=== PATIENT | male | born 1985 | race Caucasian/White ===

== ENCOUNTER 2023-04-11 10:14 | Emergency (ER) | payer OTHER, SELFPAY ==
[2023-04-11 10:15] VITALS: BP 146/91; PULSE 91; RESP 18; TEMP 36.3; O2SAT 99; BMI 29.7
--- NOTE | 2023-04-11 10:20 | NURSING ---
NO OLD EKGS
--- NOTE | 2023-04-11 11:15 | ED.VIS.CHEST ---
HPI History of Present Illness Chief Complaint: Chest Pain Informant: patient Narrative Narrative: Patient presents with chest pain that began 4 days ago. Patient states it began rather suddenly while he was at work. Patient states he bent over and felt pain in his lower sternal area. Patient states it has been constant since that time but waxes and wanes. Patient states it is worse with bending forward and other movements. Patient describes the pain as sharp. Patient states it is better when he is able to rest and not move his chest. Patient admits to some increasing fatigue and decreased appetite. Patient admits to some shortness of breath and acid reflux symptoms. Patient denies any fevers or chills. CVD Risk Factors: Negative for Hypertension, Diabetes, Hypercholesterolemia, Family History 1' </=55 or Smoking PE Risk Factors: Negative for Recent Travel/Surgery, Recent Immobilization, Prior DVT or PE, Cancer or OCP + Smoking + >/=35 PFSH PFSH Medical History no medical history no medical history Home Medications No Known/Unobtainable [No Known Home Medications] 10/25/16 [History Last Taken Unknown] Allergy/AdvReac Type Severity Reaction Status Date / Time No Known Allergies Allergy Verified 04/11/23 10:14 Surgical History S/P ORIF (open reduction internal fixation) fracture Social History Smoking Status: Never smoker ROS ROS ED Constitutional Constitutional ED: Denies chills or fever(s) Eyes Eyes: Denies blurry vision or change in vision ENT ENT ED: Denies rhinorrhea or sore throat Cardiovascular Cardiovascular: Reports chest pain; Denies palpitations Respiratory/Chest Respiratory/Chest: Reports dyspnea; Denies cough Gastrointestinal Gastrointestinal: Denies nausea or vomiting Genitourinary Genitourinary ED: Denies dysuria or hematuria Musculoskeletal Musculoskeletal: Denies back pain or neck pain Integumentary Denies abscess or rash Neurologic Neurologic: Denies headache(s) or weakness Allergic/Immunologic Allergic/Immunologic ED: Denies mouth swelling or urticaria EXAM Physical Exam Const Vital Signs: 04/11/23 10:15 04/11/23 11:32 Temperature 97.3 F L Temperature Source Temporal Pulse Rate 91 Respiratory Rate 18 Respiratory Effort Normal Non-Labored Blood Pressure 146/91 H Blood Pressure Mean 109 Pulse Ox 99 Oxygen Delivery Method Room Air Positive well nourished and well developed General Appearance ED: well developed and NAD HEENT Reports moist mucous membranes Neck supple and no JVD Chest Wall Chest Narrative: There is tenderness over the lower sternum and xiphoid process. There is mild tenderness over the epigastric area as well. Resp normal respiratory effort and clear to auscultation bilaterally Cardio regular rate and regular rhythm GI soft to palpation and non-distended GI Narrative: There is mild tenderness over the right upper quadrant and epigastric area. There is no rebound or guarding noted. Extremity normal to inspection Neuro oriented x3, CN's II-XII intact bilaterally and no sensory deficits noted Sensorium / Orientation: awake and alert Motor Exam: strength 5/5 throughout Psych mental status grossly normal Heart Score History: Slightly/Non-Suspicious ECG: Normal Age: </= 45 years Risk Factors: 1 or 2 Risk Factors Score: 1 MDM MDM MDM Narrative Medical decision making narrative: Differential diagnosis includes cardiac dysrhythmia, cardiac ischemia, pneumonia, pneumothorax, musculoskeletal pain, cholecystitis, cholelithiasis, pancreatitis, GERD, and esophagitis. EKG will be obtained to assess for cardiac dysrhythmia and cardiac ischemia. Chest x-ray will be obtained to assess for pneumonia and pneumothorax. CBC will be obtained to assess for leukocytosis and anemia. Comprehensive metabolic profile will be obtained to assess for hepatic function, renal function, and electrolyte abnormality. Lipase will be obtained to assess for pancreatitis. High-sensitivity troponin will be obtained to assess for cardiac ischemia. COVID-19 rapid antigen will be obtained to assess for COVID-19 infection. Influenza A and influenza B antigens will be obtained to assess for influenza infection. Lab Data Attestation: I reviewed the patient's lab results. Lab results narrative: CBC was reviewed. White blood cell count was slightly low at 3.9. The remainder was within normal limits. Comprehensive metabolic profile was reviewed. Total bilirubin was 2.4, AST was 123, ALT was 476, and alkaline phosphatase was 184. Remainder was within normal limits. Lipase was reviewed and was normal at 54. COVID-19 rapid antigen was reviewed and was negative. Influenza A and influenza B antigens were reviewed and were negative. Labs: Laboratory Results - last 24 hr 04/11/23 10:35 WBC 3.9 L RBC 5.06 Hgb 15.0 Hct 45.2 MCV 89.3 MCH 29.6 MCHC 33.2 RDW Std Deviation 42.1 RDW Coeff of Valerie 12.8 Plt Count 209 MPV 10.9 Immature Gran % (Auto) 0.300 Neut % (Auto) 69.5 Lymph % (Auto) 21.5 [place] % (Auto) 7.4 Eos % (Auto) 0.8 Baso % (Auto) 0.5 Absolute Neuts (auto) 2.7 Absolute Lymphs (auto) 0.84 Nucleated RBC % 0 Sodium 139 Potassium 4.2 Chloride 106 Carbon Dioxide 27.0 Anion Gap 6 BUN 12 Creatinine 1.05 Estim Creat Clear Calc 117.36 Est GFR (MDRD) Af Amer 103 Est GFR (MDRD) Non-Af 85 BUN/Creatinine Ratio 11.4 Glucose 100 Calcium 9.2 Total Bilirubin 2.40 H AST 123 H ALT 476 H Alkaline Phosphatase 184 H Troponin I High Sens 6 Total Protein 7.2 Albumin 3.9 Globulin 3.3 Albumin/Globulin Ratio 1.2 Lipase 54 Radiography Chest X-Ray - ED: 2 View, Read by ED Physician, Read by Radiologist and No Acute Disease Diagnostic Testing: Clinical Impression(s) from Imaging Studies Chest X-Ray 04/11/23 11:25 IMPRESSION: Questionable focal lingular infiltrate. Electronically Signed: Michael Palomo MD at 12:08 EST , Gallbladder Ultrasound 04/11/23 12:21 IMPRESSION: Mild distention of the gallbladder with sludge seen within the gallbladder lumen. Mild hepatomegaly. Electronically Signed: Michael Palomo MD at 14:06 EST , PA and lateral chest x-ray was obtained. There are 2 views. On my independent interpretation, lung boo are clear. There is normal cardiac silhouette. Bony thorax is normal. There is no acute process noted. Radiologist also interpreted the x-ray and agrees. Because of the elevated bilirubin and liver enzymes, right upper quadrant ultrasound was obtained. There is mild distention of the gallbladder with sludge in the gallbladder lumen. There is mild hepatomegaly. There is no pericholecystic fluid. There is no gallbladder wall thickening. There is no ductal dilatation. This was interpreted by the radiologist and was also independently reviewed by myself. EKG Initial EKG: Attestation: I personally reviewed and interpreted this EKG as follows: Interpretation: Sinus Rhythm (79) and No Acute Injury Pattern Comments: EKG was obtained. On my independent interpretation, it showed a normal sinus rhythm with a rate of 79. CO interval, QRS interval, and QTc intervals were all normal. [place] was normal. There are no acute ST or T wave changes. Prior EKG tracings: not available for review Prior: No Prior Treatment and Re-Evaluation :: Patient was given aspirin here. Patient was feeling better on reevaluation. Patient was advised of his findings. Patient was instructed to take ibuprofen as needed for pain. Patient was instructed to follow-up with his primary care physician in 5 to 7 days for further evaluation. Patient was also given referral for general surgery. Patient understood and was agreeable with the plan. All questions were answered. Discharge Plan Triage Chief Complaint: Chest Pain ED Provider: Rickey Nair Dx/Rx/DC Orders Clinical Impression: Chest pain, Sludge in gallbladder Instructions: ED Abdominal Pain Gallstone Poss, ED Chest Pain, Uncertain Cause Prescriptions: No Action No Known Home Medications Primary Care Provider: Care Physician,No Primary Referrals: Tony Whitfield MD [Med Staff - Active Staff] - 5-7 Days Benson Desai DO [Med Staff - [employer] General Supervisor] - 5-7 Days Activity Restrictions/Additional Instructions: Try to avoid fried foods, fatty foods, and greasy foods as this may cause contraction of your gallbladder Disposition Disposition: Home, Self Care
--- NOTE | 2023-04-11 11:25 | RAD_ITS ---
STUDY: X-RAY CHEST REASON FOR EXAM: Male, 37 years old. Substernal chest pain and pressure. TECHNIQUE: PA and lateral views of the chest. COMPARISON: None. FINDINGS: EKG electrodes are seen. Questionable focal lingular infiltrate. There is no demonstrated pleural abnormality. Normal size heart. Normal mediastinum and ky. Normal visualized pulmonary arteries. Normal visualized aortic arch and descending thoracic aorta. Normal visualized thoracic spine. Normal visualized ribs, clavicles, and shoulders. There is no demonstrated abnormality of the visualized soft tissue structures of the upper abdomen. RAD/Chest PA and Lateral IMPRESSION: Questionable focal lingular infiltrate. Electronically Signed: Michael Palomo MD at 12:08 [facility] ,
[2023-04-11] MEDS: Aspirin 81 MG TAB.CHEW 324 MG PO (11:27)
[2023-04-11] MEDS: 0.9% Normal Saline (1000mL) 1,000 ML 1000 ML IV (11:27)
[2023-04-11 11:38] LABS: Absolute Lymphocyte Count 0.84 X10^3/uL (0.83-4.51); Absolute Neutrophil Count 2.7 X10^3/uL (2.0-7.7); Basophil# 0.02 X10^3/uL; Basophil% 0.5 % (0-1); Eosinophil# 0.03 X10^3/uL; Eosinophils% 0.8 % (0-5); Hematocrit 45.2 % (40-54); Lymphocyte # 0.84 X10^3/ul (0.83-4.51); Lymphocyte % 21.5 % (19-41); Mean Corp Hgb Conc 33.2 g/dL (32-36); Mean Corpuscular Hgb 29.6 pg (27.0-32.0); Mean Corpuscular Volume 89.3 fL (80-94); Mean Platelet Vol. 10.9 fl (6.2-12.0); Monocyte# 0.29 X10^3/uL; Monocyte% 7.4 % (0-10); NRBC Flagged by Analyzer 0 % (0-5); Neutrophil # 2.72 X10^3/uL (2.7-7.7); Neutrophil % 69.5 % (47-70); Platelet Count 209 K/mm3 (150-450); RBC Distribution Width CV 12.8 % (11.6-14.6); RBC Distribution Width SD 42.1 fl (35.1-43.9); Red Blood Count 5.06 M/mm3 (4.6-6.2); White Blood Count 3.9 K/mm3 (4.4-11.0)
[2023-04-11 11:52] LABS: ALB/GLOB Ratio 1.2 RATIO (0.9-2.4); AST(SGOT) 123 U/L (15-37); Alanine Aminotransfer ALT/SGPT 476 U/L (16-61); Albumin, Serum 3.9 g/dL (3.2-5.0); Alkaline Phosphatase 184 U/L (45-117); Anion Gap 6 (5-15); BUN 12 mg/dL (7-18); BUN/Creat Ratio 11.4 RATIO (10-20); Calcium,Total 9.2 mg/dL (8.5-10.1); Chloride 106 mmol/L (98-107); Creatinine, Serum 1.05 mg/dL (0.70-1.30); EST Glomerular Filtration Rate 85 mL/min (>60); Est Glom Filt Rate - Afr Amer 103 mL/min (>60); Estimated Creatinine Clearance 117.36 ml/min; Globulin 3.3 g/dL (2.2-4.2); Glucose 100 mg/dL (74-106); Lipase 54 U/L (13-75); Potassium 4.2 mmol/L (3.5-5.1); Protein, Total 7.2 g/dL (6.4-8.2); Sodium Level 139 mmol/L (136-145); Troponin-I HS 6 pg/mL (3.0-78.0)
--- NOTE | 2023-04-11 12:21 | US_ITS ---
STUDY: ABDOMINAL ULTRASOUND - RIGHT UPPER QUADRANT REASON FOR VISIT: Male, 37 years old. Right upper quadrant pain. TECHNIQUE: Ultrasound evaluation of the right upper quadrant was performed with real-time and static krishnamurthy-scale imaging. TECHNICAL QUALITY: Adequate. COMPARISON: None. FINDINGS: Liver: The liver is mildly enlarged and measures 18.4 cm. There is normal echogenicity of the liver. The bile ducts are within normal limits. There is hepatic color flow. The direction of portal flow is hepatopetal. There is no demonstrated mass lesion. Gallbladder: There is a mildly distended gallbladder. The gallbladder wall measures 3 mm. There is a negative sonographic Salgado''s sign. There is no pericholecystic fluid. There are no gallstones. Sludge is seen within the gallbladder lumen. Common Bile Duct (C.B.D.): The common bile duct measures 3 mm. Pancreas: Normal size of the head, body and tail of the pancreas. There is normal echogenicity of the pancreas. There is no demonstrated pancreatic mass or cyst. Right Kidney: Normal size of the right kidney. The right kidney measures 10.9 cm x 6.3 cm x 5.6 cm. Normal renal cortex. The right cortex measures 2.0 cm. There is no demonstrated renal mass or cyst. There is no right hydronephrosis. US/Gallbladder IMPRESSION: Mild distention of the gallbladder with sludge seen within the gallbladder lumen. Mild hepatomegaly. Electronically Signed: Michael Palomo MD at 14:06 EST ,
== END 2023-04-11 14:42 | disposition home or self-care (01) ==
PROVIDERS: Emergency Provider Emergency Medicine; Visit Provider Emergency Medicine
DX: R07.9 Chest pain, unspecified (principal); K83.8 Other specified diseases of biliary tract; R06.02 Shortness of breath
CPT/HCPCS: 71046; 76705; 80053; 83690; 84484; 85025; 87428; 93005; 96360; 99284; J7030; A4216

== ENCOUNTER 2023-04-17 11:17 | Inpatient (IN) | payer OTHER, SELFPAY ==
[2023-04-17 11:18] VITALS: BP 144/95; PULSE 89; RESP 16; TEMP 36.1; O2SAT 100; BMI 28.9
--- NOTE | 2023-04-17 11:29 | EX.ED.DYSGE1 ---
HPI <NE Rosas - Last Filed: 04/17/23 13:19> History of Present Illness Chief Complaint: Abd Pain Narrative Narrative: 37-year-old male was seen here a week ago for epigastric pain and diagnosed with gallbladder sludge. He was supposed to follow-up with the general surgeon on 04/22 but states about 2 days ago he started to become jaundiced and he continues to have epigastric pain. The pain is constant at a low level but waxes and wanes without a pattern. This morning he ate a banana which actually made him feel better. He has no nausea or vomiting. No fever or chills. He has noticed his urine looks darker and his stools are gee-colored. He has had no abdominal surgical history. He denies smoking or drinking alcohol frequently. PFSH <NE Rosas - Last Filed: 04/17/23 13:19> PFSH Home Medications No Known/Unobtainable [No Known Home Medications] 10/25/16 [History Last Taken Unknown] Allergy/AdvReac Type Severity Reaction Status Date / Time No Known Allergies Allergy Verified 04/11/23 10:14 Surgical History S/P ORIF (open reduction internal fixation) fracture Social History Smoking Status: Never smoker ROS <NE Rosas - Last Filed: 04/17/23 13:19> ROS ED ROS Narrative Constitutional: Negative for fever, chills, malaise. GI: Positive for abdominal pain. Negative for nausea, vomiting, diarrhea, constipation, melena, hematochezia. : Negative for dysuria, hematuria or frequency. Skin: Negative for rash. EXAM <NE Rosas - Last Filed: 04/17/23 13:19> Physical Exam Narrative Exam Narrative: CONST: Patient sitting in no acute distress. EYES: Scleral icterus. NECK: Normal inspection. RESP: No respiratory distress, CTAB. CVS: Regular rate and rhythm, no murmur, no gallop. ABD: Soft with RUQ and epigastric tenderness, negative Salgado sign, no guarding or rebound, nondistended, no hepatosplenomegaly. SKIN: Mildly jaundiced, no rash, warm, dry, intact. EXTREMITIES: Normal appearance, no pedal edema. NEURO: Oriented x4. PSYCH: Normal affect. Const Vital Signs: 04/17/23 11:18 Temperature 96.9 F L Temperature Source Temporal Pulse Rate 89 Respiratory Rate 16 Blood Pressure 144/95 H Blood Pressure Mean 111 Pulse Ox 100 Oxygen Delivery Method Room Air <Dr. Rickey Nair DO - Last Filed: 04/17/23 16:42> Physical Exam Const Vital Signs: 04/17/23 11:18 Temperature 96.9 F L Temperature Source Temporal Pulse Rate 89 Respiratory Rate 16 Blood Pressure 144/95 H Blood Pressure Mean 111 Pulse Ox 100 Oxygen Delivery Method Room Air MDM <NE Rosas - Last Filed: 04/17/23 13:19> MDM MDM Narrative Medical decision making narrative: History gathered from: Patient and family member Patient had an ultrasound a week ago showing gallbladder sludge and presents with persistent epigastric pain and new onset jaundice. He appears well and nontoxic and is afebrile with normal vital signs. He is tender in the RUQ and epigastrium but has no guarding or rebound and negative Salgado sign. Differential includes cholecystitis, choledocholithiasis, pancreatitis. White count is 6.2. Total bilirubin is significantly elevated at 7.1, AST 128, ALT 405, alk phos 271, lipase 12,333. CT shows finding of cholecystitis and intra and extrahepatic biliary dilation. Common bile duct is dilated over 10 mm. There are also has findings which may suggest acute pancreatitis. Patient was treated with IV Zosyn and I discussed the case with Dr. Watkins who admitted the patient and requested a gallbladder ultrasound which is pending. Consults: General surgery Lab Data Attestation: I reviewed the patient's lab results. Labs: Laboratory Results - last 24 hr 04/17/23 11:51 WBC 6.2 RBC 4.99 Hgb 14.5 Hct 45.3 MCV 90.8 MCH 29.1 MCHC 32.0 RDW Std Deviation 43.7 RDW Coeff of Valerie 13.0 Plt Count 226 MPV 10.6 Immature Gran % (Auto) 0.500 Neut % (Auto) 79.2 H Lymph % (Auto) 12.5 L [place] % (Auto) 7.0 Eos % (Auto) 0.5 Baso % (Auto) 0.3 Absolute Neuts (auto) 4.9 Absolute Lymphs (auto) 0.77 L Nucleated RBC % 0 Sodium 136 Potassium 4.1 Chloride 105 Carbon Dioxide 28.0 Anion Gap 3 L BUN 7 Creatinine 1.03 Estim Creat Clear Calc 119.64 Est GFR (MDRD) Af Amer 105 Est GFR (MDRD) Non-Af 87 BUN/Creatinine Ratio 6.8 L Glucose 135 H Calcium 9.1 Total Bilirubin 7.10 H Direct Bilirubin 5.05 H AST 128 H ALT 405 H Alkaline Phosphatase 271 H Total Protein 7.2 Albumin 3.8 Globulin 3.4 Lipase 54900 H Radiography Diagnostic Testing: Clinical Impression(s) from Imaging Studies Abdomen/Pelvis CT 04/17/23 11:35 IMPRESSION: Abnormal gallbladder with gallbladder wall thickening and pericholecystic edema. Additionally, there is intra and extrahepatic biliary dilatation suggesting cholecystitis. However, there is also evidence of peripancreatic free fluid so findings could be due to acute pancreatitis as well. Please correlate with lab results and physical findings. No phlegmon or abscess is noted. Surgical consultation recommended. No obstructive uropathy, normal appendix visualized Electronically Signed: Jose Bliss MD at 12:28 EST , Gallbladder Ultrasound 04/17/23 12:37 IMPRESSION: Distended gallbladder with gallbladder wall thickening, echogenic sludge, and biliary dilatation. A CT scan from earlier today also showed free fluid. Findings are suggestive of acute cholecystitis. Electronically Signed: Jose Bliss MD at 14:20 EST , <Dr. Rickey Nair, DO - Last Filed: 04/17/23 16:42> [facility] Lab Data Labs: Laboratory Results - last 24 hr 04/17/23 11:51 WBC 6.2 RBC 4.99 Hgb 14.5 Hct 45.3 MCV 90.8 MCH 29.1 MCHC 32.0 RDW Std Deviation 43.7 RDW Coeff of Valerie 13.0 Plt Count 226 MPV 10.6 Immature Gran % (Auto) 0.500 Neut % (Auto) 79.2 H Lymph % (Auto) 12.5 L [place] % (Auto) 7.0 Eos % (Auto) 0.5 Baso % (Auto) 0.3 Absolute Neuts (auto) 4.9 Absolute Lymphs (auto) 0.77 L Nucleated RBC % 0 Sodium 136 Potassium 4.1 Chloride 105 Carbon Dioxide 28.0 Anion Gap 3 L BUN 7 Creatinine 1.03 Estim Creat Clear Calc 119.64 Est GFR (MDRD) Af Amer 105 Est GFR (MDRD) Non-Af 87 BUN/Creatinine Ratio 6.8 L Glucose 135 H Calcium 9.1 Total Bilirubin 7.10 H Direct Bilirubin 5.05 H AST 128 H ALT 405 H Alkaline Phosphatase 271 H Total Protein 7.2 Albumin 3.8 Globulin 3.4 Lipase 01321 H Radiography Diagnostic Testing: Clinical Impression(s) from Imaging Studies Abdomen/Pelvis CT 04/17/23 11:35 IMPRESSION: Abnormal gallbladder with gallbladder wall thickening and pericholecystic edema. Additionally, there is intra and extrahepatic biliary dilatation suggesting cholecystitis. However, there is also evidence of peripancreatic free fluid so findings could be due to acute pancreatitis as well. Please correlate with lab results and physical findings. No phlegmon or abscess is noted. Surgical consultation recommended. No obstructive uropathy, normal appendix visualized Electronically Signed: Jose Bliss MD at 12:28 EST , Gallbladder Ultrasound 04/17/23 12:37 IMPRESSION: Distended gallbladder with gallbladder wall thickening, echogenic sludge, and biliary dilatation. A CT scan from earlier today also showed free fluid. Findings are suggestive of acute cholecystitis. Electronically Signed: Jose Bliss MD at 14:20 EST , Treatment and Re-Evaluation :: I have personally performed a face to face assessment of the patient and have reviewed the TRUDY Note. I performed a substantive portion of the visit including all aspects of the following. My dorsey findings include: History: Patient presents with abdominal pain that became worse over the past few days. Patient was seen here recently and was diagnosed with gallbladder sludge and transaminitis. Patient states he has not been able to follow-up with a surgeon yet. Patient states that he noted his urine becoming darker and his eyes were yellow. Patient states his pain is getting lower in his abdomen. Patient denies any worsening back pain. Patient denies any fevers or chills. Exam: Vital signs are stable. Patient is afebrile. Patient is in no acute distress. Oral mucosa is pink and moist. Neck is supple. Trachea is midline. There is no JVD. Pupils are equal, round, and reactive to light bilaterally. Extraocular muscles are intact. There is scleral icterus noted. Heart was regular rate and rhythm. Lungs are clear and equal bilaterally. Abdomen is soft. Bowel sounds are normal. There is some mild periumbilical tenderness. There is also epigastric and right upper quadrant tenderness. There is no rebound or guarding noted. Cranial nerves II through XII are intact. There are no focal motor or sensory deficits noted. Medical Decision Making: Differential diagnosis includes hepatitis, gallbladder obstruction, cholecystitis, cholelithiasis, bowel obstruction, perforation, and gastroenteritis. CT scan of the abdomen pelvis will be obtained to assess for bowel obstruction, perforation, cholecystitis, and cholelithiasis. CBC will be obtained to assess for leukocytosis and anemia. Basic metabolic profile will be obtained to assess for renal function and electrolyte abnormality. Hepatic profile will be obtained to assess for hepatic function. Lipase will be obtained to assess for pancreatitis. Patient was given IV fluids, morphine, and Zofran. CBC was reviewed and was within normal limits. Hepatic profile was reviewed. Total bilirubin was 7.1 and direct bilirubin was 5.05. AST was slightly elevated at 128, ALT was elevated at 405. Alkaline phosphatase was 271. [place] [address] scan of the abdomen pelvis was reviewed. There is gallbladder wall thickening and pericholecystic fluid. There is biliary ductal dilatation. There is peripancreatic fluid which could be consistent with pancreatitis. This was interpreted by the radiologist was also independently reviewed by myself. Case was discussed with Dr. Watkins from general surgery. He recommended obtaining a right upper quadrant ultrasound. Right upper quadrant ultrasound was obtained. There is a distended gallbladder with gallbladder wall thickening and sludge. There is biliary ductal dilatation. There are no calculi noted. This was interpreted by the radiologist was also independently reviewed by myself. Dr. Watkins was in to evaluate the patient and will admit the patient to his service. Patient and family understood and were agreeable with the plan. All questions were answered. Discharge Plan Dx/Rx/DC Orders Clinical Impression: Cholecystitis, Acute pancreatitis Disposition Disposition: Acute Care Hospital [facility] Discharge Date/Time: 04/17/23 15:18
--- NOTE | 2023-04-17 11:35 | CT_ITS ---
STUDY: CT ABDOMEN AND PELVIS WITH CONTRAST REASON FOR EXAM: Male, 37 years old. Jaundice, right upper quadrant pain RADIATION DOSAGE (If Supplied By Facility): CTDIvol = ( 12.7 ) mGy, DLP = ( 841.30 ) mGycm TECHNIQUE: Transaxial images were obtained from the dome of the diaphragm to the symphysis pubis without oral contrast. IV 100mL [id number]-[id number] was administered. Sagittal and coronal images were reconstructed. Individualized dose optimization techniques were used for this CT. COMPARISON: Ultrasound of the abdomen from 04/11/2023 gallbladder shows wall thickening and pericholecystic fluid FINDINGS: The visualized lung bases are unremarkable. The visualized portions of the heart are within normal limits. Mild fatty infiltration of the liver is noted with abnormal intrahepatic and extra biliary dilatation. Common bile duct is dilated to 1.04 cm proximally no obstructing stone is noted. A recent ultrasound showed echogenic sludge within the gallbladder. There is some subtle fluid around the periphery of the pancreas as well. Findings suggest cholecystitis but could be due to pancreatitis as well. There is no pancreatic ductal dilatation however. No pseudocyst or abscess is noted. Spleen is normal. Normal bilateral adrenal glands. Normal right kidney. Normal left kidney. Normal visualized stomach. Normal small intestine. Normal colon. The appendix is visualized and appears normal. Appendix seen on coronal reconstructed image 54 Normal abdominal aorta. Normal inferior vena cava. Normal retroperitoneum. Normal urinary bladder. Normal abdominal wall. Normal osseous structures. CT/Abdomen/Pelvis W IV Cont ONLY IMPRESSION: Abnormal gallbladder with gallbladder wall thickening and pericholecystic edema. Additionally, there is intra and extrahepatic biliary dilatation suggesting cholecystitis. However, there is also evidence of peripancreatic free fluid so findings could be due to acute pancreatitis as well. Please correlate with lab results and physical findings. No phlegmon or abscess is noted. Surgical consultation recommended. No obstructive uropathy, normal appendix visualized Electronically Signed: Jose Bliss MD at 12:28 EST ,
[2023-04-17] MEDS: Ondansetron 4 MG/2 ML Vial IV ×2 (11:45→20:33)
[2023-04-17] MEDS: 0.9% Normal Saline (1000mL) 1,000 ML 999 ML IV (11:45)
[2023-04-17] MEDS: Morphine 4 MG/ML Syringe IV (11:45)
[2023-04-17 11:58] LABS: Absolute Lymphocyte Count 0.77 X10^3/uL (0.83-4.51); Absolute Neutrophil Count 4.9 X10^3/uL (2.0-7.7); Basophil# 0.02 X10^3/uL; Basophil% 0.3 % (0-1); Eosinophil# 0.03 X10^3/uL; Eosinophils% 0.5 % (0-5); Hematocrit 45.3 % (40-54); Hemoglobin 14.5 g/dL (13.0-16.5); Lymphocyte # 0.77 X10^3/ul (0.83-4.51); Lymphocyte % 12.5 % (19-41); Mean Corpuscular Hgb 29.1 pg (27.0-32.0); Mean Corpuscular Volume 90.8 fL (80-94); Mean Platelet Vol. 10.6 fl (6.2-12.0); Monocyte# 0.43 X10^3/uL; NRBC Flagged by Analyzer 0 % (0-5); Neutrophil # 4.87 X10^3/uL (2.7-7.7); Neutrophil % 79.2 % (47-70); Platelet Count 226 K/mm3 (150-450); RBC Distribution Width SD 43.7 fl (35.1-43.9); Red Blood Count 4.99 M/mm3 (4.6-6.2); White Blood Count 6.2 K/mm3 (4.4-11.0)
[2023-04-17 12:17] LABS: AST(SGOT) 128 U/L (15-37); Alanine Aminotransfer ALT/SGPT 405 U/L (16-61); Albumin, Serum 3.8 g/dL (3.2-5.0); Alkaline Phosphatase 271 U/L (45-117); Bilirubin, Direct 5.05 mg/dL (0.00-0.30); Globulin 3.4 g/dL (2.2-4.2); Protein, Total 7.2 g/dL (6.4-8.2)
--- NOTE | 2023-04-17 12:37 | US_ITS ---
STUDY: ABDOMINAL ULTRASOUND - RIGHT UPPER QUADRANT REASON FOR VISIT: Male, 37 years old ruq pain TECHNIQUE: Ultrasound evaluation of the right upper quadrant was performed with real-time and static krishnamurthy-scale imaging. TECHNICAL QUALITY: Limited. Examination limited by bowel gas. COMPARISON: CT from earlier today FINDINGS: Liver: The liver measures 16.3 cm. There is normal echogenicity of the liver. The bile ducts are within normal limits. There is hepatic color flow. The direction of portal flow is hepatopetal. There is no demonstrated mass lesion. Gallbladder: There is a distended gallbladder. The gallbladder wall measures 6.2 mm. There is a negative sonographic Salgado''s sign. [address] Reporter notes no pericholecystic fluid but there was pericholecystic fluid present on a CT scan from earlier today There is biliary sludge dependent within the gallbladder. Common Bile Duct (C.B.D.): The common bile duct measures 10.8 mm. Pancreas: There is nonvisualization of the pancreas. Right Kidney: Normal size of the right kidney. The right kidney measures 11.2 x 5.5 x 4.5 cm. Normal renal cortex. The right cortex measures 1.3 cm. There is no demonstrated renal mass or cyst. There is no right hydronephrosis. US/Gallbladder IMPRESSION: Distended gallbladder with gallbladder wall thickening, echogenic sludge, and biliary dilatation. A CT scan from earlier today also showed free fluid. Findings are suggestive of acute cholecystitis. Electronically Signed: Jose Bliss MD at 14:20 EST ,
[2023-04-17 12:39] LABS: Anion Gap 3 (5-15); BUN 7 mg/dL (7-18); BUN/Creat Ratio 6.8 RATIO (10-20); Calcium,Total 9.1 mg/dL (8.5-10.1); Chloride 105 mmol/L (98-107); Creatinine, Serum 1.03 mg/dL (0.70-1.30); EST Glomerular Filtration Rate 87 mL/min (>60); Est Glom Filt Rate - Afr Amer 105 mL/min (>60); Estimated Creatinine Clearance 119.64 ml/min; Glucose 135 mg/dL (74-106); Lipase 12333 U/L (13-75); Potassium 4.1 mmol/L (3.5-5.1); Sodium Level 136 mmol/L (136-145)
[2023-04-17] MEDS: Piperacil/Tazobactam 3.375 GM in 0.9% Normal Saline (50mL MB+) 50 ML IV ×2 (13:05→20:33)
--- NOTE | 2023-04-17 13:26 | HP.PCM_ITS ---
HPI - General General Date of Admission: 04/17/23 Date of Service: 04/17/23 Chief Complaint: Progressive abdominal pain with associated nausea and jaundice HPI Narrative ANA LANE, is a 37 M who presents to [facility] with complaints of progressive abdominal pain, associated nausea, and the development of jaundice. He shares he was evaluated in our emergency department 6 days ago for pain that he perceived as being higher than his current pain. He shares that this pain never fully went away, but has now been joined by more abdominal pain (at 1 point patient tries to distinguish his former pain as occurring just behind his breastbone. He states that this latter pain began approximately 3 days ago and has been colicky in nature. Acknowledges some nausea and poor appetite but has not had any vomiting. He then states that he started with jaundice in the last day or two. Beyond the above he remarks that he has had some dark urine over the last couple of days and his past 2 stools have been light in character. Patient's ER workup is notable for CBC that shows normal white count but CMP that shows cholestatic pattern to patient's LFTs as well as hyperbilirubinemia with a T. bili of 7.1. Patient's lipase is greater than 12,000. CT imaging of the abdomen pelvis was performed showing gallbladder wall thickening, intra and extrahepatic biliary dilatation, and peripancreatic fluid. Patient has no significant past medical history and his only prior surgery was an ORIF to his left arm as a child. [facility] Home Medications No Known/Unobtainable [No Known Home Medications] 10/25/16 [History Last Taken Unknown] Allergy/AdvReac Type Severity Reaction Status Date / Time No Known Allergies Allergy Verified 04/11/23 10:14 Surgical History S/P ORIF (open reduction internal fixation) fracture Social History Smoking Status: Never smoker ROS Constitutional Constitutional: Reports chills Gastrointestinal Gastrointestinal: Reports abdominal pain, anorexia, change in stool character, nausea and other Details: Light stools ; Denies constipation or vomiting Genitourinary Genitourinary: Reports other Details: Dark urine noticed Vital Signs Vital Signs Vital Signs: 04/17/23 11:18 Temperature 96.9 F L Temperature Source Temporal Pulse Rate 89 Respiratory Rate 16 Blood Pressure 144/95 H Blood Pressure Mean 111 Pulse Ox 100 Oxygen Delivery Method Room Air Weight Weight: 231 lb 3.2 oz Body Mass Index (BMI) 28.9 Physical Exam Const alert and oriented x3 Constitutional Narrative: Jaundiced General Appearance: cooperative Eyes Eyes Narrative: Scleral icterus present Resp normal respiratory effort GI GI Narrative: Jaundice present across abdominal wall, nondistended, soft, tender to palpation in the epigastrium and right upper quadrant. Technically negative Salgado sign. Results Lab / Micro Data 04/17/23 11:51 04/17/23 11:51 Labs: Laboratory Results - last 24 hr 04/17/23 11:51: WBC 6.2, RBC 4.99, Hgb 14.5, Hct 45.3, MCV 90.8, MCH 29.1, MCHC 32.0, RDW Std Deviation 43.7, RDW Coeff of Valerie 13.0, Plt Count 226, MPV 10.6, Immature Gran % (Auto) 0.500, Neut % (Auto) 79.2 H, Lymph % (Auto) 12.5 L, [place] % (Auto) 7.0, Eos % (Auto) 0.5, Baso % (Auto) 0.3, Absolute Neuts (auto) 4.9, Absolute Lymphs (auto) 0.77 L, Nucleated RBC % 0, Sodium 136, Potassium 4.1, Chloride 105, Carbon Dioxide 28.0, Anion Gap 3 L, BUN 7, Creatinine 1.03, Estim Creat Clear Calc 119.64, Est GFR (MDRD) Af Amer 105, Est GFR (MDRD) Non-Af 87, BUN/Creatinine Ratio 6.8 L, Glucose 135 H, Calcium 9.1, Total Bilirubin 7.10 H, Direct Bilirubin 5.05 H, AST 128 H, ALT 405 H, Alkaline Phosphatase 271 H, Total Protein 7.2, Albumin 3.8, Globulin 3.4, Lipase 22126 H Imagaing Radiology Impression Abdomen/Pelvis CT 04/17/23 11:35 IMPRESSION: Abnormal gallbladder with gallbladder wall thickening and pericholecystic edema. Additionally, there is intra and extrahepatic biliary dilatation suggesting cholecystitis. However, there is also evidence of peripancreatic free fluid so findings could be due to acute pancreatitis as well. Please correlate with lab results and physical findings. No phlegmon or abscess is noted. Surgical consultation recommended. No obstructive uropathy, normal appendix visualized Electronically Signed: Jose Bliss MD at 12:28 EST , Assessment & Plan Assessment/Plan (1) Acute gallstone pancreatitis: (2) Cholecystitis: PLAN: Plan This is a 37-year-old male who presents with signs and symptoms of acute gallstone pancreatitis and acute cholecystitis. He shares a history of a prodromal period beginning proximately 1 week ago that has gradually int ensified. It has been in the last 24 to 48 hours that he is also developed some jaundice. He exhibits tenderness on exam consistent with these diagnoses. CT imaging of the abdomen pelvis was initially performed, but I have requested additional imaging with ultrasound to try to elicit any evidence of persistent choledocholithiasis. I held a detailed conversation with patient and his spouse?inclusive of hand drawings?in order to present the diagnoses and the relevant anatomy and physiology. I discussed the treatment of this condition as including probable ERCP followed by cholecystectomy once pancreatitis has improved. They expressed understanding of this information and are in agreement with proceeding with treatment as described. Prior to accepting patient for inpatient admission I did confirm with our research/program director, Dr. Thompson, that he has availability to see patient tomorrow for possible ERCP. A formal consultation has been extended as well. Neuro: As needed Dilaudid Pulm/CV: No current issues FEN/GI: Clear liquid diet then n.p.o. at midnight, trend abdominal exam and lipase, GI consult : No current issues Heme/ID: Trend CBC, will look to decrease hematocrit through aggressive resuscitation with IV fluid rate of 200 mL/h, empiric coverage with IV Zosyn Endo: No current issues Proph: SCDs Dispo: Admit to inpatient Charges/Coding Visit Charges Inpatient E&M: 80319 Subs Hosp L2
[2023-04-17] MEDS: HYDROmorphone 0.5 MG/0.5 ML SYRINGE IV ×2 (15:05→20:33)
[2023-04-17] MEDS: 0.9% Normal Saline (1000mL) 1,000 ML 200 ML IV ×2 (15:05→20:23)
[2023-04-17 15:11] VITALS: BP 132/76; PULSE 80; RESP 18; TEMP 36.8; O2SAT 100
[2023-04-17 15:33] VITALS: BMI 26.7
[2023-04-17 15:45] VITALS: BP 123/82; PULSE 78; RESP 16; TEMP 36.8; O2SAT 99
[2023-04-17 15:48] VITALS: BP 123/82; PULSE 78; RESP 16; TEMP 36.8; O2SAT 99
[2023-04-17] MEDS: 0.9% Saline Lock 10 ML Syringe IV (20:33)
[2023-04-17] MEDS: 0.9% Normal Saline (250mL Bag) 250 ML 15 ML IV (20:34)
[2023-04-17 20:50] VITALS: BP 120/76; PULSE 74; RESP 16; TEMP 37.2; O2SAT 99
--- NOTE | 2023-04-17 23:00 | CON.PCM.GI_ITS ---
HPI Consult Data Date of Consult: 04/17/23 HPI Narrative Reason for Consultation: Gallstone pancreatitis HPI Narrative: ANA LANE, is a 37 M who presents with intermittent epigastric pain and jaundice. He presented a week ago for epigastric pain and diagnosed with gallbladder sludge. He was supposed to follow-up with the general surgeon on 04/22 but states about 2 days ago he started to become jaundiced and he continues to have epigastric pain. The pain is constant at a low level but waxes and wanes without a pattern. This morning he ate a banana which actually made him feel better. He has no nausea or vomiting. No fever or chills. He has noticed his urine looks darker and his stools are gee-colored. He has had no abdominal surgical history. He denies smoking or drinking alcohol frequently. In the ED ED he was mildly hypertensive without tachycardia and afebrile. His CBC showed a white blood cell count of 6.2, hemoglobin of 14.5, hematocrit of 45, platelet count of 226. His bilirubin total was 7.1 with direct bilirubin being 5.05, AST of 128, ALT of 405 and he had a lipase of 12,333. CT scan of the abdomen pelvis displayed - mild fatty infiltration of the liver is noted with abnormal intrahepatic and extra biliary dilatation. Common bile duct is dilated to 1.04 cm proximally no obstructing stone is noted. A recent ultrasound showed echogenic sludge within the gallbladder. There is some subtle fluid around the periphery of the pancreas as well. Findings suggest cholecystitis but could be due to pancreatitis as well. There is no pancreatic ductal dilatation however. No pseudocyst or abscess is noted. I was consulted for therapeutic ERCP. [facility] Home Medications No Known/Unobtainable [No Known Home Medications] 10/25/16 [History Last Taken Unknown] Allergy/AdvReac Type Severity Reaction Status Date / Time No Known Allergies Allergy Verified 04/11/23 10:14 Surgical History S/P ORIF (open reduction internal fixation) fracture Social History Smoking Status: Never smoker ROS Constitutional Constitutional: Reports chills Gastrointestinal Gastrointestinal: Reports abdominal pain, anorexia, change in stool character, nausea and other Details: Light stools ; Denies constipation or vomiting Genitourinary Genitourinary: Reports other Details: Dark urine noticed Physical Exam Const alert and oriented x3 Constitutional Narrative: Jaundiced General Appearance: cooperative Eyes Eyes Narrative: Scleral icterus present Resp normal respiratory effort GI GI Narrative: Jaundice present across abdominal wall, nondistended, soft, tender to palpation in the epigastrium and right upper quadrant. Lab / Micro Data 04/18/23 04:33 04/18/23 04:33 Labs: Laboratory Results - last 24 hr 04/17/23 11:51: WBC 6.2, RBC 4.99, Hgb 14.5, Hct 45.3, MCV 90.8, MCH 29.1, MCHC 32.0, RDW Std Deviation 43.7, RDW Coeff of Valerie 13.0, Plt Count 226, MPV 10.6, Immature Gran % (Auto) 0.500, Neut % (Auto) 79.2 H, Lymph % (Auto) 12.5 L, Burke % (Auto) 7.0, Eos % (Auto) 0.5, Baso % (Auto) 0.3, Absolute Neuts (auto) 4.9, Absolute Lymphs (auto) 0.77 L, Nucleated RBC % 0, Sodium 136, Potassium 4.1, Chloride 105, Carbon Dioxide 28.0, Anion Gap 3 L, BUN 7, Creatinine 1.03, Estim Creat Clear Calc 119.64, Est GFR (MDRD) Af Amer 105, Est GFR (MDRD) Non-Af 87, BUN/Creatinine Ratio 6.8 L, Glucose 135 H, Calcium 9.1, Total Bilirubin 7.10 H, Direct Bilirubin 5.05 H, AST 128 H, ALT 405 H, Alkaline Phosphatase 271 H, Total Protein 7.2, Albumin 3.8, Globulin 3.4, Lipase 69493 H 04/18/23 04:33: WBC 4.4, RBC 4.25 L, Hgb 12.4 L, Hct 39.1 L, MCV 92.0, MCH 29.2, MCHC 31.7 L, RDW Std Deviation 45.3 H, RDW Coeff of Valerie 13.3, Plt Count 186, MPV 10.6, Immature Gran % (Auto) 0.200, Neut % (Auto) 61.9, Lymph % (Auto) 24.7, Burke % (Auto) 11.6 H, Eos % (Auto) 1.1, Baso % (Auto) 0.5, Absolute Neuts (auto) 2.7, Absolute Lymphs (auto) 1.08, Nucleated RBC % 0, Sodium 139, Potassium 4.2, Chloride 110 H, Carbon Dioxide 25.0, Anion Gap 4 L, BUN 7, Creatinine 0.94, Estim Creat Clear Calc 134.66, Est GFR (MDRD) Af Amer 117, Est GFR (MDRD) Non-Af 97, BUN/Creatinine Ratio 7.4 L, Glucose 85, Calcium 8.1 L, Total Bilirubin 4.30 H, AST 85 H, ALT 297 H, Alkaline Phosphatase 226 H, Total Protein 5.4 L, Albumin 2.9 L, Globulin 2.5, Albumin/Globulin Ratio 1.2, Lipase > 250 H Imagaing Radiology Impression Abdomen/Pelvis CT 04/17/23 11:35 IMPRESSION: Abnormal gallbladder with gallbladder wall thickening and pericholecystic edema. Additionally, there is intra and extrahepatic biliary dilatation suggesting cholecystitis. However, there is also evidence of peripancreatic free fluid so findings could be due to acute pancreatitis as well. Please correlate with lab results and physical findings. No phlegmon or abscess is noted. Surgical consultation recommended. No obstructive uropathy, normal appendix visualized Electronically Signed: Jose Bliss MD at 12:28 EST , Gallbladder Ultrasound 04/17/23 12:37 IMPRESSION: Distended gallbladder with gallbladder wall thickening, echogenic sludge, and biliary dilatation. A CT scan from earlier today also showed free fluid. Findings are suggestive of acute cholecystitis. Electronically Signed: Jose Bliss MD at 14:20 EST , Assessment & Plan Assessment/Plan (1) Acute gallstone pancreatitis: (2) Cholestatic hepatitis: (3) Jaundice: PLAN: Plan 37-year-old gentleman comes in with acute on chronic abdominal pain and discovered to be quite jaundice. He was also discovered to have cholestatic hepatitis and acute pancreatitis. The differential diagnosis does include choledocholithiasis, primary sclerosing giant, IgG associated cholangiopathy, acute pancreatitis. He should undergo ERCP with evaluation of his hepatobiliary system with stone removal and possible stent placement. He was explained alternatives, risk, benefits include not withstanding bleeding, infection, sepsis, perforation, need for emergent surgery . He was also explained the risk of post ERCP pancreatitis and agreed except those risks. He will have an ASA of 3 for the procedure. Charges/Coding Visit Charges Inpatient E&M: 10996 Init Hosp L3
[2023-04-18] VITALS (9 sets, daily range): BP systolic 111–134; BP diastolic 69–86; PULSE 69–95; RESP 16–18; TEMP 36.4–37.1; O2SAT 96–100; BMI 26.7
[2023-04-18] MEDS: 0.9% Normal Saline (1000mL) 1,000 ML 200 ML IV ×3 (01:13→13:16)
[2023-04-18 04:54] LABS: Absolute Lymphocyte Count 1.08 X10^3/uL (0.83-4.51); Absolute Neutrophil Count 2.7 X10^3/uL (2.0-7.7); Basophil# 0.02 X10^3/uL; Basophil% 0.5 % (0-1); Eosinophil# 0.05 X10^3/uL; Eosinophils% 1.1 % (0-5); Hematocrit 39.1 % (40-54); Hemoglobin 12.4 g/dL (13.0-16.5); Lymphocyte # 1.08 X10^3/ul (0.83-4.51); Lymphocyte % 24.7 % (19-41); Mean Corp Hgb Conc 31.7 g/dL (32-36); Mean Corpuscular Hgb 29.2 pg (27.0-32.0); Mean Platelet Vol. 10.6 fl (6.2-12.0); Monocyte# 0.51 X10^3/uL; Monocyte% 11.6 % (0-10); NRBC Flagged by Analyzer 0 % (0-5); Neutrophil # 2.71 X10^3/uL (2.7-7.7); Neutrophil % 61.9 % (47-70); Platelet Count 186 K/mm3 (150-450); RBC Distribution Width CV 13.3 % (11.6-14.6); RBC Distribution Width SD 45.3 fl (35.1-43.9); Red Blood Count 4.25 M/mm3 (4.6-6.2); White Blood Count 4.4 K/mm3 (4.4-11.0)
[2023-04-18] MEDS: Piperacil/Tazobactam 3.375 GM in 0.9% Normal Saline (50mL MB+) 50 ML IV ×3 (05:20→20:20)
[2023-04-18 05:34] LABS: ALB/GLOB Ratio 1.2 RATIO (0.9-2.4); AST(SGOT) 85 U/L (15-37); Alanine Aminotransfer ALT/SGPT 297 U/L (16-61); Albumin, Serum 2.9 g/dL (3.2-5.0); Alkaline Phosphatase 226 U/L (45-117); Anion Gap 4 (5-15); BUN 7 mg/dL (7-18); BUN/Creat Ratio 7.4 RATIO (10-20); Calcium,Total 8.1 mg/dL (8.5-10.1); Chloride 110 mmol/L (98-107); Creatinine, Serum 0.94 mg/dL (0.70-1.30); EST Glomerular Filtration Rate 97 mL/min (>60); Est Glom Filt Rate - Afr Amer 117 mL/min (>60); Estimated Creatinine Clearance 134.66 ml/min; Globulin 2.5 g/dL (2.2-4.2); Glucose 85 mg/dL (74-106); Lipase > 250 U/L (13-75); Potassium 4.2 mmol/L (3.5-5.1); Protein, Total 5.4 g/dL (6.4-8.2); Sodium Level 139 mmol/L (136-145)
[2023-04-18] MEDS: Pantoprazole Sodium 40 MG in 0.9% Normal Saline (100mL MB+) 100 ML 330 MG IV (09:23)
--- NOTE | 2023-04-18 09:53 | NURSING ---
pt to ERCP
--- NOTE | 2023-04-18 11:27 | PCM.PN.SRG ---
Subjective Subjective Patient seen and examined during AM rounds. He is found resting in bed. He states that he is feeling somewhat better this morning. He does confirm that he has been urinating frequently overnight. Objective Data Objective Data Vital Signs: Vital Signs Temp Pulse Resp BP Pulse Ox O2 Del Method 98.4 F 78 16 134/81 H 99 Room Air 04/18/23 08:30 04/18/23 08:30 04/18/23 08:30 04/18/23 08:30 04/18/23 08:30 04/18/23 08:30 Oxygen Delivery Method Room Air Weight: 220 lb Body Mass Index (BMI) 26.7 Intake & Output: Intake and Output for Last 24 Hours 04/16/23 04/17/23 04/18/23 23:59 23:59 23:59 Intake Total 2300 / 2300 2978.42 / 2978.42 Output Total 1200 / 1200 Balance 2300 / 2300 1778.42 / 1778.42 Lab / Micro Data 04/18/23 04:33 04/18/23 04:33 Labs: Laboratory Results - last 24 hr 04/17/23 11:51: WBC 6.2, RBC 4.99, Hgb 14.5, Hct 45.3, MCV 90.8, MCH 29.1, MCHC 32.0, RDW Std Deviation 43.7, RDW Coeff of Valerie 13.0, Plt Count 226, MPV 10.6, Immature Gran % (Auto) 0.500, Neut % (Auto) 79.2 H, Lymph % (Auto) 12.5 L, [place] % (Auto) 7.0, Eos % (Auto) 0.5, Baso % (Auto) 0.3, Absolute Neuts (auto) 4.9, Absolute Lymphs (auto) 0.77 L, Nucleated RBC % 0, Sodium 136, Potassium 4.1, Chloride 105, Carbon Dioxide 28.0, Anion Gap 3 L, BUN 7, Creatinine 1.03, Estim Creat Clear Calc 119.64, Est GFR (MDRD) Af Amer 105, Est GFR (MDRD) Non-Af 87, BUN/Creatinine Ratio 6.8 L, Glucose 135 H, Calcium 9.1, Total Bilirubin 7.10 H, Direct Bilirubin 5.05 H, AST 128 H, ALT 405 H, Alkaline Phosphatase 271 H, Total Protein 7.2, Albumin 3.8, Globulin 3.4, Lipase 39788 H 04/18/23 04:33: WBC 4.4, RBC 4.25 L, Hgb 12.4 L, Hct 39.1 L, MCV 92.0, MCH 29.2, MCHC 31.7 L, RDW Std Deviation 45.3 H, RDW Coeff of Valerie 13.3, Plt Count 186, MPV 10.6, Immature Gran % (Auto) 0.200, Neut % (Auto) 61.9, Lymph % (Auto) 24.7, [place] % (Auto) 11.6 H, Eos % (Auto) 1.1, Baso % (Auto) 0.5, Absolute Neuts (auto) 2.7, Absolute Lymphs (auto) 1.08, Nucleated RBC % 0, Sodium 139, Potassium 4.2, Chloride 110 H, Carbon Dioxide 25.0, Anion Gap 4 L, BUN 7, Creatinine 0.94, Estim Creat Clear Calc 134.66, Est GFR (MDRD) Af Amer 117, Est GFR (MDRD) Non-Af 97, BUN/Creatinine Ratio 7.4 L, Glucose 85, Calcium 8.1 L, Total Bilirubin 4.30 H, AST 85 H, ALT 297 H, Alkaline Phosphatase 226 H, Total Protein 5.4 L, Albumin 2.9 L, Globulin 2.5, Albumin/Globulin Ratio 1.2, Lipase > 250 H Radiography Diagnostic Testing: Radiology Impression Abdomen/Pelvis CT 04/17/23 11:35 IMPRESSION: Abnormal gallbladder with gallbladder wall thickening and pericholecystic edema. Additionally, there is intra and extrahepatic biliary dilatation suggesting cholecystitis. However, there is also evidence of peripancreatic free fluid so findings could be due to acute pancreatitis as well. Please correlate with lab results and physical findings. No phlegmon or abscess is noted. Surgical consultation recommended. No obstructive uropathy, normal appendix visualized Electronically Signed: Jose Bliss MD at 12:28 EST , Gallbladder Ultrasound 04/17/23 12:37 IMPRESSION: Distended gallbladder with gallbladder wall thickening, echogenic sludge, and biliary dilatation. A CT scan from earlier today also showed free fluid. Findings are suggestive of acute cholecystitis. Electronically Signed: Jose Bliss MD at 14:20 EST , Physical Exam Const oriented x3 and no apparent distress Resp normal respiratory effort GI GI Narrative: Nondistended, soft, mildly tender to palpation of the right upper quadrant which is improved over yesterday. Negative Salgado sign. Assessment & Plan Assessment/Plan (1) Acute gallstone pancreatitis: (2) Cholecystitis: PLAN: Plan This is a 37-year-old male who presents with signs and symptoms of acute gallstone pancreatitis and acute cholecystitis. He demonstrates some spontaneous improvement in his condition with aggressive fluid resuscitation. He is pending consultation with gastroenterology and likely ERCP. Fortunately there have already been some improvements also on his labs. Depending on operating room timing we will anticipate laparoscopic cholecystectomy with intraoperative cholangiogram either later today or tomorrow. This has been discussed with patient and he denies any further questions. Neuro: As needed Dilaudid Pulm/CV: No current issues FEN/GI: Clear liquid diet again following ERCP then n.p.o. at midnight, trend abdominal exam and lipase, GI consult : No current issues Heme/ID: Trend CBC, will look to decrease IV fluid rate to 125/h this afternoon, empiric coverage with IV Zosyn Endo: No current issues Proph: SCDs Dispo: Continue inpatient care Charges/Coding Visit Charges Inpatient E&M: 69821 Subs Hosp L2
--- NOTE | 2023-04-18 11:35 | RAD_ITS ---
STUDY: ERCP REASON FOR EXAM: Male, 37 years old. ERCP FLUOROSCOPY TIME (if supplied): ( 29 seconds ) minutes/seconds. 8.76 mGy TECHNIQUE: Fluoroscopic services provided for ERCP. COMPARISON: None. FINDINGS: Dilated Central intrahepatic biliary ducts. Biliary stent was placed. RAD/ERCP Biliary/Pancreas IMPRESSION: Biliary stent placement. Electronically Signed: Michael Palomo MD at 8:33 EST ,
--- NOTE | 2023-04-18 12:00 | OP.ERCP_ITS ---
Patient Name: Ulisses Wayne Procedure Date: 04/18/2023 11:08 AM Date of : 1985 Age: 37 Procedure: ERCP Indications: Jaundice, Elevated liver enzymes, Acute pancreatitis Providers: Geraldo Thompson DO Medicines: General Anesthesia Patient Profile: This is a 37 year old male. Refer to note in patient chart for documentation of history and physical. Patient has symptoms of acute epigastric abdominal pain and acute jaundice. This patient has no history of previous ERCP. Complications: No immediate complications. Procedure: Pre-Anesthesia Assessment: - Prior to the procedure, a History and Physical was performed, and patient medications and allergies were reviewed. The risks and benefits of the procedure and the sedation options and risks were discussed with the patient. All questions were answered and informed consent was obtained. Patient identification and proposed procedure were verified by the physician in the pre-procedure area. Mental Status Examination: alert and oriented. Airway Examination: normal oropharyngeal airway and neck mobility. Respiratory Examination: clear to auscultation. CV Examination: normal. Prophylactic Antibiotics: The patient does not require prophylactic antibiotics. Prior Anticoagulants: The patient has taken no anticoagulant or antiplatelet agents. ASA Grade Assessment: II - A patient with mild systemic disease. After reviewing the risks and benefits, the patient was deemed in satisfactory condition to undergo the procedure. The anesthesia plan was to use general anesthesia. Immediately prior to administration of medications, the patient was re-assessed for adequacy to receive sedatives. The heart rate, respiratory rate, oxygen saturations, blood pressure, adequacy of pulmonary ventilation, and response to care were monitored throughout the procedure. The physical status of the patient was re-assessed after the procedure. After obtaining informed consent, the scope was passed under direct vision. Throughout the procedure, the patient's blood pressure, pulse, and oxygen saturations were monitored continuously. The Duodenoscope was introduced through the mouth, and advanced to the duodenum and used to inject contrast into the bile duct. The ERCP was accomplished without difficulty. The patient tolerated the procedure well. Scope In: 11:34:11 AM Scope Out: 11:47:15 AM Total Procedure Duration Time 0 hours 13 minutes 4 seconds Findings: The crane operator film was normal. The esophagus was successfully intubated under direct vision. The scope was advanced to a normal major papilla in the descending duodenum without detailed examination of the pharynx, larynx and associated structures, and upper GI tract. The upper GI tract was grossly normal. A straight Roadrunner wire was passed into the biliary tree. The short-nosed traction sphincterotome was passed over the guidewire and the bile duct was then deeply cannulated. Contrast was injected. I personally interpreted the bile duct images. There was brisk flow of contrast through the ducts. Image quality was excellent. Contrast extended to the entire biliary tree. The biliary orifice was stenotic. This appeared benign. The lower third of the main bile duct contained one stone, which was 2 mm in diameter. The entire biliary tree except for the cystic duct and gallbladder were moderately dilated and diffusely dilated, with a stone causing an obstruction. The largest diameter was 10 mm. A 5 mm biliary sphincterotomy was made with a braided traction (standard) sphincterotome using ERBE electrocautery. There was no post-sphincterotomy bleeding. To discover objects, the biliary tree was swept with a 12 mm balloon starting at the bifurcation. Sludge was swept from the duct. All stones were removed. One 10 Fr by 5 cm temporary stent was placed 5 cm into the common bile duct. Bile flowed through the stent. The stent was in good position. Impression: - Biliary papillary stenosis, benign. - The biliary system were moderately dilated, with a stone causing an obstruction. - Choledocholithiasis was found. Complete removal was accomplished by biliary sphincterotomy and balloon extraction. - A biliary sphincterotomy was performed. - The biliary tree was swept. - One temporary stent was placed into the common bile duct. Procedure Code(s): --- Professional --- 67639, Endoscopic retrograde cholangiopancreatography (ERCP); with placement of endoscopic stent into biliary or pancreatic duct, including pre- and post-dilation and guide wire passage, when performed, including sphincterotomy, when performed, each stent 69512, Endoscopic retrograde cholangiopancreatography (ERCP); with removal of calculi/debris from biliary/pancreatic duct(s) 04949, 26, Endoscopic catheterization of the biliary ductal system, radiological supervision and interpretation CPT copyright 2021 [employer]. All rights reserved. The codes documented in this report are preliminary and upon interactive marketing strategist review may be revised to meet current compliance requirements. Geraldo Thompson DO 04/18/2023 12:00:30 PM This report has been signed electronically. Number of Addenda: 0 Note Initiated On: 04/18/2023 11:08 AM
--- NOTE | 2023-04-18 12:01 | OP.CCLET_ITS ---
04/18/2023 No Primary Care Physician Re : ERCP procedure for Ulisses Wayne Dear Care Physician This procedure was performed on Tuesday, April 18, 2023. My impressions and recommendations are as follows: Impressions : - Biliary papillary stenosis, benign. - The biliary system were moderately dilated, with a stone causing an obstruction. - Choledocholithiasis was found. Complete removal was accomplished by biliary sphincterotomy and balloon extraction. - A biliary sphincterotomy was performed. - The biliary tree was swept. - One temporary stent was placed into the common bile duct. Recommendations : My findings are described in the full procedure note, which is enclosed. If I can be of further assistance, please feel free to contact me at . Sincerely, Geraldo Thompson, 04/18/2023 12:00:30 PM This report has been signed electronically.
--- NOTE | 2023-04-18 12:54 | EKG12_ITS ---
Test Reason : PRE OP Blood Pressure : / mmHG Vent. Rate : 081 BPM Atrial Rate : 081 BPM P-R Int : 166 ms QRS Dur : 092 ms QT Int : 348 ms P-R-T Axes : 054 023 034 degrees QTc Int : 404 ms Normal sinus rhythm Normal ECG No previous ECGs available Confirmed by CAMERON MCINTYRE, DOT ([id number]), editor farm journal JARRET FLOWERS ([id number]) on 04/25/2023 1:00:43 P M Referred By: LUIS Confirmed By:RYANNE BARNES MD
--- NOTE | 2023-04-18 14:25 | CASEMGMT ---
RAAD JOSHUA Assessment: Face to Face with pt for initial transition planning/care coordination assessment. RN TRES introduced self and role at [facility], pt voices understanding and consents to assessment. Pt is A&O x4 and answers all questions appropriately at this time. Pt sitting up in bed with at bedside. Care providers, pharmacy, and demographics verified/updated. Admitting Dx: gallstone pancreatitis PCP:Pt is scheduled to see on Tuesday to establish PCP. Pt will call tomorrow if he is not dc'd to reschedule. Specialists:Denies Preferred Pharmacy:[facility] Insurance: MMO Prescription Benefit: yes LNOK: Verónica Wayne, Living Arrangements: Pt lives with and 2 children in a two story home with 9 steps to enter with a rail. Pt reports he is I in ADL's and denies concerns at home. Transportation: Pt drives self and denies concerns with transportation. DME:none HHC/SNF:denies hx of Pt states no concerns with going home at time of dc. Pt states no further concerns/needs. CM to follow. Advised pt to ask CM if any further question/concerns/needs arise, voices understanding. Pt Goal: Home Plan: Home
--- NOTE | 2023-04-18 15:36 | CHAPLAIN ---
Type of Pastoral Visit _x__ Initial Visit ___ Follow-up Visit ___ On-call Visit ___ General Patient Visit ___ Spiritual Assessment ___ Family Conference ___ Bereavement ___ Rapid Response ___ Code Blue ___ Other (describe below) Pastoral Care Referral From _x__ Patient ___ Family ___ Nurse ___ Physician ___ Whiting Can Worker ___ Director Airport ___ Other (describe below) Sacrament/Intervention _x__ Active listening ___ Anointing ___ Evangelical ___ Bereavement ___ Communion ___ Karen exploration ___ _x__ Life review _x__ Prayer ___ Reconciliation ___ Sacrament of Sick _x__ Supportive presence ___ Wedding ___ Other (describe below) Pastoral Comments patient reports feeling better now that procedure is over; pt is to have surgery tomorrow and is looking forward to having issue resolved and returning home; pt has had family here in support and his currently is in the room; pt welcomes offer of presence and prayer; no other needs at this time
[2023-04-18] MEDS: 0.9% Normal Saline (1000mL) 1,000 ML 125 ML IV (20:20)
[2023-04-19] VITALS (8 sets, daily range): BP systolic 120–140; BP diastolic 70–86; PULSE 57–83; RESP 16–18; TEMP 36.2–37; O2SAT 98–100
[2023-04-19] MEDS: 0.9% Normal Saline (1000mL) 1,000 ML 125 ML IV ×2 (03:15→15:26)
[2023-04-19] MEDS: Piperacil/Tazobactam 3.375 GM in 0.9% Normal Saline (50mL MB+) 50 ML IV ×2 (05:01→14:42)
[2023-04-19 06:19] LABS: Absolute Lymphocyte Count 1.21 X10^3/uL (0.83-4.51); Absolute Neutrophil Count 5.5 X10^3/uL (2.0-7.7); Basophil# 0.01 X10^3/uL; Basophil% 0.1 % (0-1); Eosinophil# 0.01 X10^3/uL; Eosinophils% 0.1 % (0-5); Hematocrit 38.8 % (40-54); Hemoglobin 12.6 g/dL (13.0-16.5); Lymphocyte # 1.21 X10^3/ul (0.83-4.51); Lymphocyte % 16.5 % (19-41); Mean Corp Hgb Conc 32.5 g/dL (32-36); Mean Corpuscular Hgb 29.2 pg (27.0-32.0); Mean Corpuscular Volume 89.8 fL (80-94); Mean Platelet Vol. 10.3 fl (6.2-12.0); Monocyte# 0.53 X10^3/uL; Monocyte% 7.2 % (0-10); NRBC Flagged by Analyzer 0 % (0-5); Neutrophil # 5.53 X10^3/uL (2.7-7.7); Neutrophil % 75.6 % (47-70); Platelet Count 184 K/mm3 (150-450); RBC Distribution Width CV 12.8 % (11.6-14.6); RBC Distribution Width SD 42.4 fl (35.1-43.9); Red Blood Count 4.32 M/mm3 (4.6-6.2); White Blood Count 7.3 K/mm3 (4.4-11.0)
[2023-04-19 06:48] LABS: AST(SGOT) 75 U/L (15-37); Alanine Aminotransfer ALT/SGPT 280 U/L (16-61); Albumin, Serum 2.8 g/dL (3.2-5.0); Alkaline Phosphatase 224 U/L (45-117); Anion Gap 4 (5-15); BUN 6 mg/dL (7-18); BUN/Creat Ratio 7.5 RATIO (10-20); Calcium,Total 8.4 mg/dL (8.5-10.1); Chloride 109 mmol/L (98-107); EST Glomerular Filtration Rate 116 mL/min (>60); Est Glom Filt Rate - Afr Amer 141 mL/min (>60); Estimated Creatinine Clearance 158.23 ml/min; Globulin 2.8 g/dL (2.2-4.2); Glucose 103 mg/dL (74-106); Lipase 171 U/L (13-75); Potassium 4.2 mmol/L (3.5-5.1); Protein, Total 5.6 g/dL (6.4-8.2); Sodium Level 139 mmol/L (136-145)
--- NOTE | 2023-04-19 07:00 | PN.GI_ITS ---
Subjective Subjective Patient underwent ERCP yesterday for obstructive jaundice secondary to choledocholithiasis resulting in pancreatitis from his choledocholithiasis. He is doing very well. He is scheduled for cholecystectomy today. Objective Data Objective Data Vital Signs: Vital Signs Temp Pulse Resp BP Pulse Ox O2 Del Method 98.2 F 61 18 140/85 H 99 Room Air 04/19/23 16:35 04/19/23 16:35 04/19/23 16:35 04/19/23 16:35 04/19/23 16:35 04/19/23 16:35 Oxygen Delivery Method Room Air Weight: 220 lb Body Mass Index (BMI) 26.7 Intake & Output: Intake and Output for Last 24 Hours 04/17/23 04/18/23 04/19/23 23:59 23:59 23:59 Intake Total 2300 / 2300 4521.75 / 4521.75 2209.21 / 2209.21 Output Total 5025 / 5025 2200 / 2200 Balance 2300 / 2300 -503.25 / -503.25 9.21 / 9.21 Lab / Micro Data 04/19/23 06:05 04/19/23 06:05 Labs: Laboratory Results - last 24 hr 04/19/23 06:05: WBC 7.3, RBC 4.32 L, Hgb 12.6 L, Hct 38.8 L, MCV 89.8, MCH 29.2, MCHC 32.5, RDW Std Deviation 42.4, RDW Coeff of Valerie 12.8, Plt Count 184, MPV 10.3, Immature Gran % (Auto) 0.500, Neut % (Auto) 75.6 H, Lymph % (Auto) 16.5 L, Mcclain % (Auto) 7.2, Eos % (Auto) 0.1, Baso % (Auto) 0.1, Absolute Neuts (auto) 5.5, Absolute Lymphs (auto) 1.21, Nucleated RBC % 0, Sodium 139, Potassium 4.2, Chloride 109 H, Carbon Dioxide 26.0, Anion Gap 4 L, BUN 6 L, Creatinine 0.80, Estim Creat Clear Calc 158.23, Est GFR (MDRD) Af Amer 141, Est GFR (MDRD) Non-Af 116, BUN/Creatinine Ratio 7.5 L, Glucose 103, Calcium 8.4 L, Total Bilirubin 2.80 H, AST 75 H, ALT 280 H, Alkaline Phosphatase 224 H, Total Protein 5.6 L, Albumin 2.8 L, Globulin 2.8, Albumin/Globulin Ratio 1.0, Lipase 171 H Radiography Diagnostic Testing: Radiology Impression Endo Retro Cholangiopancreatogram 04/18/23 11:35 IMPRESSION: Biliary stent placement. Electronically Signed: Michael Palomo MD at 8:33 EST , Cholangiogram 04/19/23 12:28 IMPRESSION: Tiny filling defects are seen in the proximal portion of the common bile duct. A biliary stent is in situ. Electronically Signed: Michael Palomo MD at 14:28 EST , Physical Exam Const oriented x3 and no apparent distress Resp normal respiratory effort GI GI Narrative: Nondistended, soft, mild tenderness with palpation of the right upper quadrant and epigastrium. Negative Salgado sign Assessment & Plan Assessment/Plan (1) Cholestatic hepatitis: (2) Acute gallstone pancreatitis: (3) Acute pancreatitis: QUALIFIERS: Pancreatitis type: biliary Acute pancreatitis complication: no infection or necrosis Qualified Code(s): K85.10 - Biliary acute pancreatitis without necrosis or infection (4) Jaundice: PLAN: Plan 37-year-old gentleman who comes in with abdominal pain and discovered to have obstructive jaundice and pancreatitis secondary to choledocholithiasis. He underwent ERCP with stone removal and stent placement. He is scheduled to undergo cholecystectomy today. He is doing well from a pain standpoint. He is on normal saline at 200 mL an hour. I recommend continue n.p.o. status and 200 mL of normal saline per hour. Charges/Coding Visit Charges Inpatient E&M: 77441 Subs Hosp L3
--- NOTE | 2023-04-19 07:51 | PN.SURG_ITS ---
Subjective Subjective Patient seen and examined during AM rounds. He is found getting out of bed for the day. He reports that his abdominal discomfort is significantly improved. He also shares that he believes this pain has been ongoing for longer than initially recognized. Objective Data Objective Data Vital Signs: Vital Signs Temp Pulse Resp BP Pulse Ox O2 Del Method 98.6 F 63 16 120/70 100 Room Air 04/19/23 03:37 04/19/23 03:37 04/19/23 03:37 04/19/23 03:37 04/19/23 03:37 04/19/23 03:37 Oxygen Delivery Method Room Air Weight: 220 lb Body Mass Index (BMI) 26.7 Intake & Output: Intake and Output for Last 24 Hours 04/17/23 04/18/23 04/19/23 23:59 23:59 23:59 Intake Total 2300 / 2300 4521.75 / 4521.75 984.83 / 984.83 Output Total 5025 / 5025 1200 / 1200 Balance 2300 / 2300 -503.25 / -503.25 -215.17 / -215.17 Lab / Micro Data 04/19/23 06:05 04/19/23 06:05 Labs: Laboratory Results - last 24 hr 04/19/23 06:05: WBC 7.3, RBC 4.32 L, Hgb 12.6 L, Hct 38.8 L, MCV 89.8, MCH 29.2, MCHC 32.5, RDW Std Deviation 42.4, RDW Coeff of Valerie 12.8, Plt Count 184, MPV 10.3, Immature Gran % (Auto) 0.500, Neut % (Auto) 75.6 H, Lymph % (Auto) 16.5 L, [place] % (Auto) 7.2, Eos % (Auto) 0.1, Baso % (Auto) 0.1, Absolute Neuts (auto) 5.5, Absolute Lymphs (auto) 1.21, Nucleated RBC % 0, Sodium 139, Potassium 4.2, Chloride 109 H, Carbon Dioxide 26.0, Anion Gap 4 L, BUN 6 L, Creatinine 0.80, Estim Creat Clear Calc 158.23, Est GFR (MDRD) Af Amer 141, Est GFR (MDRD) Non-Af 116, BUN/Creatinine Ratio 7.5 L, Glucose 103, Calcium 8.4 L, Total Bilirubin 2.80 H, AST 75 H, ALT 280 H, Alkaline Phosphatase 224 H, Total Protein 5.6 L, Albumin 2.8 L, Globulin 2.8, Albumin/Globulin Ratio 1.0, Lipase 171 H Physical Exam Const oriented x3 and no apparent distress Resp normal respiratory effort GI GI Narrative: Nondistended, soft, mild tenderness with palpation of the right upper quadrant and epigastrium. Negative Salgado sign Assessment & Plan Assessment/Plan (1) Acute gallstone pancreatitis: (2) Cholecystitis: PLAN: Plan This is a 37-year-old male who presents with signs and symptoms of acute gallstone pancreatitis and acute cholecystitis. He demonstrates further spontaneous improvement in his condition now following ERCP yesterday. As expected, this is also translated to significant improvement in his laboratorie s. With these clinical improvements and clearance of his common duct, we are planning to go to the operating room today for laparoscopic cholecystectomy with intraoperative cholangiogram. Neuro: As needed Dilaudid Pulm/CV: No current issues FEN/GI: Continue n.p.o. status, proceed for lap munir with IOC today, trend abdominal exam and lipase, GI consult : No current issues Heme/ID: Trend CBC, IV fluid rate to 125/h, empiric coverage with IV Zosyn Endo: No current issues Proph: SCDs Dispo: Continue inpatient care Charges/Coding Visit Charges Inpatient E&M: 02971 Subs Hosp L2
[2023-04-19] MEDS: Pantoprazole Sodium 40 MG in 0.9% Normal Saline (100mL MB+) 100 ML 330 MG IV (09:15)
--- NOTE | 2023-04-19 12:00 | GALL_PTH ---
PATIENT: ANA LANE LOC: MS3 U#:[id number] AGE/SX: 37/M ROOM: NV312 RE04/17/[address]: Dr. Arie Watkins MD : 1985 BED: 1 DIS: 04/19/2023 SPEC #: [id number] RECD: 04/20/23 07:51 STATUS: PELON DWYER #: [id number] YAN: 04/19/23 12:[address]: Arie Watkins DEPT: SURGICAL PATHOLOGY RECD BY: Marla Rich ENTERED: 04/20/23 07:51 SP TYPE: ISIDRO MAYER DR: No Primary Care Phys Tissues: Gallbladder, NOS Procedures: Surgery Specimen Level III HEADER OPERATION: Laparoscopic cholecystectomy with IOC PRE-OP DIAGNOSIS: Acute gallstone pancreatitis, cholecystitis TISSUE SUBMITTED: Gallbladder MICROSCOPIC DIAGNOSIS Gallbladder, cholecystectomy: Cholesterolosis, chronic cholecystitis and sludge. AM:michelle 04/21/2023 MICROSCOPIC DESCRIPTION Slides are reviewed. GROSS DESCRIPTION Received is one container labeled with the patient's name and designated gallbladder. The specimen consists of a gallbladder measuring 11.5 cm in length and up to 3.5 cm in diameter. The external surface is pink-gee, smooth and glistening for the most part. Focally it is granular, hemorrhagic and contains cautery artifact. The gallbladder contains green-yellow mucoid bile, No obvious stone is identified. A small amount of sludge material is noted. The mucosa also shows several yellowish streaks consistent with cholesterolosis. The gallbladder wall measures up to 0.2 cm in thickness. Wood Cutter sections from the gallbladder and the cystic duct are submitted in one cassette. / SJ:michelle 04/20/2023 TC:3 [facility]: [id number]
--- NOTE | 2023-04-19 12:03 | CHAPLAIN ---
Type of Pastoral Visit ___ Initial Visit ___ Follow-up Visit ___ On-call Visit _x__ General Patient Visit ___ Spiritual Assessment ___ Family Conference ___ Bereavement ___ Rapid Response ___ Code Blue ___ Other (describe below) Pastoral Care Referral From _x__ Patient ___ Family ___ Nurse ___ Physician ___ Mold Closer Helper ___ Clay Temperer ___ Other (describe below) Sacrament/Intervention ___ Active listening ___ Anointing ___ Jehovah'S Witness ___ Bereavement ___ Communion ___ Karen exploration ___ ___ Life review _x__ Prayer ___ Reconciliation ___ Sacrament of Sick _x__ Supportive presence ___ Wedding ___ Other (describe below) Pastoral Comments preop prayer as pt is ready for surgery; spouse is with him; offer of ongoing support
--- NOTE | 2023-04-19 12:28 | RAD_ITS ---
STUDY: INTRAOPERATIVE CHOLANGIOGRAM. REASON FOR EXAM: Male, 37 years old. LAP SUZANNE WITH IOC FLUOROSCOPY TIME (if supplied): ( 17 seconds ) minutes/seconds. 7.71 mGy TECHNIQUE: An intraoperative cholangiogram was performed by the surgeon. Imaging was submitted. COMPARISON: None. FINDINGS: A common bile duct stent is seen. Small filling defects are seen in the proximal portion of the common bile duct. This may represent tiny calculi. RAD/Cholangiogram/ O R,Initial IMPRESSION: Tiny filling defects are seen in the proximal portion of the common bile duct. A biliary stent is in situ. Electronically Signed: Michael Palomo MD at 14:28 EST ,
[2023-04-19] MEDS: Bupivacaine Mpf 0.5% 30 ML VIAL (13:37)
--- NOTE | 2023-04-19 13:39 | OP.PCM_ITS ---
Report of Operation Date of Procedure: 04/19/23 Pre-Operative Diagnosis: 1. Gallstone pancreatitis 2. Choledocholithiasis 3. Acute cholecystitis Post-Operative Diagnosis: Same Surgery/Procedure Performed:: Laparoscopic cholecystectomy with intraoperative cholangiogram Description of Surgical Findings:: ? Moderate to severely edematous gallbladder with normal gallbladder anatomy and single anterior cystic artery ? Normal intraoperative cholangiogram showing common bile duct stent is patent`` Surgeon: Arie Watkins storage management consultant: Tony Odom Type of Anesthesia: General/Supplemental Anesthesiologist: Rickey Hernandes Specimen's removed: Gallbladder Estimated Blood Loss (mL): 20 Description of Procedure: After proper identification in the preoperative holding area the patient was brought to the operating room where he was positioned supine on the operating room table. Preoperatively scrubbed SCDs were placed and antibiotics were administered (patient was administered an interval dose of 2 g Ancef given that he was with an the latter half of his interval for his continuous antibiotic order. General anesthesia was then induced. Patient's abdomen was prepped and draped in usual sterile fashion. A formal timeout was conducted to confirm both patient and the procedure. Procedure was begun with a supraumbilical incision which was extended deeply down to the level of the fascia. The fascia was elevated and incised, as well as the peritoneum. A finger sweep was performed to ensure there were no underlying adhesions and a 12 mm balloon trocar was inserted. Pneumoperitoneum was established at 15 mmHg. Additional trocars were placed in the epigastrium (5 mm) and in the right upper quadrant (2 x 5 mm). Inspection of the peritoneum revealed no inadvertent injury to the viscera below. The gallbladder was visualized with moderate to severe inflammation that appeared acute in nature. The gallbladder fundus was then grasped and elevated cephalad. Then, using careful dissection the peritoneum was opened and the structures of the hepatocystic triangle were delineated. Once the critical view of safety was obtained, the cystic duct was singly clipped and partially divided with a ductotomy. The proximal duct was milked of any debris Using an Rodríguez Cosby clamp, a cholangiocatheter was fed into the proximal segment of the cystic duct and clamped into place. Under fluoroscopy a cholangiogram was then obtained showing a standard length cystic duct flowing into a common bile duct with unobstructed antegrade flow of contrast into the duodenum via a common bile duct stent. There was also retrograde flow through the common hepatic duct into the right and left hepatic ducts. Satisfied with this result, the cholangiocatheter was withdrawn and the proximal cystic duct was sealed with 3 clips and the cystic duct was completely transected. The same process was used for the cystic artery. The gallbladder was then removed from the gallbladder fossa with the use of electrocautery. Selective electrocautery was used to obtain hemostasis in the gallbladder fossa. The gallbladder was placed in an Endo Catch bag and removed from the peritoneum. Morison's pouch was irrigated and the effluent was suctioned free of the peritoneum. Hemostasis was again confirmed. Pneumoperitoneum was evacuated and the fascia of the 12 mm port sites was closed with #1Vicryl in a [id number] fashion. A total of 30 mL of anesthetic was injected at the port sites for postoperative pain control. The skin of each port site was then closed in subcuticular fashion using 4-0 Monocryl. Steri-Strips and bandages were applied as dressings. Patient tolerated the procedure well without any apparent complications. On emergence from their anesthetic the patient was taken to PACU for ongoing recovery. Complications None Admit VTE Documentation VTE Mechan Device Prophylaxis: SCD's Procedures Digestive 40xxx-49xxx: 23020 Laparo cholecystectomy/graph
--- NOTE | 2023-04-19 13:48 | PCM.DC.SUM ---
Providers Date of Admission: 04/17/23 Primary Care Physician: No Primary Care Phys Consultations 04/17/23 13:21 Consult: Gastroenterology Routine Consulting Provider: Bernard Gastroenteranel Reason for Consult: Gallstone pancreatitis EMERGENT Consult: Yes MD Notified: Yes Date Notified: 04/17/23 Time Notified: 13:21 Method of Notification: Verbal Reason For Visit: GALLSTONE PANCREATITIS Diagnosis Discharge Diagnosis (1) Acute gallstone pancreatitis: Status: Acute Code(s): K85.10 - Biliary acute pancreatitis without necrosis or infection (2) Cholecystitis: Status: Acute Code(s): K81.9 - Cholecystitis, unspecified Plan This is a 37-year-old male who presents with signs and symptoms of acute gallstone pancreatitis and acute cholecystitis. He demonstrates further spontaneous improvement in his condition now following ERCP yesterday. As expected, this is also translated to significant improvement in his laboratories. With these clinical improvements and clearance of his common duct, we are planning to go to the operating room today for laparoscopic cholecystectomy with intraoperative cholangiogram. Neuro: As needed Dilaudid Pulm/CV: No current issues FEN/GI: Continue n.p.o. status, proceed for lap munir with IOC today, trend abdominal exam and lipase, GI consult : No current issues Heme/ID: Trend CBC, IV fluid rate to 125/h, empiric coverage with IV Zosyn Endo: No current issues Proph: SCDs Dispo: Continue inpatient care Medications at Discharge Home Medications oxycodone 5 mg tablet 5 mg PO Q6H PRN PRN Pain Score 6-10 3 days #10 tabs 04/19/23 Hospital Course Operations cholecystecomy Summary of Care Provided Hospital Course: Patient was admitted via the ER on 04/17/2023 after complaints of acute onset abdominal pain, associated nausea, and jaundice where he was diagnosed with gallstone pancreatitis and probable choledocholithiasis. Upon admission he was aggressively resuscitated with IV fluids and administered empiric IV antibiotic therapy. Hospital day 2 he underwent ERCP with gastroenterology and placement of a common bile duct stent. Each day of his hospitalization he experienced an improvement of both his symptoms and his labs. Hospital day 3 he underwent laparoscopic cholecystectomy with intraoperative cholangiogram confirming a well-placed common bile duct stent and patency of the biliary tree. Postoperatively return to the standard medical surgical floor where his diet was advanced without issue and his pain was well-controlled with oral medications. With this picture of clinical stability and improvement he was granted his request for discharge to home. Outpatient follow-up was requested. Physical Exam Const alert General Appearance: cooperative Resp normal respiratory effort GI GI Narrative: Nondistended, operative dressings with single drop of strikethrough bloody drainage along the midline incision. Otherwise expected tenderness to palpation about the incision sites. Weight / BMI Weight Weight: 220 lb Body Mass Index (BMI) 26.7 ABG / Lab / Microbiology Data 04/19/23 06:05 04/19/23 06:05 Laboratory: Laboratory Results - last 24 hr 04/19/23 06:05: WBC 7.3, RBC 4.32 L, Hgb 12.6 L, Hct 38.8 L, MCV 89.8, MCH 29.2, MCHC 32.5, RDW Std Deviation 42.4, RDW Coeff of Valerie 12.8, Plt Count 184, MPV 10.3, Immature Gran % (Auto) 0.500, Neut % (Auto) 75.6 H, Lymph % (Auto) 16.5 L, [place] % (Auto) 7.2, Eos % (Auto) 0.1, Baso % (Auto) 0.1, Absolute Neuts (auto) 5.5, Absolute Lymphs (auto) 1.21, Nucleated RBC % 0, Sodium 139, Potassium 4.2, Chloride 109 H, Carbon Dioxide 26.0, Anion Gap 4 L, BUN 6 L, Creatinine 0.80, Estim Creat Clear Calc 158.23, Est GFR (MDRD) Af Amer 141, Est GFR (MDRD) Non-Af 116, BUN/Creatinine Ratio 7.5 L, Glucose 103, Calcium 8.4 L, Total Bilirubin 2.80 H, AST 75 H, ALT 280 H, Alkaline Phosphatase 224 H, Total Protein 5.6 L, Albumin 2.8 L, Globulin 2.8, Albumin/Globulin Ratio 1.0, Lipase 171 H Radiography Diagnostic Testing: Radiology Impression Endo Retro Cholangiopancreatogram 04/18/23 11:35 IMPRESSION: Biliary stent placement. Electronically Signed: Michael Palomo MD at 8:33 EST , Meaningful Use Info Meaningful Use Diagnoses (Choose all that apply): None applicable Discharge Plan Admission Admit Date/Time: 04/17/23 13:15 Primary Reason for Your Visit: gallstone pancreatitis Attending Provider: Arie Watkins Primary Care Provider: Care Physician,No Primary Discharge Orders/Prescriptions Prescriptions: New oxycodone 5 mg Tablet 5 mg PO Q6H PRN PRN (Reason: Pain Score 6-10) 3 Days Qty: 10 0RF Referrals / Follow Up: Arie Watkins MD [Med Staff - Active Staff] - Care Physician,No Primary [Primary Care Provider] - Disposition Disposition (needs filled in before D/C Order can be placed): Home, Self Care Charges/Coding Visit Charges Inpatient E&M: 99112 Disch Hosp
--- NOTE | 2023-04-19 15:45 | DCINST_ITS ---
Discharge Instructions Diet Discharge Diet: No restrictions Activity Discharge Activity: May Not Drive (No driving while using narcotic pain medication) and May Shower (Postoperative day 1) May shower in (days): 2 Ice area for (Minutes): 20 Lifting Restrictions: No lifting greater than 15 pounds for 2 weeks after surgery Dressing / Incision Call your doctor if your incision/area has: Continuous Slow Oozing, Increased Pain/ Swelling, Increased Redness, Foul Smelling Discharge and Swelling at the incision site Call your doctor if you observe: Fever of 101 or Higher Remove Dressing in: 2 days (Please leave Steri-Strips intact until they fall off spontaneously or are taken off at your follow-up visit) Cleanse incision/area with: Soap & Water Follow Up Care Please Follow Up With: Arie Watkins MD When: 7-10days postop Test Results: Test results from this visit will be discussed in further detail at your follow- up appointment, if applicable. Discharge Plan Admission Admit Date/Time: 04/17/23 13:15 Primary Reason for Your Visit: gallstone pancreatitis Attending Provider: Arie Watkins Primary Care Provider: Care PhysicianGhazala Primary Discharge Orders/Prescriptions Prescriptions: New oxycodone 5 mg Tablet 5 mg PO Q6H PRN PRN (Reason: Pain Score 6-10) 3 Days Qty: 10 0RF Referrals / Follow Up: Care Physician,Ghazala Primary [Primary Care Provider] - Arie Watkins MD [Med Staff - Active Staff] - Disposition Disposition (needs filled in before D/C Order can be placed): Home, Self Care
[2023-04-19] MEDS: oxyCODONE 5 MG Tablet PO (16:40)
== END 2023-04-19 18:47 | disposition home or self-care (01) | DRG 417 ==
LOC: ED 11:35 → MS3 15:04
PROVIDERS: Internal Medicine Gastroenterology; Physician Assistant; Admitting Provider Surgery; Emergency Provider Emergency Medicine; Visit Provider Surgery
PROC: 0FC98ZZ Extirpation of Matter from Common Bile Duct, Via Natural or Artificial Opening Endoscopic (ICD-10-PCS; CPT 43260; principal; 2023-04-18 11:10)
PROC: 0FT44ZZ Resection of Gallbladder, Percutaneous Endoscopic Approach (ICD-10-PCS; CPT 47610; principal; 2023-04-19 11:45)
DX: K80.43 Calculus of bile duct with acute cholecystitis with obstruction (principal); K85.10 Biliary acute pancreatitis without necrosis or infection; K75.89 Other specified inflammatory liver diseases
CPT/HCPCS: 36415; 74177; 74300; 74330; 76000; 76705; 80048; 80053; 80076; 83690; 85025; 88304; 93005; 94668; 99283; J7030; J7050; Q9967; A4216; J2405

== ENCOUNTER → 2023-05-11 | Outpatient (CLI) | payer OTHER, SELFPAY ==
[2023-05-11 16:04] LABS: ALB/GLOB Ratio 1.1 RATIO (0.9-2.4); AST(SGOT) 26 U/L (15-37); Alanine Aminotransfer ALT/SGPT 60 U/L (16-61); Albumin, Serum 3.6 g/dL (3.2-5.0); Alkaline Phosphatase 122 U/L (45-117); Anion Gap 5 (5-15); BUN 18 mg/dL (7-18); Calcium,Total 8.9 mg/dL (8.5-10.1); Chloride 105 mmol/L (98-107); Cholesterol 163 mg/dL (200); Creatinine, Serum 1.06 mg/dL (0.70-1.30); EST Glomerular Filtration Rate 84 mL/min (>60); Est Glom Filt Rate - Afr Amer 102 mL/min (>60); Globulin 3.3 g/dL (2.2-4.2); Glucose 90 mg/dL (74-106); High Density Lipoprotein 49 mg/dL; Potassium 4.1 mmol/L (3.5-5.1); Protein, Total 6.9 g/dL (6.4-8.2); Sodium Level 140 mmol/L (136-145); Triglycerides 57 mg/dL; Very Low Density Lipoprotein 11 mg/dL (5-40)
== END | disposition home or self-care (01) ==
LOC: BIMLAB 13:54
PROVIDERS: PCP Family Medicine; Visit Provider Family Medicine
DX: K75.89 Other specified inflammatory liver diseases (principal)
CPT/HCPCS: 36415; 80053; 80061

== ENCOUNTER 2023-05-19 20:53 | Emergency (ER) | payer OTHER, SELFPAY ==
[2023-05-19 20:54] VITALS: BP 145/86; PULSE 131; RESP 18; TEMP 36.9; O2SAT 100; BMI 26.6
[2023-05-19 21:23] LABS: Bacteria 0 SEEN /hpf (None Seen); Color, Urine Yellow (Yellow); Glucose, Dipstick Normal (Normal); Leukocyte Esterase-Dipstick 25 /ul (Negative); Mucous, Urine 0 SEEN /hpf (<or=2+); Nitrite-Dipstick Negative (Negative); Occult Blood-Urine Negative /ul (Negative); Protein-Dipstick Negative (Negative); Red Blood Cells-Urine 0 SEEN /hpf (0-5); Squamous Epithelial Cells - UA 0 SEEN /hpf (0-5); Urine Bilirubin Dipstick Negative (Negative); Urine Clarity Clear (Clear); Urine Urobilinogen 8 mg/dl (Normal)
[2023-05-19 21:29] LABS: Ketone-Dipstick 150 mg/dl (Negative)
[2023-05-19 21:30] LABS: White Blood Cells 0-5 SEEN /hpf (0-5)
[2023-05-19 21:41] LABS: Absolute Lymphocyte Count 0.93 X10^3/uL (0.83-4.51); Absolute Neutrophil Count 7.4 X10^3/uL (2.0-7.7); Basophil# 0.03 X10^3/uL; Basophil% 0.3 % (0-1); Eosinophil# 0.04 X10^3/uL; Eosinophils% 0.4 % (0-5); Hematocrit 39.8 % (40-54); Hemoglobin 13.4 g/dL (13.0-16.5); Lymphocyte # 0.93 X10^3/ul (0.83-4.51); Lymphocyte % 9.6 % (19-41); Mean Corp Hgb Conc 33.7 g/dL (32-36); Mean Corpuscular Hgb 29.1 pg (27.0-32.0); Mean Corpuscular Volume 86.5 fL (80-94); Mean Platelet Vol. 9.7 fl (6.2-12.0); Monocyte# 1.25 X10^3/uL; Monocyte% 12.9 % (0-10); NRBC Flagged by Analyzer 0 % (0-5); Neutrophil # 7.41 X10^3/uL (2.7-7.7); Neutrophil % 76.5 % (47-70); Platelet Count 209 K/mm3 (150-450); RBC Distribution Width CV 12.1 % (11.6-14.6); RBC Distribution Width SD 38.5 fl (35.1-43.9); White Blood Count 9.7 K/mm3 (4.4-11.0)
[2023-05-19 22:04] LABS: ALB/GLOB Ratio 0.9 RATIO (0.9-2.4); AST(SGOT) 14 U/L (15-37); Alanine Aminotransfer ALT/SGPT 37 U/L (16-61); Albumin, Serum 3.4 g/dL (3.2-5.0); Alkaline Phosphatase 145 U/L (45-117); Anion Gap 6 (5-15); BUN 11 mg/dL (7-18); BUN/Creat Ratio 11.1 RATIO (10-20); Calcium,Total 9.3 mg/dL (8.5-10.1); Chloride 104 mmol/L (98-107); Creatinine, Serum 0.99 mg/dL (0.70-1.30); EST Glomerular Filtration Rate 91 mL/min (>60); Est Glom Filt Rate - Afr Amer 111 mL/min (>60); Estimated Creatinine Clearance 124.47 ml/min; Globulin 3.6 g/dL (2.2-4.2); Glucose 106 mg/dL (74-106); Potassium 4.1 mmol/L (3.5-5.1); Sodium Level 138 mmol/L (136-145)
--- NOTE | 2023-05-19 22:16 | CT_ITS ---
INDICATION: epigastric abd pain s/p lap munir hx of pancreatit EXAMINATION: CT Abdomen And Pelvis W/ Contrast Injection TECHNIQUE: Helically acquired images were obtained of the abdomen and pelvis with sagittal and coronal reconstructed images. Individualized dose optimization techniques were used for this CT. IV contrast dosage and agent: 100 mL of Isovue-370. Oral contrast: None. COMPARISON: 04/17/2023 CT. FINDINGS: VESSELS: No abdominal aortic aneurysm or dissection. LIVER: No evidence of a mass. Intrahepatic duct dilation, improved as compared to the prior exam. Mild pneumobilia. A common duct stent is in place with no common duct dilation. GALLBLADDER: Status post cholecystectomy. No significant fluid or inflammatory changes in the gallbladder fossa. PANCREAS: No focal solid or cystic mass. No evidence of pancreatitis. SPLEEN: Normal. ADRENAL GLANDS: Normal. KIDNEYS AND URETERS: No urinary tract stone. No hydronephrosis or hydroureter. No significant asymmetric perinephric stranding. URINARY BLADDER: Unremarkable. BOWEL: No evidence of diverticulosis or diverticulitis. Appendix appears normal. No evidence of bowel obstruction. REPRODUCTIVE ORGANS: No evidence of a pelvic mass. PERITONEUM: No intraabdominal free fluid or free air. LYMPH NODES: No pathologically enlarged mesenteric or retroperitoneal lymph nodes. ABDOMINAL WALL: No abdominal or pelvic wall hernia. BONES: No acute abnormality. LOWER CHEST: Visualized lung bases are unremarkable. CT/Abdomen/Pelvis W IV Cont ONLY IMPRESSION: 1. Mild intrahepatic duct dilation, improved as compared to 04/17/2023. Common duct stent with no common bile duct dilation. Mild pneumobilia. 2. Status post cholecystectomy with no significant fluid or inflammatory change within the gallbladder fossa. Electronically Signed: Estiven Atkins DO at 22:46 EST ,
--- NOTE | 2023-05-19 22:17 | EDS_ITS ---
HPI HPI - GI History of Present Illness Chief Complaint: Abd Pain Detail of Chief Complaint: Epigastric abdominal pain for the last month but worse in the last couple d Informant: patient Abdominal Pain/Flank Pain Onset: Weeks Context: Gradual Onset Quality: Aching and Burning Location: Epigastric Current Severity: Mild Maximum Severity: Mild Nausea/Vomiting/Emesis GI Symptom: Negative for Nausea or Vomiting Diarrhea/Melena/Hematochezia GI Symptom: Negative for Diarrhea, Melena or Hematochezia Associated Symptoms Associated Symptoms: Negative for Dysuria, Frequency, Hematuria or Urgency Narrative Narrative: 37-year-old male history of gallstone pancreatitis for which he had an ERCP stone removal by GI Dr. Thompson and then a cholecystectomy diet Dr. Watkins this is all about a month ago. Has had chronic epigastric pain since that admission and surgery. He said this is gotten worse the last 2 days. Denies nausea, vomiting or diarrhea. No fever or chills. No melena. No hematemesis. He has had some weight loss over the last month intentionally. He says he has had minimal to no alcohol intake. He denies any other prior abdominal surgeries. Prior similar symptoms: Yes Recent Illness/Hospitalization: Yes PFSH PFSH Home Medications pantoprazole 40 mg tablet,delayed release 40 mg PO DAILY #90 tabs 05/11/23 [Rx Last Taken Unknown] Allergy/AdvReac Type Severity Reaction Status Date / Time No Known Allergies Allergy Verified 05/19/23 21:41 Surgical History History of cholecystectomy S/P ORIF (open reduction internal fixation) fracture Social History Smoking Status: Never smoker ROS ROS ED ROS Narrative Epigastric abdominal pain. Review of Systems ROS Unobtainable: Denies due to encephalopathy Constitutional Constitutional ED: Denies chills or fever(s) ENT ENT ED: Denies ear pain Cardiovascular Cardiovascular: Denies chest pain Respiratory/Chest Respiratory/Chest: Denies cough or dyspnea Gastrointestinal Gastrointestinal: Reports abdominal pain; Denies constipation, diarrhea, melena, nausea or vomiting Genitourinary Genitourinary ED: Denies dysuria or hematuria Musculoskeletal Musculoskeletal: Denies arthralgias, back pain, myalgias or neck pain Integumentary Denies abscess Neurologic Neurologic: Denies headache(s) Psychiatric Psychiatric: Denies anxiety or depression Endocrine Endocrinology: Denies polydipsia Hematologic/Lymphatic Hematologic/Lymphatic: Denies easy bleeding Allergic/Immunologic Allergic/Immunologic ED: Denies mouth swelling EXAM Physical Exam Narrative Exam Narrative: Well-appearing 37-year-old male. Vital signs stable afebrile. He is tachycardic. He does not look septic or toxic. He is in no acute distress. H EENT exam unremarkable. Mytrex members. Neck nontender. Lungs clear to auscultation bilaterally. Heart tachycardic no murmur. Rate about 115. Chest wall nontender. Abdomen epigastric tenderness only. Right upper right lower quadrant unremarkable. No hernia or mass. No distention. No pulsatile mass. Well-healed laparoscopic surgical incision sites. No peritoneal signs. Moving all 4 extremities. Nontender no edema. Back nontender. He is awake and alert. Answering questions following commands. Const Vital Signs: 05/19/23 20:54 Temperature 98.4 F Temperature Source Temporal Pulse Rate 131 H Respiratory Rate 18 Blood Pressure 145/86 H Blood Pressure Mean 105 Pulse Ox 100 Oxygen Delivery Method Room Air Positive well nourished and well developed; Negative for obese, cachectic, contractures or unkempt General Appearance ED: well developed and NAD; Negative for unkempt, cachectic, contractures or pallor Nutritional Appearance: Negative for cachectic or obese HEENT Reports moist mucous membranes; Denies dry mucous membranes normocephalic and atraumatic; Negative for trauma or tenderness Mouth ED: No dry mucous membranes Mouth: No dry mucous membranes Eyes PERRL and EOMs intact bilaterally General Eye ED: Negative for pale conjunctiva or scleral icterus Neck no lymphadenopathy, supple and no JVD General: Negative for tenderness Carotids: Negative for other Lymph Lymphatic: Negative for other Resp normal respiratory effort and clear to auscultation bilaterally Effort and Inspection: Negative for respiratory distress Auscultation: Negative for rales, rhonchi or wheezes Cardio regular rhythm, S1 normal heart sound, S2 normal heart sound and no murmurs Rate: tachycardic GI non-distended and no masses; Negative for non-tender Inspection: abdominal distention Auscultation: normoactive bowel sounds Palpation: soft and tender; Negative for guarding, rigid, hepatomegaly, splenomegaly, hernia, mass, pulsatile mass or rebound tenderness present Back/Spine no CVA tenderness General Back: Negative for CVA tenderness Cervical Spine: Negative for cervical spine tenderness Thoracic Spine / Upper Back: Negative for thoracic spinal tenderness Lumbar Spine / Lower Back: Negative for lumbar spinal tenderness Extremity full ROM General Extremety ED: Negative for edema or tenderness General Extremity: Negative for edema Neuro CN's II-XII intact bilaterally and moves all extremities Sensorium / Orientation: alert, oriented to person, oriented to place and oriented to time; Negative for orientation impaired, confused, lethargic or stuporous Motor Exam: strength 5/5 throughout Psych mental status grossly normal and thought process normal Appearance: Negative for unkempt Attitude: No agitated Mood & Affect: Negative for depressed, anxious or tearful Skin no wounds General Skin Exam: Negative for jaundice or pallor Lesions: no lesions Rashes: no rashes Trauma: Negative for abrasion Nails: Negative for discolored MDM MDM MDM Narrative Medical decision making narrative: 37-year-old male history of recent gallstone pancreatitis for which she had ERCP and then cholecystectomy. He has had pain since the surgery which is a month ago and came in today to have it reevaluated. Patient did not want anything for pain or nausea at this time. Repeat exam at 11:39 PM patient is doing well. Resting comfortably. He still has epigastric tenderness. But no peritoneal signs. He and I went over all his test results including CAT scan and labs. He is comfortable being discharged home with outpatient follow-up. Patient has a prescription of Protonix he will take it up to twice a day. Also use Tums. He has a follow-up appointment to see Dr. Thompson in about 11 days. Patient is comfortable being discharged home. His repeat exam is benign. History & Record Review Discussion w/independent historian: Patient Additional record(s) reviewed:: Prior inpatient record, Prior outpatient record, Prior ED visit, Prior labs and No prior records Lab Data Attestation: I reviewed the patient's lab results. Lab results narrative: CBC shows white count 9. H&H of 13 and 39. Platelets 209. Electrolytes unremarkable. Gap of 6 normal BUN of 11 creatinine 0.9. Liver enzymes unremarkable total bilirubin 1.2. Alk phos of 145. Urinalysis ordered by nursing staff shows urine ketones otherwise no signs of infection. Amylase is 30 and lipase is 26, both are normal. CT shows recent surgery with improving ductal dilatation. And no acute abnormalities. Labs: Laboratory Results - last 24 hr 05/19/23 05/19/23 21:18 21:35 WBC 9.7 RBC 4.60 Hgb 13.4 Hct 39.8 L MCV 86.5 MCH 29.1 MCHC 33.7 RDW Std Deviation 38.5 RDW Coeff of Valerie 12.1 Plt Count 209 MPV 9.7 Immature Gran % (Auto) 0.300 Neut % (Auto) 76.5 H Lymph % (Auto) 9.6 L [place] % (Auto) 12.9 H Eos % (Auto) 0.4 Baso % (Auto) 0.3 Absolute Neuts (auto) 7.4 Absolute Lymphs (auto) 0.93 Nucleated RBC % 0 Sodium 138 Potassium 4.1 Chloride 104 Carbon Dioxide 28.0 Anion Gap 6 BUN 11 Creatinine 0.99 Estim Creat Clear Calc 124.47 Est GFR (MDRD) Af Amer 111 Est GFR (MDRD) Non-Af 91 BUN/Creatinine Ratio 11.1 Glucose 106 Calcium 9.3 Total Bilirubin 1.20 H AST 14 L ALT 37 Alkaline Phosphatase 145 H Total Protein 7.0 Albumin 3.4 Globulin 3.6 Albumin/Globulin Ratio 0.9 Amylase 30 Lipase 26 Urine Color Yellow Urine Clarity Clear Urine pH 7.0 Ur Specific [place] 1.010 Urine Protein Negative Urine Glucose (UA) Normal Urine Ketones 150 A* Urine Occult Blood Negative Urine Nitrite Negative Urine Bilirubin Negative Urine Urobilinogen 8 H Ur Leukocyte Esterase 25 H Urine RBC 0 SEEN Urine WBC 0-5 SEEN Ur Squamous Epith Cells 0 SEEN Urine Bacteria 0 SEEN Urine Mucus 0 SEEN Radiography Diagnostic Testing: Clinical Impression(s) from Imaging Studies Abdomen/Pelvis CT 05/19/23 22:16 IMPRESSION: 1. Mild intrahepatic duct dilation, improved as compared to 04/17/2023. Common duct stent with no common bile duct dilation. Mild pneumobilia. 2. Status post cholecystectomy with no significant fluid or inflammatory change within the gallbladder fossa. Electronically Signed: Estiven Atkins DO at 22:46 EST , Discharge Plan Triage Chief Complaint: Abd Pain ED Provider: Tony Hills Dx/Rx/DC Orders Clinical Impression: History of pancreatitis, Gastritis, Hx of cholecystectomy Instructions: ED Gastritis (Adult) Prescriptions: No Action pantoprazole 40 mg tablet,delayed release (DR/EC) 40 mg PO DAILY Qty: 90 1RF Primary Care Provider: Benson Desai Referrals: Benson Desai DO [Primary Care Provider] - Geraldo Thompson DO [Med Staff - Active Staff] - Keep Trevor appointment Activity Restrictions/Additional Instructions: Your labs and CAT scan today look good. Continue use your Protonix once or twice a day. You may also use Tums 2 up to 3 times a day. Hawkins diet increase slowly. Avoid aspirin and Motrin like products. Avoid alcohol. Follow-up appointment with Dr. Thompson. Disposition Disposition: Home, Self Care
[2023-05-19 22:31] LABS: Amylase 30 U/L (25-115); Lipase 26 U/L (13-75)
[2023-05-19 23:49] VITALS: BP 132/71; PULSE 69; RESP 17; O2SAT 98
== END 2023-05-19 23:50 | disposition home or self-care (01) ==
PROVIDERS: Emergency Provider Emergency Medicine; PCP Family Medicine; Visit Provider Emergency Medicine
DX: R10.13 Epigastric pain (principal); Z90.49 Acquired absence of other specified parts of digestive tract; K29.70 Gastritis, unspecified, without bleeding; Z87.19 Personal history of other diseases of the digestive system
CPT/HCPCS: 74177; 80053; 81001; 82150; 83690; 85025; 99283; Q9967; A4216

== ENCOUNTER 2023-07-13 10:41 | Day surgery (SDC) | payer OTHER, SELFPAY ==
[2023-07-13] VITALS (7 sets, daily range): BP systolic 105–129; BP diastolic 70–93; PULSE 52–73; RESP 16; TEMP 36.1–36.6; O2SAT 98–100; BMI 29.1
--- NOTE | 2023-07-13 10:45 | RAD_ITS ---
EXAM: ERCP CLINICAL INDICATION: ERCP, PAIN TECHNIQUE: 8 fluoroscopic images of ERCP were obtained on a C-arm. Fluoroscopic guidance was provided by a physician. The fluoroscopy time was 53 seconds. The radiation dose is 14.26 mGy. COMPARISON: No relevant prior studies available. FINDINGS: The examination was performed for documentation. The last image demonstrates common bile duct stent. RAD/ERCP Biliary/Pancreas IMPRESSION: ERCP as described above. Electronically Signed: Mario Ren MD at 8:27 EST ,
--- NOTE | 2023-07-13 10:56 | HP.PCM_ITS ---
History and Physical Date of Admission: 07/13/23 7 M who presents to the office today for *[facility] hospitalization 04.17.23-04.19.23 for management of acute gallstone pancreatitis and acute cholecystitis. ERCP 04.18.23 biliary papillary stenosis, benign; biliary dilation with stone causing obstruction; choledocholithiasis; biliary sphincterotomy; biliary tree swept; temporary stent placed in CBD. No specimens ? Surgery 04.19.23 cholecystectomy without complication. Cholesterolosis which chronic cholecystitis and sludge. [facility] ED 05.24.23 with increased upper abdominal pain without concern for pancrea titis. OV 05.30.23 epigastric pain has resolved; RUQ pain is new and intermittent with unknown trigger. Reports he is no longer taking PPI but is not having reflux. Has been paying attention to his diet in regard to cholecystectomy. ROS Const Constitutional: No body ache, chills, excessive sweating, fatigue, fever(s), frequent falls, headache(s), snoring, weakness or change in appetite Eyes Eyes: No blurry vision, change in vision, eye pain or Light sensitivity ENT ENT: No abnormal hearing, ear or mastoid pain, tinnitus, nasal congestion, headache(s), neck pain or sore throat Resp Respiratory: No cough, shortness of breath, snoring or wheezing Cardio Cardiology: No chest pain at rest, chest pain with exertion, excessive sweating, dyspnea on exertion, lightheadedness, orthopnea or palpitations Gastro GI: No abdominal pain, change in bowel habits, constipation, cramping, diarrhea, nausea/dyspepsia or vomiting Genitourinary Male: No burning urination, painful urination, urinary incontinence or urinary frequency Musc Musculoskeletal: No abnormal gait, joint pain, back pain, limited range of motion, muscle weakness, neck pain or numbness Skin Skin: No dry skin, redness, lesions, itchy eyes, rash or wounds Neuro Neurology: No abnormal gait, abnormal hearing, weakness, frequent falls, headache(s), memory loss or numbness Psych Psychiatric: No anxiety, No change in appetite, No depression, No memory loss and No Thoughts of harming yourself/Others Endo Endocrine: No cold intolerance, excessive sweating, fatigue, flushing, heat intolerance, increased thirst/drinking or increased hunger Aller/Imm Allergy/Immunologic: No itchy eyes, seasonal allergy symptoms, hives or wheezing Akil/Lymp Hematologic/Lymphatic: No easy bleeding or easy bruising Exam Const General: cooperative, healthy appearing and comfortable Nutritional Appearance: average body habitus [facility] Head: normal to inspection Ears: hearing grossly normal bilaterally Nose: external nose normal Face and sinus: normal facial exam Mouth: oral mucosae normal Teeth and gingiva: dentition normal Eyes General: appearance normal, both eyes and all related structures Neck Neck: normal visual inspection Thyroid: thyroid normal Resp Effort & Inspection: normal respiratory effort Auscultation: Bilateral: Clear to Auscultation Cardio Rate: regular rate Rhythm: regular rhythm Heart Sounds: no murmurs GI Inspection: normal to inspection and scar Auscultation: normal bowel sounds Percussion: normal to percussion Palpation: soft and no hepatosplenomegaly Musc Musculoskeletal: No joint tenderness or decreased range of motion Skin General: no rashes or lesions noted Neuro Cognition: normal cognition Speech: speech normal Gait: normal gait Extrem General: normal to inspection and full ROM Psych Appearance: grossly normal Quality Reporting Tobacco Screening ([facility] 138) Smoking Status: Never smoker Assessment and Plan Assessment and Plan (1) Acute gallstone pancreatitis: Status: Resolved (2) Cholestatic hepatitis: Status: Resolved Plan: 37-year-old male who presents with signs and symptoms of acute gallstone pancreatitis and acute cholecystitis. He underwent ERCP with stone removal and stent placement. He demonstrates further spontaneous improvement in his condition now following ERCP yesterday. As expected, this is also translated to significant improvement in his laboratories. Orders: Orders ERCP Biliary/Pancreas 07/13/23 K75.89 - Other specified inflammatory liver diseases, K85.10 - Biliary acute pancreatitis without necrosis or infection I have examined the patient and the H&P has been reviewed. There are no clinical changes since date of exam.
[2023-07-13] MEDS: Lactated Ringers 1,000 ML 15 ML IV ×2 (11:14→13:17)
--- NOTE | 2023-07-13 12:56 | OP.ERCP_ITS ---
Patient Name: Ulisses Wayne Procedure Date: 07/13/2023 12:15 PM Date of : 1985 Age: 37 Procedure: ERCP Indications: Biliary stent removal Providers: Geraldo Thompson DO Referring MD: Benson Desai Patient Profile: This is a 37 year old male. Refer to note in patient chart for documentation of history and physical. Patient has symptoms of chronic right upper quadrant abdominal pain. His most recent ERCP for biliary evaluation was within the past three months. He is status post laparoscopic cholecystectomy within the past three months. Complications: No immediate complications. Procedure: Pre-Anesthesia Assessment: - Prior to the procedure, a History and Physical was performed, and patient medications and allergies were reviewed. The patient is competent. The risks and benefits of the procedure and the sedation options and risks were discussed with the patient. All questions were answered and informed consent was obtained. Patient identification and proposed procedure were verified by the physician. Mental Status Examination: normal. Prophylactic Antibiotics: The patient does not require prophylactic antibiotics. Prior Anticoagulants: The patient has taken no anticoagulant or antiplatelet agents. ASA Grade Assessment: II - A patient with mild systemic disease. After reviewing the risks and benefits, the patient was deemed in satisfactory condition to undergo the procedure. The anesthesia plan was to use monitored anesthesia care (MAC). Immediately prior to administration of medications, the patient was re-assessed for adequacy to receive sedatives. The heart rate, respiratory rate, oxygen saturations, blood pressure, adequacy of pulmonary ventilation, and response to care were monitored throughout the procedure. The physical status of the patient was re-assessed after the procedure. After obtaining informed consent, the scope was passed under direct vision. Throughout the procedure, the patient's blood pressure, pulse, and oxygen saturations were monitored continuously. The Duodenoscope was introduced through the mouth, and advanced to the duodenum and used to inject contrast into the bile duct and ventral pancreatic duct. The ERCP was accomplished without difficulty. The patient tolerated the procedure well. Scope In: 12:38:52 PM Scope Out: 12:47:21 PM Total Procedure Duration Time 0 hours 8 minutes 29 seconds Findings: The electro optical engineer film was normal. The esophagus was successfully intubated under direct vision. The scope was advanced to a normal major papilla in the descending duodenum without detailed examination of the pharynx, larynx and associated structures, and upper GI tract. The upper GI tract was grossly normal. A straight Roadrunner wire was passed into the biliary tree. The short-nosed traction sphincterotome was passed over the guidewire and the bile duct was then deeply cannulated. Contrast was injected. I personally interpreted the bile duct and pancreatic duct images. There was brisk flow of contrast through the ducts. Image quality was excellent. Contrast extended to the entire biliary tree. Opacification of the entire biliary tree except for the cystic duct and gallbladder and main bile duct was successful. The maximum diameter of the ducts was 9 mm. A 5 mm biliary sphincterotomy was made with a traction (standard) sphincterotome using ERBE electrocautery. There was no post-sphincterotomy bleeding. The biliary tree was swept with a 12 mm balloon starting at the bifurcation. Sludge was swept from the duct. All stones were removed. One stent was removed from the biliary tree using a snare. The stent was found to be occluded via the water column test. Impression: - Choledocholithiasis was found. Complete removal was accomplished by biliary sphincterotomy and balloon extraction. - A biliary sphincterotomy was performed. - The biliary tree was swept. - One stent was removed from the biliary tree. Procedure Code(s): --- Professional --- 55035, Endoscopic retrograde cholangiopancreatography (ERCP); with removal of foreign body(s) or stent(s) from biliary/pancreatic duct(s) 96328, Endoscopic retrograde cholangiopancreatography (ERCP); with removal of calculi/debris from biliary/pancreatic duct(s) 19472, Endoscopic retrograde cholangiopancreatography (ERCP); with sphincterotomy/papillotomy 25130, 26, Combined endoscopic catheterization of the biliary and pancreatic ductal systems, radiological supervision and interpretation CPT copyright 2021 [employer]. All rights reserved. The codes documented in this report are preliminary and upon operational assistant review may be revised to meet current compliance requirements. Geraldo Thompson DO 07/13/2023 12:55:40 PM This report has been signed electronically. Number of Addenda: 0 Note Initiated On: 07/13/2023 12:15 PM
--- NOTE | 2023-07-13 12:56 | OP.CCLET_ITS ---
07/13/2023 Benson Desai Re : ERCP procedure for Ulisses Wayne Dear Dr. Desai This procedure was performed on Thursday, July 13, 2023. My impressions and recommendations are as follows: Impressions : - Choledocholithiasis was found. Complete removal was accomplished by biliary sphincterotomy and balloon extraction. - A biliary sphincterotomy was performed. - The biliary tree was swept. - One stent was removed from the biliary tree. Recommendations : My findings are described in the full procedure note, which is enclosed. If I can be of further assistance, please feel free to contact me at . Sincerely, Geraldo Thompson, 07/13/2023 12:55:40 PM This report has been signed electronically.
== END 2023-07-13 14:45 | disposition home or self-care (01) ==
LOC: EN 10:46 → AC 10:47
PROVIDERS: PCP Family Medicine; Referring Provider Family Medicine; Visit Provider Internal Medicine Gastroenterology
PROC: (CPT 43260; principal; 2023-07-13 11:25)
DX: K85.10 Biliary acute pancreatitis without necrosis or infection (principal); K80.50 Calculus of bile duct without cholangitis or cholecystitis without obstruction; Z90.49 Acquired absence of other specified parts of digestive tract; K75.89 Other specified inflammatory liver diseases
CPT/HCPCS: 43275; 43262; 43264; 74330; 76000; J7120; J2405

== ENCOUNTER 2024-12-25 10:29 | Emergency (ER) | payer OTHER, SELFPAY ==
[2024-12-25 10:30] VITALS: BP 134/88; PULSE 101; RESP 16; TEMP 37.8; O2SAT 100; BMI 31.1
[2024-12-25 10:46] VITALS: BP 134/88; PULSE 101; RESP 16; TEMP 37.8; O2SAT 100
--- NOTE | 2024-12-25 11:20 | CT_ITS ---
PROCEDURE: ABDOMEN/PELVIS W IV CONT ONLY 12/25/2024 REASON FOR EXAM: ABDOMINAL PAIN. HISTORY OF PANCREATITIS TECHNIQUE: ABDOMEN/PELVIS W IV CONT ONLY Coronal and Sagittal reconstruction series were provided. CONTRAST: Isovue-300 VOLUME: 100 mL One or more dose reduction techniques were used (e.g., Automated exposure control, adjustment of the mA and/or kV according to patient size, use of iterative reconstruction technique. RADIATION DOSE SUMMARY: CTDlvol: 16.21 mGy DLP: 931.6 mGycm COMPARISON: Prior study dated May 19, 2023. FINDINGS: Lung bases: Lung bases are clear. Liver: Minimal degree of intrahepatic biliary ductal dilatation. Gallbladder: Surgically absent. Spleen: Borderline splenomegaly. Pancreas: Normal size without evidence of mass surrounding inflammation or ductal dilation. Adrenals: Unremarkable Kidneys: Normal renal sizes. No hydronephrosis. Bladder: Unremarkable Bowel: Unremarkable Appendix: Unremarkable Lymph nodes: Unremarkable. Vasculature: The abdominal aorta and IVC are normal. Peritoneum / Retroperitoneum: Unremarkable Bones: Unremarkable CT/Abdomen/Pelvis W IV Cont ONLY IMPRESSION: Status post cholecystectomy. Mild degree of central intrahepatic biliary ductal dilatation most likely secon mary carmen to the cholecystectomy state. No acute abnormality is seen. Reading Location: [facility]
[2024-12-25 11:32] VITALS: BP 129/79; PULSE 105; RESP 18; TEMP 37; O2SAT 99
[2024-12-25 11:32] LABS: Hematocrit 45.0 % (40-54); Hemoglobin 15.1 g/dL (13.0-16.5); Immature Granulocytes Count 0.050 X10^3/uL (0.0-0.0); Mean Corp Hgb Conc 33.6 g/dL (32-36); Mean Corpuscular Volume 88.1 fL (80-94); Mean Platelet Vol. 10.3 fl (6.2-12.0); NRBC Flagged by Analyzer 0 % (0-5); POSITIVE DIFFERENTIAL YES; Platelet Count 181 K/mm3 (150-450); RBC Distribution Width CV 12.4 % (11.6-14.6); RBC Distribution Width SD 40.3 fl (35.1-43.9); Red Blood Count 5.11 M/mm3 (4.6-6.2); White Blood Count 9.5 K/mm3 (4.4-11.0)
--- NOTE | 2024-12-25 11:34 | EDS_ITS ---
HPI HPI - GI History of Present Illness Chief Complaint: Abd Pain Informant: patient Abdominal Pain/Flank Pain Onset: Today Quality: Aching Location: Epigastric and LUQ Current Severity: Moderate Maximum Severity: Moderate Worsened by: Nothing Relieved by: Nothing Nausea/Vomiting/Emesis GI Symptom: Negative for Nausea or Vomiting Diarrhea/Melena/Hematochezia GI Symptom: Negative for Diarrhea, Melena or Hematochezia Associated Symptoms Associated Symptoms: Negative for Dysuria, Frequency or Hematuria Narrative Narrative: 39-year-old male history of prior pancreatitis x 1 and prior cholecystectomy. Was diagnosed pancreatitis the first and only time in the fall 2022. Patient states since last night around midnight he had epigastric abdominal pain. He denies any nausea, vomiting or diarrhea. He had a low-grade fever 100.1 with chills. He denies any melena. Denies any dysuria. Nothing particular makes the pain better or worse. Prior similar symptoms: Yes Recent Illness/Hospitalization: No PFSH PFSH Medical History Non-smoker Home Medications ?Medication ?Instructions ?Recorded ?Last Taken ?Type multivitamin 1 tab PO DAILY 06/24/23 Unkn own History Allergy/AdvReac Type Severity Reaction Status Date / Time No Known Allergies Allergy Verified 12/25/24 10:32 Surgical History History of cholecystectomy S/P ORIF (open reduction internal fixation) fracture Social History Smoking Status: Never smoker ROS ROS ED ROS Narrative Epigastric abdominal pain. Denies nausea or vomiting or diarrhea. No melena. Low-grade fever of 100. Constitutional Constitutional ED: Reports fever(s) ENT ENT ED: Denies ear pain or rhinorrhea Cardiovascular Cardiovascular: Denies chest pain Respiratory/Chest Respiratory/Chest: Denies cough or dyspnea Gastrointestinal Gastrointestinal: Reports abdominal pain; Denies constipation, diarrhea, melena, nausea or vomiting Genitourinary Genitourinary ED: Denies dysuria or hematuria Musculoskeletal Musculoskeletal: Denies arthralgias or back pain Integumentary Denies abscess or Abrasions Neurologic Neurologic: Denies headache(s) Psychiatric Psychiatric: Denies anxiety Endocrine Endocrinology: Denies polydipsia Hematologic/Lymphatic Hematologic/Lymphatic: Denies easy bleeding Allergic/Immunologic Allergic/Immunologic ED: Denies mouth swelling, tongue swelling or urticaria EXAM Physical Exam Narrative Exam Narrative: 39-year-old male sitting upright in bed. Vital signs stable he does have a fever of 100.1. He does not look septic or toxic. H EENT exam pupils round reactive light. Moist mucous membranes. Neck nontender no JVD. No lymphadenopathy. Lungs clear to auscultation bilaterally. Heart regular rhythm rate about 100 no murmur. Abdomen is soft. Epigastric tenderness. No rebound guarding or rigidity. Patient has normal bowel sounds. Has no hernia. No obstruction. No pulsatile mass. Right upper and right lower quadrants are unremarkable. Moving all 4 extremities. Nontender no edema. Neurologically he is awake and alert. Answering questions and following commands. Back nontender. Const Vital Signs: 12/25/24 10:30 12/25/24 10:46 12/25/24 11:32 Temperature 100.1 F H 100.1 F H 98.6 F Temperature Source Oral Oral Oral Pulse Rate 101 H 101 H 105 H Respiratory Rate 16 16 18 Blood Pressure 134/88 H 134/88 H 129/79 H Blood Pressure Mean 103 103 95 Pulse Ox 100 100 99 Oxygen Delivery Method Room Air Room Air Room Air 12/25/24 12:00 Temperature 98.4 F Temperature Source Oral Pulse Rate 99 Respiratory Rate 16 Blood Pressure 126/77 H Blood Pressure Mean 93 Pulse Ox 99 Oxygen Delivery Method Room Air Positive well nourished and well developed; Negative for cachectic, contractures or unkempt General Appearance ED: well developed and NAD; Negative for unkempt, cachectic or contractures Nutritional Appearance: Negative for cachectic HEENT Reports moist mucous membranes normocephalic and atraumatic Eyes PERRL and EOMs intact bilaterally General Eye ED: Negative for pale conjunctiva or scleral icterus Neck no lymphadenopathy, supple and no JVD General: Negative for tenderness Resp normal respiratory effort and clear to auscultation bilaterally Cardio regular rate, regular rhythm, S1 normal heart sound and no murmurs GI non-distended and no masses; Negative for non-tender GI Narrative: Epigastric tenderness. Auscultation: normoactive bowel sounds Palpation: soft and tender; Negative for guarding, rigid, hepatomegaly, splenomegaly, hernia, mass, pulsatile mass or rebound tenderness present Back/Spine no CVA tenderness Extremity full ROM General Extremety ED: Negative for edema or tenderness General Extremity: Negative for edema Neuro CN's II-XII intact bilaterally and moves all extremities Sensorium / Orientation: alert, oriented to person, oriented to place and oriented to time; Negative for orientation impaired, confused, lethargic or stuporous Motor Exam: strength 5/5 throughout Psych mental status grossly normal and thought process normal Appearance: Negative for unkempt Skin no wounds Lesions: no lesions Rashes: no rashes Trauma: Negative for abrasion Nails: Negative for discolored MDM MDM MDM Narrative Medical decision making narrative: 39-year-old male with epigastric abdominal pain 1 prior episode of pancreatitis. Differential would include pancreatitis versus gastritis versus other etiologies. Clinically this is not his appendix. There is no obstruction. His gallbladder has already been removed. CAT scan labs to be obtained. Will treat treated with morphine for pain and Zofran. Repeat exam patient is doing well. We went over his test results given his CAT scan and his labs this may be secondary to gastritis does not look like an acute pancreatitis. Again his repeat exam is mild epigastric tenderness but nothing in the right upper quadrant or right lower quadrant. He is comfortable being discharged home outpatient follow-up. History & Record Review Discussion w/independent historian: Patient Additional record(s) reviewed:: Prior inpatient record, Prior outpatient record, Prior ED visit and Prior labs Lab Data Attestation: I reviewed the patient's lab results. Lab results narrative: CBC normal. White count of 9. H&H of 15 and 45. Platelets 181. Chemistry is unremarkable. Gap 10. BUN and creatinine 12 and 1. Glucose 101. Liver enzymes normal. Amylase and lipase both normal at 39 and 24. CAT scan no acute process. Prior cholecystectomy. Labs: Laboratory Results - last 24 hr 12/25/24 10:47 WBC 9.5 RBC 5.11 Hgb 15.1 Hct 45.0 MCV 88.1 MCH 29.5 MCHC 33.6 RDW Std Deviation 40.3 RDW Coeff of Valerie 12.4 Plt Count 181 MPV 10.3 Immature Gran % (Auto) 0.500 Neut % (Auto) 93.2 H Lymph % (Auto) 4.3 L [place] % (Auto) 1.6 Eos % (Auto) 0.1 Baso % (Auto) 0.3 Absolute Neuts (auto) 8.8 H Absolute Lymphs (auto) 0.41 L Nucleated RBC % 0 Sodium 139 Potassium 4.2 Chloride 103 Carbon Dioxide 26.6 Anion Gap 10 BUN 12 Creatinine 1.09 Estim Creat Clear Calc 125.81 Est GFR (MDRD) Non-Af 90 BUN/Creatinine Ratio 11.3 Glucose 101 H Calcium 9.4 Total Bilirubin 1.03 AST 21 ALT 21 Alkaline Phosphatase 77 Total Protein 6.9 Albumin 4.6 Globulin 2.4 Albumin/Globulin Ratio 1.9 Amylase 39 Lipase 24 Radiography Diagnostic Testing: Clinical Impression(s) from Imaging Studies Abdomen/Pelvis CT 12/25/24 11:20 IMPRESSION: Status post cholecystectomy. Mild degree of central intrahepatic biliary ductal dilatation most likely secondary to the cholecystectomy state. No acute abnormality is seen. Reading Location: [id number] Discharge Plan Triage Chief Complaint: Abd Pain ED Provider: [place] Dx/Rx/DC Orders Clinical Impression: Abdominal pain, History of pancreatitis, History of cholecystectomy Instructions: Abdominal Pain Prescriptions: No Action multivitamin Tablet 1 tab PO DAILY Primary Care Provider: Benson Desai Referrals: Benson Desai, DO [Primary Care Provider] - 3-5 Days if not improving Activity Restrictions/Additional Instructions: Plenty of fluids and rest. Follow-up with your doctor if not improving. Return if feeling worse. Your labs and CAT scan look good. No signs of pancreatitis. Print Language: German Disposition Disposition: Home, Self Care
[2024-12-25] MEDS: 0.9% Normal Saline (1000mL) 1,000 ML 999 ML IV (11:45)
[2024-12-25 12:00] VITALS: BP 126/77; PULSE 99; RESP 16; TEMP 36.9; O2SAT 99
[2024-12-25 12:05] LABS: AST(SGOT) 21 U/L (<=37); Alanine Aminotransfer ALT/SGPT 21 U/L (<=46); Albumin, Serum 4.6 g/dL (3.5-5.0); Alkaline Phosphatase 77 U/L (40-129); Amylase 39 U/L (28-100); Anion Gap 10 (5-15); BUN 12 mg/dL (4-19); BUN/Creat Ratio 11.3 RATIO (10-20); Calcium,Total 9.4 mg/dL (7.6-11.0); Carbon Dioxide 26.6 mmol/L (21.0-32.0); Chloride 103 mmol/L (98-108); Estimated Creatinine Clearance 125.81 ml/min (50-250); Globulin 2.4 g/dL (2.2-4.2); Glucose 101 mg/dL (70-99); Lipase 24 U/L (13-75); Potassium 4.2 mmol/L (3.3-5.1)
[2024-12-25 13:32] VITALS: BP 115/56; PULSE 92; RESP 18; TEMP 37.8; O2SAT 100
== END 2024-12-25 13:34 | disposition home or self-care (01) ==
PROVIDERS: Emergency Provider Emergency Medicine; PCP Family Medicine; Visit Provider Emergency Medicine
DX: R10.816 Epigastric abdominal tenderness (principal); R50.9 Fever, unspecified; Z90.49 Acquired absence of other specified parts of digestive tract; Z87.19 Personal history of other diseases of the digestive system
CPT/HCPCS: 74177; 80053; 82150; 83690; 85025; 96361; 96374; 96375; 99283; Q9967; A4216; J2405

== ENCOUNTER 2024-12-27 04:51 | Emergency (ER) | payer OTHER, SELFPAY ==
[2024-12-27 04:52] VITALS: BP 141/91; PULSE 110; RESP 18; TEMP 36.7; O2SAT 98; BMI 30.7
[2024-12-27 04:55] VITALS: BP 141/91; PULSE 105; RESP 18; TEMP 36.7; O2SAT 98
--- NOTE | 2024-12-27 05:11 | EX.ED.DYSGE1 ---
HPI History of Present Illness Chief Complaint: Abd Pain Informant: patient and spouse/S.O. Narrative Narrative: Patient is a 39-year-old male with past medical history of gallstone pancreatitis who is status post cholecystectomy in 2022. He was seen on December 25 secondary to midepigastric abdominal pain. At that time labs were negative and a CT with IV contrast revealed no sign of acute pancreatitis or common bile duct stenosis or obstruction. Patient has an EGD scheduled for January 11 but he states he has had persistent subjective fevers and chills with spreading/worsening of his abdominal pain. He reports nausea without vomiting he denies any dysuria or hematuria or diarrhea. However with his worsening symptoms and concern that he is developing pancreatitis he presents for evaluation [facility] Medical History Non-smoker Home Medications ?Medication ?Instructions ?Recorded ?Last Taken ?Type famotidine 40 mg tablet 40 mg PO QDAY #30 tabs 12/25/24 Unknown Rx ondansetron 4 mg disintegrating 4 mg PO TID PRN nausea and 12/27/24 Unknown Rx tablet vomiting #21 tabs oxycodone-acetaminophen 5 mg-325 1 tab PO Q6H PRN pain 5 days #20 12/27/24 Unknown Rx mg tablet (Endocet) tabs sucralfate 1 gram tablet (Carafate) 1 g PO TID 14 days #42 tabs 12/27/24 Unknown Rx Allergy/AdvReac Type Severity Reaction Status Date / Time No Known Allergies Allergy Verified 12/27/24 04:52 Family History no significant family his Surgical History History of cholecystectomy S/P ORIF (open reduction internal fixation) fracture Social History Smoking Status: Never smoker ROS ROS ED Constitutional Constitutional ED: Reports chills, fever(s) and subjective Eyes Eyes: Denies change in vision ENT ENT ED: Denies sore throat Cardiovascular Cardiovascular: Denies chest pain Respiratory/Chest Respiratory/Chest: Denies cough Gastrointestinal Gastrointestinal: Reports abdominal pain and nausea; Denies diarrhea or vomiting Genitourinary Genitourinary ED: Denies dysuria or hematuria Musculoskeletal Musculoskeletal: Denies back pain Integumentary Denies rash Neurologic Neurologic: Denies headache(s) Hematologic/Lymphatic Hematologic/Lymphatic: Denies easy bleeding or easy bruising EXAM Physical Exam Const Vital Signs: 12/27/24 04:52 12/27/24 04:55 12/27/24 06:15 Temperature 98.1 F 98.1 F 98.9 F Temperature Source Oral Oral Pulse Rate 110 H 105 H 88 Respiratory Rate 18 18 18 Blood Pressure 141/91 H 141/91 H 130/79 H Blood Pressure Mean 107 107 96 Pulse Ox 98 98 99 Oxygen Delivery Method Room Air Room Air Positive well nourished and well developed General Appearance ED: well developed; Negative for pallor HEENT Reports dry mucous membranes HEENT Narrative: Normocephalic atraumatic No tongue or lip swelling no oral lesions no airway edema or compromise; no sign of infection noted in the posterior pharynx Mucous membranes are mildly dry and tacky Mouth ED: Yes dry mucous membranes Mouth: dry mucous membranes Eyes PERRL and EOMs intact bilaterally General Eye ED: Negative for scleral icterus Neck supple Resp normal respiratory effort and clear to auscultation bilaterally Resp Narrative: No nasal flaring retractions tachypnea or accessory muscle use Cardio regular rhythm Rate: tachycardic and other Other Details: Tachycardic rate with regular rhythm No murmurs rubs or gallop Radial and carotid pulses are equal and symmetric GI non-distended and no masses GI Narrative: Abdomen is soft and nondistended with normal active bowel sounds. There is pain with palpation mainly in the midepigastric and right upper quadrant region. However no voluntary guarding or rigidity. No pulsatile mass or fluid wave. No peritoneal signs Auscultation: normoactive bowel sounds Palpation: soft Extremity normal to inspection Extremity Narrative: No asymmetric edema no pitting edema negative Homans' sign bilaterally Neuro oriented x3, CN's II-XII intact bilaterally and no sensory deficits noted Sensorium / Orientation: alert Motor Exam: strength 5/5 throughout Psych mental status grossly normal Skin no rashes or lesions noted, no wounds and No skin turgor normal Skin Narrative: Skin turgor is slightly increased General Skin Exam: Negative for jaundice or pallor MDM MDM MDM Narrative Medical decision making narrative: Patient arrived to the ER slightly hypertensive and tachycardic but otherwise stable vitals. He was seen on December 25 for the same complaint and had a CT scan as well as basic labs. There was no clinically significant findings. He states that symptoms have persisted and the pain seems to be spreading downward throughout the abdomen. Therefore he presents for reevaluation. On his exam he is soft and nonsurgical so I do not feel the need for a repeat CT scan. Repeat blood work was obtained. Patient's white count remains normal there is no left shift and his lactic acid is normal going against a potential infection or ischemic change. His lipase is normal and not significantly elevated from the previous day as a change from 24-27 going against pancreatitis. His liver enzymes are also normal going against a biliary stricture or stone in the common bile duct. This fits that he is not jaundiced or having scleral icterus. His physical exam does show dehydration but he does not have acute kidney injury or clinically significant electrolyte abnormality. His CRP was elevated which is nonspecific and could just be secondary to the inflammatory process causing his symptoms. I discussed with patient at this time do we repeat a CT scan based on these labs. After receiving IV hydration morphine Zofran Protonix and a GI cocktail he does report a great improvement of his symptoms. On reevaluation his abdomen remains soft and nonsurgical. We did discuss the CT scan based on his increasing pain and elevated CRP however because his lipase is normal and liver enzymes are normal and lactic acid is normal concerned that the CT scan will be different from the previous day is low. The patient states he does not have concern that the CT scan would be any different either and therefore does not want the CT scan. Therefore at this time I will add medication for improved pain control as I feel that the location of his symptoms and the fact that he states they worsened last night after eating cereal would indicate a gastroduodenitis. He was advised to keep his appointment with GI to get the EGD to further assess his symptoms but at this time as his labs have not changed and his vitals are stable he will be discharged home and given symptomatic care History & Record Review Discussion w/independent historian: Patient and Significant other Lab Data Attestation: I reviewed the patient's lab results. Labs: Laboratory Results - last 24 hr 12/27/24 12/27/24 04:55 05:18 WBC 8.0 RBC 4.86 Hgb 14.5 Hct 42.6 MCV 87.7 MCH 29.8 MCHC 34.0 RDW Std Deviation 40.0 RDW Coeff of Valerie 12.5 Plt Count 148 L MPV 10.2 Immature Gran % (Auto) 0.600 Neut % (Auto) 89.0 H Lymph % (Auto) 6.[address] [place] % (Auto) 3.9 Eos % (Auto) 0.1 Baso % (Auto) 0.1 Absolute Neuts (auto) 7.1 Absolute Lymphs (auto) 0.50 L Nucleated RBC % 0 Sodium 137 Potassium 4.1 Chloride 101 Carbon Dioxide 23.7 Anion Gap 12 BUN 9 Creatinine 1.06 Estim Creat Clear Calc 128.56 Est GFR (MDRD) Non-Af 93 BUN/Creatinine Ratio 8.7 L Glucose 112 H Lactic Acid < 1.0 Calcium 9.2 Total Bilirubin 1.18 Direct Bilirubin 0.64 H AST 22 ALT 28 Alkaline Phosphatase 101 C-React Prot Ext Range 136.00 H Total Protein 6.7 Albumin 3.9 Globulin 2.8 Lipase 27 Discharge Plan Triage Chief Complaint: Abd Pain ED Provider: Mayo Darnell Dx/Rx/DC Orders Clinical Impression: Nonspecific abdominal pain, Mild dehydration Instructions: ED Abdominal Pain Unkn Cause Male... Prescriptions: New ondansetron 4 mg tablet,disintegrating 4 mg PO TID PRN (Reason: nausea and vomiting) Qty: 21 0RF sucralfate [Carafate] 1 gram tablet 1 g PO TID 14 Days Qty: 42 0RF oxycodone-acetaminophen [Endocet] 5-325 mg tablet 1 tab PO Q6H PRN (Reason: pain) 5 Days Qty: 20 0RF No Action famotidine 40 mg tablet 40 mg PO QDAY Qty: 30 1RF Primary Care Provider: Benson Desai Referrals: Benson Desai DO [Primary Care Provider] - FriendGeraldo DO [Med Staff - Active Staff] - Activity Restrictions/Additional Instructions: Your lab work today was very similar to the labs you had on December 25 going against signs of biliary stricture or obstruction and your lipase was essentially the same as the previous day going against acute pancreatitis. Please continue the famotidine that was prescribed by gastroenterology but add the Zofran for nausea control Carafate to add a layer of protection to the abdominal lining and use the Percocet for pain control. Keep your appointment with gastroenterology to have your EGD as this is truly the test needed to assess for stomach or intestinal inflammation. Return to the ER should you have any further concerns Print Language: Danish Disposition Disposition: Home, Self Care Discharge Date/Time: 12/27/24 06:25
[2024-12-27] MEDS: 0.9% Normal Saline (1000mL) 1,000 ML 999 ML IV (05:19)
--- OUTSIDE RECORDS SUMMARY | 2024-12-27 05:19 | XMS RPT_ITS | CCD ---
Author Organization [facility] Care Team Providers Care Exit Booth Agent Name Role Phone Care Physician, No Primary Primary Care Provider Unavailable Dr. Rickey Nair Emergency Provider Dr. Arie Watkins Admit Provider Dr. Arie Watkins Attending Provider Dr. Arie Watkins Other Provider Dr. Arie Watkins Referring Provider Dr. Geraldo Thompson Attending Provider Dr. Ernesto Vasquez Attending Provider Care Physician, No Primary Referring Provider Un available Dr. Benson Desai Attending Provider Dr. Benson Desai Primary Care Provider Dr. Benson Desai Referring Provider LAUREN Castano Attending Provider Dr. Geraldo Thompson Other Provider Arie Watkins Referring Unavailable Geraldo Thompson Attending Unavailable Care Physician, No Primary Primary Care Unava ilable Care Physician, No Primary Primary Care Unava ilable Rickey Nair Attending Unavailable Arie Watkins Referring Unavailable Care Physician, No Primary Primary Care Unava ilable Arie Watkins Attending Unavailable Care Physician, No Primary Primary Care Unava ilable Care Physician, No Primary Referring Unava ilable Benson Desai Attending Unavailable Benson Desai Primary Care Unavailable Benson Desai Referring Unavailable Benson Desai Attending Unavailable Geraldo Thompson Attending Unavailable Benson Desai Primary Care Unavailable Benson Desai Referring Unavailable Arie Watkins Referring Unavailable Care Physician, No Primary Primary Care Unava ilable Ernesto Vasquez Attending Unavailclinton lucas FriendGeraldo Attending Unavailable Friend, Geraldo Consulting Unavailable Lloyd, Benson R Primary Care Unavailable Lloyd, Benson R Referring Unavailable Care Physician, No Primary Primary Care Unava ilable Arie Watkins Attending Unavailable Roland, Arie Consulting Unavailable Roland, Arie Admitting Unavailable Roland, Arie Attending Unavailable Care Physician, No Primary Primary Care Unava ilable Arie Watkins Consulting Unavailable Roland, Arie Admitting Unavailable Roland, Arie Referring Unavailable FriendGeraldo Attending Unavailable Namrata Castano Attending Unavailable Brown, Benson R Primary Care Unavailable Brown, Benson R Referring Unavailable Brown, Benson R Primary Care Unavailable Brown, Benson R Referring Unavailable Friend, Geraldo Attending Unavailable Roland, Arie Attending Unavailable Care Physician, No Primary Primary Care Unava ilable Roland, Arie Admitting Unavailable Brown, Benson R Attending Unavailable Lloyd, Benson R Primary Care Unavailable Lloyd, Benson R Primary Care Unavailable Tony Hills Attending Unavailable Dr. Benson Desai DO Primary Care Provider Dr. Tony Hills MD Emergency Provider Dr. Benson Desai DO Referring Provider [phone] Rose Marie Escudero Attending Provider Medications Current Medications Medication Drug Class(es) Dates Sig (Normalized) Sig (Original) famotidine 40 mg oral tablet (1 source) Histamine-2 Receptor Antagonist Start: 12-25-2024 take 1 tablet by mouth once daily Famotidine 40 mg tablet Active 40 mg PO daily 30 1 December 25, 2024 12:00am Multivitamin preparation (1 source) Start: 06-24-2023 take 1 tablet by mouth once daily Multivitamin Active 1 TABLET PO DAILY June 24, 2023 12:00am Completed/Discontinued Medications Medication Drug Class(es) Dates Sig (Normalized) Sig (Original) Multivitamin tablet (2 sources) Start: 06-24-2023 End: 12-25-2024 Multivitamin tablet Discontinued 1 {tbl} PO DAILY June 24, 2023 1:00am December 25, 2024 2:24pm Start: 06-24-2023 Multivitamin t ablet Active 1 {tbl} PO DAILY June 24, 2023 1:00am oxyCODONE hydrochloride 5 mg oral tablet (4 sources) Opioid Agonist Start: 04-19-2023 End: 04-28-2023 take 1 tablet by mouth every six hours as needed for pain Oxycodone 5 mg Tablet Discontinued 5 mg PO EVERY 6 HOURS NEEDED as needed for Pain Score 6-10 10 3 0 April 19, 2023 April 28, 2023 4:01pm Status post laparoscopic cholecystectomy Acquired absence of other specified parts of digestive tract pantoprazole 40 mg delayed release oral tablet (4 sources) Proton Pump Inhibitor Start: 05-11-2023 End: 06-24-2023 take 1 tablet by mouth once daily Pantoprazole 40 mg tablet,delayed release (DR/EC) Discontinued 40 mg PO DAILY 90 1 May 11, 2023 1:00am June 24, 2023 2:28pm polymyxin b 69770 unt/ml / trimethoprim 1 mg/ml ophthalmic solution (6 sources) Dihydrofolate Reductase Inhibitor Antibacterial, Polymyxin-class Antibacterial Start: 06-24-2023 End: 07-01-2023 Polymyxin B Sulf-Trimethoprim 10,000 unit- 1 mg/mL drops Discontinued 1 NMA OPHTHALMIC Q3H 10 7 0 June 24, 2023 2:49pm June 30, 2023 1:00am July 01, 2023 1:05am Bacterial conjunctivitis of both eyes Unspecified conjunctivitis Other specified bacterial agents as the cause of diseases classified elsewhere apply to both eyes, while awake; do not exceed 6 doses in 24 hours Problems Problem Classification Problem Date Documented Da te Episodic/Chronic Abdominal pain (3 sources) Epigastric pain; Translations: [Abdominal pain] Onset: 05-25-2023 12-25-2024 Episodic Bacterial infection; unspecified site (1 source) Other specified bacterial agents as the cause of diseases classified elsewhere; Translations: [Other specified bacterial agents as the cause of diseases classified elsewhere] Onset: 06-24-2023 Episodic Biliary tract disease (14 sources) Biliary sludge; Translations: [Other specified diseases of gallbladder] Onset: 05-12-2023 04-11-2023 Episodic Gastritis and duodenitis (3 sources) Gastritis; Translations: [Gastritis, unspecified, without bleeding] 05-27-2023 Episodic Inflammation; infection of eye (except that caused by tuberculosis or sexually transmitteddisease) (5 sources) Bacterial conjunctivitis; Translations: [Unspecified conjunctivitis] Onset: 06-24-2023 06-24-2023 Episodic Nonspecific chest pain (6 sources) Chest pain; Translations: [Chest pain, unspecified] Onset: 04-14-2023 04-11-2023 Episodic Other gastrointestinal disorders (5 sources) History of pancreatitis; Translations: [Personal history of other diseases of the digestive system] 05-27-2023 Episodic Other liver diseases (4 sources) Cholestatic hepatitis; 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 Other liver diseases (7 sources) Other specified inflammatory liver diseases; Translations: [Other specified disorders of liver] Onset: 05-12-2023 04-19-2023 Chronic Other liver diseases (4 sources) Jaundice; Translations: [Unspecified jaundice] 04-27-2023 Episodic Other liver diseases (3 sources) Unspecified jaundice; Translations: [Jaundice, unspecified, not of ] Onset: 05-12-2023 04-19-2023 Episodic Pancreatic disorders (not diabetes) (20 sources) Gallstone acute pancreatitis; Translations: [Biliary acute pancreatitis without necrosis or infection] Onset: 05-12-2023 04-17-2023 Episodic Residual codes; unclassified (5 sources) Acquired absence of other specified parts of digestive tract; Translations: [Other postprocedural status] Onset: 05-12-2023 04-28-2023 Episodic Results Test Name Value Interpretation Reference Range Facility Absolute lymphocyte countOrd ered By: Tony Hilsl on 12-25-2024 Lymphocytes Auto (Unsp spec) [#/Vol] 0.41 10*3/uL Low 0.83-4.[address] [facility] Absolute neutrophil countOrd ered By: Tony Hills on 12-25-2024 Neutrophils (Bld) [#/Vol] 8.8 10*3/uL High 2.0-7.[address] [facility] Anion gap in Serum or Plasma Ordered By: Tony Hills on 12-25-2024 Anion gap [Moles/Vol] 10 mmol/L 5-15 [facility] Automated lymphocyte count a s percentage of total leukocytesOrdered By: Tony Hills on 12-25-2024 Lymphocytes/100 WBC Auto (Unsp spec) 4.3 % Low 19-[address] [facility] BUN/creatinine ratioOrdered By: Tony Hills on 12-25-2024 Urea nitrogen/Creatinine [Mass ratio] 11.3 mg/mg 10-[address] [facility] Basophil percentageOrdered B y: Tony Hills on 12-25-2024 Basophils/100 WBC (Bld) 0.3 % 0-1 [facility] Bilirubin, totalOrdered By: Tony Hills on 12-25-2024 Bilirubin [Mass/Vol] 1.03 mg/dL 0.00-1.30 [facility] Carbon dioxide, total [Moles /volume] in Central venous bloodOrdered By: Tony Hills on 12-25-2024 CO2 [Moles/Vol] 26.6 mmol/L 21.0-32.[address] [facility] Chloride assayOrdered By: Alphonse Hills on 12-25-2024 Chloride [Moles/Vol] 103 mmol/L 98-108 [facility] Eosinophil percentageOrdered By: Tony Hills on 12-25-2024 Eosinophils/100 WBC (Bld) 0.1 % 0-[address] [facility] Erythrocyte distribution wid th ratioOrdered By: Tony Hills on 12-25-2024 Erythrocyte distribution width (RBC) [Ratio] 12.4 % 11.6-14.[address] [facility] Erythrocyte distribution wid th standard deviationOrdered By: Tony Hills on 12-25-2024 Erythrocyte distribution width (RBC) [Ratio] 40.3 fl 35.1-43.[address] [facility] Glomerular filtration rate ( GFR) estimation/1.73 sq m using serum, plasma, or whole bOrdered By: Tony Hills on 12-25-2024 GFR/1.73 sq M.predicted among non-blacks MDRD (S/P/Bld) [Vol rate/Area] 90 mL/min/{1.73_m2} >[address] [facility] Comment on above: mL/min/1.73m2 CKD-EP I Creatinine Equation (2020) Hematocrit Auto (Bld) [Volum e fraction]Ordered By: Tony Hills on 12-25-2024 Hematocrit (Bld) [Volume fraction] 45.0 % 40-[address] [facility] Hemoglobin measurementOrdere d By: Tony Hills on 12-25-2024 Hemoglobin (Bld) [Mass/Vol] 15.1 g/dL 13.0-16.[address] [facility] Immature granulocytes/100 WB C Auto (Bld)Ordered By: Tony Hills on 12-25-2024 Immature granulocytes/100 WBC (Bld) 0.500 % 0.0-0.[address] [facility] Comment on above: IG% - Immature Granu locytes (promyelocytes, myelocytes and metamyelocytes) > 1% indicates that a LEFT SHIFT is Present. Laboratory - Chemistry and C hemistry - challengeOrdered By: Tony Hills on 12-25-2024 AST [Catalytic activity/Vol] 21 U/L <[address] [facility] Lipase measurementOrdered By : Tony Hills on 12-25-2024 Lipase [Catalytic activity/Vol] 24 U/L 13-[address] [facility] Comment on above: Please note:LIPASE r evised reference range effective 22. New Lipase methodology. Expected to produce lower values than the previous assay method. NEW Reference Range: 13 - 75 U/L MCV (mean corpuscular volume ) determinationOrdered By: Tony Hills on 12-25-2024 MCV (RBC) [Entitic vol] 88.1 fL 80-94 [facility] Mean corpuscular hemoglobin (MCH) determinationOrdered By: Tony Hills on 12-25-2024 MCH (RBC) [Entitic mass] 29.5 pg 27.0-32.[address] [facility] Mean corpuscular hemoglobin concentration (MCHC) determinationOrdered By: Tony Hills on 12-25-2024 MCHC (RBC) [Mass/Vol] 33.6 g/dL 32-36 [facility] Mean platelet volume determi nationOrdered By: Tony Hills on 12-25-2024 Platelet mean volume (Bld) [Entitic vol] 10.3 fL 6.2-12.[address] [facility] Monocyte percentageOrdered B y: Tony Hills on 12-25-2024 Monocytes/100 WBC (Bld) 1.6 % 0-10 [facility] Neutrophil percentageOrdered By: Tony Hills on 12-25-2024 Neutrophils/100 WBC (Bld) 93.2 % High 47-[address] [facility] Nucleated red blood cell per centageOrdered By: Tony Hills on 12-25-2024 Nucleated RBC/100 WBC (Bld) [Ratio] 0 % 0-[address] [facility] Platelet countOrdered By: Alphonse Hills on 12-25-2024 Platelets (Bld) [#/Vol] 181 10*3/uL 150-[address] [facility] Potassium measurement (mass/ volume)Ordered By: Tony Hills on 12-25-2024 Potassium (Unsp spec) [Mass/Vol] 4.2 mmol/L 3.3-5.[address] [facility] RBC Auto (Bld) [#/Vol]Ordere d By: Tony Hills on 12-25-2024 RBC (Bld) [#/Vol] 5.11 10*6/uL 4.6-6.2 [facility] Serum creatinine measurement (mass/volume)Ordered By: Tony Hills on 12-25-2024 Creatinine [Mass/Vol] 1.09 mg/dL 0.70-1.20 [facility] Serum globulin measurementOr dered By: Tony Hills on 12-25-2024 Globulin (S) [Mass/Vol] 2.4 g/dL 2.2-4.2 [facility] Serum glucose measurement (m ass/volume)Ordered By: Tony Hills on 12-25-2024 Glucose [Mass/Vol] 101 mg/dL High 70-99 [facility] Serum or plasma alanine multani otransferase (ALT) measurementOrdered By: Tony Hills on 12-25-2024 ALT [Catalytic activity/Vol] 21 U/L <[address] [facility] Serum or plasma albumin armani urement (mass/volume)Ordered By: Tony Hills on 12-25-2024 Albumin [Mass/Vol] 4.6 g/dL 3.5-5.0 [facility] Serum or plasma albumin/glob ulin mass ratioOrdered By: Tony Hills on 12-25-2024 Albumin/Globulin [Mass ratio] 1.9 {ratio} 0.9-2.[address] [facility] Serum or plasma alkaline sean sphatase measurementOrdered By: Tony Hills on 12-25-2024 ALP [Catalytic activity/Vol] 77 U/L 40-[address] [facility] Serum or plasma amylase armani urement (enzymatic activity/volume)Ordered By: Tony Hills on 12-25-2024 Amylase [Catalytic activity/Vol] 39 U/L 28-[address] [facility] Serum or plasma calcium armani urement (mass/volume)Ordered By: Tony Hills on 12-25-2024 Calcium [Mass/Vol] 9.4 mg/dL 7.6-11.0 [facility] Serum or plasma urea nitroge n measurement (mass/volume)Ordered By: Tony Hills on 12-25-2024 Urea nitrogen [Mass/Vol] 12 mg/dL 4- [facility] Sodium levelOrdered By: Tony Hills on 12-25-2024 Sodium [Moles/Vol] 139 mmol/L 133-145 [facility] Total proteinOrdered By: Faustino rashard Reinier on 12-25-2024 Protein [Mass/Vol] 6.9 g/dL 5.9-8.4 [facility] White blood cell (WBC) count Ordered By: Tony Hills on 12-25-2024 WBC (Bld) [#/Vol] 9.5 10*3/uL 4.4-11.0 [facility] ERCP Biliary/Pancreason 03-0 ERCP Biliary/Pancreas [facility] Imaging Services [address] [place] [id number] ERCP Biliary/Pancreas MR#: [id number] Acct: [id number] Name: ULISSES LANE Rep #: [id number] : 1985 M 37 From: Mario Thomas PCP: Dr. Benson Desai, DO Status: [facility] Study: ERCP Biliary/Pancreas Date of Exam: 07/13/23 Exam# [id number] Ordering Dr: Geraldo Thompson DO [id number] EXAM: ERCP CLINICAL INDICATION: ERCP, PAIN TECHNIQUE: 8 fluoroscopic images of ERCP were obtained on a C-arm. Fluoroscopic guidance was provided by a physician. The fluoroscopy time was 53 seconds. The radiation dose is 14.26 mGy. COMPARISON: No relevant prior studies available. FINDINGS: The examination was performed for documentation. The last image demonstrates common bile duct stent. RAD/ERCP Biliary/Pancreas IMPRESSION: ERCP as described above. Electronically Signed: Mario Ren MD at 8:27 EST , CC: Dr. Benson Desai DO; Geraldo Thompson DO Chemical Analyst: Signed Normal [facility] ERCP Reporton 07-13-2023 ERCP Report [facility] Medical Records Department [address] [place] [address] ERCP Report MR#: [id number] Acct: [id number] Name: ULISSES LANE Rep #: [id number] : 1985 37 From: Geraldo Thompson DO PCP: Dr. Benson Desai DO Status:[facility] [place] Patient Name: Ulisses Lane Procedure Date: 07/13/2023 12:15 PM Date of : 1985 Age: 37 Procedure: ERCP Indications: Biliary stent removal Providers: Geraldo Thompson DO Referring MD: Benson Desai Patient Profile: This is a 37 year old male. Refer to note in patient chart for documentation of history and physical. Patient has symptoms of chronic right upper quadrant abdominal pain. His most recent ERCP for biliary evaluation was within the past three months. He is status post laparoscopic cholecystectomy within the past three months. Complications: No immediate complications. Procedure: Pre-Anesthesia Assessment: - Prior to the procedure, a History and Physical was performed, and patient medications and allergies were reviewed. The patient is competent. The risks and benefits of the procedure and the sedation options and risks were discussed with the patient. All questions were answered and informed consent was obtained. Patient identification and proposed procedure were verified by the physician. Mental Status Examination: normal. Prophylactic Antibiotics: The patient does not require prophylactic antibiotics. Prior Anticoagulants: The patient has taken no anticoagulant or antiplatelet agents. ASA Grade Assessment: II - A patient with mild systemic disease. After reviewing the risks and benefits, the patient was deemed in satisfactory condition to undergo the procedure. The anesthesia plan was to use monitored anesthesia care (MAC). Immediately prior to administration of medications, the patient was re-assessed for adequacy to receive sedatives. The heart rate, respiratory rate, oxygen saturations, blood pressure, adequacy of pulmonary ventilation, and response to care were monitored throughout the procedure. The physical status of the patient was re-assessed after the procedure. After obtaining informed consent, the scope was passed under direct vision. Throughout the procedure, the patient's blood pressure, pulse, and oxygen saturations were monitored continuously. The Duodenoscope was introduced through the mouth, and advanced to the duodenum and used to inject contrast into the bile duct and ventral pancreatic duct. The ERCP was accomplished without difficulty. The patient tolerated the procedure well. Scope In: 12:38:52 PM Scope Out: 12:47:21 PM Total Procedure Duration Time 0 hours 8 minutes 29 seconds Findings: The automotive metalsmith film was normal. The esophagus was successfully intubated under direct vision. The scope was advanced to a normal major papilla in the descending duodenum without detailed examination of the pharynx, larynx and associated structures, and upper GI tract. The upper GI tract was grossly normal. A straight Roadrunner wire was passed into the biliary tree. The short-nosed traction sphincterotome was passed over the guidewire and the bile duct was then deeply cannulated. Contrast was injected. I personally interpreted the bile duct and pancreatic duct images. There was brisk flow of contrast through the ducts. Image quality was excellent. Contrast extended to the entire biliary tree. Opacification of the entire biliary tree except for the cystic duct and gallbladder and main bile duct was successful. The maximum diameter of the ducts was 9 mm. A 5 mm biliary sphincterotomy was made with a traction (standard) sphincterotome using ERBE electrocautery. There was no post-sphincterotomy bleeding. The biliary tree was swept with a 12 mm balloon starting at the bifurcation. Sludge was swept from the duct. All stones were removed. One stent was removed from the biliary tree using a snare. The stent was found to be occluded via the water column test. Impression: - Choledocholithiasis was found. Complete removal was accomplished by biliary sphincterotomy and balloon extraction. - A biliary sphincterotomy was performed. - The biliary tree was swept. - One stent was removed from the biliary tree. Procedure Code(s): --- Professional --- 87912, Endoscopic retrograde cholangiopancreatography (ERCP); with removal of foreign body(s) or stent(s) from biliary/pancreatic duct(s) 57168, Endoscopic retrograde cholangiopancreatography (ERCP); with removal of calculi/debris from biliary/pancreatic duct(s) 97316, Endoscopic retrograde cholangiopancreatography (ERCP); with sphincterotomy/papillotom y 10472, 26, Combined endoscopic catheterization of the biliary and pancreatic ductal systems, radiological supervision and interpretation CPT copyright 2021 [employer] (more content not included)... Normal [facility] Internal Medicine Office Vis iton 06-24-2023 Internal Medicine Office Visit [facility] [address] [place] [address] [place] [address] OFFICE VISIT Date of Service: 06/24/23 MR#: [id number] Acct: [id number] Name: ULISSES LANE Rep #: [id number] : 1985 Provider: LAUREN knowles Age/Sex: 37/M [place] [facility] [place] Status: Signed Intake Vital Signs 05/24/23 11:23 06/24/23 13:29 Height 6 ft 3 in 6 ft 3 in Weight: 231 lb 4 oz 236 lb BMI 28.9 29.5 BP 122/82 H 132/66 H Blood Pressure Location Lt brachial Rt brachial Position Sitting Sitting Respiration 16 16 Pulse 75 85 Pulse Source Monitor Monitor Temp 98.5 F 98.8 F Temp Source Temporal Temporal Pulse Oximetry (%) 99 99 Oxygen Delivery Method room air room air Intake Visit Reasons: Concern for pink eye Chief Complaint: B/L eye redness, itching, drainage Automatic Thread Winder Required: No Accompanied by: Self Is patient in pain?: Yes Pain scale (1-10): 2 Allergies No Known Allergies Allergy (Verified 06/24/23 13:28) Medications multivitamin 1 tab PO DAILY 06/24/23 [History Confirmed 06/24/23] polymyxin B sulfate 10,000 unit-trimethoprim 1 mg/mL eye drops 1 drp ophthalmic (eye) Q3H 7 days #10 mL 06/24/23 [Rx Confirmed 06/24/23] PFSH Surgical History History of cholecystectomy S/P ORIF (open reduction internal fixation) fracture Social History Smoking Status: Never smoker HPI HPI Chief Complaint: B/L eye redness, itching, drainage Details: ULISSES LANE, is a 37 M who presents to the office today for an acute visit for concerns of pink eye. He reports onset of left eye FB sensation with tearing two days ago. He states he initially thought he had something in his eye so he performed irrigated but then states he woke this morning to left eye matted shut with yellow crusting, a few hours later right eye developed itching, gritty sensation and yellow discharge. Associated sx include ST x5 days in the morning that improves during the day, nasal congestion, and occasional headache. he denies vision changes, photophobia, N, V, D, ear pain, fever, chills, or myalgias. He reports his children had pink eye 1-2 weeks ago and were treated with erythromycin ointment with improvement. He has not tried any treatments. He denies contact use. ROS Const Constitutional: No body ache, chills, excessive sweating, fatigue, fever(s), frequent falls, headache(s), night sweats, snoring, weakness, sleep problems or change in appetite Eyes Eyes: Positive for irritation and discharge; No blurry vision, change in vision, dry eyes, eye pain or Light sensitivity ENT ENT: Positive for nasal congestion and sore throat; No abnormal hearing, ear or mastoid pain, tinnitus, dizziness/vertigo, balance problems, sinus pressure, sinus pain, headache(s), dry mouth, difficulty swallowing or neck pain Resp Respiratory: No cough, chest congestion, shortness of breath, snoring or wheezing Cardio Cardiology: No chest pain at rest, chest pain with exertion, excessive sweating, dyspnea on exertion, lightheadedness, orthopnea or palpitations Gastro GI: No abdominal pain, change in bowel habits, constipation, cramping, diarrhea, heartburn, difficulty swallowing, nausea/dyspepsia or vomiting Genitourinary Male: No difficulty urinating, burning urination, painful urination, urinary incontinence, urinary frequency, blood in urine or Frequent nighttime urination/ nocturia Musc Musculoskeletal: No abnormal gait, joint pain, back pain, limited range of motion, muscle weakness, neck pain, numbness or tingling Skin Skin: No dry skin, redness, lesions, itchy eyes, rash or wounds Neuro Neurology: No abnormal gait, abnormal hearing, confusion, dizziness, weakness, frequent falls, headache(s), memory loss, numbness, tingling or tremor(s) Psych Psychiatric: No anxiety, No change in appetite, No confusion, No depression, No memory loss and No Thoughts of harming yourself/Others Endo Endocrine: No cold intolerance, excessive sweating, fatigue, flushing, heat intolerance, increased thirst/drinking, increased hunger or increased urine leakage Aller/Imm Allergy/Immunologic: No itchy eyes, seasonal allergy symptoms, hives or wheezing Akil/Lymp Hematologic/Lymphatic: No easy bleeding or easy bruising Exam Const General: cooperative, healthy appearing, comfortable, no acute distress and well developed Nutritional Appearance: average body habitus Orientation: alert, awake and oriented x3 HENMT Head: normal to inspection, no palpable skull fracture and normocephalic Ears: hearing grossly normal bilaterally and TM's normal bilaterally Nose: external nose normal, nares normal and no nasal discharge Face and sinus: normal facial exam and sinuses nontender Mouth: oral mucosae normal (more content not included)... Normal [facility] Gastroenterology Visit Repor ton 05-30-2023 Gastroenterology Visit Report [facility] Gastroenterology [address] [place] [address] OFFICE VISIT Date of Service: 05/30/23 MR#: [id number] Acct: [id number] Name: ULISSES LANE Rep #: [id number] : 1985 Provider: Geraldo Thompson DO Age/Sex: 37/M [place] [facility] [place]: Signed Intake Vital Signs 05/11/23 13:33 05/24/23 11:23 Height 6 ft 4 in 6 ft 3 in Intake Visit Reasons: H FU Allergies No Known Allergies Allergy (Verified 05/24/23 11:21) [facility] Surgical History History of cholecystectomy S/P ORIF (open reduction internal fixation) fracture Social History Smoking Status: Never smoker HPI HPI Details: ULISSES LANE, is a 37 M who presents to the office today for *[facility] hospitalization 04.17.23-04.19.23 for management of acute gallstone pancreatitis and acute cholecystitis. ERCP 04.18.23 biliary papillary stenosis, benign; biliary dilation with stone causing obstruction; choledocholithiasis; biliary sphincterotomy; biliary tree swept; temporary stent placed in CBD. No specimens ? Surgery 04.19.23 cholecystectomy without complication. Cholesterolosis which chronic cholecystitis and sludge. [facility] ED 05.24.23 with increased upper abdominal pain without concern for pancreatitis. OV 05.30.23 epigastric pain has resolved; RUQ pain is new and intermittent with unknown trigger. Reports he is no longer taking PPI but is not having reflux. Has been paying attention to his diet in regard to cholecystectomy. ROS Const Constitutional: No body ache, chills, excessive sweating, fatigue, fever(s), frequent falls, headache(s), snoring, weakness or change in appetite Eyes Eyes: No blurry vision, change in vision, eye pain or Light sensitivity ENT ENT: No abnormal hearing, ear or mastoid pain, tinnitus, nasal congestion, headache(s), neck pain or sore throat Resp Respiratory: No cough, shortness of breath, snoring or wheezing Cardio Cardiology: No chest pain at rest, chest pain with exertion, excessive sweating, dyspnea on exertion, lightheadedness, orthopnea or palpitations Gastro GI: No abdominal pain, change in bowel habits, constipation, cramping, diarrhea, nausea/dyspepsia or vomiting Genitourinary Male: No burning urination, painful urination, urinary incontinence or urinary frequency Musc Musculoskeletal: No abnormal gait, joint pain, back pain, limited range of motion, muscle weakness, neck pain or numbness Skin Skin: No dry skin, redness, lesions, itchy eyes, rash or wounds Neuro Neurology: No abnormal gait, abnormal hearing, weakness, frequent falls, headache(s), memory loss or numbness Psych Psychiatric: No anxiety, No change in appetite, No depression, No memory loss and No Thoughts of harming yourself/Others Endo Endocrine: No cold intolerance, excessive sweating, fatigue, flushing, heat intolerance, increased thirst/drinking or increased hunger Aller/Imm Allergy/Immunologic: No itchy eyes, seasonal allergy symptoms, hives or wheezing Akil/Lymp Hematologic/Lymphatic: No easy bleeding or easy bruising Exam Const General: cooperative, healthy appearing and comfortable Nutritional Appearance: average body habitus HENMT Head: normal to inspection Ears: hearing grossly normal bilaterally Nose: external nose normal Face and sinus: normal facial exam Mouth: oral mucosae normal Teeth and gingiva: dentition normal Eyes General: appearance normal, both eyes and all related structures Neck Neck: normal visual inspection Thyroid: thyroid normal Resp Effort Inspection: normal respiratory effort Auscultation: Bilateral: Clear to Auscultation Cardio Rate: regular rate Rhythm: regular rhythm Heart Sounds: no murmurs GI Inspection: normal to inspection and scar Auscultation: normal bowel sounds Percussion: normal to percussion Palpation: soft and no hepatosplenomegaly Musc Musculoskeletal: No joint tenderness or decreased range of motion Skin General: no rashes or lesions noted Neuro Cognition: normal cognition Speech: speech normal Gait: normal gait Extrem General: normal to inspection and full ROM Psych Appearance: grossly normal Quality Reporting Tobacco Screening ([facility] 138) Smoking Status: Never smoker Assessment and Plan Assessment and Plan (1) Acute gallstone pancreatitis: Status: Resolved (2) Cholestatic hepatitis: Status: Resolved Plan: 37-year-old male who presents with signs and symptoms of acute gallstone pancreatitis and acute cholecystitis. He underwent ERCP with stone removal and stent placement. He demonstrates further spontaneous improvement in his condition now following ERCP yesterday. As expected, this is also translated (more content not included)... Normal [facility] Internal Medicine Office Vis iton 05-24-2023 Internal Medicine Office Visit [facility] [address] [place] [address] [place] [address] OFFICE VISIT Date of Service: 05/24/23 MR#: [id number] Acct: [id number] Name: ULISSES LANE Rep #: [id number] : 1985 Provider: Dr. Benson field, DO Age/Sex: 37/M [place] [facility] [place] Status: Signed Intake Vital Signs 05/11/23 13:33 05/19/23 20:54 05/24/23 11:23 Height 6 ft 4 in 6 ft 3 in 6 ft 3 in Weight: 231 lb 4 oz BMI 28.9 BP 122/82 H Blood Pressure Location Lt brachial Position Sitting Respiration 16 Pulse 75 Pulse Source Monitor Temp 98.5 F Temp Source Temporal Pulse Oximetry (%) 99 Oxygen Delivery Method room air Intake Visit Reasons: fu Chief Complaint: f/u gall bladder surgery Automatic Thread Winder Required: No Accompanied by: Self Is patient in pain?: No Allergies No Known Allergies Allergy (Verified 05/24/23 11:21) Medications pantoprazole 40 mg tablet,delayed release 40 mg PO DAILY #90 tabs 05/11/23 [Rx Confirmed 05/24/23] PFSH Surgical History History of cholecystectomy S/P ORIF (open reduction internal fixation) fracture Social History Smoking Status: Never smoker HPI HPI Chief Complaint: f/u gall bladder surgery Details: ULISSES LANE, is a 37 M who presents to the office today for checkup after being in the hospital for epigastric pain. Last time I saw him I put him on pantoprazole for what I thought was reflux sy mptoms. He did not take it on a regular basis and the pain flared up and he went into the emergency room where they did blood work to assure him that this was not a recurrence of his pancreatitis. He was then instructed to take the medication faithfully on a twice daily basis and he has done that and no longer has any discomfort. ROS Const Constitutional: No body ache, chills, excessive sweating, fatigue, fever(s), frequent falls, headache(s), snoring, weakness or change in appetite Eyes Eyes: No blurry vision, change in vision, eye pain or Light sensitivity ENT ENT: No abnormal hearing, ear or mastoid pain, tinnitus, nasal congestion, headache(s), neck pain or sore throat Resp Respiratory: No cough, shortness of breath, snoring or wheezing Cardio Cardiology: No chest pain at rest, chest pain with exertion, excessive sweating, dyspnea on exertion, lightheadedness, orthopnea or palpitations Gastro GI: No abdominal pain, change in bowel habits, constipation, cramping, diarrhea, nausea/dyspepsia or vomiting Genitourinary Male: No burning urination, painful urination, urinary incontinence or urinary frequency Musc Musculoskeletal: No abnormal gait, joint pain, back pain, limited range of motion, muscle weakness, neck pain or numbness Skin Skin: No dry skin, redness, lesions, itchy eyes, rash or wounds Neuro Neurology: No abnormal gait, abnormal hearing, weakness, frequent falls, headache(s), memory loss or numbness Psych Psychiatric: No anxiety, No change in appetite, No depression, No memory loss and No Thoughts of harming yourself/Others Endo Endocrine: No cold intolerance, excessive sweating, fatigue, flushing, heat intolerance, increased thirst/drinking or increased hunger Aller/Imm Allergy/Immunologic: No itchy eyes, seasonal allergy symptoms, hives or wheezing Akil/Lymp Hematologic/Lymphatic: No easy bleeding or easy bruising Exam Const General: cooperative, healthy appearing and comfortable Nutritional Appearance: average body habitus HENMT Head: normal to inspection Ears: hearing grossly normal bilaterally Nose: external nose normal Face and sinus: normal facial exam Mouth: oral mucosae normal Teeth and gingiva: dentition normal Eyes General: appearance normal, both eyes and all related structures Neck Neck: normal visual inspection Thyroid: thyroid normal Resp Effort Inspection: normal respiratory effort Auscultation: Bilateral: Clear to Auscultation Cardio Rate: regular rate Rhythm: regular rhythm Heart Sounds: no murmurs GI Inspection: normal to inspection and scar Auscultation: normal bowel sounds Percussion: normal to percussion Palpation: soft and no hepatosplenomegaly Musc Musculoskeletal: No joint tenderness or decreased range of motion Skin General: no rashes or lesions noted Neuro Cognition: normal cognition Speech: speech normal Gait: normal gait Extrem General: normal to inspection and full ROM Psych Appearance: grossly normal Coding Level of Care Code Off vis,est,level 3 Diagnoses Gastritis K29.70 History of pancreatitis Z87.19 Acute gallstone pancreatitis K85.10 Hx of cholecystectomy Z90.49 Assessment and Plan Assessment and Plan (1) Gastritis: Status: Acute Plan: I have instructed him to reduce the (more content not included)... Normal [facility] Abdomen/Pelvis W IV Cont ONL Yon 05-20-2023 Abdomen/Pelvis W IV Cont ONLY [facility] Imaging Services [address] [place] [address] Abdomen/Pelvis W IV Cont ONLY MR#: [id number] Acct: [id number] Name: LANEULISSES FLORES Rep #: [id number] : 1985 M 37 From: Estiven Atkins MD PCP: Dr. Benson Desai, DO Status: REG ER Study: Abdomen/Pelvis W IV Cont ONLY Date of Exam: Exam# [id number] Ordering Dr: Tony Hills MD [id number] INDICATION: epigastric abd pain s/p lap suzanne hx of pancreatit EXAMINATION: CT Abdomen And Pelvis W/ Contrast Injection TECHNIQUE: Helically acquired images were obtained of the abdomen and pelvis with sagittal and coronal reconstructed images. Individualized dose optimization techniques were used for this CT. IV contrast dosage and agent: 100 mL of Isovue-370. Oral contrast: None. COMPARISON: 04/17/2023 CT. FINDINGS: VESSELS: No abdominal aortic aneurysm or dissection. LIVER: No evidence of a mass. Intrahepatic duct dilation, improved as compared to the prior exam. Mild pneumobilia. A common duct stent is in place with no common duct dilation. GALLBLADDER: Status post cholecystectomy. No significant fluid or inflammatory changes in the gallbladder fossa. PANCREAS: No focal solid or cystic mass. No evidence of pancreatitis. SPLEEN: Normal. ADRENAL GLANDS: Normal. KIDNEYS AND URETERS: No urinary tract stone. No hydronephrosis or hydroureter. No significant asymmetric perinephric stranding. URINARY BLADDER: Unremarkable. BOWEL: No evidence of diverticulosis or diverticulitis. Appendix appears normal. No evidence of bowel obstruction. REPRODUCTIVE ORGANS: No evidence of a pelvic mass. PERITONEUM: No intraabdominal free fluid or free air. LYMPH NODES: No pathologically enlarged mesenteric or retroperitoneal lymph nodes. ABDOMINAL WALL: No abdominal or pelvic wall hernia. BONES: No acute abnormality. LOWER CHEST: Visualized lung bases are unremarkable. CT/Abdomen/Pelvis W IV Cont ONLY IMPRESSION: 1. Mild intrahepatic duct dilation, improved as compared to 04/17/2023. Common duct stent with no common bile duct dilation. Mild pneumobilia. 2. Status post cholecystectomy with no significant fluid or inflammatory change within the gallbladder fossa. Electronically Signed: Estiven Atkins DO at 22:46 EST , CC: Dr. Benson Desai DO; Dr. Tony Hills MD Chemical Analyst: Signed Normal [facility] Amylaseon 05-20-2023 LUIS 30 U/L Normal 25-[address] [facility] Comment on above: Performed By: #### L 400.0001 #### [facility] [address] [place], [address] Comprehensive Metabolic Prof ilon 05-20-2023 Albumin [Mass/Vol] 3.4 g/dL Normal 3.2-5.0 [facility] Comment on above: Performed By: #### L 500.4050, L100.0100 #### [facility] [address] [place], [address] Albumin/Globulin [Mass ratio] 0.9 {ratio} Normal 0.9-2.[address] [facility] Comment on above: Performed By: #### L 500.4050, L100.0100 #### [facility] [address] [place], [address] ALK P 145 U/L High 45-[address] [facility] Comment on above: Performed By: #### L 500.4050, L100.0100 #### [facility] [address] [place], [address] ALT [Catalytic activity/Vol] 37 U/L Normal 16-[address] [facility] Comment on above: Performed By: #### L 500.4050, L100.0100 #### [facility] [address] [place], [address] AST [Catalytic activity/Vol] 14 U/L Low 15-[address] [facility] Comment on above: Performed By: #### L 500.4050, L100.0100 #### [facility] [address] [place], [address] Bilirubin [Mass/Vol] 1.20 mg/dL High 0.20-1.00 [facility] Comment on above: Result Comment: For patients on eltrombopag therapy, use of Dimension [place] TBIL is not recommended. Performed By: #### L 500.4050, L100.0100 #### [facility] [address] [place], [address] BUN/CRE 11.1 RATIO Normal 10-[address] [facility] Comment on above: Performed By: #### L 500.4050, L100.0100 #### [facility] [address] [place], [address] CA,Total 9.3 mg/dL Normal 8.5-10.[address] [facility] Comment on above: Performed By: #### L 500.4050, L100.0100 #### [facility] [address] [place], [address] Chloride [Moles/Vol] 104 mmol/L Normal 98-107 [facility] Comment on above: Performed By: #### L 500.4050, L100.0100 #### [facility] [address] [place], [address] CO2 [Moles/Vol] 28.0 mmol/L Normal 21.0-32.[address] [facility] Comment on above: Performed By: #### L 500.4050, L100.0100 #### [facility] [address] [place], [address] Creatinine [Mass/Vol] 0.99 mg/dL Normal 0.70-1.30 [facility] Comment on above: Result Comment: The validity of the calculated GFR GFRAA in patients over 70 years has not been determined. Clinical correlation is essential. Performed By: #### L 500.4050, L100.0100 #### [facility] [address] [place], [address] ECRCL 124.47 ml/min Normal [facility] Comment on above: Performed By: #### L 500.4050, L100.0100 #### [facility] [address] [place], [address] EST GFR - AA 111 mL/min Normal >[address] [facility] Comment on above: Result Comment: Afri can [place] GFR Calc Performed By: #### L 500.4050, L100.0100 #### [facility] [address] [place], [address] GAP 6 Normal 5-[address] [facility] Comment on above: Performed By: #### L 500.4050, L100.0100 #### [facility] [address] [place], [address] GFR/1.73 sq M.predicted among non-blacks MDRD (S/P/Bld) [Vol rate/Area] 91 mL/min/{1.73_m2} Normal >[address] [facility] Comment on above: Result Comment: Non- GFR Calc Performed By: #### L 500.4050, L100.0100 #### [facility] [address] [place], [address] Globulin (S) [Mass/Vol] 3.6 g/dL Normal 2.2-4.2 [facility] Comment on above: Performed By: #### L 500.4050, L100.0100 #### [facility] [address] [place], [address] Glucose [Mass/Vol] 106 mg/dL Normal 74-106 [facility] Comment on above: Result Comment: Fast ing Glucose result from 100 to 125 mg/dL suggests IMPAIRED HOMEOSTASIS per A.D.A. criteria. Performed By: #### L 500.4050, L100.0100 #### [facility] [address] [place], [address] Potassium [Moles/Vol] 4.1 mmol/L Normal 3.5-5.1 [facility] Comment on above: Performed By: #### L 500.4050, L100.0100 #### [facility] [address] [place], [address] Sodium [Moles/Vol] 138 mmol/L Normal 136-145 [facility] Comment on above: Performed By: #### L 500.4050, L100.0100 #### [facility] [address] [place], [address] T PROT 7.0 g/dL Normal 6.4-8.[address] [facility] Comment on above: Performed By: #### L 500.4050, L100.0100 #### [facility] [address] [place], [address] Urea nitrogen [Mass/Vol] 11 mg/dL Normal 7-[address] [facility] Comment on above: Performed By: #### L 500.4050, L100.0100 #### [facility] [address] [place], [address] Emergency Department Summary on 05-20-2023 Emergency Department Summary [facility] Medical Records Department [address] [place] [address] Emergency Department Summary 05/19/23 MR#: [id number] Acct: [id number] Name: ULISSES LANE Rep #: [id number] : 1985 37 From: Tony Hills MD PCP: Dr. Benson Dseai, DO Status:REG ER Location: ED HPI HPI - GI History of Present Illness Chief Complaint: Abd Pain Detail of Chief Complaint: Epigastric abdominal pain for the last month but worse in the last couple d Informant: patient Abdominal Pain/Flank Pain Onset: Weeks Context: Gradual Onset Quality: Aching and Burning Location: Epigastric Current Severity: Mild Maximum Severity: Mild Nausea/Vomiting/Emesis GI Symptom: Negative for Nausea or Vomiting Diarrhea/Melena/Hematoche tam GI Symptom: Negative for Diarrhea, Melena or Hematochezia Associated Symptoms Associated Symptoms: Negative for Dysuria, Frequency, Hematuria or Urgency Narrative Narrative: 37-year-old male history of gallstone pancreatitis for which he had an ERCP stone removal by GI Dr. Thompson and then a cholecystectomy diet Dr. Watkins this is all about a month ago. Has had chronic epigastric pain since that admission and surgery. He said this is gotten worse the last 2 days. Denies nausea, vomiting or diarrhea. No fever or chills. No melena. No hematemesis. He has had some weight loss over the last month intentionally. He says he has had minimal to no alcohol intake. He denies any other prior abdominal surgeries. Prior similar symptoms: Yes Recent Illness/Hospitalization: Yes PFSH PFS Home Medications pantoprazole 40 mg tablet,delayed release 40 mg PO DAILY #90 tabs 05/11/23 [Rx Last Taken Unknown] Allergy/AdvReac Type Severity Reaction Status Date / Time No Known Allergies Allergy Verified 05/19/23 21:41 Surgical History History of cholecystectomy S/P ORIF (open reduction internal fixation) fracture Social History Smoking Status: Never smoker ROS ROS ED ROS Narrative Epigastric abdominal pain. Review of Systems ROS Unobtainable: Denies due to encephalopathy Constitutional Constitutional ED: Denies chills or fever(s) ENT ENT ED: Denies ear pain Cardiovascular Cardiovascular: Denies chest pain Respiratory/Chest Respiratory/Chest: Denies cough or dyspnea Gastrointestinal Gastrointestinal: Reports abdominal pain; Denies constipation, diarrhea, melena, nausea or vomiting Genitourinary Genitourinary ED: Denies dysuria or hematuria Musculoskeletal Musculoskeletal: Denies arthralgias, back pain, myalgias or neck pain Integumentary Denies abscess Neurologic Neurologic: Denies headache(s) Psychiatric Psychiatric: Denies anxiety or depression Endocrine Endocrinology: Denies polydipsia Hematologic/Lymphatic Hematologic/Lymphatic: Denies easy bleeding Allergic/Immunologic Allergic/Immunologic ED: Denies mouth swelling EXAM Physical Exam Narrative Exam Narrative: Well-appearing 37-year-old male. Vital signs stable afebrile. He is tachycardic. He does not look septic or toxic. He is in no acute distress. H EENT exam unremarkable. Mytrex members. Neck nontender. Lungs clear to auscultation bilaterally. Heart tachycardic no murmur. Rate about 115. Chest wall nontender. Abdomen epigastric tenderness only. Right upper right lower quadrant unremarkable. No hernia or mass. No distention. No pulsatile mass. Well-healed laparoscopic surgical incision sites. No peritoneal signs. Moving all 4 extremities. Nontender no edema. Back nontender. He is awake and alert. Answering questions following commands. Const Vital Signs: 05/19/23 20:54 Temperature 98.4 F Temperature Source Temporal Pulse Rate 131 H Respiratory Rate 18 Blood Pressure 145/86 H Blood Pressure Mean 105 Pulse Ox 100 Oxygen Delivery Method Room Air Positive well nourished and well developed; Negative for obese, cachectic, contractures or unkempt General Appearance ED: well developed and NAD; Negative for unkempt, cachectic, contractures or pallor Nutritional Appearance: Negative for cachectic or obese HEENT Reports moist mucous membranes; Denies dry mucous membranes normocephalic and atraumatic; Negative for trauma or tenderness Mouth ED: No dry mucous membranes Mouth: No dry mucous membranes Eyes PERRL and EOMs intact bilaterally General Eye ED: Negative for pale conjunctiva or scleral icterus Neck no lymphadenopathy, supple and no JVD General: Negative for tenderness Carotids: Negative for other Lymph Lymphatic: Negative for other Resp normal respiratory effort and clear to auscultation bilaterally Effort and Inspection: Negative for respiratory distress Auscultation: Negative for rales, rhonchi or wheezes C (more content not included)... Normal [facility] Lipaseon 05-20-2023 Lipase [Catalytic activity/Vol] 26 U/L Normal 13-[address] [facility] Comment on above: Result Comment: Janet latham note: LIPASE revised reference range effective 22. New Lipase methodology. Expected to produce lower values than the previous assay method. NEW Reference Range: 13 - 75 U/L Performed By: #### L 400.0001 #### [facility] [address] [place], [address] Absolute lymphocyte countOrd ered By: ED PROVIDER on 05-19-2023 Lymphocytes Auto (Unsp spec) [#/Vol] 0.93 10*3/uL 0.83-4.[address] [facility] Basophil percentageOrdered B y: Tony Hills on 05-19-2023 Amylase [Catalytic activity/Vol] 30 U/L 25-[address] [facility] Bilirubin [Mass/Vol] 1.20 mg/dL 0.20-1.00 [facility] Comment on above: For patients on eltr ombopag therapy, use of Dimension [place] TBIL is not recommended. Chloride [Moles/Vol] 104 mmol/L 98-107 [facility] Glucose [Mass/Vol] 106 mg/dL 74-106 [facility] Comment on above: Fasting Glucose resu lt from 100 to 125 mg/dL suggests IMPAIRED HOMEOSTASIS per A.D.A. criteria. Potassium [Moles/Vol] 4.1 mmol/L 3.5-5.1 [facility] Protein [Mass/Vol] 7.0 g/dL 6.4-8.2 [facility] Sodium [Moles/Vol] 138 mmol/L 136-145 [facility] [facility] Basophil percentageOrdered B y: ED PROVIDER on 05-19-2023 Basophils/100 WBC (Bld) 0.3 % 0-1 [facility] Eosinophils/100 WBC (Bld) 0.4 % 0-[address] [facility] Neutrophils (Bld) [#/Vol] 7.4 10*3/uL 2.0-7.[address] [facility] Neutrophils/100 WBC (Bld) 76.5 % 47-[address] [facility] WBC (Bld) [#/Vol] 9.7 10*3/uL 4.4-11.0 [facility] Basophil percentage 0-5 SEEN /hpf 0-5 [facility] Bilirubin Test strip Ql (U)O rdered By: ED PROVIDER on 05-19-2023 Bilirubin Ql (U) Negative Negative [facility] Blood erythrocytes count (nu mber/volume)Ordered By: ED PROVIDER on 05-19-2023 RBC (Bld) [#/Vol] 4.60 10*6/uL 4.6-6.2 [facility] Blood hemoglobin measurement (mass/volume)Ordered By: ED PROVIDER on 05-19-2023 Hemoglobin (Bld) [Mass/Vol] 13.4 g/dL 13.0-16.[address] [facility] Blood lymphocytes/100 leukoc ytesOrdered By: ED PROVIDER on 05-19-2023 Lymphocytes/100 WBC (Bld) 9.6 % 19-[address] [facility] Blood monocytes/100 leukocyt esOrdered By: ED PROVIDER on 05-19-2023 Monocytes/100 WBC (Bld) 12.9 % 0-10 [facility] Blood platelet mean volumeOr dered By: ED PROVIDER on 05-19-2023 Platelet mean volume (Bld) [Entitic vol] 9.7 fL 6.2-12.[address] [facility] CBC W/Diff, Automatedon 05-09 Absolute Lymph 0.93 X10 3/uL Normal 0.83-4.[address] [facility] Comment on above: Performed By: #### L 500.4050, L100.0100 #### [facility] [address] [place], [address] Absolute Neut 7.4 X10 3/uL Normal 2.0-7.[address] [facility] Comment on above: Performed By: #### L 500.4050, L100.0100 #### [facility] [address] [place], [address] Basophils/100 WBC (Bld) 0.3 % Normal 0-1 [facility] Comment on above: Performed By: #### L 500.4050, L100.0100 #### [facility] [address] [place], [address] Eosinophils/100 WBC (Bld) 0.4 % Normal 0-[address] [facility] Comment on above: Performed By: #### L 500.4050, L100.0100 #### [facility] [address] [place], [address] Erythrocyte distribution width (RBC) [Ratio] 12.1 % Normal 11.6-14.[address] [facility] Comment on above: Performed By: #### L 500.4050, L100.0100 #### [facility] [address] [place], [address] Hematocrit (Bld) [Volume fraction] 39.8 % Low 40-[address] [facility] Comment on above: Performed By: #### L 500.4050, L100.0100 #### [facility] [address] [place], [address] Hemoglobin (Bld) [Mass/Vol] 13.4 g/dL Normal 13.0-16.[address] [facility] Comment on above: Performed By: #### L 500.4050, L100.0100 #### [facility] [address] [place], [address] IG% 0.300 Normal 0.0-0.[address] [facility] Comment on above: Result Comment: IG% - Immature Granulocytes (promyelocytes, myelocytes and metamyelocytes) > 1% indicates that a LEFT SHIFT is Present. Performed By: #### L 500.4050, L100.0100 #### [facility] [address] [place], [address] Lymphocytes/100 WBC (Bld) 9.6 % Low 19-[address] [facility] Comment on above: Performed By: #### L 500.4050, L100.0100 #### [facility] [address] [place], [address] MCH (RBC) [Entitic mass] 29.1 pg Normal 27.0-32.[address] [facility] Comment on above: Performed By: #### L 500.4050, L100.0100 #### [facility] [address] [place], [address] MCHC (RBC) [Mass/Vol] 33.7 g/dL Normal 32-36 [facility] Comment on above: Performed By: #### L 500.4050, L100.0100 #### [facility] [address] [place], [address] MCV (RBC) [Entitic vol] 86.5 fL Normal 80-94 [facility] Comment on above: Performed By: #### L 500.4050, L100.0100 #### [facility] [address] [place], [address] Monocytes/100 WBC (Bld) 12.9 % High 0-10 [facility] Comment on above: Performed By: #### L 500.4050, L100.0100 #### [facility] [address] [place], [address] Neutrophils/100 WBC (Bld) 76.5 % High 47-[address] [facility] Comment on above: Performed By: #### L 500.4050, L100.0100 #### [facility] [address] [place], [address] Nucleated RBC (Bld) [#/Vol] 0 10*3/uL Normal 0-[address] [facility] Comment on above: Performed By: #### L 500.4050, L100.0100 #### [facility] [address] [place], [address] Platelet mean volume (Bld) [Entitic vol] 9.7 fL Normal 6.2-12.[address] [facility] Comment on above: Performed By: #### L 500.4050, L100.0100 #### [facility] [address] [place], [address] Platelets (Bld) [#/Vol] 209 10*3/uL Normal 150-[address] [facility] Comment on above: Performed By: #### L 500.4050, L100.0100 #### [facility] [address] [place], [address] RBC (Bld) [#/Vol] 4.60 10*6/uL Normal 4.6-6.2 [facility] Comment on above: Performed By: #### L 500.4050, L100.0100 #### [facility] [address] [place], [address] RDW SD 38.5 fl Normal 35.1-43.[address] [facility] Comment on above: Performed By: #### L 500.4050, L100.0100 #### [facility] [address] [place], [address] WBC (Bld) [#/Vol] 9.7 10*3/uL Normal 4.4-11.0 [facility] Comment on above: Performed By: #### L 500.4050, L100.0100 #### [facility] [address] [place], [address] Determination of erythrocyte mean corpuscular volume (MCV)Ordered By: ED PROVIDER on 05-19-2023 MCV (RBC) [Entitic vol] 86.5 fL 80-94 [facility] Hematocrit Auto (Bld) [Volum e fraction]Ordered By: ED PROVIDER on 05-19-2023 Hematocrit (Bld) [Volume fraction] 39.8 % 40-[address] [facility] Ketones Test strip Ql (U)Ord ered By: ED PROVIDER on 05-19-2023 Ketones Ql (U) 150 mg/dl Negative [facility] Comment on above: CRITICAL VALUE *HCRI TICAL VALUE VERIFIED. CALLED TO [id number] Liliana Dixon.RESULTS READ BACK BY SAME . Laboratory - Chemistry and C hemistry - challengeOrdered By: Tony Hills on 05-19-2023 ALP [Catalytic activity/Vol] 145 U/L 45-[address] [facility] ALT [Catalytic activity/Vol] 37 U/L 16-[address] [facility] CO2 [Moles/Vol] 28.0 mmol/L 21.0-32.[address] [facility] Globulin (S) [Mass/Vol] 3.6 g/dL 2.2-4.2 [facility] Lipase [Catalytic activity/Vol] 26 U/L 13-[address] [facility] Comment on above: Please note:LIPASE r evised reference range effective 22. New Lipase methodology. Expected to produce lower values than the previous assay method. NEW Reference Range: 13 - 75 U/L Urea nitrogen/Creatinine [Mass ratio] 11.1 mg/mg 10-[address] [facility] Laboratory - Hematology and Cell countsOrdered By: ED PROVIDER on 05-19-2023 Erythrocyte distribution width (RBC) [Entitic vol] 38.5 fL 35.1-43.[address] [facility] Erythrocyte distribution width (RBC) [Ratio] 12.1 % 11.6-14.[address] [facility] Immature granulocytes/100 WBC (Bld) 0.300 % 0.0-0.[address] [facility] Comment on above: IG% - Immature Granu locytes (promyelocytes, myelocytes and metamyelocytes) > 1% indicates that a LEFT SHIFT is Present. MCH (RBC) [Entitic mass] 29.1 pg 27.0-32.[address] [facility] Nucleated RBC/100 WBC (Bld) [Ratio] 0 % 0-[address] [facility] MCHC Auto (RBC) [Mass/Vol]Or dered By: ED PROVIDER on 05-19-2023 MCHC (RBC) [Mass/Vol] 33.7 g/dL 32-36 [facility] Mucus LM Ql (Urine sed)Order ed By: ED PROVIDER on 05-19-2023 Mucus Ql (Urine sed) 0 SEEN /hpf [facility] Nitrite Test strip Ql (U)Ord ered By: ED PROVIDER on 05-19-2023 Nitrite Ql (U) Negative Negative [facility] No Panel InformationOrdered By: Tony Hills on 05-19-2023 Estimated Creatinine Clearance Calc 124.47 ml/min [facility] Estimated GFR (MDRD) Amer 111 mL/min >[address] [facility] Comment on above: GFR Calc Estimated GFR (MDRD) Non-Af Amer 91 mL/min >[address] [facility] Comment on above: Non- GFR Calc Platelets bldOrdered By: ED PROVIDER on 05-19-2023 Platelets (Bld) [#/Vol] 209 10*3/uL 150-[address] [facility] Protein Test strip Ql (U)Ord ered By: ED PROVIDER on 05-19-2023 Protein Ql (U) Negative Negative [facility] Serum or plasma albumin armani urement (mass/volume)Ordered By: Tony Hills on 05-19-2023 Albumin [Mass/Vol] 3.4 g/dL 3.2-5.0 [facility] Serum or plasma albumin/glob ulin mass ratioOrdered By: Tony Hills on 05-19-2023 Albumin/Globulin [Mass ratio] 0.9 {ratio} 0.9-2.[address] [facility] Serum or plasma calcium armani urement (mass/volume)Ordered By: Tony Hills on 05-19-2023 Calcium [Mass/Vol] 9.3 mg/dL 8.5-10.1 [facility] Serum or plasma creatinine m easurement (mass/volume)Ordered By: Tony Hills on 05-19-2023 Creatinine [Mass/Vol] 0.99 mg/dL 0.70-1.30 [facility] Comment on above: The validity of the calculated GFR & GFRAA in patients over 70 years has not been determined. Clinical correlation is essential. Serum or plasma urea nitroge n measurement (mass/volume)Ordered By: Tony Hills on 05-19-2023 Urea nitrogen [Mass/Vol] 11 mg/dL 7-[address] [facility] Squamous epithelial cells de tection in urine sediment by light microscopyOrdered By: ED PROVIDER on 05-19-2023 Epithelial cells.squamous LM Ql (Urine sed) 0 SEEN /hpf 0-[address] [facility] Thin prep Papanicolaou smear with manual screeningOrdered By: Tony Hills on 05-19-2023 Thin prep Papanicolaou smear with manual screening 14 U/L 15-[address] [facility] Thin prep Papanicolaou smear with manual screening 6 5-[address] [facility] Urinalysis, Completeon 05-19 WBC 0-5 SEEN Normal 0-[address] [facility] Comment on above: Order Comment: COLLE CTOR TO SPECIFY Performed By: #### L 400.0001 #### [facility] [address] [place], [address] BACTERIA 0 SEEN Normal None Seen [facility] Comment on above: Order Comment: KEVIN CTOR TO SPECIFY Performed By: #### L 400.0001 #### [facility] [address] [place], [address] EPI,SQUAMOUS 0 SEEN Normal 0-[address] [facility] Comment on above: Order Comment: KEVIN CTOR TO SPECIFY Performed By: #### L 400.0001 #### [facility] [address] [place], [address] Mucus Ql (Urine sed) 0 SEEN Normal [facility] Comment on above: Order Comment: KEVIN CTOR TO SPECIFY Performed By: #### L 400.0001 #### [facility] [address] [place], [address] RBC 0 SEEN Normal 0-[address] [facility] Comment on above: Order Comment: KEVIN CTOR TO SPECIFY Performed By: #### L 400.0001 #### [facility] [address] [place], [address] Urine blood detectionOrdered By: ED PROVIDER on 05-19-2023 RBC Ql (U) Negative Negative [facility] RBC Ql (U) 0 SEEN /hpf 0-[address] [facility] Urine clarityOrdered By: ED PROVIDER on 05-19-2023 Clarity (U) Clear Clear [facility] Urine color determinationOrd ered By: ED PROVIDER on 05-19-2023 Color (U) Yellow Yellow [facility] Urine glucose detectionOrder ed By: ED PROVIDER on 05-19-2023 Glucose Ql (U) Normal mg/dl Normal [facility] Urine leukocyte esterase det ection by dipstickOrdered By: ED PROVIDER on 05-19-2023 Leukocyte esterase Test strip Ql (U) 25 /ul Negative [facility] Urine pHOrdered By: ED PROVI ASHIA on 05-19-2023 pH (U) 7.0 [pH] 5.0 - 8.[address] [facility] Urine sediment bacteria coun t by microscopy (number/high power field)Ordered By: ED PROVIDER on 05-19-2023 Bacteria LM.HPF (Urine sed) [#/Area] 0 /[HPF] None Seen [facility] Urine specific gravity measu rementOrdered By: ED PROVIDER on 05-19-2023 Specific gravity (U) [Rel density] 1.010 1.002-1.[address] [facility] Urobilinogen Auto test strip Ql (U)Ordered By: ED PROVIDER on 05-19-2023 Urobilinogen Ql (U) 8 mg/dl Normal [facility] Basophil percentageOrdered B y: Benson Brown on 05-11-2023 Bilirubin [Mass/Vol] 0.80 mg/dL 0.20-1.00 [facility] Comment on above: For patients on eltr ombopag therapy, use of Dimension [place] TBIL is not recommended. Chloride [Moles/Vol] 105 mmol/L 98-107 [facility] Cholesterol [Mass/Vol] 163 mg/dL <200 [facility] Comment on above: <200 mg/dL Desirable 200-240 mg/dL Borderline >240 mg/dL High Risk Glucose [Mass/Vol] 90 mg/dL 74-106 [facility] Potassium [Moles/Vol] 4.1 mmol/L 3.5-5.1 [facility] Protein [Mass/Vol] 6.9 g/dL 6.4-8.2 [facility] Sodium [Moles/Vol] 140 mmol/L 136-145 [facility] Triglyceride [Mass/Vol] 57 mg/dL <199 [facility] Comment on above: The drugs N-Acetylcy steine and Metamizole may falsely depress this assay.Serum Triglycerides Reference Interval Normal <150 mg/dL Borderline high 150 - 199 mg/dL High 200 - 499 mg/dL Very High > or = 500 mg/dL Comprehensive Metabolic Prof ilon 05-11-2023 Albumin [Mass/Vol] 3.6 g/dL Normal 3.2-5.0 [facility] Comment on above: Performed By: #### L 500.5400, L500.4100 #### [facility] Laboratory [facility] [place], [address] Albumin/Globulin [Mass ratio] 1.1 {ratio} Normal 0.9-2.[address] [facility] Comment on above: Performed By: #### L 500.4050, L500.4100 #### [facility] [address] [place], [address] ALK P 122 U/L High 45-[address] [facility] Comment on above: Performed By: #### L 500.4050, L500.4100 #### [facility] [address] [place], [address] ALT [Catalytic activity/Vol] 60 U/L Normal 16-[address] [facility] Comment on above: Performed By: #### L 500.4050, L500.4100 #### [facility] [address] [place], [address] AST [Catalytic activity/Vol] 26 U/L Normal 15-[address] [facility] Comment on above: Performed By: #### L 500.4050, L500.4100 #### [facility] [address] [place], [address] Bilirubin [Mass/Vol] 0.80 mg/dL Normal 0.20-1.00 [facility] Comment on above: Result Comment: For patients on eltrombopag therapy, use of Dimension [place] TBIL is not recommended. Performed By: #### L 500.4050, L500.4100 #### [facility] [address] [place], [address] BUN/CRE 17.0 RATIO Normal 10-[address] [facility] Comment on above: Performed By: #### L 500.4050, L500.4100 #### [facility] [address] [place], [address] CA,Total 8.9 mg/dL Normal 8.5-10.[address] [facility] Comment on above: Performed By: #### L 500.4050, L500.4100 #### [facility] [address] [place], [address] Chloride [Moles/Vol] 105 mmol/L Normal 98-107 [facility] Comment on above: Performed By: #### L 500.4050, L500.4100 #### [facility] [address] [place], [address] CO2 [Moles/Vol] 30.0 mmol/L Normal 21.0-32.[address] [facility] Comment on above: Performed By: #### L 500.4050, L500.4100 #### [facility] [address] [place], [address] Creatinine [Mass/Vol] 1.06 mg/dL Normal 0.70-1.30 [facility] Comment on above: Result Comment: The validity of the calculated GFR GFRAA in patients over 70 years has not been determined. Clinical correlation is essential. Performed By: #### L 500.4050, L500.4100 #### [facility] [address] [place], [address] EST GFR - AA 102 mL/min Normal >[address] [facility] Comment on above: Result Comment: Afri can Moldovan GFR Calc Performed By: #### L 500.4050, L500.4100 #### [facility] [address] [place], [address] GAP 5 Normal 5-[address] [facility] Comment on above: Performed By: #### L 500.4050, L500.4100 #### [facility] [address] [place], [address] GFR/1.73 sq M.predicted among non-blacks MDRD (S/P/Bld) [Vol rate/Area] 84 mL/min/{1.73_m2} Normal >[address] [facility] Comment on above: Result Comment: Non- GFR Calc Performed By: #### L 500.4050, L500.4100 #### [facility] [address] [place], [address] Globulin (S) [Mass/Vol] 3.3 g/dL Normal 2.2-4.2 [facility] Comment on above: Performed By: #### L 500.4050, L500.4100 #### [facility] [address] [place], [address] Glucose [Mass/Vol] 90 mg/dL Normal 74-106 [facility] Comment on above: Performed By: #### L 500.4050, L500.4100 #### [facility] [address] [place], [address] Potassium [Moles/Vol] 4.1 mmol/L Normal 3.5-5.1 [facility] Comment on above: Performed By: #### L 500.4050, L500.4100 #### [facility] [address] [place], [address] Sodium [Moles/Vol] 140 mmol/L Normal 136-145 [facility] Comment on above: Performed By: #### L 500.4050, L500.4100 #### [facility] [address] [place], [address] T PROT 6.9 g/dL Normal 6.4-8.[address] [facility] Comment on above: Performed By: #### L 500.4050, L500.4100 #### [facility] [address] [place], [address] Urea nitrogen [Mass/Vol] 18 mg/dL Normal 7-[address] [facility] Comment on above: Performed By: #### L 500.4050, L500.4100 #### [facility] [address] [place], [address] Internal Medicine Office Vis nikki 05-11-2023 Internal Medicine Office Visit [facility] [place] [address] [place] [address] OFFICE VISIT Date of Service: 05/11/23 MR#: [id number] Acct: [id number] Name: ULISSES LANE Rep #: [id number] : 1985 Provider: Dr. Benson field, DO Age/Sex: 37/M [place] [facility] Status: Signed Intake Vital Signs 04/11/23 10:15 04/18/23 23:57 05/11/23 13:33 Height 6 ft 3 in 6 ft 4 in 6 ft 4 in Weight: 237 lb BMI 28.8 BP 132/72 H Blood Pressure Location Lt brachial Position Sitting Respiration 14 Pulse 80 Pulse Source Monitor Temp 97 F L Temp Source Temporal Pulse Oximetry (%) 98 Oxygen Delivery Method room air Intake Visit Reasons: WC FU Chief Complaint: f/u gall bladder surgery Automatic Thread Winder Required: No Is patient in pain?: No Allergies No Known Allergies Allergy (Verified 05/11/23 12:59) Medications pantoprazole 40 mg tablet,delayed release 40 mg PO DAILY #90 tabs 05/11/23 [Rx Confirmed 05/11/23] Nurse's Note: States he has had a pain in LUQ twice since the operation which was a pain he was having prior to the surgery. [facility] Surgical History (Updated 05/11/23 @ 13:32 by Katia Wallace MA) History of cholecystectomy S/P ORIF (open reduction internal fixation) fracture Social History Smoking Status: Never smoker HPI HPI Chief Complaint: f/u gall bladder surgery Details: ULISSES LANE, is a 37 M who presents to the office today for a follow-up exam after he had biliary pancreatitis. He was relatively asymptomatic until the pain got worse and he became jaundiced and then he had a emergency cholecystectomy. His lipase was up to 12,000 and his AST and ALT were quite elevated in the hospital. He still complains occasionally of epigastric pain that is usually relieved by eating something. ROS Const Constitutional: No body ache, chills, excessive sweating, fatigue, fever(s), frequent falls, headache(s), snoring, weakness, sleep problems or change in appetite Eyes Eyes: No blurry vision, change in vision, eye pain or Light sensitivity ENT ENT: No abnormal hearing, ear or mastoid pain, tinnitus, nasal congestion, headache(s), neck pain or sore throat Resp Respiratory: No cough, shortness of breath, snoring or wheezing Cardio Cardiology: No chest pain at rest, chest pain with exertion, excessive sweating, shortness of breath, dyspnea on exertion, lightheadedness, orthopnea or palpitations Gastro GI: No abdominal pain, change in bowel habits, constipation, cramping, diarrhea, nausea/dyspepsia or vomiting Genitourinary Male: No burning urination, painful urination, urinary incontinence or urinary frequency Musc Musculoskeletal: No abnormal gait, joint pain, back pain, limited range of motion, neck pain or numbness Skin Skin: No dry skin, redness, lesions, itchy eyes, rash or wounds Neuro Neurology: No abnormal gait, abnormal hearing, weakness, frequent falls, headache(s), memory loss or numbness Psych Psychiatric: No anxiety, No change in appetite, No depression, No memory loss and No Thoughts of harming yourself/Others Endo Endocrine: No cold intolerance, excessive sweating, fatigue, flushing, heat intolerance, increased thirst/drinking or increased hunger Aller/Imm Allergy/Immunologic: No itchy eyes, seasonal allergy symptoms, hives or wheezing Akil/Lymp Hematologic/Lymphatic: No easy bleeding, easy bruising, enlarged lymph nodes or other Exam Const General: cooperative, healthy appearing and comfortable Nutritional Appearance: average body habitus [facility] Head: normal to inspection Ears: hearing grossly normal bilaterally Nose: external nose normal Face and sinus: normal facial exam Mouth: oral mucosae normal Teeth and gingiva: dentition normal Eyes General: appearance normal, both eyes and all related structures Neck Neck: normal visual inspection Thyroid: thyroid normal Resp Effort Inspection: normal respiratory effort Auscultation: Bilateral: Clear to Auscultation Cardio Rate: regular rate Rhythm: regular rhythm Heart Sounds: no murmurs GI Inspection: normal to inspection and scar Auscultation: normal bowel sounds Percussion: normal to percussion Palpation: soft and no hepatosplenomegaly Musc Musculoskeletal: No joint tenderness or decreased range of motion Skin General: no rashes or lesions noted Neuro Cognition: normal cognition Speech: speech normal Gait: normal gait Extrem General: normal to inspection and full ROM Psych Appearance: grossly normal Coding Level of Care Code Off vis,new,level 3 Diagnoses Cholestatic hepatitis K75.89 Status post laparoscopic cholecystectomy Z90.49 Assessment and Plan Assessment and Plan (1) Cholestatic hepatitis: Status: Acute Pl (more content not included)... Normal [facility] Laboratory - Chemistry and C hemistry - challengeOrdered By: Benson Desai on 05-11-2023 ALP [Catalytic activity/Vol] 122 U/L 45-[address] [facility] ALT [Catalytic activity/Vol] 60 U/L 16-[address] [facility] CO2 [Moles/Vol] 30.0 mmol/L 21.0-32.[address] [facility] Globulin (S) [Mass/Vol] 3.3 g/dL 2.2-4.2 [facility] Urea nitrogen/Creatinine [Mass ratio] 17.0 mg/mg 10-[address] [facility] Lipid Profileon 05-11-2023 Cholesterol [Mass/Vol] 163 mg/dL Normal [facility] Comment on above: Result Comment: <200 mg/dL Desirable 200-240 mg/dL Borderline >240 mg/dL High Risk Performed By: #### L 500.4050, L500.4100 #### [facility] Laboratory [address] [place], [address] Cholesterol in HDL [Mass/Vol] 49 mg/dL Normal [facility] Comment on above: Result Comment: The drugs N-Acetylcysteine and Metamizole may falsely depress this assay. Reference Range HDL <40 mg/dL Low HDL Cholesterol HDL >or= 60 mg/dL High HDL Cholesterol Performed By: #### L 500.4050, L500.4100 #### [facility] [address] [place], [address] Cholesterol in LDL [Mass/Vol] 103 mg/dL Normal 0-[address] [facility] Comment on above: Performed By: #### L 500.4050, L500.4100 #### [facility] [address] [place], [address] Cholesterol in VLDL [Mass/Vol] 11 mg/dL Normal 5-[address] [facility] Comment on above: Performed By: #### L 500.4050, L500.4100 #### [facility] [address] [place], [place], [address] Triglyceride [Mass/Vol] 57 mg/dL Normal [facility] Comment on above: Result Comment: The drugs N-Acetylcysteine and Metamizole may falsely depress this assay. Serum Triglycerides Reference Interval Normal <150 mg/dL Borderline high 150 - 199 mg/dL High 200 - 499 mg/dL Very High > or = 500 mg/dL Performed By: #### L 500.4050, L500.4100 #### [facility] [address] [place], [place], [address] No Panel InformationOrdered By: Benson Desai on 05-11-2023 Estimated GFR (MDRD) Amer 102 mL/min >[address] [facility] Comment on above: GFR Calc Estimated GFR (MDRD) Non-Af Amer 84 mL/min >[address] [facility] Comment on above: Non- GFR Calc Serum or plasma albumin armani urement (mass/volume)Ordered By: Benson Desai on 05-11-2023 Albumin [Mass/Vol] 3.6 g/dL 3.2-5.0 [facility] Serum or plasma albumin/glob ulin mass ratioOrdered By: Benson Desai on 05-11-2023 Albumin/Globulin [Mass ratio] 1.1 {ratio} 0.9-2.[address] [facility] Serum or plasma calcium armani urement (mass/volume)Ordered By: Benson Desai on 05-11-2023 Calcium [Mass/Vol] 8.9 mg/dL 8.5-10.1 [facility] Serum or plasma cholesterol in HDL measurement (mass/volume)Ordered By: Benson Desai on 05-11-2023 Cholesterol in HDL [Mass/Vol] 49 mg/dL >[address] [facility] Comment on above: The drugs N-Acetylcy steine and Metamizole may falsely depress this assay. Reference Range HDL <40 mg/dL Low HDL Cholesterol HDL >or= 60 mg/dL High HDL Cholesterol Serum or plasma cholesterol in VLDL measurement (mass/volume)Ordered By: Benson Desai on 05-11-2023 Cholesterol in VLDL [Mass/Vol] 11 mg/dL 5-[address] [facility] Serum or plasma creatinine m easurement (mass/volume)Ordered By: Benson Desai on 05-11-2023 Creatinine [Mass/Vol] 1.06 mg/dL 0.70-1.30 [facility] Comment on above: The validity of the calculated GFR & GFRAA in patients over 70 years has not been determined. Clinical correlation is essential. Serum or plasma low density lipoprotein (LDL) cholesterol measurement (mass/volume)Ordered By: Benson Desai on 05-11-2023 Cholesterol in LDL [Mass/Vol] 103 mg/dL 0-[address] [facility] Serum or plasma urea nitroge n measurement (mass/volume)Ordered By: Benson Desai on 05-11-2023 Urea nitrogen [Mass/Vol] 18 mg/dL 7-[address] [facility] Thin prep Papanicolaou smear with manual screeningOrdered By: Benson Desai on 05-11-2023 Thin prep Papanicolaou smear with manual screening 26 U/L 15-[address] [facility] Thin prep Papanicolaou smear with manual screening 5 5-[address] [facility] Surgery Visit Reporton 04-28 Surgery Visit Report [facility] [address] [place] [address]. [address] [place] [address] OFFICE VISIT Date of Service: 04/28/23 MR#: [id number] Acct: [id number] Name: ULISSES LANE Rep #: [id number] : 1985 Provider: Dr. Arie galicia MD Age/Sex: 37/M Location: [facility] Status: Signed with Addenda ADDENDUM by Dr. Arie Watkins MD on 04/28/23 at 1730 Assessment and Plan (No Qualifiers) Assessment and Plan (1) Status post laparoscopic cholecystectomy: Status: Acute Comment: This is a 37-year-old male who is recovering well after the laparoscopic cholecystectomy with intraoperative cholangiogram 04/19/2023 occasioned by diagnosis of gallstone pancreatitis and choledocholithiasis. He is also status post ERCP with common bile duct stent placement. We had a lengthy discussion regarding transitioning to a sustainable healthy diet as well as checking in on his present cholesterol status. Mr. Lane confirmed his interest in trying to get healthier out of this incident. We also discussed that he will require follow-up with gastroenterology for EGD and stent removal. We will contact their office to see that he gets put on the schedule. Given that he is healing so well from our surgery together I do not find cause to require further follow-up with general surgery. However, I did share with him that his upper abdominal pain could represent uncontrolled dyspepsia or possible stress ulcer. He confirms that he will keep tabs on the symptoms and let me know if they persist. 04/28/23 1730 Date Arie Watkins MD cc: * Signed Intake Vital Signs 04/18/23 23:57 Height 6 ft 4 in Intake Visit Reasons: Gall Bladder Surgery 04/19 Chief Complaint: f/u gall bladder surgery Automatic Thread Winder Required: No Is patient in pain?: No Allergies No Known Allergies Allergy (Verified 04/28/23 15:01) Subjective Details: Patient presents following laparoscopic cholecystectomy with intraoperative cholangiogram on 04/19/2023. Since hospital discharge they have been doing well. They report minimal postoperative pain. They report use of only aimj-bwb-dfmcarm pain medication postoperatively. They report tolerance of a diet and shared that they are now doing more of a low-fat diet with foods such as grilled chicken and white rice. They have no wound concerns. Overall Mr. Lane reports that he is sleeping very well but last evening experienced pain high up in his abdomen (later clarified that this was behind his breastbone) and again yesterday. He shares this is the same pain with which he presented to the ER the first time. He notes that it spontaneously resolved after approximately 3 hours yesterday and drinking lots of water. As he has generally been well he reports that he has returned to work but that he is not yet full tilt. Objective Details: Constitutional: No acute distress but mildly anxious Abdomen: Steri-Strips remain intact over patient's port site incisions which are well-healing and remain well-approximated. There is no zoya-incisional erythema or drainage. His abdomen is nondistended, soft, nontender to palpation x 4 quadrants Coding Level of Care Code Global Post Op Diagnoses Status post laparoscopic cholecystectomy Z90.49 [facility] Surgical History (Updated 04/28/23 @ 17:[address] Arie Watkins MD) S/P ORIF (open reduction internal fixation) fracture Social History Smoking Status: Never smoker Assessment and Plan (No Qualifiers) Assessment and Plan (1) Status post laparoscopic cholecystectomy: Status: Acute Comment: This is a 37-year-old male who is recovering well after the laparoscopic cholecystectomy with intraoperative cholangiogram 04/19/2023 occasioned by diagnosis of gallstone pancreatitis and choledocholithiasis. He is also status post ERCP with common bile duct stent placement. We had a lengthy discussion regarding transitioning to a sustainable healthy diet as well as checking in on his present cholesterol status. Mr. Lane confirmed his interest in trying to get healthier out of this incident. We also discussed that he will require follow-up with gastroenterology for EGD and stent removal. We will contact their office to see that he gets put on the schedule. Given that he is healing so well from our surgery together I do not find cause to require further follow-up with general surgery. Plan: ??? Patient encouraged to apply triple antibiotic ointment to incisions once nightly ???-No formal clinic follow-up is required, but patient is invited to call or arrange further follow- up with the occasion arises in the future ??? Patient to follow-up with gastroenterology for common bile duct stent removal 04/28/231728 Date ____ (more content not included)... Normal [facility] Absolute lymphocyte countOrd ered By: Arie Watkins on 04-19-2023 Lymphocytes Auto (Unsp spec) [#/Vol] 1.21 10*3/uL 0.83-4.[address] [facility] Basophil percentageOrdered B y: Arie Watkins on 04-19-2023 Basophils/100 WBC (Bld) 0.1 % 0-1 [facility] Bilirubin [Mass/Vol] 2.80 mg/dL 0.20-1.00 [facility] Comment on above: For patients on eltr ombopag therapy, use of Dimension [place] TBIL is not recommended. Chloride [Moles/Vol] 109 mmol/L 98-107 [facility] Eosinophils/100 WBC (Bld) 0.1 % 0-[address] [facility] Glucose [Mass/Vol] 103 mg/dL 74-106 [facility] Comment on above: Fasting Glucose resu lt from 100 to 125 mg/dL suggests IMPAIRED HOMEOSTASIS per A.D.A. criteria. Neutrophils (Bld) [#/Vol] 5.5 10*3/uL 2.0-7.[address] [facility] Neutrophils/100 WBC (Bld) 75.6 % 47-[address] [facility] Potassium [Moles/Vol] 4.2 mmol/L 3.5-5.1 [facility] Protein [Mass/Vol] 5.6 g/dL 6.4-8.2 [facility] Sodium [Moles/Vol] 139 mmol/L 136-145 [facility] WBC (Bld) [#/Vol] 7.3 10*3/uL 4.4-11.0 [facility] Blood erythrocytes count (nu mber/volume)Ordered By: Arie Watkins on 04-19-2023 RBC (Bld) [#/Vol] 4.32 10*6/uL 4.6-6.2 [facility] Blood hemoglobin measurement (mass/volume)Ordered By: Arie Watkins on 04-19-2023 Hemoglobin (Bld) [Mass/Vol] 12.6 g/dL 13.0-16.[address] [facility] Blood lymphocytes/100 leukoc ytesOrdered By: Arie Watkins on 04-19-2023 Lymphocytes/100 WBC (Bld) 16.5 % 19-[address] [facility] Blood monocytes/100 leukocyt esOrdered By: Arie Watkins on 04-19-2023 Monocytes/100 WBC (Bld) 7.2 % 0-10 [facility] Blood platelet mean volumeOr dered By: Arie Watkins on 04-19-2023 Platelet mean volume (Bld) [Entitic vol] 10.3 fL 6.2-12.[address] [facility] CBC W/Diff, Automatedon 04-08 Absolute Lymph 1.21 X10 3/uL Normal 0.83-4.[address] [facility] Comment on above: Performed By: #### L 501.2450, L100.0100, L500.4050 #### [facility] [address] [place], [address] Absolute Neut 5.5 X10 3/uL Normal 2.0-7.[address] [facility] Comment on above: Performed By: #### L 501.2450, L100.0100, L500.4050 #### [facility] [address] [place], [address] Basophils/100 WBC (Bld) 0.1 % Normal 0-1 [facility] Comment on above: Performed By: #### L 501.2450, L100.0100, L500.4050 #### [facility] [address] [place], [address] Eosinophils/100 WBC (Bld) 0.1 % Normal 0-[address] [facility] Comment on above: Performed By: #### L 501.2450, L100.0100, L500.4050 #### [facility] [address] [place], [address] Erythrocyte distribution width (RBC) [Ratio] 12.8 % Normal 11.6-14.[address] [facility] Comment on above: Performed By: #### L 501.2450, L100.0100, L500.4050 #### [facility] [address] [place], [address] Hematocrit (Bld) [Volume fraction] 38.8 % Low 40-[address] [facility] Comment on above: Performed By: #### L 501.2450, L100.0100, L500.4050 #### [facility] [address] [place], [address] Hemoglobin (Bld) [Mass/Vol] 12.6 g/dL Low 13.0-16.[address] [facility] Comment on above: Performed By: #### L 501.2450, L100.0100, L500.4050 #### [facility] [address] [place], [address] IG% 0.500 Normal 0.0-0.[address] [facility] Comment on above: Result Comment: IG% - Immature Granulocytes (promyelocytes, myelocytes and metamyelocytes) > 1% indicates that a LEFT SHIFT is Present. Performed By: #### L 501.2450, L100.0100, L500.4050 #### [facility] [address] [place], [address] Lymphocytes/100 WBC (Bld) 16.5 % Low 19-[address] [facility] Comment on above: Performed By: #### L 501.2450, L100.0100, L500.4050 #### [facility] [address] [place], [address] MCH (RBC) [Entitic mass] 29.2 pg Normal 27.0-32.[address] [facility] Comment on above: Performed By: #### L 501.2450, L100.0100, L500.4050 #### [facility] [address] [place], [address] MCHC (RBC) [Mass/Vol] 32.5 g/dL Normal 32-36 [facility] Comment on above: Performed By: #### L 501.2450, L100.0100, L500.4050 #### [facility] [address] [place], [address] MCV (RBC) [Entitic vol] 89.8 fL Normal 80-94 [facility] Comment on above: Performed By: #### L 501.2450, L100.0100, L500.4050 #### [facility] [address] [place], [address] Monocytes/100 WBC (Bld) 7.2 % Normal 0-10 [facility] Comment on above: Performed By: #### L 501.2450, L100.0100, L500.4050 #### [facility] [address] [place], [address] Neutrophils/100 WBC (Bld) 75.6 % High 47-[address] [facility] Comment on above: Performed By: #### L 501.2450, L100.0100, L500.4050 #### [facility] [address] [place], [address] Nucleated RBC (Bld) [#/Vol] 0 10*3/uL Normal 0-[address] [facility] Comment on above: Performed By: #### L 501.2450, L100.0100, L500.4050 #### [facility] [address] [place], [address] Platelet mean volume (Bld) [Entitic vol] 10.3 fL Normal 6.2-12.[address] [facility] Comment on above: Performed By: #### L 501.2450, L100.0100, L500.4050 #### [facility] [address] [place], [address] Platelets (Bld) [#/Vol] 184 10*3/uL Normal 150-[address] [facility] Comment on above: Performed By: #### L 501.2450, L100.0100, L500.4050 #### [facility] [address] [place], [address] RBC (Bld) [#/Vol] 4.32 10*6/uL Low 4.6-6.2 [facility] Comment on above: Performed By: #### L 501.2450, L100.0100, L500.4050 #### [facility] [address] [place], [address] RDW SD 42.4 fl Normal 35.1-43.[address] [facility] Comment on above: Performed By: #### L 501.2450, L100.0100, L500.4050 #### [facility] [address] [place], [address] WBC (Bld) [#/Vol] 7.3 10*3/uL Normal 4.4-11.0 [facility] Comment on above: Performed By: #### L 501.2450, L100.0100, L500.4050 #### [facility] [address] [place], [address] Cholangiogram/ O R,Initialon 04-19-2023 Cholangiogram/ O R,Initial [facility] Imaging Services [address] [place] [address] Cholangiogram/ O R,Initial MR#: [id number] Acct: [id number] Name: ULISSES LANE Rep #: [id number] : 1985 M 37 From: Michael moncada MD PCP: Care Physician,No Primary Status: ADM IN Study: Cholangiogram/ O R,Initial Date of Exam: 04/19 Exam# [id number] Ordering Dr: Arie Watkins MD [id number] STUDY: INTRAOPERATIVE CHOLANGIOGRAM. REASON FOR EXAM: Male, 37 years old. LAP SUZANNE WITH IOC FLUOROSCOPY TIME (if supplied): ( 17 seconds ) minutes/seconds. 7.71 mGy TECHNIQUE: An intraoperative cholangiogram was performed by the surgeon. Imaging was submitted. COMPARISON: None. FINDINGS: A common bile duct stent is seen. Small filling defects are seen in the proximal portion of the common bile duct. This may represent tiny calculi. RAD/Cholangiogram/ O R,Initial IMPRESSION: Tiny filling defects are seen in the proximal portion of the common bile duct. A biliary stent is in situ. Electronically Signed: Michael Palomo MD at 14:28 EST , CC: Dr. Arie Watkins MD; No Primary Care Physician Chemical Analyst: Signed Normal [facility] Comprehensive Metabolic Prof ilon 04-19-2023 Albumin [Mass/Vol] 2.8 g/dL Low 3.2-5.0 [facility] Comment on above: Performed By: #### L 501.2450, L100.0100, L500.4050 #### [facility] [address] [place], [address] Albumin/Globulin [Mass ratio] 1.0 {ratio} Normal 0.9-2.[address] [facility] Comment on above: Performed By: #### L 501.2450, L100.0100, L500.4050 #### [facility] [address] [place], [address] ALK P 224 U/L High 45-[address] [facility] Comment on above: Performed By: #### L 501.2450, L100.0100, L500.4050 #### [facility] [address] [place], [address] ALT [Catalytic activity/Vol] 280 U/L High 16-[address] [facility] Comment on above: Performed By: #### L 501.2450, L100.0100, L500.4050 #### [facility] [address] [place], [address] AST [Catalytic activity/Vol] 75 U/L High 15-[address] [facility] Comment on above: Performed By: #### L 501.2450, L100.0100, L500.4050 #### [facility] [address] [place], [address] Bilirubin [Mass/Vol] 2.80 mg/dL High 0.20-1.00 [facility] Comment on above: Result Comment: For patients on eltrombopag therapy, use of Dimension [place] TBIL is not recommended. Performed By: #### L 501.2450, L100.0100, L500.4050 #### [facility] [address] [place], [address] BUN/CRE 7.5 RATIO Low 10-[address] [facility] Comment on above: Performed By: #### L 501.2450, L100.0100, L500.4050 #### [facility] [address] [place], [address] CA,Total 8.4 mg/dL Low 8.5-10.[address] [facility] Comment on above: Performed By: #### L 501.2450, L100.0100, L500.4050 #### [facility] [address] [place], [address] Chloride [Moles/Vol] 109 mmol/L High 98-107 [facility] Comment on above: Performed By: #### L 501.2450, L100.0100, L500.4050 #### [facility] [address] [place], [address] CO2 [Moles/Vol] 26.0 mmol/L Normal 21.0-32.[address] [facility] Comment on above: Performed By: #### L 501.2450, L100.0100, L500.4050 #### [facility] [address] [place], [address] Creatinine [Mass/Vol] 0.80 mg/dL Normal 0.70-1.30 [facility] Comment on above: Result Comment: The validity of the calculated GFR GFRAA in patients over 70 years has not been determined. Clinical correlation is essential. Performed By: #### L 501.2450, L100.0100, L500.4050 #### [facility] [address] [place], [address] ECRCL 158.23 ml/min Normal [facility] Comment on above: Performed By: #### L 501.2450, L100.0100, L500.4050 #### [facility] [address] [place], [address] EST GFR - AA 141 mL/min Normal >[address] [facility] Comment on above: Result Comment: Afri can [place]ovan GFR Calc Performed By: #### L 501.2450, L100.0100, L500.4050 #### [facility] [address] [place], [address] GAP 4 Low 5-[address] [facility] Comment on above: Performed By: #### L 501.2450, L100.0100, L500.4050 #### [facility] [address] [place], [address] GFR/1.73 sq M.predicted among non-blacks MDRD (S/P/Bld) [Vol rate/Area] 116 mL/min/{1.73_m2} Normal >[address] [facility] Comment on above: Result Comment: Non- GFR Calc Performed By: #### L 501.2450, L100.0100, L500.4050 #### [facility] [address] [place], [address] Globulin (S) [Mass/Vol] 2.8 g/dL Normal 2.2-4.2 [facility] Comment on above: Performed By: #### L 501.2450, L100.0100, L500.4050 #### [facility] [address] [place], [address] Glucose [Mass/Vol] 103 mg/dL Normal 74-106 [facility] Comment on above: Result Comment: Fast ing Glucose result from 100 to 125 mg/dL suggests IMPAIRED HOMEOSTASIS per A.D.A. criteria. Performed By: #### L 501.2450, L100.0100, L500.4050 #### [facility] [address] [place], [address] Potassium [Moles/Vol] 4.2 mmol/L Normal 3.5-5.1 [facility] Comment on above: Performed By: #### L 501.2450, L100.0100, L500.4050 #### [facility] [address] [place], [address] Sodium [Moles/Vol] 139 mmol/L Normal 136-145 [facility] Comment on above: Performed By: #### L 501.2450, L100.0100, L500.4050 #### [facility] [address] [place], [address] T PROT 5.6 g/dL Low 6.4-8.[address] [facility] Comment on above: Performed By: #### L 501.2450, L100.0100, L500.4050 #### [facility] [address] [place], [address] Urea nitrogen [Mass/Vol] 6 mg/dL Low 7-[address] [facility] Comment on above: Performed By: #### L 501.2450, L100.0100, L500.4050 #### [facility] [address] [place], [address] Determination of erythrocyte mean corpuscular volume (MCV)Ordered By: Arie Watkins on 04-19-2023 MCV (RBC) [Entitic vol] 89.8 fL 80-94 [facility] Discharge Instructionon 04-08 Discharge Instruction [facility] Medical Records Department [address] [place] [address] Instructions for Home/Discharge Instructions 04/19/23 1545 MR#: [id number] Acct: [id number] Name: ULISSES LANE Rep #: [id number] : 1985 37 From: Arie Watkins MD PCP: [facility] Primary Status:ADM IN Discharge Instructions Diet Discharge Diet: No restrictions Activity Discharge Activity: May Not Drive (No driving while using narcotic pain medication) and May Shower (Postoperative day 1) May shower in (days): 2 Ice area for (Minutes): 20 Lifting Restrictions: No lifting greater than 15 pounds for 2 weeks after surgery Dressing / Incision Call your doctor if your incision/area has: Continuous Slow Oozing, Increased Pain/ Swelling, Increased Redness, Foul Smelling Discharge and Swelling at the incision site Call your doctor if you observe: Fever of 101 or Higher Remove Dressing in: 2 days (Please leave Steri-Strips intact until they fall off spontaneously or are taken off at your follow-up visit) Cleanse incision/area with: Soap Water Follow Up Care Please Follow Up With: Arie Watkins MD When: 7-10days postop Test Results: Test results from this visit will be discussed in further detail at your follow-up appointment, if applicable. Discharge Plan Admission Admit Date/Time: 04/17/23 13:15 Primary Reason for Your Visit: gallstone pancreatitis Attending Provider: Arie Watkins Primary Care Provider: Ghazala Reeder Primary Discharge Orders/Prescriptions Prescriptions: New oxycodone 5 mg Tablet 5 mg PO Q6H PRN PRN (Reason: Pain Score 6-10) 3 Days Qty: 10 0RF Referrals / Follow Up: Chelsy Physician,Ghazala Primary [Primary Care Provider] - Arie Watkins MD [Med Staff - Active Staff] - Disposition Disposition (needs filled in before D/C Order can be placed): Home, Self Care 04/19/23 1545 Arie Watkins MD CC: No Primary Care Physician Signed Normal [facility] Hematocrit Auto (Bld) [Volum e fraction]Ordered By: Arie Watkins on 04-19-2023 Hematocrit (Bld) [Volume fraction] 38.8 % 40-[address] [facility] Laboratory - Chemistry and C hemistry - challengeOrdered By: Arie Watkins on 04-19-2023 ALP [Catalytic activity/Vol] 224 U/L 45-[address] [facility] ALT [Catalytic activity/Vol] 280 U/L 16-[address] [facility] CO2 [Moles/Vol] 26.0 mmol/L 21.0-32.[address] [facility] Globulin (S) [Mass/Vol] 2.8 g/dL 2.2-4.2 [facility] Lipase [Catalytic activity/Vol] 171 U/L 13-[address] [facility] Comment on above: Please note:LIPASE r evised reference range effective 22. New Lipase methodology. Expected to produce lower values than the previous assay method. NEW Reference Range: 13 - 75 U/L Urea nitrogen/Creatinine [Mass ratio] 7.5 mg/mg 10-[address] [facility] Laboratory - Hematology and Cell countsOrdered By: Arie Watkins on 04-19-2023 Erythrocyte distribution width (RBC) [Entitic vol] 42.4 fL 35.1-43.[address] [facility] Erythrocyte distribution width (RBC) [Ratio] 12.8 % 11.6-14.[address] [facility] Immature granulocytes/100 WBC (Bld) 0.500 % 0.0-0.[address] [facility] Comment on above: IG% - Immature Granu locytes (promyelocytes, myelocytes and metamyelocytes) > 1% indicates that a LEFT SHIFT is Present. MCH (RBC) [Entitic mass] 29.2 pg 27.0-32.[address] [facility] Nucleated RBC/100 WBC (Bld) [Ratio] 0 % 0-[address] [facility] Lipaseon 04-19-2023 Lipase [Catalytic activity/Vol] 171 U/L High 13-[address] [facility] Comment on above: Result Comment: Janet latham note: LIPASE revised reference range effective 22. New Lipase methodology. Expected to produce lower values than the previous assay method. NEW Reference Range: 13 - 75 U/L Performed By: #### L 501.2450, L100.0100, L500.4050 #### [facility] Laboratory [address] [place], [address] MCHC Auto (RBC) [Mass/Vol]Or dered By: Arie Watkins on 12-12-2023 MCHC (RBC) [Mass/Vol] 32.5 g/dL 32-36 [facility] MR/PN.Tati 04-19-2023 MR/PN.[facility] Medical Records Department [address] [place] [address] Progress Note - 04/19/23 0700 MR#: [id number] Acct: [id number] Name: ULISSES L[address] Rep #: [id number] : 1985 37 From: Geraldo Friend DO PCP: Care Physician,No Primary Status:ADM IN Location: [place] [address] Subjective Subjective Patient underwent ERCP yesterday for obstructive jaundice secondary to choledocholithiasis resulting in pancreatitis from his choledocholithiasis. He is doing very well. He is scheduled for cholecystectomy today. Objective Data Objective Data Vital Signs: Vital Signs Temp Pulse Resp BP Pulse Ox O2 Del Method 98.2 F 61 18 140/85 H 99 Room Air 04/19/23 16:35 04/19/23 16:35 04/19/23 16:35 04/19/23 16:35 04/19/23 16:35 04/19/23 16:35 Oxygen Delivery Method Room Air Weight: 220 lb Body Mass Index (BMI) 26.7 Intake Output: Intake and Output for Last 24 Hours 04/17/23 04/18/23 04/19/23 23:59 23:59 23:59 Intake Total 2300 / 2300 4521.75 / 4521.75 2209.21 / 2209.21 Output Total 5025 / 5025 2200 / 2200 Balance 2300 / 2300 -503.25 / -503.25 9.21 / 9.21 Lab / Micro Data 04/19/23 06:05 04/19/23 06:05 Labs: Laboratory Results - last 24 hr 04/19/23 06:05: WBC 7.3, RBC 4.32 L, Hgb 12.6 L, Hct 38.8 L, MCV 89.8, MCH 29.2, MCHC 32.5, RDW Std Deviation 42.4, RDW Coeff of Valerie 12.8, Plt Count 184, MPV 10.3, Immature Gran % (Auto) 0.500, Neut % (Auto) 75.6 H, Lymph % (Auto) 16.5 L, [place] % (Auto) 7.2, Eos % (Auto) 0.1, Baso % (Auto) 0.1, Absolute Neuts (auto) 5.5, Absolute Lymphs (auto) 1.21, Nucleated RBC % 0, Sodium 139, Potassium 4.2, Chloride 109 H, Carbon Dioxide 26.0, Anion Gap 4 L, BUN 6 L, Creatinine 0.80, Estim Creat Clear Calc 158.23, Est GFR (MDRD) Af Amer 141, Est GFR (MDRD) Non-Af 116, BUN/Creatinine Ratio 7.5 L, Glucose 103, Calcium 8.4 L, Total Bilirubin 2.80 H, AST 75 H, ALT 280 H, Alkaline Phosphatase 224 H, Total Protein 5.6 L, Albumin 2.8 L, Globulin 2.8, Albumin/Globulin Ratio 1.0, Lipase 171 H Radiography Diagnostic Testing: Radiology Impression Endo Retro Cholangiopancreatogram 04/18/23 11:35 IMPRESSION: Biliary stent placement. Electronically Signed: Michael Palomo MD at 8:33 EST , Cholangiogram 04/19/23 12:28 IMPRESSION: Tiny filling defects are seen in the proximal portion of the common bile duct. A biliary stent is in situ. Electronically Signed: Michael Palomo MD at 14:28 EST , Physical Exam Const oriented x3 and no apparent distress Resp normal respiratory effort GI GI Narrative: Nondistended, soft, mild tenderness with palpation of the right upper quadrant and epigastrium. Negative Salgado sign Assessment Plan Assessment/Plan (1) Cholestatic hepatitis: (2) Acute gallstone pancreatitis: (3) Acute pancreatitis: QUALIFIERS: Pancreatitis type: biliary Acute pancreatitis complication: no infection or necrosis Qualified Code(s): K85.10 - Biliary acute pancreatitis without necrosis or infection (4) Jaundice: PLAN: Plan 37-year-old gentleman who comes in with abdominal pain and discovered to have obstructive jaundice and pancreatitis secondary to choledocholithiasis. He underwent ERCP with stone removal and stent placement. He is scheduled to undergo cholecystectomy today. He is doing well from a pain standpoint. He is on normal saline at 200 mL an hour. I recommend continue n.p.o. status and 200 mL of normal saline per hour. Charges/Coding Visit Charges Inpatient E M: 56629 Subs Hosp L3 04/19/23 1641 Cosigner Signature (if applicable): CC: Signed Normal [facility] No Panel InformationOrdered By: Arie Watkins on 04-19-2023 Estimated Creatinine Clearance Calc 158.23 ml/min [facility] Estimated GFR (MDRD) Amer 141 mL/min >[address] [facility] Comment on above: GFR Calc Estimated GFR (MDRD) Non-Af Amer 116 mL/min >[address] [facility] Comment on above: Non- GFR Calc Operative Reporton Operative Report [facility] Medical Records Department [address] [place] [address] Operative Report 04/19/23 1339 MR#: [id number] Acct: [id number] Name: ULISSES LANE Rep #: [id number] : 1985 37 From: Arie Watkins MD PCP: Care Physician,No Primary Status:DIS IN Location: [facility] [place] [id number] Report of Operation Date of Procedure: 04/19/23 Pre-Operative Diagnosis: 1. Gallstone pancreatitis 2. Choledocholithiasis 3. Acute cholecystitis Post-Operative Diagnosis: Same Surgery/Procedure Performed:: Laparoscopic cholecystectomy with intraoperative cholangiogram Description of Surgical Findings:: ??? Moderate to severely edematous gallbladder with normal gallbladder anatomy and single anterior cystic artery ??? Normal intraoperative cholangiogram showing common bile duct stent is patent`` Surgeon: Arie Watkins desk clerks supervisor: Tony Odom Type of Anesthesia: General/Supplemental Anesthesiologist: Rickey Hernandes Specimen's removed: Gallbladder Estimated Blood Loss (mL): 20 Description of Procedure: After proper identification in the preoperative holding area the patient was brought to the operating room where he was positioned supine on the operating room table. Preoperatively scrubbed SCDs were placed and antibiotics were administered (patient was administered an interval dose of 2 g Ancef given that he was with an the latter half of his interval for his continuous antibiotic order. General anesthesia was then induced. Patient's abdomen was prepped and draped in usual sterile fashion. A formal timeout was conducted to confirm both patient and the procedure. Procedure was begun with a supraumbilical incision which was extended deeply down to the level of the fascia. The fascia was elevated and incised, as well as the peritoneum. A finger sweep was performed to ensure there were no underlying adhesions and a 12 mm balloon trocar was inserted. Pneumoperitoneum was established at 15 mmHg. Additional trocars were placed in the epigastrium (5 mm) and in the right upper quadrant (2 x 5 mm). Inspection of the peritoneum revealed no inadvertent injury to the viscera below. The gallbladder was visualized with moderate to severe inflammation that appeared acute in nature. The gallbladder fundus was then grasped and elevated cephalad. Then, using careful dissection the peritoneum was opened and the structures of the hepatocystic triangle were delineated. Once the critical view of safety was obtained, the cystic duct was singly clipped and partially divided with a ductotomy. The proximal duct was milked of any debris Using an Rodríguez Amilcar clamp, a cholangiocatheter was fed into the proximal segment of the cystic duct and clamped into place. Under fluoroscopy a cholangiogram was then obtained showing a standard length cystic duct flowing into a common bile duct with unobstructed antegrade flow of contrast into the duodenum via a common bile duct stent. There was also retrograde flow through the common hepatic duct into the right and left hepatic ducts. Satisfied with this result, the cholangiocatheter was withdrawn and the proximal cystic duct was sealed with 3 clips and the cystic duct was completely transected. The same process was used for the cystic artery. The gallbladder was then removed from the gallbladder fossa with the use of electrocautery. Selective electrocautery was used to obtain hemostasis in the gallbladder fossa. The gallbladder was placed in an Endo Catch bag and removed from the peritoneum. Morison's pouch was irrigated and the effluent was suctioned free of the peritoneum. Hemostasis was again confirmed. Pneumoperitoneum was evacuated and the fascia of the 12 mm port sites was closed with #1Vicryl in a [id number] fashion. A total of 30 mL of anesthetic was injected at the port sites for postoperative pain control. The skin of each port site was then closed in subcuticular fashion using 4-0 Monocryl. Steri-Strips and bandages were applied as dressings. Patient tolerated the procedure well without any apparent complications. On emergence from their anesthetic the patient was taken to PACU for ongoing recovery. Complications None Admit VTE Documentation VTE Mechan Device Prophylaxis: SCD's Procedures Digestive 40xxx-49xxx: 04701 Laparo cholecystectomy/graph 04/20/23 1836 Cosigner Signature (if applicable): CC: Dr. Arie Watkins MD; No Primary Care Physician Signed Normal [facility] Platelets bldOrdered By: Andi scar Roland on 04-19-2023 Platelets (Bld) [#/Vol] 184 10*3/uL 150-[address] [facility] Serum or plasma albumin armani urement (mass/volume)Ordered By: Arie Watkins on 04-19-2023 Albumin [Mass/Vol] 2.8 g/dL 3.2-5.0 [facility] Serum or plasma albumin/glob ulin mass ratioOrdered By: Arie Watkins on 04-19-2023 Albumin/Globulin [Mass ratio] 1.0 {ratio} 0.9-2.[address] [facility] Serum or plasma calcium armani urement (mass/volume)Ordered By: Arie Watkins on 04-19-2023 Calcium [Mass/Vol] 8.4 mg/dL 8.5-10.1 [facility] Serum or plasma creatinine m easurement (mass/volume)Ordered By: Arie Watkins on 04-19-2023 Creatinine [Mass/Vol] 0.80 mg/dL 0.70-1.30 [facility] Comment on above: The validity of the calculated GFR & GFRAA in patients over 70 years has not been determined. Clinical correlation is essential. Serum or plasma urea nitroge n measurement (mass/volume)Ordered By: Arie Watkins on 04-19-2023 Urea nitrogen [Mass/Vol] 6 mg/dL 7-[address] [facility] Surgery Specimen Level IIIon 04-19-2023 Surgery Specimen Level III Patient Age/Sex Location Account Attending Physician [address] 37/M MS3 [id number] Dr. Arie Watkins MD Specimen: [id number] Received: 04/20/23 Status: PELON Thomas Num: [id number] Spec Type: INGRIDTARIQKORI Mac Dr: Dr. Arie Watkins MD HEADER OPERATION: Laparoscopic cholecystectomy with IOC PRE-OP DIAGNOSIS: Acute gallstone pancreatitis, cholecystitis TISSUE SUBMITTED: Gallbladder MICROSCOPIC DIAGNOSIS Gallbladder, cholecystectomy: Cholesterolosis, chronic cholecystitis and sludge. AM:michelle 04/21/2023 MICROSCOPIC DESCRIPTION Slides are reviewed. GROSS DESCRIPTION Received is one container labeled with the patient's name and designated gallbladder. The specimen consists of a gallbladder measuring 11.5 cm in length and up to 3.5 cm in diameter. The external surface is pink-gee, smooth and glistening for the most part. Focally it is granular, hemorrhagic and contains cautery artifact. The gallbladder contains green-yellow mucoid bile, No obvious stone is identified. A small amount of sludge material is noted. The mucosa also shows several yellowish streaks consistent with cholesterolosis. The gallbladder wall measures up to 0.2 cm in thickness. Real Estate Account [employer] sections from the gallbladder and the cystic duct are submitted in one cassette. / SJ:michelle 04/20/2023 TC:3 CPT: 19336 Patient Age/Sex Location Account Attending Physician [address] 37/M MS3 [id number] Dr. Arie Watkins MD Signed (signature on file) Dr. Liu Mansfield DO 04/21/[address] [facility] Comment on above: Performed By: #### L 400.0001 #### [facility] Laboratory [address] [facility] [facility] [place], [place], [address] Thin prep Papanicolaou smear with manual screeningOrdered By: Arie Watkins on 04-19-2023 Thin prep Papanicolaou smear with manual screening 75 U/L 15-[address] [facility] Thin prep Papanicolaou smear with manual screening 4 5-[address] [facility] 12 Lead EKGon 04-18-2023 12 Lead EKG [facility] Cardiovascular Services [address] [place] [address] 12 Lead EKG 04/18/23 1321 MR#: [id number] Acct: [id number] Name: ULISSES LANE Rep #: [id number] : 1985 37 From: Ernesto Vasquez MD Attending Dr: Dr. Arie Watkins MD Status: DIS IN Ordering Dr: Brooks Moy MD Date: 04/18/23 Location: MS3 Sex: M C Admitted: 04/17/23 Test Reason : PRE OP Blood Pressure : / mmHG Vent. Rate : 081 BPM Atrial Rate : 081 BPM P-R Int : 166 ms QRS Dur : 092 ms QT Int : 348 ms P-R-T Axes : 054 023 034 degrees QTc Int : 404 ms Normal sinus rhythm Normal ECG No previous ECGs available Confirmed by CAMERON MCINTYRE, DOT ([id number]), international editorial producer JARRET FLOWERS ([id number]) on 04/25/2023 1:00:43 PM Referred By: ROLAND Confirmed By:RYANNE VASQUEZ MD 04/25/23 1300 Date Ernesto Vasquez MD CC: Dr. Brooks Moy MD; Dr. Arie Watkins MD; No Primary Care Physician Signed Normal [facility] CBC W/Diff, Automatedon 04-08 Absolute Lymph 1.08 X10 3/uL Normal 0.83-4.[address] [facility] Comment on above: Performed By: #### L 500.4050, L100.0100 #### [facility] Laboratory [address] [place], [address] Absolute Neut 2.7 X10 3/uL Normal 2.0-7.[address] [facility] Comment on above: Performed By: #### L 500.4050, L100.0100 #### [facility] Laboratory [address] [place], [address] Basophils/100 WBC (Bld) 0.5 % Normal 0-1 [facility] Comment on above: Performed By: #### L 500.4050, L100.0100 #### [facility] [address] [place], [address] Eosinophils/100 WBC (Bld) 1.1 % Normal 0-[address] [facility] Comment on above: Performed By: #### L 500.4050, L100.0100 #### [facility] Laboratory [address] [place], [address] Erythrocyte distribution width (RBC) [Ratio] 13.3 % Normal 11.6-14.[address] [facility] Comment on above: Performed By: #### L 500.4050, L100.0100 #### [facility] Laboratory [address] [place], [address] Hematocrit (Bld) [Volume fraction] 39.1 % Low 40-[address] [facility] Comment on above: Performed By: #### L 500.4050, L100.0100 #### [facility] [address] [place], [address] Hemoglobin (Bld) [Mass/Vol] 12.4 g/dL Low 13.0-16.[address] [facility] Comment on above: Performed By: #### L 500.4050, L100.0100 #### [facility] [address] [place], [address] IG% 0.200 Normal 0.0-0.[address] [facility] Comment on above: Result Comment: IG% - Immature Granulocytes (promyelocytes, myelocytes and metamyelocytes) > 1% indicates that a LEFT SHIFT is Present. Performed By: #### L 500.4050, L100.0100 #### [facility] [address] [place], [address] Lymphocytes/100 WBC (Bld) 24.7 % Normal 19-[address] [facility] Comment on above: Performed By: #### L 500.4050, L100.0100 #### [facility] [address] [place], [address] MCH (RBC) [Entitic mass] 29.2 pg Normal 27.0-32.[address] [facility] Comment on above: Performed By: #### L 500.4050, L100.0100 #### [facility] [address] [place], [address] MCHC (RBC) [Mass/Vol] 31.7 g/dL Low 32-36 [facility] Comment on above: Performed By: #### L 500.4050, L100.0100 #### [facility] [address] [place], [address] MCV (RBC) [Entitic vol] 92.0 fL Normal 80-94 [facility] Comment on above: Performed By: #### L 500.4050, L100.0100 #### [facility] [address] [place], [address] Monocytes/100 WBC (Bld) 11.6 % High 0-10 [facility] Comment on above: Performed By: #### L 500.4050, L100.0100 #### [facility] [address] [place], [address] Neutrophils/100 WBC (Bld) 61.9 % Normal 47-[address] [facility] Comment on above: Performed By: #### L 500.4050, L100.0100 #### [facility] [address] [place], [address] Nucleated RBC (Bld) [#/Vol] 0 10*3/uL Normal 0-[address] [facility] Comment on above: Performed By: #### L 500.4050, L100.0100 #### [facility] [address] [place], [address] Platelet mean volume (Bld) [Entitic vol] 10.6 fL Normal 6.2-12.[address] [facility] Comment on above: Performed By: #### L 500.4050, L100.0100 #### [facility] [address] [place], [address] Platelets (Bld) [#/Vol] 186 10*3/uL Normal 150-[address] [facility] Comment on above: Performed By: #### L 500.4050, L100.0100 #### [facility] [address] [place], [address] RBC (Bld) [#/Vol] 4.25 10*6/uL Low 4.6-6.2 [facility] Comment on above: Performed By: #### L 500.4050, L100.0100 #### [facility] [address] [place], [address] RDW SD 45.3 fl High 35.1-43.[address] [facility] Comment on above: Performed By: #### L 500.4050, L100.0100 #### [facility] [address] [place], [address] WBC (Bld) [#/Vol] 4.4 10*3/uL Normal 4.4-11.0 [facility] Comment on above: Performed By: #### L 500.4050, L100.0100 #### [facility] [address] [place], [address] Comprehensive Metabolic Prof [facility] 04-18-2023 Albumin [Mass/Vol] 2.9 g/dL Low 3.2-5.0 [facility] Comment on above: Performed By: #### L 500.4050, L100.0100 #### [facility] [address] [place], [address] Albumin/Globulin [Mass ratio] 1.2 {ratio} Normal 0.9-2.[address] [facility] Comment on above: Performed By: #### L 500.4050, L100.0100 #### [facility] [address] [place], [address] ALK P 226 U/L High 45-[address] [facility] Comment on above: Performed By: #### L 500.4050, L100.0100 #### [facility] [address] [place], [address] ALT [Catalytic activity/Vol] 297 U/L High 16-[address] [facility] Comment on above: Performed By: #### L 500.4050, L100.0100 #### [facility] [address] [place], [address] AST [Catalytic activity/Vol] 85 U/L High 15-[address] [facility] Comment on above: Performed By: #### L 500.4050, L100.0100 #### [facility] [address] [place], [address] Bilirubin [Mass/Vol] 4.30 mg/dL High 0.20-1.00 [facility] Comment on above: Result Comment: For patients on eltrombopag therapy, use of Dimension [place] TBIL is not recommended. Performed By: #### L 500.4050, L100.0100 #### [facility] [address] [place], [address] BUN/CRE 7.4 RATIO Low 10-[address] [facility] Comment on above: Performed By: #### L 500.4050, L100.0100 #### [facility] [address] [place], [address] CA,Total 8.1 mg/dL Low 8.5-10.[address] [facility] Comment on above: Performed By: #### L 500.4050, L100.0100 #### [facility] [address] [place], [address] Chloride [Moles/Vol] 110 mmol/L High 98-107 [facility] Comment on above: Performed By: #### L 500.4050, L100.0100 #### [facility] [address] [place], [address] CO2 [Moles/Vol] 25.0 mmol/L Normal 21.0-32.[address] [facility] Comment on above: Performed By: #### L 500.4050, L100.0100 #### [facility] [address] [place], [address] Creatinine [Mass/Vol] 0.94 mg/dL Normal 0.70-1.30 [facility] Comment on above: Result Comment: The validity of the calculated GFR GFRAA in patients over 70 years has not been determined. Clinical correlation is essential. Performed By: #### L 500.4050, L100.0100 #### [facility] [address] [place], [address] ECRCL 134.66 ml/min Normal [facility] [facility] Comment on above: Performed By: #### L 500.4050, L100.0100 #### [facility] [address] [place], [address] EST GFR - AA 117 mL/min Normal >[address] [facility] Comment on above: Result Comment: Afri can Moldovan GFR Calc Performed By: #### L 500.4050, L100.0100 #### [facility] [address] [place], [address] GAP 4 Low 5-[address] [facility] Comment on above: Performed By: #### L 500.4050, L100.0100 #### [facility] [address] [place], [address] GFR/1.73 sq M.predicted among non-blacks MDRD (S/P/Bld) [Vol rate/Area] 97 mL/min/{1.73_m2} Normal >[address] [facility] Comment on above: Result Comment: Non- GFR Calc Performed By: #### L 500.4050, L100.0100 #### [facility] [address] [place], [address] Globulin (S) [Mass/Vol] 2.5 g/dL Normal 2.2-4.2 [facility] Comment on above: Performed By: #### L 500.4050, L100.0100 #### [facility] [address] [place], [address] Glucose [Mass/Vol] 85 mg/dL Normal 74-106 [facility] Comment on above: Performed By: #### L 500.4050, L100.0100 #### [facility] [address] [place], [address] Potassium [Moles/Vol] 4.2 mmol/L Normal 3.5-5.1 [facility] Comment on above: Performed By: #### L 500.4050, L100.0100 #### [facility] [address] [place], [address] Sodium [Moles/Vol] 139 mmol/L Normal 136-145 [facility] Comment on above: Performed By: #### L 500.4050, L100.0100 #### [facility] [address] [place], [address] T PROT 5.4 g/dL Low 6.4-8.[address] [facility] Comment on above: Performed By: #### L 500.4050, L100.0100 #### [facility] [address] [place], [address] Urea nitrogen [Mass/Vol] 7 mg/dL Normal 7-[address] [facility] Comment on above: Performed By: #### L 500.4050, L100.0100 #### [facility] [address] [place], [address] ERCP Biliary/Pancreason 12-1 ERCP Biliary/Pancreas [facility] Imaging Services [address] [place] [address] ERCP Biliary/Pancreas MR#: [id number] Acct: [id number] Name: ULISSES LANE Rep #: [id number] : 1985 M 37 From: Michael moncada MD PCP: Care Physician,No Primary Status: ADM IN Study: ERCP Biliary/Pancreas Date of Exam: 04/18/23 Exam# [id number] Ordering Dr: Geraldo Thompson DO [id number] STUDY: ERCP REASON FOR EXAM: Male, 37 years old. ERCP FLUOROSCOPY TIME (if supplied): ( 29 seconds ) minutes/seconds. 8.76 mGy TECHNIQUE: Fluoroscopic services provided for ERCP. COMPARISON: None. FINDINGS: Dilated Central intrahepatic biliary ducts. Biliary stent was placed. RAD/ERCP Biliary/Pancreas IMPRESSION: Biliary stent placement. Electronically Signed: Michael Palomo MD at 8:33 EST Reading Location ID and State: [address] [place] [address] , Service support , CC: No Primary Care Physician; Geraldo Thompson DO Chemical Analyst: Signed Normal [facility] ERCP Reporton 04-18-2023 ERCP Report [facility] Medical Records Department [address] [place] [address] ERCP Report MR#: [id number] Acct: [id number] Name: ULISSES LANE Rep #: [id number] : 1985 37 From: Geraldo Thompson DO PCP: Care Physician,No Primary Status:ADM IN Patient Name: Ulisses Lane Procedure Date: 04/18/2023 11:08 AM Date of : 1985 Age: 37 Procedure: ERCP Indications: Jaundice, Elevated liver enzymes, Acute pancreatitis Providers: Geraldo Thompson DO Medicines: General Anesthesia Patient Profile: This is a 37 year old male. Refer to note in patient chart for documentation of history and physical. Patient has symptoms of acute epigastric abdominal pain and acute jaundice. This patient has no history of previous ERCP. Complications: No immediate complications. Procedure: Pre-Anesthesia Assessment: - Prior to the procedure, a History and Physical was performed, and patient medications and allergies were reviewed. The risks and benefits of the procedure and the sedation options and risks were discussed with the patient. All questions were answered and informed consent was obtained. Patient identification and proposed procedure were verified by the physician in the pre-procedure area. Mental Status Examination: alert and oriented. Airway Examination: normal oropharyngeal airway and neck mobility. Respiratory Examination: clear to auscultation. CV Examination: normal. Prophylactic Antibiotics: The patient does not require prophylactic antibiotics. Prior Anticoagulants: The patient has taken no anticoagulant or antiplatelet agents. ASA Grade Assessment: II - A patient with mild systemic disease. After reviewing the risks and benefits, the patient was deemed in satisfactory condition to undergo the procedure. The anesthesia plan was to use general anesthesia. Immediately prior to administration of medications, the patient was re-assessed for adequacy to receive sedatives. The heart rate, respiratory rate, oxygen saturations, blood pressure, adequacy of pulmonary ventilation, and response to care were monitored throughout the procedure. The physical status of the patient was re-assessed after the procedure. After obtaining informed consent, the scope was passed under direct vision. Throughout the procedure, the patient's blood pressure, pulse, and oxygen saturations were monitored continuously. The Duodenoscope was introduced through the mouth, and advanced to the duodenum and used to inject contrast into the bile duct. The ERCP was accomplished without difficulty. The patient tolerated the procedure well. Scope In: 11:34:11 AM Scope Out: 11:47:15 AM Total Procedure Duration Time 0 hours 13 minutes 4 seconds Findings: The automotive metalsmith film was normal. The esophagus was successfully intubated under direct vision. The scope was advanced to a normal major papilla in the descending duodenum without detailed examination of the pharynx, larynx and associated structures, and upper GI tract. The upper GI tract was grossly normal. A straight Roadrunner wire was passed into the biliary tree. The short-nosed traction sphincterotome was passed over the guidewire and the bile duct was then deeply cannulated. Contrast was injected. I personally interpreted the bile duct images. There was brisk flow of contrast through the ducts. Image quality was excellent. Contrast extended to the entire biliary tree. The biliary orifice was stenotic. This appeared benign. The lower third of the main bile duct contained one stone, which was 2 mm in diameter. The entire biliary tree except for the cystic duct and gallbladder were moderately dilated and diffusely dilated, with a stone causing an obstruction. The largest diameter was 10 mm. A 5 mm biliary sphincterotomy was made with a braided traction (standard) sphincterotome using ERBE electrocautery. There was no post-sphincterotomy bleeding. To discover objects, the biliary tree was swept with a 12 mm balloon starting at the bifurcation. Sludge was swept from the duct. All stones were removed. One 10 Fr by 5 cm temporary stent was placed 5 cm into the common bile duct. Bile flowed through the stent. The stent was in good position. Impression: - Biliary papillary stenosis, benign. - The biliary system were moderately dilated, with a stone causing an obstruction. - Choledocholithiasis was found. Complete removal was accomplished by biliary sphincterotomy and balloon extraction. - A biliary sphincterotomy was performed. - The biliary tree was swept. - One temporary stent was placed into the common bile duct. Procedure Code(s): --- Professional --- 05293, Endoscopic retrograde cholangiopancreatography (ERCP); with placement of endoscopic stent into biliary or pancreatic duct, including pre- and post-dilation and guide w (more content not included)... Normal [facility] Lipaseon 04-18-2023 Lipase [Catalytic activity/Vol] U/L High 13-[address] [facility] Comment on above: Result Comment: Janet latham note: LIPASE revised reference range effective 22. New Lipase methodology. Expected to produce lower values than the previous assay method. NEW Reference Range: 13 - 75 U/L Performed By: #### L 500.4050, L100.0100 #### [facility] [address] [place], [address] /Alexandra 04-18-2023 MR/[email or web address] [facility] Medical Records Department [address] [place] [address] Consultation - GI 04/17/23 2300 MR#: [id number] Acct: [id number] Name: ULISSES LANE Rep #: [id number] : 1985 37 From: Geraldo Friend DO PCP: Care Physician,No Primary Status:ADM IN [facility] Consult Data Date of Consult: 04/17/23 HPI Narrative Reason for Consultation: Gallstone pancreatitis HPI Narrative: ULISSES LANE, is a 37 M who presents with intermittent epigastric pain and jaundice. He presented a week ago for epigastric pain and diagnosed with gallbladder sludge. He was supposed to follow-up with the general surgeon on 04/22 but states about 2 days ago he started to become jaundiced and he continues to have epigastric pain. The pain is constant at a low level but waxes and wanes without a pattern. This morning he ate a banana which actually made him feel better. He has no nausea or vomiting. No fever or chills. He has noticed his urine looks darker and his stools are gee- colored. He has had no abdominal surgical history. He denies smoking or drinking alcohol frequently. In the ED ED he was mildly hypertensive without tachycardia and afebrile. His CBC showed a white blood cell count of 6.2, hemoglobin of 14.5, hematocrit of 45, platelet count of 226. His bilirubin total was 7.1 with direct bilirubin being 5.05, AST of 128, ALT of 405 and he had a lipase of 12,333. CT scan of the abdomen pelvis displayed - mild fatty infiltration of the liver is noted with abnormal intrahepatic and extra biliary dilatation. Common bile duct is dilated to 1.04 cm proximally no obstructing stone is noted. A recent ultrasound showed echogenic sludge within the gallbladder. There is some subtle fluid around the periphery of the pancreas as well. Findings suggest cholecystitis but could be due to pancreatitis as well. There is no pancreatic ductal dilatation however. No pseudocyst or abscess is noted. I was consulted for therapeutic ERCP. [facility] Home Medications No Known/Unobtainable [No Known Home Medications] 10/25/16 [History Last Taken Unknown] Allergy/AdvReac Type Severity Reaction Status Date / Time No Known Allergies Allergy Verified 04/11/23 10:14 Surgical History S/P ORIF (open reduction internal fixation) fracture Social History Smoking Status: Never smoker ROS Constitutional Constitutional: Reports chills Gastrointestinal Gastrointestinal: Reports abdominal pain, anorexia, change in stool character, nausea and other Details: Light stools ; Denies constipation or vomiting Genitourinary Genitourinary: Reports other Details: Dark urine noticed Physical Exam Const alert and oriented x3 Constitutional Narrative: Jaundiced General Appearance: cooperative Eyes Eyes Narrative: Scleral icterus present Resp normal respiratory effort GI GI Narrative: Jaundice present across abdominal wall, nondistended, soft, tender to palpation in the epigastrium and right upper quadrant. Lab / Micro Data 04/18/23 04:33 04/18/23 04:33 Labs: Laboratory Results - last 24 hr 04/17/23 11:51: WBC 6.2, RBC 4.99, Hgb 14.5, Hct 45.3, MCV 90.8, MCH 29.1, MCHC 32.0, RDW Std Deviation 43.7, RDW Coeff of Valerie 13.0, Plt Count 226, MPV 10.6, Immature Gran % (Auto) 0.500, Neut % (Auto) 79.2 H, Lymph % (Auto) 12.5 L, [place] % (Auto) 7.0, Eos % (Auto) 0.5, Baso % (Auto) 0.3, Absolute Neuts (auto) 4.9, Absolute Lymphs (auto) 0.77 L, Nucleated RBC % 0, Sodium 136, Potassium 4.1, Chloride 105, Carbon Dioxide 28.0, Anion Gap 3 L, BUN 7, Creatinine 1.03, Estim Creat Clear Calc 119.64, Est GFR (MDRD) Af Amer 105, Est GFR (MDRD) Non-Af 87, BUN/Creatinine Ratio 6.8 L, Glucose 135 H, Calcium 9.1, Total Bilirubin 7.10 H, Direct Bilirubin 5.05 H, AST 128 H, ALT 405 H, Alkaline Phosphatase 271 H, Total Protein 7.2, Albumin 3.8, Globulin 3.4, Lipase 42768 H 04/18/23 04:33: WBC 4.4, RBC 4.25 L, Hgb 12.4 L, Hct 39.1 L, MCV 92.0, MCH 29.2, MCHC 31.7 L, RDW S td Deviation 45.3 H, RDW Coeff of Valerie 13.3, Plt Count 186, MPV 10.6, Immature Gran % (Auto) 0.200, Neut % (Auto) 61.9, Lymph % (Auto) 24.7, [place] % (Auto) 11.6 H, Eos % (Auto) 1.1, Baso % (Auto) 0.5, Absolute Neuts (auto) 2.7, Absolute Lymphs (auto) 1.08, Nucleated RBC % 0, Sodium 139, Potassium 4.2, Chloride 110 H, Carbon Dioxide 25.0, Anion Gap 4 L, BUN 7, Creatinine 0.94, Estim Creat Clear Calc 134.66, Est GFR (MDRD) Af Amer 117, Est GFR (MDRD) Non-Af 97, BUN/Creatinine Ratio 7.4 L, Glucose 85, Calcium 8.1 L, Total Bilirubin 4.30 H, AST 85 H, ALT 297 H, Alkaline Phosphatase 226 H, Total Protein 5.4 L, Albumin 2.9 L, Globulin 2.5, Albumin/Globulin Ratio 1.2, Lipase > 250 [facility] Impression Abdomen/Pelvis CT 04/17/23 11:35 (more content not included)... Normal [facility] Abdomen/Pelvis W IV Cont ONL Yon 04-17-2023 Abdomen/Pelvis W IV Cont ONLY [facility] Imaging Services [address] [place] [address] Abdomen/Pelvis W IV Cont ONLY MR#: [id number] Acct: [id number] Name: ULISSES LANE Rep #: [id number] : 1985 M 37 From: Blade Bliss MD PCP: Care Physician,No Primary Status: REG ER Study: Abdomen/Pelvis W IV Cont ONLY Date of Exam: Exam# [id number] Ordering Dr: Iliana Price [id number] STUDY: CT ABDOMEN AND PELVIS WITH CONTRAST REASON FOR EXAM: Male, 37 years old. Jaundice, right upper quadrant pain RADIATION DOSAGE (If Supplied By Facility): CTDIvol = ( 12.7 ) mGy, DLP = ( 841.30 ) mGycm TECHNIQUE: Transaxial images were obtained from the dome of the diaphragm to the symphysis pubis without oral contrast. IV 100mL [id number]-[id number] was administered. Sagittal and coronal images were reconstructed. Individualized dose optimization techniques were used for this CT. COMPARISON: Ultrasound of the abdomen from 04/11/2023 gallbladder shows wall thickening and pericholecystic fluid FINDINGS: The visualized lung bases are unremarkable. The visualized portions of the heart are within normal limits. Mild fatty infiltration of the liver is noted with abnormal intrahepatic and extra biliary dilatation. Common bile duct is dilated to 1.04 cm proximally no obstructing stone is noted. A recent ultrasound showed echogenic sludge within the gallbladder. There is some subtle fluid around the periphery of the pancreas as well. Findings suggest cholecystitis but could be due to pancreatitis as well. There is no pancreatic ductal dilatation however. No pseudocyst or abscess is noted. Spleen is normal. Normal bilateral adrenal glands. Normal right kidney. Normal left kidney. Normal visualized stomach. Normal small intestine. Normal colon. The appendix is visualized and appears normal. Appendix seen on coronal reconstructed image 54 Normal abdominal aorta. Normal inferior vena cava. Normal retroperitoneum. Normal urinary bladder. Normal abdominal wall. Normal osseous structures. CT/Abdomen/Pelvis W IV Cont ONLY IMPRESSION: Abnormal gallbladder with gallbladder wall thickening and pericholecystic edema. Additionally, there is intra and extrahepatic biliary dilatation suggesting cholecystitis. However, there is also evidence of peripancreatic free fluid so findings could be due to acute pancreatitis as well. Please correlate with lab results and physical findings. No phlegmon or abscess is noted. Surgical consultation recommended. No obstructive uropathy, normal appendix visualized Electronically Signed: Jose Bliss MD at 12:28 EST , CC: NE Rosas; No Primary Care Physician Chemical Analyst: Signed Normal [facility] Absolute lymphocyte countOrd ered By: Iliana Price on 04-17-2023 Lymphocytes Auto (Unsp spec) [#/Vol] 0.77 10*3/uL 0.83-4.[address] [facility] Basic Metabolic Profile (BMP )on 04-17-2023 BUN/CRE 6.8 RATIO Low 10-[address] [facility] Comment on above: Order Comment: SP ECIMEN IS MODERATELY ICTERIC Performed By: #### L 500.4050, L100.0100 #### [facility] [address] [place], [address] CA,Total 9.1 mg/dL Normal 8.5-10.[address] [facility] Comment on above: Order Comment: SP ECIMEN IS MODERATELY ICTERIC Performed By: #### L 500.4050, L100.0100 #### [facility] [address] [place], [address] Chloride [Moles/Vol] 105 mmol/L Normal 98-107 [facility] Comment on above: Order Comment: SP ECIMEN IS MODERATELY ICTERIC Performed By: #### L 500.4050, L100.0100 #### [facility] [address] [place], [address] CO2 [Moles/Vol] 28.0 mmol/L Normal 21.0-32.[address] [facility] Comment on above: Order Comment: SP ECIMEN IS MODERATELY ICTERIC Performed By: #### L 500.4050, L100.0100 #### [facility] [address] [place], [address] Creatinine [Mass/Vol] 1.03 mg/dL Normal 0.70-1.30 [facility] Comment on above: Order Comment: SP ECIMEN IS MODERATELY ICTERIC Result Comment: The validity of the calculated GFR GFRAA in patients over 70 years has not been determined. Clinical correlation is essential. Performed By: #### L 500.4050, L100.0100 #### [facility] [address] [place], [address] ECRCL 119.64 ml/min Normal [facility] Comment on above: Order Comment: SP ECIMEN IS MODERATELY ICTERIC Performed By: #### L 500.4050, L100.0100 #### [facility] [address] [place], [address] EST GFR - AA 105 mL/min Normal >[address] [facility] Comment on above: Order Comment: SP ECIMEN IS MODERATELY ICTERIC Result Comment: Afri can Moldovan GFR Calc Performed By: #### L 500.4050, L100.0100 #### [facility] [address] [place], [address] GAP 3 Low 5-[address] [facility] Comment on above: Order Comment: SP ECIMEN IS MODERATELY ICTERIC Performed By: #### L 500.4050, L100.0100 #### [facility] [address] [place], [address] GFR/1.73 sq M.predicted among non-blacks MDRD (S/P/Bld) [Vol rate/Area] 87 mL/min/{1.73_m2} Normal >[address] [facility] Comment on above: Order Comment: SP ECIMEN IS MODERATELY ICTERIC Result Comment: Non- GFR Calc Performed By: #### L 500.4050, L100.0100 #### [facility] [address] [place], [address] Glucose [Mass/Vol] 135 mg/dL High 74-106 [facility] Comment on above: Order Comment: SP ECIMEN IS MODERATELY ICTERIC Result Comment: Fast ing Glucose result greater than or equal to 126 mg/dL suggests DIABETES MELLITUS per A.D.A. criteria. Performed By: #### L 500.4050, L100.0100 #### [facility] [address] [place], [address] Potassium [Moles/Vol] 4.1 mmol/L Normal 3.5-5.1 [facility] Comment on above: Order Comment: SP ECIMEN IS MODERATELY ICTERIC Performed By: #### L 500.4050, L100.0100 #### [facility] [address] [place], [address] Sodium [Moles/Vol] 136 mmol/L Normal 136-145 [facility] Comment on above: Order Comment: SP ECIMEN IS MODERATELY ICTERIC Performed By: #### L 500.4050, L100.0100 #### [facility] [address] [place], [address] Urea nitrogen [Mass/Vol] 7 mg/dL Normal 7-[address] [facility] Comment on above: Order Comment: SP ECIMEN IS MODERATELY ICTERIC Performed By: #### L 500.4050, L100.0100 #### [facility] [address] [place], [address] Basophil percentageOrdered B y: Iliana Price on 04-17-2023 Basophils/100 WBC (Bld) 0.3 % 0-1 [facility] Bilirubin [Mass/Vol] 7.10 mg/dL 0.20-1.00 [facility] Comment on above: For patients on eltr ombopag therapy, use of Dimension [place] TBIL is not recommended. Chloride [Moles/Vol] 105 mmol/L 98-107 [facility] Eosinophils/100 WBC (Bld) 0.5 % 0-[address] [facility] Glucose [Mass/Vol] 135 mg/dL 74-106 [facility] Comment on above: Fasting Glucose resu lt greater than or equal to 126 mg/dL suggests DIABETES MELLITUS per A.D.A. criteria. Neutrophils (Bld) [#/Vol] 4.9 10*3/uL 2.0-7.[address] [facility] Neutrophils/100 WBC (Bld) 79.2 % 47-[address] [facility] Potassium [Moles/Vol] 4.1 mmol/L 3.5-5.1 [facility] Protein [Mass/Vol] 7.2 g/dL 6.4-8.2 [facility] Sodium [Moles/Vol] 136 mmol/L 136-145 [facility] WBC (Bld) [#/Vol] 6.2 10*3/uL 4.4-11.0 [facility] Blood erythrocytes count (nu mber/volume)Ordered By: Iliana Price on 04-17-2023 RBC (Bld) [#/Vol] 4.99 10*6/uL 4.6-6.2 [facility] Blood hemoglobin measurement (mass/volume)Ordered By: Iliana Price on 04-17-2023 Hemoglobin (Bld) [Mass/Vol] 14.5 g/dL 13.0-16.[address] [facility] Blood lymphocytes/100 leukoc ytesOrdered By: Iliana Price on 04-17-2023 Lymphocytes/100 WBC (Bld) 12.5 % 19-[address] [facility] Blood monocytes/100 leukocyt esOrdered By: Iliana Price on 04-17-2023 Monocytes/100 WBC (Bld) 7.0 % 0-10 [facility] Blood platelet mean volumeOr dered By: Iliana Price on 04-17-2023 Platelet mean volume (Bld) [Entitic vol] 10.6 fL 6.2-12.[address] [facility] CBC W/Diff, Automatedon 04-08 Absolute Lymph 0.77 X10 3/uL Low 0.83-4.[address] [facility] Comment on above: Performed By: #### L 500.4050, L100.0100 #### [facility] [address] [place], [address] Absolute Neut 4.9 X10 3/uL Normal 2.0-7.[address] [facility] Comment on above: Performed By: #### L 500.4050, L100.0100 #### [facility] [address] [place], [address] Basophils/100 WBC (Bld) 0.3 % Normal 0-1 [facility] Comment on above: Performed By: #### L 500.4050, L100.0100 #### [facility] [address] [place], [address] Eosinophils/100 WBC (Bld) 0.5 % Normal 0-[address] [facility] Comment on above: Performed By: #### L 500.4050, L100.0100 #### [facility] [address] [place], [address] Erythrocyte distribution width (RBC) [Ratio] 13.0 % Normal 11.6-14.[address] [facility] Comment on above: Performed By: #### L 500.4050, L100.0100 #### [facility] [address] [place], [address] Hematocrit (Bld) [Volume fraction] 45.3 % Normal 40-[address] [facility] Comment on above: Performed By: #### L 500.4050, L100.0100 #### [facility] [address] [place], [address] Hemoglobin (Bld) [Mass/Vol] 14.5 g/dL Normal 13.0-16.[address] [facility] Comment on above: Performed By: #### L 500.4050, L100.0100 #### [facility] [address] [place], [address] IG% 0.500 Normal 0.0-0.[address] [facility] Comment on above: Result Comment: IG% - Immature Granulocytes (promyelocytes, myelocytes and metamyelocytes) > 1% indicates that a LEFT SHIFT is Present. Performed By: #### L 500.4050, L100.0100 #### [facility] [address] [place], [address] Lymphocytes/100 WBC (Bld) 12.5 % Low 19-[address] [facility] Comment on above: Performed By: #### L 500.4050, L100.0100 #### [facility] [address] [place], [address] MCH (RBC) [Entitic mass] 29.1 pg Normal 27.0-32.[address] [facility] Comment on above: Performed By: #### L 500.4050, L100.0100 #### [facility] [address] [place], [address] MCHC (RBC) [Mass/Vol] 32.0 g/dL Normal 32-36 [facility] Comment on above: Performed By: #### L 500.4050, L100.0100 #### [facility] [address] [place], [address] MCV (RBC) [Entitic vol] 90.8 fL Normal 80-94 [facility] Comment on above: Performed By: #### L 500.4050, L100.0100 #### [facility] [address] [place], [address] Monocytes/100 WBC (Bld) 7.0 % Normal 0-10 [facility] Comment on above: Performed By: #### L 500.4050, L100.0100 #### [facility] [address] [place], [address] Neutrophils/100 WBC (Bld) 79.2 % High 47-[address] [facility] Comment on above: Performed By: #### L 500.4050, L100.0100 #### [facility] [address] [place], [address] Nucleated RBC (Bld) [#/Vol] 0 10*3/uL Normal 0-[address] [facility] Comment on above: Performed By: #### L 500.4050, L100.0100 #### [facility] [address] [place], [address] Platelet mean volume (Bld) [Entitic vol] 10.6 fL Normal 6.2-12.[address] [facility] Comment on above: Performed By: #### L 500.4050, L100.0100 #### [facility] [address] [place], [address] Platelets (Bld) [#/Vol] 226 10*3/uL Normal 150-[address] [facility] Comment on above: Performed By: #### L 500.4050, L100.0100 #### [facility] [address] [place], [address] RBC (Bld) [#/Vol] 4.99 10*6/uL Normal 4.6-6.2 [facility] Comment on above: Performed By: #### L 500.4050, L100.0100 #### [facility] [address] [place], [address] RDW SD 43.7 fl Normal 35.1-43.[address] [facility] Comment on above: Performed By: #### L 500.4050, L100.0100 #### [facility] [address] [place], [address] WBC (Bld) [#/Vol] 6.2 10*3/uL Normal 4.4-11.0 [facility] Comment on above: Performed By: #### L 500.4050, L100.0100 #### [facility] [address] [place], [address] Determination of erythrocyte mean corpuscular volume (MCV)Ordered By: Iliana Price on 04-17-2023 MCV (RBC) [Entitic vol] 90.8 fL 80-94 [facility] Direct bilirubinOrdered By: Iliana Price on 04-17-2023 Bilirubin.direct [Mass/Vol] 5.05 mg/dL 0.00-0.[address] [facility] Emergency Department Summary on 04-17-2023 Emergency Department Summary [facility] Medical Records Department [address] [place] [address] Emergency Department Summary 04/17/23 MR#: [id number] Acct: [id number] Name: ULISSES LANE Rep #: [id number] : 1985 37 From: Iliana OLIVIA PCP: Care Physician,No Primary Status:ADM IN Location: [address] History of Present Illness Chief Complaint: Abd Pain Narrative Narrative: 37-year-old male was seen here a week ago for epigastric pain and diagnosed with gallbladder sludge. He was supposed to follow-up with the general surgeon on 04/22 but states about 2 days ago he started to become jaundiced and he continues to have epigastric pain. The pain is constant at a low level but waxes and wanes without a pattern. This morning he ate a banana which actually made him feel better. He has no nausea or vomiting. No fever or chills. He has noticed his urine looks darker and his stools are gee-colored. He has had no abdominal surgical history. He denies smoking or drinking alcohol frequently. PFSH PFSH Home Medications No Known/Unobtainable [No Known Home Medications] 10/25/16 [History Last Taken Unknown] Allergy/AdvReac Type Severity Reaction Status Date / Time No Known Allergies Allergy Verified 04/11/23 10:14 Surgical History S/P ORIF (open reduction internal fixation) fracture Social History Smoking Status: Never smoker ROS ROS ED ROS Narrative Constitutional: Negative for fever, chills, malaise. GI: Positive for abdominal pain. Negative for nausea, vomiting, diarrhea, constipation, melena, hematochezia. : Negative for dysuria, hematuria or frequency. Skin: Negative for rash. EXAM Physical Exam Narrative Exam Narrative: CONST: Patient sitting in no acute distress. EYES: Scleral icterus. NECK: Normal inspection. RESP: No respiratory distress, CTAB. CVS: Regular rate and rhythm, no murmur, no gallop. ABD: Soft with RUQ and epigastric tenderness, negative Salgado sign, no guarding or rebound, nondistended, no hepatosplenomegaly. SKIN: Mildly jaundiced, no rash, warm, dry, intact. EXTREMITIES: Normal appearance, no pedal edema. NEURO: Oriented x4. PSYCH: Normal affect. Const Vital Signs: 04/17/23 11:18 Temperature 96.9 F L Temperature Source Temporal Pulse Rate 89 Respiratory Rate 16 Blood Pressure 144/95 H Blood Pressure Mean 111 Pulse Ox 100 Oxygen Delivery Method Room Air Physical Exam Const Vital Signs: 04/17/23 11:18 Temperature 96.9 F L Temperature Source Temporal Pulse Rate 89 Respiratory Rate 16 Blood Pressure 144/95 H Blood Pressure Mean 111 Pulse Ox 100 Oxygen Delivery Method Room Air MDM MDM MDM Narrative Medical decision making narrative: History gathered from: Patient and family member Patient had an ultrasound a week ago showing gallbladder sludge and presents with persistent epigastric pain and new onset jaundice. He appears well and nontoxic and is afebrile with normal vital signs. He is tender in the RUQ and epigastrium but has no guarding or rebound and negative Salgado sign. Differential includes cholecystitis, choledocholithiasis, pancreatitis. White count is 6.2. Total bilirubin is significantly elevated at 7.1, AST 128, ALT 405, alk phos 271, lipase 12,333. CT shows finding of cholecystitis and intra and extrahepatic biliary dilation. Common bile duct is dilated over 10 mm. There are also has findings which may suggest acute pancreatitis. Patient was treated with IV Zosyn and I discussed the case with Dr. Watkins who admitted the patient and requested a gallbladder ultrasound which is pending. Consults: General surgery Lab Data Attestation: I reviewed the patient's lab results. Labs: Laboratory Results - last 24 hr 04/17/23 11:51 WBC 6.2 RBC 4.99 Hgb 14.5 Hct 45.3 MCV 90.8 MCH 29.1 MCHC 32.0 RDW Std Deviation 43.7 RDW Coeff of Valerie 13.0 Plt Count 226 MPV 10.6 Immature Gran % (Auto) 0.500 Neut % (Auto) 79.2 H Lymph % (Auto) 12.5 L [place] % (Auto) 7.0 Eos % (Auto) 0.5 Baso % (Auto) 0.3 Absolute Neuts (auto) 4.9 Absolute Lymphs (auto) 0.77 L Nucleated RBC % 0 Sodium 136 Potassium 4.1 Chloride 105 Carbon Dioxide 28.0 Anion Gap 3 L BUN 7 Creatinine 1.03 Estim Creat Clear Calc 119.64 Est GFR (MDRD) Af Amer 105 Est GFR (MDRD) Non-Af 87 BUN/Creatinine Ratio 6.8 L Glucose 135 H Calcium 9.1 Total Bilirubin 7.10 H Direct Bilirubin 5.05 H AST 128 H ALT 405 H Alkaline Phosphatase 271 H Total Protein 7.2 Albumin 3.8 Globulin 3.4 Lipase 35611 H Radiography Diagnostic Testing: (more content not included)... Normal [facility] Gallbladderon 04-17-2023 Gallbladder [facility] Imaging Services [address] [place] [address] Gallbladder MR#: [id number] Acct: [id number] Name: ULISSES LANE Rep #: [id number] : 1985 M 37 From: Blade Bliss MD PCP: Care Physician,No Primary Status: ADM IN Study: Gallbladder Date of Exam: 04/17/23 Exam# [id number] Ordering Dr: Iliana Price [id number] STUDY: ABDOMINAL ULTRASOUND - RIGHT UPPER QUADRANT REASON FOR VISIT: Male, 37 years old ruq pain TECHNIQUE: Ultrasound evaluation of the right upper quadrant was performed with real-time and static krishnamurthy-scale imaging. TECHNICAL QUALITY: Limited. Examination limited by bowel gas. COMPARISON: CT from earlier today FINDINGS: Liver: The liver measures 16.3 cm. There is normal echogenicity of the liver. The bile ducts are within normal limits. There is hepatic color flow. The direction of portal flow is hepatopetal. There is no demonstrated mass lesion. Gallbladder: There is a distended gallbladder. The gallbladder wall measures 6.2 mm. There is a negative sonographic Salgado''s sign. [employer] notes no pericholecystic fluid but there was pericholecystic fluid present on a CT scan from earlier today There is biliary sludge dependent within the gallbladder. Common Bile Duct (C.B.D.): The common bile duct measures 10.8 mm. Pancreas: There is nonvisualization of the pancreas. Right Kidney: Normal size of the right kidney. The right kidney measures 11.2 x 5.5 x 4.5 cm. Normal renal cortex. The right cortex measures 1.3 cm. There is no demonstrated renal mass or cyst. There is no right hydronephrosis. US/Gallbladder IMPRESSION: Distended gallbladder with gallbladder wall thickening, echogenic sludge, and biliary dilatation. A CT scan from earlier today also showed free fluid. Findings are suggestive of acute cholecystitis. Electronically Signed: Jose Bliss MD at 14:20 EST , CC: NE Rosas; No Primary Care Physician Chemical Analyst: Signed Normal [facility] Hematocrit Auto (Bld) [Volum e fraction]Ordered By: Iliana Price on 04-17-2023 Hematocrit (Bld) [Volume fraction] 45.3 % 40-[address] [facility] - Chemistry and C hemistry - challengeOrdered By: Iliana Price on 04-17-2023 ALP [Catalytic activity/Vol] 271 U/L 45-[address] [facility] ALT [Catalytic activity/Vol] 405 U/L 16-[address] [facility] CO2 [Moles/Vol] 28.0 mmol/L 21.0-32.[address] [facility] Globulin (S) [Mass/Vol] 3.4 g/dL 2.2-4.2 [facility] Lipase [Catalytic activity/Vol] 29037 U/L 13-[address] [facility] Comment on above: Please note:LIPASE r evised reference range effective 22. New Lipase methodology. Expected to produce lower values than the previous assay method. NEW Reference Range: 13 - 75 U/L Urea nitrogen/Creatinine [Mass ratio] 6.8 mg/mg 10-[address] [facility] - Hematology and Cell countsOrdered By: Iliana Price on 04-17-2023 Erythrocyte distribution width (RBC) [Entitic vol] 43.7 fL 35.1-43.[address] [facility] Erythrocyte distribution width (RBC) [Ratio] 13.0 % 11.6-14.[address] [facility] Immature granulocytes/100 WBC (Bld) 0.500 % 0.0-0.[address] [facility] Comment on above: IG% - Immature Granu locytes (promyelocytes, myelocytes and metamyelocytes) > 1% indicates that a LEFT SHIFT is Present. MCH (RBC) [Entitic mass] 29.1 pg 27.0-32.[address] [facility] Nucleated RBC/100 WBC (Bld) [Ratio] 0 % 0-[address] [facility] Lipaseon 04-17-2023 Lipase [Catalytic activity/Vol] 71126 U/L High -[address] [facility] Comment on above: Order Comment: SP ECIMEN IS MODERATELY ICTERIC Result Comment: Janet latham note: LIPASE revised reference range effective 22. New Lipase methodology. Expected to produce lower values than the previous assay method. NEW Reference Range: 13 - 75 U/L Performed By: #### L 500.4050, L100.0100 #### [facility] [address] [place], [address] Liver Profileon 04-17-2023 Albumin [Mass/Vol] 3.8 g/dL Normal 3.2-5.0 [facility] Comment on above: Performed By: #### L 500.3400 #### [facility] [address] [place], [address] ALK P 271 U/L High 45-[address] [facility] Comment on above: Performed By: #### L 500.3400 #### [facility] [address] [place], [address] ALT [Catalytic activity/Vol] 405 U/L High 16-[address] [facility] Comment on above: Performed By: #### L 500.3400 #### [facility] [address] [place], [address] AST [Catalytic activity/Vol] 128 U/L High 15-[address] [facility] Comment on above: Performed By: #### L 500.3400 #### [facility] [address] [place], [address] Bilirubin [Mass/Vol] 7.10 mg/dL High 0.20-1.00 [facility] Comment on above: Result Comment: For patients on eltrombopag therapy, use of Dimension [place] TBIL is not recommended. Performed By: #### L 500.3400 #### [facility] [address] [place], [address] Bilirubin.direct [Mass/Vol] 5.05 mg/dL High 0.00-0.[address] [facility] Comment on above: Performed By: #### L 500.3400 #### [facility] [address] [place], [address] Globulin (S) [Mass/Vol] 3.4 g/dL Normal 2.2-4.2 [facility] Comment on above: Performed By: #### L 500.3400 #### [facility] [address] [place], [address] T PROT 7.2 g/dL Normal 6.4-8.[address] [facility] Comment on above: Performed By: #### L 500.3400 #### [facility] [address] [place], [address] MCHC Auto (RBC) [Mass/Vol]Or dered By: Iliana Price on 04-17-2023 MCHC (RBC) [Mass/Vol] 32.0 g/dL 32-36 [facility] No Panel InformationOrdered By: Iliana Price on 04-17-2023 Estimated Creatinine Clearance Calc 119.64 ml/min [facility] Estimated GFR (MDRD) Amer 105 mL/min >[address] [facility] Comment on above: GFR Calc Estimated GFR (MDRD) Non-Af Amer 87 mL/min >[address] [facility] Comment on above: Non- GFR Calc Platelets bldOrdered By: Paris Price on 04-17-2023 Platelets (Bld) [#/Vol] 226 10*3/uL 150-[address] [facility] Serum or plasma albumin armani urement (mass/volume)Ordered By: Iliana Price on 04-17-2023 Albumin [Mass/Vol] 3.8 g/dL 3.2-5.0 [facility] Serum or plasma calcium armani urement (mass/volume)Ordered By: Iliana Price on 04-17-2023 Calcium [Mass/Vol] 9.1 mg/dL 8.5-10.1 [facility] Serum or plasma creatinine m easurement (mass/volume)Ordered By: Iliana Price on 04-17-2023 Creatinine [Mass/Vol] 1.03 mg/dL 0.70-1.30 [facility] Comment on above: The validity of the calculated GFR & GFRAA in patients over 70 years has not been determined. Clinical correlation is essential. Serum or plasma urea nitroge n measurement (mass/volume)Ordered By: Iliana Price on 04-17-2023 Urea nitrogen [Mass/Vol] 7 mg/dL 7-[address] [facility] Thin prep Papanicolaou smear with manual screeningOrdered By: Iliana Price on 04-17-2023 Thin prep Papanicolaou smear with manual screening 128 U/L 15-[address] [facility] Thin prep Papanicolaou smear with manual screening 3 5-[address] [facility] Absolute lymphocyte countOrd ered By: Rickey Nair on 04-11-2023 Lymphocytes Auto (Unsp spec) [#/Vol] 0.84 10*3/uL 0.83-4.[address] [facility] Basophil percentageOrdered B y: Rickey Nair on 04-11-2023 Basophils/100 WBC (Bld) 0.5 % 0-1 [facility] Bilirubin [Mass/Vol] 2.40 mg/dL 0.20-1.00 [facility] Comment on above: For patients on eltr ombopag therapy, use of Dimension [place] TBIL is not recommended. Chloride [Moles/Vol] 106 mmol/L 98-107 [facility] Eosinophils/100 WBC (Bld) 0.8 % 0-[address] [facility] Glucose [Mass/Vol] 100 mg/dL 74-106 [facility] Comment on above: Fasting Glucose resu lt from 100 to 125 mg/dL suggests IMPAIRED HOMEOSTASIS per A.D.A. criteria. Neutrophils (Bld) [#/Vol] 2.7 10*3/uL 2.0-7.[address] [facility] Neutrophils/100 WBC (Bld) 69.5 % 47-[address] [facility] Potassium [Moles/Vol] 4.2 mmol/L 3.5-5.1 [facility] Protein [Mass/Vol] 7.2 g/dL 6.4-8.2 [facility] Sodium [Moles/Vol] 139 mmol/L 136-145 [facility] WBC (Bld) [#/Vol] 3.9 10*3/uL 4.4-11.0 [facility] Blood erythrocytes count (nu mber/volume)Ordered By: Rickey Nair on 04-11-2023 RBC (Bld) [#/Vol] 5.06 10*6/uL 4.6-6.2 [facility] Blood hemoglobin measurement (mass/volume)Ordered By: Rickey Nair on 04-11-2023 Hemoglobin (Bld) [Mass/Vol] 15.0 g/dL 13.0-16.[address] [facility] Blood lymphocytes/100 leukoc ytesOrdered By: Rickey Nair on 04-11-2023 Lymphocytes/100 WBC (Bld) 21.5 % 19-[address] [facility] Blood monocytes/100 leukocyt esOrdered By: Rickey Nair on 04-11-2023 Monocytes/100 WBC (Bld) 7.4 % 0-10 [facility] Blood platelet mean volumeOr dered By: Rickey Nair on 04-11-2023 Platelet mean volume (Bld) [Entitic vol] 10.9 fL 6.2-12.[address] [facility] CBC W/Diff, Automatedon 12-0 -2022 Absolute Lymph 0.84 X10 3/uL Normal 0.83-4.[address] [facility] Comment on above: Performed By: #### L 500.4050, L100.0100 #### [facility] [address] [place], [address] Absolute Neut 2.7 X10 3/uL Normal 2.0-7.[address] [facility] Comment on above: Performed By: #### L 500.4050, L100.0100 #### [facility] [address] [place], [address] Basophils/100 WBC (Bld) 0.5 % Normal 0-1 [facility] Comment on above: Performed By: #### L 500.4050, L100.0100 #### [facility] [address] [place], [address] Eosinophils/100 WBC (Bld) 0.8 % Normal 0-[address] [facility] Comment on above: Performed By: #### L 500.4050, L100.0100 #### [facility] [address] [place], [address] Erythrocyte distribution width (RBC) [Ratio] 12.8 % Normal 11.6-14.[address] [facility] Comment on above: Performed By: #### L 500.4050, L100.0100 #### [facility] [address] [place], [address] Hematocrit (Bld) [Volume fraction] 45.2 % Normal 40-[address] [facility] Comment on above: Performed By: #### L 500.4050, L100.0100 #### [facility] [address] [place], [address] Hemoglobin (Bld) [Mass/Vol] 15.0 g/dL Normal 13.0-16.[address] [facility] Comment on above: Performed By: #### L 500.4050, L100.0100 #### [facility] [address] [place], [address] IG% 0.300 Normal 0.0-0.[address] [facility] Comment on above: Result Comment: IG% - Immature Granulocytes (promyelocytes, myelocytes and metamyelocytes) > 1% indicates that a LEFT SHIFT is Present. Performed By: #### L 500.4050, L100.0100 #### [facility] [address] [place], [address] Lymphocytes/100 WBC (Bld) 21.5 % Normal 19-[address] [facility] Comment on above: Performed By: #### L 500.4050, L100.0100 #### [facility] [address] [place], [address] MCH (RBC) [Entitic mass] 29.6 pg Normal 27.0-32.[address] [facility] Comment on above: Performed By: #### L 500.4050, L100.0100 #### [facility] [address] [place], [address] MCHC (RBC) [Mass/Vol] 33.2 g/dL Normal 32-36 [facility] Comment on above: Performed By: #### L 500.4050, L100.0100 #### [facility] [address] [place], [address] MCV (RBC) [Entitic vol] 89.3 fL Normal 80-94 [facility] Comment on above: Performed By: #### L 500.4050, L100.0100 #### [facility] [address] [place], [address] Monocytes/100 WBC (Bld) 7.4 % Normal 0-10 [facility] Comment on above: Performed By: #### L 500.4050, L100.0100 #### [facility] [address] [place], [address] Neutrophils/100 WBC (Bld) 69.5 % Normal 47-[address] [facility] Comment on above: Performed By: #### L 500.4050, L100.0100 #### [facility] [address] [place], [address] Nucleated RBC (Bld) [#/Vol] 0 10*3/uL Normal 0-[address] [facility] Comment on above: Performed By: #### L 500.4050, L100.0100 #### [facility] [address] [place], [address] Platelet mean volume (Bld) [Entitic vol] 10.9 fL Normal 6.2-12.[address] [facility] Comment on above: Performed By: #### L 500.4050, L100.0100 #### [facility] [address] [place], [address] Platelets (Bld) [#/Vol] 209 10*3/uL Normal 150-[address] [facility] Comment on above: Performed By: #### L 500.4050, L100.0100 #### [facility] [address] [place], [address] RBC (Bld) [#/Vol] 5.06 10*6/uL Normal 4.6-6.2 [facility] Comment on above: Performed By: #### L 500.4050, L100.0100 #### [facility] [address] [place], [address] RDW SD 42.1 fl Normal 35.1-43.[address] [facility] Comment on above: Performed By: #### L 500.4050, L100.0100 #### [facility] [address] [place], [address] WBC (Bld) [#/Vol] 3.9 10*3/uL Low 4.4-11.0 [facility] Comment on above: Performed By: #### L 500.4050, L100.0100 #### [facility] [address] [place], [address] Chest PA and Lateralon 04-11 Chest PA and Lateral [facility] Imaging Services [address] [place] [address] Chest PA and Lateral MR#: [id number] Acct: [id number] Name: ULISSES LANE Rep #: [id number] : 1985 M 37 From: Michael moncada MD PCP: Care Physician,No Primary Status: REG ER Study: Chest PA and Lateral Date of Exam: 04/11/23 Exam# [id number] Ordering Dr: Rickey Nair DO [id number] STUDY: X-RAY CHEST REASON FOR EXAM: Male, 37 years old. Substernal chest pain and pressure. TECHNIQUE: PA and lateral views of the chest. COMPARISON: None. FINDINGS: EKG electrodes are seen. Questionable focal lingular infiltrate. There is no demonstrated pleural abnormality. Normal size heart. Normal mediastinum and ky. Normal visualized pulmonary arteries. Normal visualized aortic arch and descending thoracic aorta. Normal visualized thoracic spine. Normal visualized ribs, clavicles, and shoulders. There is no demonstrated abnormality of the visualized soft tissue structures of the upper abdomen. RAD/Chest PA and Lateral IMPRESSION: Questionable focal lingular infiltrate. Electronically Signed: Michael Palomo MD at 12:08 EST , CC: Dr. Rickey Nair, DO; No Primary Care Physician Chemical Analyst: Signed Normal [facility] Comprehensive Metabolic Prof ilon 04-11-2023 Albumin [Mass/Vol] 3.9 g/dL Normal 3.2-5.0 [facility] [facility] Comment on above: Order Comment: 'TROP ' Serial specimen #1, #2 or #3: 1 Performed By: #### L 500.4050, L100.0100 #### [facility] [address] [place], [address] Albumin/Globulin [Mass ratio] 1.2 {ratio} Normal 0.9-2.[address] [facility] Comment on above: Order Comment: 'TROP ' Serial specimen #1, #2 or #3: 1 Performed By: #### L 500.4050, L100.0100 #### [facility] [address] [place], [address] ALK P 184 U/L High 45-[address] [facility] Comment on above: Order Comment: 'TROP ' Serial specimen #1, #2 or #3: 1 Performed By: #### L 500.4050, L100.0100 #### [facility] [address] [place], [address] ALT [Catalytic activity/Vol] 476 U/L High 16-[address] [facility] Comment on above: Order Comment: 'TROP ' Serial specimen #1, #2 or #3: 1 Performed By: #### L 500.4050, L100.0100 #### [facility] [address] [place], [address] AST [Catalytic activity/Vol] 123 U/L High 15-[address] [facility] Comment on above: Order Comment: 'TROP ' Serial specimen #1, #2 or #3: 1 Performed By: #### L 500.4050, L100.0100 #### [facility] [address] [place], [address] Bilirubin [Mass/Vol] 2.40 mg/dL High 0.20-1.00 [facility] Comment on above: Order Comment: 'TROP ' Serial specimen #1, #2 or #3: 1 Result Comment: For patients on eltrombopag therapy, use of Dimension [place] TBIL is not recommended. Performed By: #### L 500.4050, L100.0100 #### [facility] [address] [place], [address] BUN/CRE 11.4 RATIO Normal 10-[address] [facility] Comment on above: Order Comment: 'TROP ' Serial specimen #1, #2 or #3: 1 Performed By: #### L 500.4050, L100.0100 #### [facility] [address] [place], [address] CA,Total 9.2 mg/dL Normal 8.5-10.[address] [facility] Comment on above: Order Comment: 'TROP ' Serial specimen #1, #2 or #3: 1 Performed By: #### L 500.4050, L100.0100 #### [facility] [address] [place], [address] Chloride [Moles/Vol] 106 mmol/L Normal 98-107 [facility] Comment on above: Order Comment: 'TROP ' Serial specimen #1, #2 or #3: 1 Performed By: #### L 500.4050, L100.0100 #### [facility] [address] [place], [address] CO2 [Moles/Vol] 27.0 mmol/L Normal 21.0-32.[address] [facility] Comment on above: Order Comment: 'TROP ' Serial specimen #1, #2 or #3: 1 Performed By: #### L 500.4050, L100.0100 #### [facility] [address] [place], [address] Creatinine [Mass/Vol] 1.05 mg/dL Normal 0.70-1.30 [facility] Comment on above: Order Comment: 'TROP ' Serial specimen #1, #2 or #3: 1 Result Comment: The validity of the calculated GFR GFRAA in patients over 70 years has not been determined. Clinical correlation is essential. Performed By: #### L 500.4050, L100.0100 #### [facility] [address] [place], [address] ECRCL 117.36 ml/min Normal [facility] Comment on above: Order Comment: 'TROP ' Serial specimen #1, #2 or #3: 1 Performed By: #### L 500.4050, L100.0100 #### [facility] [address] [place], [address] EST GFR - AA 103 mL/min Normal >[address] [facility] Comment on above: Order Comment: 'TROP ' Serial specimen #1, #2 or #3: 1 Result Comment: Afri can [place] GFR Calc Performed By: #### L 500.4050, L100.0100 #### [facility] [address] [place], [address] GAP 6 Normal 5-[address] [facility] Comment on above: Order Comment: 'TROP ' Serial specimen #1, #2 or #3: 1 Performed By: #### L 500.4050, L100.0100 #### [facility] [address] [place], [address] GFR/1.73 sq M.predicted among non-blacks MDRD (S/P/Bld) [Vol rate/Area] 85 mL/min/{1.73_m2} Normal >[address] [facility] Comment on above: Order Comment: 'TROP ' Serial specimen #1, #2 or #3: 1 Result Comment: Non- GFR Calc Performed By: #### L 500.4050, L100.0100 #### [facility] [address] [place], [address] Globulin (S) [Mass/Vol] 3.3 g/dL Normal 2.2-4.2 [facility] Comment on above: Order Comment: 'TROP ' Serial specimen #1, #2 or #3: 1 Performed By: #### L 500.4050, L100.0100 #### [facility] [address] [place], [address] Glucose [Mass/Vol] 100 mg/dL Normal 74-106 [facility] Comment on above: Order Comment: 'TROP ' Serial specimen #1, #2 or #3: 1 Result Comment: Fast ing Glucose result from 100 to 125 mg/dL suggests IMPAIRED HOMEOSTASIS per A.D.A. criteria. Performed By: #### L 500.4050, L100.0100 #### [facility] [address] [place], [address] Potassium [Moles/Vol] 4.2 mmol/L Normal 3.5-5.1 [facility] Comment on above: Order Comment: 'TROP ' Serial specimen #1, #2 or #3: 1 Performed By: #### L 500.4050, L100.0100 #### [facility] [address] [place], [address] Sodium [Moles/Vol] 139 mmol/L Normal 136-145 [facility] Comment on above: Order Comment: 'TROP ' Serial specimen #1, #2 or #3: 1 Performed By: #### L 500.4050, L100.0100 #### [facility] [address] [place], [address] T PROT 7.2 g/dL Normal 6.4-8.[address] [facility] Comment on above: Order Comment: 'TROP ' Serial specimen #1, #2 or #3: 1 Performed By: #### L 500.4050, L100.0100 #### [facility] [address] [place], [address] Urea nitrogen [Mass/Vol] 12 mg/dL Normal 7-[address] [facility] Comment on above: Order Comment: 'TROP ' Serial specimen #1, #2 or #3: 1 Performed By: #### L 500.4050, L100.0100 #### [facility] [address] [place], [address] Determination of erythrocyte mean corpuscular volume (MCV)Ordered By: Rickey Nair on 04-11-2023 MCV (RBC) [Entitic vol] 89.3 fL 80-94 [facility] Emergency Department Summary on 04-11-2023 Emergency Department Summary [facility] Medical Records Department [address] [place] [address] Emergency Department Summary 04/11/23 MR#: [id number] Acct: [id number] Name: ULISSES LANE Rep #: [id number] : 1985 37 From: Rickey Nair DO PCP: Care Physician,No Primary Status:DEP ER Location: ED HPI History of Present Illness Chief Complaint: Chest Pain Informant: patient Narrative Narrative: Patient presents with chest pain that began 4 days ago. Patient states it began rather suddenly while he was at work. Patient states he bent over and felt pain in his lower sternal area. Patient states it has been constant since that time but waxes and wanes. Patient states it is worse with bending forward and other movements. Patient describes the pain as sharp. Patient states it is better when he is able to rest and not move his chest. Patient admits to some increasing fatigue and decreased appetite. Patient admits to some shortness of breath and acid reflux symptoms. Patient denies any fevers or chills. CVD Risk Factors: Negative for Hypertension, Diabetes, Hypercholesterolemia, Family History 1' or Smoking PE Risk Factors: Negative for Recent Travel/Surgery, Recent Immobilization, Prior DVT or PE, Cancer or OCP + Smoking + >/=35 PFSH PFSH Medical History no medical history no medical history Home Medications No Known/Unobtainable [No Known Home Medications] 10/25/16 [History Last Taken Unknown] Allergy/AdvReac Type Severity Reaction Status Date / Time No Known Allergies Allergy Verified 04/11/23 10:14 Surgical History S/P ORIF (open reduction internal fixation) fracture Social History Smoking Status: Never smoker ROS ROS ED Constitutional Constitutional ED: Denies chills or fever(s) Eyes Eyes: Denies blurry vision or change in vision ENT ENT ED: Denies rhinorrhea or sore throat Cardiovascular Cardiovascular: Reports chest pain; Denies palpitations Respiratory/Chest Respiratory/Chest: Reports dyspnea; Denies cough Gastrointestinal Gastrointestinal: Denies nausea or vomiting Genitourinary Genitourinary ED: Denies dysuria or hematuria Musculoskeletal Musculoskeletal: Denies back pain or neck pain Integumentary Denies abscess or rash Neurologic Neurologic: Denies headache(s) or weakness Allergic/Immunologic Allergic/Immunologic ED: Denies mouth swelling or urticaria EXAM Physical Exam Const Vital Signs: 04/11/23 10:15 04/11/23 11:32 Temperature 97.3 F L Temperature Source Temporal Pulse Rate 91 Respiratory Rate 18 Respiratory Effort Normal Non-Labored Blood Pressure 146/91 H Blood Pressure Mean 109 Pulse Ox 99 Oxygen Delivery Method Room Air Positive well nourished and well developed General Appearance ED: well developed and NAD HEENT Reports moist mucous membranes Neck supple and no JVD Chest Wall Chest Narrative: There is tenderness over the lower sternum and xiphoid process. There is mild tenderness over the epigastric area as well. Resp normal respiratory effort and clear to auscultation bilaterally Cardio regular rate and regular rhythm GI soft to palpation and non-distended GI Narrative: There is mild tenderness over the right upper quadrant and epigastric area. There is no rebound or guarding noted. Extremity normal to inspection Neuro oriented x3, CN's II-XII intact bilaterally and no sensory deficits noted Sensorium / Orientation: awake and alert Motor Exam: strength 5/5 throughout Psych mental status grossly normal Heart Score History: Slightly/Non-Suspicious ECG: Normal Age: Risk Factors: 1 or 2 Risk Factors Score: 1 MDM MDM MDM Narrative Medical decision making narrative: Differential diagnosis includes cardiac dysrhythmia, cardiac ischemia, pneumonia, pneumothorax, musculoskeletal pain, cholecystitis, cholelithiasis, pancreatitis, GERD, and esophagitis. EKG will be obtained to assess for cardiac dysrhythmia and cardiac ischemia. Chest x-ray will be obtained to assess for pneumonia and pneumothorax. CBC will be obtained to assess for leukocytosis and anemia. Comprehensive metabolic profile will be obtained to assess for hepatic function, renal function, and electrolyte abnormality. Lipase will be obtained to assess for pancreatitis. High-sensitivity troponin will be obtained to assess for cardiac ischemia. COVID-19 rapid antigen will be obtained to assess for COVID-19 infection. Influenza A and influenza B antigens will be obtained to assess for influenza infection. Lab Data Attestation: I reviewed the patient's lab results. Lab results narrative: CBC was reviewed. White blood cell count was slightly low at 3.9. The remainder was within no (more content not included)... Normal [facility] Gallbladderon 04-11-2023 Gallbladder [facility] Imaging Services [address] [place] [id number] Gallbladder MR#: [id number] Acct: [id number] Name: ULISSES LANE Rep #: [id number] : 1985 M 37 From: Michael moncada MD PCP: Care Physician,No Primary Status: REG ER Study: Gallbladder Date of Exam: 04/11/23 Exam# [id number] Ordering Dr: Rickey Nair DO [id number] STUDY: ABDOMINAL ULTRASOUND - RIGHT UPPER QUADRANT REASON FOR VISIT: Male, 37 years old. Right upper quadrant pain. TECHNIQUE: Ultrasound evaluation of the right upper quadrant was performed with real-time and static krishnamurthy-scale imaging. TECHNICAL QUALITY: Adequate. COMPARISON: None. FINDINGS: Liver: The liver is mildly enlarged and measures 18.4 cm. There is normal echogenicity of the liver. The bile ducts are within normal limits. There is hepatic color flow. The direction of portal flow is hepatopetal. There is no demonstrated mass lesion. Gallbladder: There is a mildly distended gallbladder. The gallbladder wall measures 3 mm. There is a negative sonographic Salgado''s sign. There is no pericholecystic fluid. There are no gallstones. Sludge is seen within the gallbladder lumen. Common Bile Duct (C.B.D.): The common bile duct measures 3 mm. Pancreas: Normal size of the head, body and tail of the pancreas. There is normal echogenicity of the pancreas. There is no demonstrated pancreatic mass or cyst. Right Kidney: Normal size of the right kidney. The right kidney measures 10.9 cm x 6.3 cm x 5.6 cm. Normal renal cortex. The right cortex measures 2.0 cm. There is no demonstrated renal mass or cyst. There is no right hydronephrosis. US/Gallbladder IMPRESSION: Mild distention of the gallbladder with sludge seen within the gallbladder lumen. Mild hepatomegaly. Electronically Signed: Michael Palomo MD at 14:06 EST , CC: Dr. Rickey Nair, ; No Primary Care Physician Chemical Analyst: Signed Normal [facility] Hematocrit Auto (Bld) [Volum e fraction]Ordered By: Rickey Nair on 04-11-2023 Hematocrit (Bld) [Volume fraction] 45.2 % 40-[address] [facility] Influenza virus A and B and SARS-CoV-2 (COVID-19) Ag panel - Upper respiratory specimOrdered By: Rickey Nair on 04-11-2023 SARS-CoV-2 (COVID-19) RNA KERRIE+probe Ql (Resp) [facility] L501.4020on 04-11-2023 TROPONIN-I HS 6 pg/mL Normal 3.0-78.[address] [facility] Comment on above: Order Comment: 'TROP ' Serial specimen #1, #2 or #3: 1 Result Comment: Plea se Note: New Test Units and Gender Specific Reference Ranges. For more information see Policy Stat Procedure [place] High Sensitivity Troponin (TNIH) and attachments. Performed By: #### L 500.4050, L100.0100 #### [facility] [address] [place], [address] Laboratory - Chemistry and C hemistry - challengeOrdered By: Rickey Nair on 04-11-2023 ALP [Catalytic activity/Vol] 184 U/L 45-[address] [facility] ALT [Catalytic activity/Vol] 476 U/L 16-[address] [facility] CO2 [Moles/Vol] 27.0 mmol/L 21.0-32.[address] [facility] Globulin (S) [Mass/Vol] 3.3 g/dL 2.2-4.2 [facility] Lipase [Catalytic activity/Vol] 54 U/L - [facility] Comment on above: Please note:LIPASE r evised reference range effective 22. New Lipase methodology. Expected to produce lower values than the previous assay method. NEW Reference Range: 13 - 75 U/L Urea nitrogen/Creatinine [Mass ratio] 11.4 mg/mg 10-[address] [facility] Laboratory - Hematology and Cell countsOrdered By: Rickey Nair on 04-11-2023 Erythrocyte distribution width (RBC) [Entitic vol] 42.1 fL 35.1-43.[address] [facility] Erythrocyte distribution width (RBC) [Ratio] 12.8 % 11.6-14.[address] [facility] Immature granulocytes/100 WBC (Bld) 0.300 % 0.0-0.[address] [facility] Comment on above: IG% - Immature Granu locytes (promyelocytes, myelocytes and metamyelocytes) > 1% indicates that a LEFT SHIFT is Present. MCH (RBC) [Entitic mass] 29.6 pg 27.0-32.[address] [facility] Nucleated RBC/100 WBC (Bld) [Ratio] 0 % 0-[address] [facility] Lipaseon 04-11-2023 Lipase [Catalytic activity/Vol] 54 U/L Normal - [facility] Comment on above: Order Comment: 'TROP ' Serial specimen #1, #2 or #3: 1 Result Comment: Janet latham note: LIPASE revised reference range effective 22. New Lipase methodology. Expected to produce lower values than the previous assay method. NEW Reference Range: 13 - 75 U/L Performed By: #### L 500.4050, L100.0100 #### [facility] [address] [place], [address] M101.0111on 04-11-2023 M101.0111 *Negative results fr om patients with symptom onset beyond five days should be treated as presumptive and confirmed by a molecular assay if clinically necessary. Negative results should not be used as the sole basis for treatment or for patient management. FLUABV+SARS-CoV2 Ag Pnl Up resp IA.rapid *Positive results do not differentiate between SARS-CoV and SARS-CoV-2. FLUABV+SARS-CoV2 Ag Pnl Up resp IA.rapid Negative Influenza results should be confirmed with FLU PANEL MOLECULAR if indicated. FLUABV+SARS-CoV2 Ag Pnl Up resp IA.rapid * This test has not been FDA cleared or approved; the test has been authorized by FDA under an Emergency Use Authorization (EAU) for use by laboratories certified under CLIA that meet the requirements to perform moderate, high, or waived complexity tests. FLUABV+SARS-CoV2 Ag Pnl Up resp IA.rapid Normal Reference Range: Negative Aliza, ADEEL method SARS-CoV-2 (COVID 19) Negative Influenza Ag, Direct NEGATIVE for Influenza A/B Antigen (See Note) Normal [facility] Comment on above: Performed By: #### L 400.0001 #### [facility] [address] [place], [address] MCHC Auto (RBC) [Mass/Vol]Or dered By: Rickey Nair on 04-11-2023 MCHC (RBC) [Mass/Vol] 33.2 g/dL 32-36 [facility] No Panel InformationOrdered By: Rickey Nair on 04-11-2023 Estimated Creatinine Clearance Calc 117.36 ml/min [facility] Estimated GFR (MDRD) Amer 103 mL/min >[address] [facility] Comment on above: GFR Calc Estimated GFR (MDRD) Non-Af Amer 85 mL/min >[address] [facility] Comment on above: Non- GFR Calc Troponin I High Sensitivity 6 pg/mL 3.0-78.[address] [facility] Comment on above: Please Note: New [place] t Units and Gender Specific Reference Ranges. For more information see Policy Stat Procedure [place] High Sensitivity Troponin (TNIH) and attachments. Platelets bldOrdered By: Angela Nair on 04-11-2023 Platelets (Bld) [#/Vol] 209 10*3/uL 150-[address] [facility] Serum or plasma albumin armani urement (mass/volume)Ordered By: Rickey Niar on 04-11-2023 Albumin [Mass/Vol] 3.9 g/dL 3.2-5.0 [facility] Serum or plasma albumin/glob ulin mass ratioOrdered By: Rickey Nair on 04-11-2023 Albumin/Globulin [Mass ratio] 1.2 {ratio} 0.9-2.[address] [facility] Serum or plasma calcium armani urement (mass/volume)Ordered By: Rickey Nair on 04-11-2023 Calcium [Mass/Vol] 9.2 mg/dL 8.5-10.1 [facility] Serum or plasma creatinine m easurement (mass/volume)Ordered By: Rickey Nair on 04-11-2023 Creatinine [Mass/Vol] 1.05 mg/dL 0.70-1.30 [facility] Comment on above: The validity of the calculated GFR & GFRAA in patients over 70 years has not been determined. Clinical correlation is essential. Serum or plasma urea nitroge n measurement (mass/volume)Ordered By: Rickey Nair on 04-11-2023 Urea nitrogen [Mass/Vol] 12 mg/dL 7-[address] [facility] Thin prep Papanicolaou smear with manual screeningOrdered By: Rickey Nair on 04-11-2023 Thin prep Papanicolaou smear with manual screening 123 U/L 15-[address] [facility] Thin prep Papanicolaou smear with manual screening 6 5-[address] [facility] Upper respiratory specimen i nfluenza A virus, influenza B virus, and severe acute resOrdered By: Rickey Nair on 04-11-2023 Upper respiratory specimen influenza A virus, influenza B virus, and severe acute res [facility] Vital Signs Date Time Vital Sign Value Performing Clinician Facility 12-25-2024 13:32-0400 Body temperature 100.1 [degF] Dr. Benson Desai DO Work Phone: [facility] 12-25-2024 13:32-0400 Diastolic blood pressure 56 mm[Hg] Dr. Benson Desai DO Work Phone: [facility] 12-25-2024 13:32-0400 Heart rate 92 /min Dr. Benson Desai DO Work Phone: [facility] 12-25-2024 13:32-0400 Respiratory rate 18 /min Dr. Benson Desai DO Work Phone: [facility] 12-25-2024 13:32-0400 SaO2% (BldA) [Mass fraction] 100 % Dr. Benson Deasi DO Work Phone: [facility] 12-25-2024 13:32-0400 Systolic blood pressure 115 mm[Hg] Dr. Benson Desai DO Work Phone: [facility] 12-25-2024 10:30-0400 Body height 190.[address] Benson Desai DO Work Phone: [facility] 12-25-2024 10:30-0400 Body mass index (BMI) [Ratio] 31.1 kg/m2 Dr. Benson Desai DO Work Phone: [facility] 12-25-2024 10:30-0400 Body weight 112.[address] Benson Desai DO Work Phone: [facility] 07-13-2023 13:28-0500 Body temperature 97.5 [degF] No Primary Care Physician [facility] 07-13-2023 13:28-0500 Diastolic blood pressure 82 mm[Hg] No Primary Care Physician [facility] 07-13-2023 13:28-0500 Heart rate 52 /min No Primary Care Physician [facility] 07-13-2023 13:28-0500 Respiratory rate 16 /min No Primary Care Physician [facility] 07-13-2023 13:28-0500 SaO2% (BldA) [Mass fraction] 100 % No Primary Care Physician [facility] 07-13-2023 13:28-0500 Systolic blood pressure 118 mm[Hg] No Primary Care Physician [facility] 07-13-2023 11:06-0500 Body height 190.5 cm No Primary Care Physician [facility] 07-13-2023 11:06-0500 Body mass index (BMI) [Ratio] 29.1 kg/m2 No Primary Care Physician [facility] 07-13-2023 11:06-0500 Body weight 105.68 kg No Primary Care Physician [facility] 06-24-2023 13:29-0500 Body mass index (BMI) [Ratio] 29.5 kg/m2 No Primary Care Physician [facility] 06-24-2023 13:29-0500 Body temperature 98.8 [degF] No Primary Care Physician [facility] 06-24-2023 13:29-0500 Body weight 107.04 kg No Primary Care Physician [facility] 06-24-2023 13:29-0500 Diastolic blood pressure 66 mm[Hg] No Primary Care Physician [facility] 06-24-2023 13:29-0500 Heart rate 85 /min No Primary Care Physician [facility] 06-24-2023 13:29-0500 Respiratory rate 16 /min No Primary Care Physician [facility] 06-24-2023 13:29-0500 SaO2% (BldA) [Mass fraction] 99 % No Primary Care Physician [facility] 06-24-2023 13:29-0500 Systolic blood pressure 132 mm[Hg] No Primary Care Physician [facility] 05-24-2023 11:23-0500 Body mass index (BMI) [Ratio] 28.9 kg/m2 No Primary Care Physician [facility] 05-24-2023 11:23-0500 Body temperature 98.5 [degF] No Primary Care Physician [facility] 05-24-2023 11:23-0500 Body weight 104.89 kg No Primary Care Physician [facility] 05-24-2023 11:23-0500 Diastolic blood pressure 82 mm[Hg] No Primary Care Physician [facility] 05-24-2023 11:23-0500 Heart rate 75 /min No Primary Care Physician [facility] 05-24-2023 11:23-0500 Respiratory rate 16 /min No Primary Care Physician [facility] 05-24-2023 11:23-0500 SaO2% (BldA) [Mass fraction] 99 % No Primary Care Physician [facility] 05-24-2023 11:23-0500 Systolic blood pressure 122 mm[Hg] No Primary Care Physician [facility] 05-19-2023 23:49-0500 Diastolic blood pressure 71 mm[Hg] No Primary Care Physician [facility] 05-19-2023 23:49-0500 Heart rate 69 /min No [facility] Care Physician [facility] [facility] 05-19-2023 23:49-0500 Respiratory rate 17 /min No Primary Care Physician [facility] 05-19-2023 23:49-0500 SaO2% (BldA) [Mass fraction] 98 % No Primary Care Physician [facility] 05-19-2023 23:49-0500 Systolic blood pressure 132 mm[Hg] No Primary Care Physician [facility] 05-19-2023 20:54-0500 Body mass index (BMI) [Ratio] 26.6 kg/m2 No Primary Care Physician [facility] 05-19-2023 20:54-0500 Body temperature 98.4 [degF] No Primary Care Physician [facility] 05-19-2023 20:54-0500 Body weight 96.61 kg No Primary Care Physician [facility] 05-11-2023 13:33-0500 Body height 193.04 cm No Primary Care Physician [facility] 05-11-2023 13:33-0500 Body mass index (BMI) [Ratio] 28.8 kg/m2 No Primary Care Physician [facility] 05-11-2023 13:33-0500 Body temperature 97 [degF] No Primary Care Physician [facility] 05-11-2023 13:33-0500 Body weight 107.5 kg No Primary Care Physician [facility] 05-11-2023 13:33-0500 Diastolic blood pressure 72 mm[Hg] No Primary Care Physician [facility] 05-11-2023 13:33-0500 Heart rate 80 /min No Primary Care Physician [facility] 05-11-2023 13:33-0500 Respiratory rate 14 /min No Primary Care Physician [facility] 05-11-2023 13:33-0500 SaO2% (BldA) [Mass fraction] 98 % No Primary Care Physician [facility] 05-11-2023 13:33-0500 Systolic blood pressure 132 mm[Hg] No Primary Care Physician [facility] 04-19-2023 18:23-0500 Body temperature 97.2 [degF] No Primary Care Physician [facility] 04-19-2023 18:23-0500 Diastolic blood pressure 86 mm[Hg] No Primary Care Physician [facility] 04-19-2023 18:23-0500 Heart rate 83 /min No Primary Care Physician [facility] 04-19-2023 18:23-0500 Respiratory rate 18 /min No Primary Care Physician [facility] 04-19-2023 18:23-0500 SaO2% (BldA) [Mass fraction] 99 % No Primary Care Physician [facility] 04-19-2023 18:23-0500 Systolic blood pressure 130 mm[Hg] No Primary Care Physician [facility] 04-18-2023 23:57-0500 Body mass index (BMI) [Ratio] 26.7 kg/m2 No Primary Care Physician [facility] 04-18-2023 23:57-0500 Body weight 99.79 kg No Primary Care Physician [facility] 04-17-2023 15:11-0500 Body temperature 98.3 [degF] No Primary Care Physician [facility] 04-17-2023 15:11-0500 Diastolic blood pressure 76 mm[Hg] No Primary Care Physician [facility] 04-17-2023 15:11-0500 Heart rate 80 /min No Primary Care Physician [facility] 04-17-2023 15:11-0500 Respiratory rate 18 /min No Primary Care Physician [facility] 04-17-2023 15:11-0500 SaO2% (BldA) [Mass fraction] 100 % No Primary Care Physician [facility] 04-17-2023 15:11-0500 Systolic blood pressure 132 mm[Hg] No Primary Care Physician [facility] 04-17-2023 11:18-0500 Body height 190.5 cm No Primary Care Physician [facility] 04-17-2023 11:18-0500 Body mass index (BMI) [Ratio] 28.9 kg/m2 No Primary Care Physician [facility] 04-17-2023 11:18-0500 Body weight 104.87 kg No Primary Care Physician [facility] 04-11-2023 10:15-0500 Body mass index (BMI) [Ratio] 29.7 kg/m2 No Primary Care Physician [facility] 04-11-2023 10:15-0500 Body temperature 97.3 [degF] No Primary Care Physician [facility] 04-11-2023 10:15-0500 Body weight 107.72 kg No Primary Care Physician [facility] 04-11-2023 10:15-0500 Diastolic blood pressure 91 mm[Hg] No Primary Care Physician [facility] 04-11-2023 10:15-0500 Heart rate 91 /min No Primary Care Physician [facility] 04-11-2023 10:15-0500 Respiratory rate 18 /min No Primary Care Physician [facility] 04-11-2023 10:15-0500 SaO2% (BldA) [Mass fraction] 99 % No Primary Care Physician [facility] 04-11-2023 10:15-0500 Systolic blood pressure 146 mm[Hg] No Primary Care Physician [facility] Encounters Encounter Date Encounter Type Care Provider Facility Start: 12-25-2024 End: 12-25-[address] Benson Desai DO Work Phone: -[facility] Start: 12-25-2024 End: 12-25-2024 Patient encounter procedure Rose Marie OLIVIA -[facility] Work Phone: Start: 12-25-2024 End: 12-25-2024 Emergency department patient visit Dr. Benson Desai DO Work Phone: -Emergency Department Work Phone: Start: 07-13-2023 End: 07-13-2023 ambulatory Benson Desai Facility:[facility] Start: 07-13-2023 Non-patient / Non-visit No Primary Care Physician [facility] Start: 07-13-2023 End: 07-13-2023 Admission to same day surgery center No Primary Care Physician [facility] Work Phone: Start: 07-13-2023 End: 07-13-2023 ambulatory No Primary Care Physician [facility] Work Phone: Start: 06-24-2023 End: 06-24-2023 ambulatory Namrata Castano Facility:[facility] Start: 06-24-2023 End: 06-24-2023 Patient encounter procedure No Primary Care Physician [facility] Work Phone: Start: 05-30-2023 End: 05-31-2023 ambulatory Geraldosaran Thompson Facility:[facility] Start: 05-30-2023 End: 05-30-2023 Patient encounter procedure No Primary Care Physician [facility] Work Phone: Start: 05-24-2023 End: 05-24-2023 ambulatory Benson Desai Facility:[facility] Start: 05-24-2023 End: 05-24-2023 Patient encounter procedure No Primary Care Physician [facility] Work Phone: Start: 05-19-2023 End: 05-20-2023 Emergency department patient visit Bensonsolitario Desai Facility:[facility] Start: 05-19-2023 End: 05-19-2023 Emergency department patient visit No Primary Care Physician [facility] Work Phone: Start: 05-11-2023 End: 05-11-2023 ambulatory No Primary Care Physician Facility:[facility] Start: 05-11-2023 End: 05-11-2023 ambulatory No Primary Care Physician [facility] Work Phone: Start: 05-11-2023 End: 05-11-2023 Patient encounter procedure No Primary Care Physician [facility] Work Phone: Start: 04-28-2023 End: 04-28-2023 ambulatory Arie Watkins Facility:[facility] Start: 04-28-2023 End: 04-28-2023 Patient encounter procedure No Primary Care Physician [facility] Work Phone: Start: 04-19-2023 Non-patient / Non-visit No Primary Care Physician [facility] Start: 04-18-2023 End: 04-18-2023 ambulatory Arie Watkins Facility:[facility] Start: 04-18-2023 End: 04-18-2023 Non-patient / Non-visit No Primary Care Physician [facility] Work Phone: Start: 04-18-2023 ambulatory Arie Watkins Facility: [facility] Start: 04-18-2023 Non-patient / Non-visit No Primary Care Physician [facility] Start: 04-17-2023 End: 04-19-2023 Evaluation and management of inpatient Arie Watkins Facility:[facility] Start: 04-17-2023 ambulatory No Primary Car e Physician [place] Start: 04-17-2023 Non-patient / Non-visit No Primary Care Physician [facility] Start: 04-17-2023 End: 04-19-2023 Evaluation and management of inpatient No Primary Care Physician [facility] Work Phone: Start: 04-11-2023 End: 04-11-2023 Emergency department patient visit No Primary Care Physician Facility:[facility] Start: 04-11-2023 End: 04-11-2023 Emergency department patient visit No Primary Care Physician [facility] Work Phone: Procedures Date Procedure Procedure Detail Performing Clinician Start: 12-25-2024 Computed tomography of abdomen and pelvis with intravenous contrast Dr. Benson Desai DO Work Phone: Start: 12-25-[address] Navi Desai DO Work Phone: Start: 07-13-2023 Endoscopic retrograde cholangiopancreatography No Primary Care Physician Start: 07-13-2023 Fluoroscopic guidance No Primary Care Physician Start: 05-19-2023 Computed tomography of abdomen and pelvis with intravenous contrast No Primary Care Physician Start: 04-19-2023 Cholangiogram No Primary Care Physician Start: 04-19-2023 Fluoroscopic guidance No Primary Care Physician Start: 04-19-2023 Total cholecystectomy and exploration of common bile duct No Primary Care Physician Start: 04-18-2023 End: 04-18-2023 Endoscopic retrograde cholangiopancreatography No Primary Care Physician Start: 04-18-2023 Fluoroscopic guidance No Primary Care Physician Start: 04-17-2023 US scan of gallbladder No Primary Care Physician Start: 04-17-2023 Computed tomography of abdomen and pelvis with intravenous contrast No Primary Care Physician Start: 04-11-2023 SARS-CoV-2 & FLU Antigen (Rapid) No Primary Care Physician Start: 04-11-2023 Viral antigen assay No Primary Care Physician Start: 04-11-2023 US scan of gallbladder No Primary Care Physician Start: 04-11-2023 Plain chest X-ray No Primary Care Physician History of cholecystectomy Statu s post laparoscopic cholecystectomy No Primary Care Physician Comment on above: This is a 37-year-old male who is recove ring well after the laparoscopic cholecystectomy with intraoperative cholangiogram 04/19/2023 occasioned by diagnosis of gallstone pancreatitis and choledocholithiasis. He is also status post ERCP with common bile duct stent placement. We had a lengthy discussion regarding transitioning to a sustainable healthy diet as well as checking in on his present cholesterol status. Mr. Lane confirmed his interest in trying to get healthier out of this incident. We also discussed that he will require follow-up with gastroenterology for EGD and stent removal. We will contact their office to see that he gets put on the schedule. Given that he is healing so well from our surgery together I do not find cause to require further follow-up with general surgery. However, I did share with him that his upper abdominal pain could represent uncontrolled dyspepsia or possible stress ulcer. He confirms that he will keep tabs on the symptoms and let me know if they persist. History of cholecystectomy Hx of cholecys tectomy No Primary Care Physician History of cholecystectomy Histo ry of cholecystectomy Dr. Benson Desai DO Work Phone: Plan of Treatment Date Care Activity Detail Author Start: 12-25-[address] [facility] Start: 07-13-2023 Endoscopic retrograde cholangiopancreatography ERCP Biliary/Pancreas [facility] Start: 07-13-2023 RF Guidance for endoscopy of Biliary ducts and Pancreatic duct-- W contrast retrograde [facility] Start: 07-13-2023 Patient discharge [facility] Start: 05-19-[address] [facility] Start: 04-19-2023 Patient discharge [facility] Start: 04-18-[address] [facility] Start: 04-18-2023 [address]operative [address] [facility] Start: 04-18-2023 Triacylglycerol lipase measurement [facility] Start: 04-18-[address] [facility] Start: 04-17-2023 Application of intermittent pneumatic compression device [facility] Start: 04-17-2023 Following clinical pathway protocol [facility] Start: 04-17-2023 Referral to gastroenterology service [facility] Start: 04-17-2023 Elevation of head of bed [facility] Start: 04-17-2023 Incentive spirometry [facility] Start: 04-17-[address] [facility] Start: 04-17-2023 Admission procedure [facility] Start: 04-17-2023 Hospital admission, emergency, from emergency room, medical nature [facility] Start: 04-17-[address] [facility] Start: 04-11-[address] [facility] Alanine aminotransfe rase [Enzymatic activity/volume] in Serum or Plasma [facility] Albumin [Mass/volume ] in Serum or Plasma [facility] Alkaline phosphatase [Enzymatic activity/volume] in Serum or Plasma [facility] Anion gap measurement [facility] Aspartate aminotrans ferase [Enzymatic activity/volume] in Serum or Plasma [facility] Bilirubin, total measurement [facility] BUN/Creatinine ratio [facility] Calcium [Mass/volume ] in Serum or Plasma [facility] Carbon dioxide, tota l [Moles/volume] in Serum or Plasma [facility] Chloride [Moles/volu me] in Serum or Plasma [facility] Creatinine [Moles/vo lume] in Serum or Plasma [facility] Glucose [Mass/volume ] in Serum or Plasma [facility] Hematocrit [Volume F raction] of Blood [facility] Hemoglobin [Mass/volume] in Blood [facility] Leukocytes [#/volume] in Blood [facility] Mean corpuscular hem oglobin concentration determination [facility] Mean corpuscular hem oglobin determination [facility] Measurement of renal function [facility] Neutrophil count [facility] Neutrophil percent d ifferential count [facility] Patient Education [facility] Work Phone: Patient referral [facility] Work Phone: Platelets [#/volume] in Blood [facility] Potassium [Moles/vol ume] in Serum or Plasma [facility] Red blood cell count [facility] Red cell distributio n width determination [facility] RF Guidance for endo scopy of Biliary ducts and Pancreatic duct-- W contrast retrograde [facility] Sodium [Moles/volume ] in Serum or Plasma [facility] Total protein measurement [facility] Urea nitrogen [Mass/ volume] in Serum or Plasma [facility] Payers Date Payer Category Payer Self-pay 2023 Unknown [id number] Unknown [id number] 2.16.8 [id number] Unknown [id number] 2.16.8 [id number] Unknown [id number] 2.16.8 [id number] Unknown [id number] 2.16.8 [id number] Unknown [id number] 2.16.8 [id number] Unknown [id number] 2.16.8 [id number] Unknown [id number] 2.16.8 [id number] Unknown [id number] 2.16.8 [id number] Unknown [id number] 2.16.8 40.1.041898.3.579.2.462 Unknown [id number] 2.16.8 40.1.044966.3.579.2.462 Unknown [id number] 2.16.8 40.1.623649.3.579.2.462 Unknown [id number] 2.16.8 40.1.553306.3.579.2.462 Unknown [id number] 2.16.8 40.1.866638.3.579.2.462 Unknown [id number] 2.16.8 40.1.745832.3.579.2.462 Unknown [id number] 2.16.8 40.1.764527.3.579.2.462 Unknown [id number] 2.16.8 40.1.518819.3.579.2.462 Unknown [id number] 2.16.8 [id number] Unknown [id number] 2.16.8 [id number] Unknown [id number] Social History Date Type Detail Facility Start: 04-17-2023 End: 07-11-2023 Tobacco smoking status NDIS Unknown if ever smoked [facility] Start: 1985 Sex Assigned At Male [facility] Start: 12-25-2024 Tobacco smoking stat us NDIS Never smoked tobacco (finding) [facility] Medical Equipment Procedure Code Equipment Code Equipment Original Text Equipment Identifier Dates Total cholecystectomy with exploration of common bile duct Open-surgery ligation clip manager fitness [id number] FDA Start: 04-19-2023 ERCP (endoscopic retrograde cholangiopancreatograph y) ([id number]) Polymeric biliary stent, non-bioabsorbable [id number] FDA Start: 04-18-2023 Goals Date Patient Goal Desired Activity /State Functional Status Date Assessment Result Facility 04-19-2023 Functional status Ambulates [facility] Work Phone: Mental Status Date Assessment Result Facility 07-13-2023 Cognitive function Level Of Consciousness Sedated [facility] Work Phone: 04-19-2023 Cognitive function Level Of Cons ciousness Awake;Alert;Appropriate;Follow s Commands [facility] Work Phone: 04-19-2023 Cognitive function Voice/Name [facility] Work Phone: 04-11-2023 Cognitive function Level Of Cons ciousness Awake;Alert;Appropriate;Follow s Commands [facility] Work Phone: Clinical Notes 04-17-2023 to 12-25-2024 Note Date & Type Note Facility 12-25-2024 Discharge summary [facility] 12-25-2024 Radiology Diagnostic study note [facility] Imaging Services [address] [place], [place] [id number] Abdomen/Pelvis W IV Cont ONLY MR#: [id number] Acct: [id number] Name: ULISSES LANE Rep #: [id number] : 1985 M 39 From: Deangelo Palomo MD PCP: Dr. Benson Desai, DO Status: [place] E ER Study:Abdomen/Pelvis W IV Cont ONLY Date of E xam: 12/25/24 Exam# [id number] Ordering Dr: Carlos Hills MD PROCEDURE: ABDOMEN/PELVIS W IV CONT ONLY 12/25/2024 REASON FOR EXAM: ABDOMINAL PAIN. HISTORY OF PANCREATITIS TECHNIQUE: ABDOMEN/PELVIS W IV CONT ONLY Coronal and Sagittal reconstruction series were provided. CONTRAST: Isovue-300 VOLUME: 100 mL One or more dose reduction techniques were used (e.g., Automated exposure control, adjustment of the mA and/or kV according to patient size, use of iterative reconstruction technique. RADIATION DOSE SUMMARY: CTDlvol: 16.21 mGy DLP: 931.6 mGycm COMPARISON: Prior study dated May 19, 2023. FINDINGS: Lung bases: Lung bases are clear. Liver: Minimal degree of intrahepatic biliary ductal dilatation. Gallbladder: Surgically absent. Spleen: Borderline splenomegaly. Pancreas: Normal size without evidence of mass surrounding inflammation or ductal dilation. Adrenals: Unremarkable Kidneys: Normal renal sizes. No hydronephrosis. Bladder: Unremarkable Bowel: Unremarkable Appendix: Unremarkable Lymph nodes: Unremarkable. Vasculature: The abdominal aorta and IVC are normal. Peritoneum / Retroperitoneum: Unremarkable Bones: Unremarkable CT/Abdomen/Pelvis W IV Cont ONLY IMPRESSION: Status post cholecystectomy. Mild degree of central intrahepatic biliary ductal dilatation most likely secondary to the cholecystectomy state. No acute abnormality is seen. Reading Location: [id number] CC: Dr. Benson Desai, DO; Dr. Tony Hills MD ~ Chemical Analyst: Signed [facility] 07-13-2023 History and physi aurea note Note Date/Time July 13, 2023 10:57am [facility] Medical Records Department [address] [place] [address] History & Physical Exam 07/13/23 1056 MR#: [id number] Acct: [id number] Name: ULISSES LANE Rep #:[id number] : 1985 37 From: Geraldo Friend PCP: Dr. Benson Desai DO Status:[facility] Location: [place] [address] History and Physical Date of Admission: 07/13/23 7 M who presents to the office today for *[facility] hospitalization 12.02.28-04.19.23 for management of acute gallstone pancreatitis and acute cholecystitis. ERCP 04.18.23 biliary papillary stenosis, benign; biliary dilation with stone causing obstruction; choledocholithiasis; biliary sphincterotomy; biliary tree swept; temporary stent placed in CBD. No specimens ? Surgery 04.19.23 cholecystectomy without complication. Cholesterolosis which chronic cholecystitis and sludge. [facility] ED 05.24.23 with increased upper abdominal pain without concern for pancreatitis. OV 05.30.23 epigastric pain has resolved; RUQ pain is new and intermittent with unknown trigger. Reports he is no longer taking PPI but is not having reflux. Has been paying attention to his diet in regard to cholecystectomy. ROS Const Constitutional: No body ache, chills, excessive sweating, fatigue, fever(s), frequent falls, headache(s), snoring, weakness or change in appetite Eyes Eyes: No blurry vision, change in vision, eye pain or Light sensitivity ENT ENT: No abnormal hearing, ear or mastoid pain, tinnitus, nasal congestion, headache(s), neck pain or sore throat Resp Respiratory: No cough, shortness of breath, snoring or wheezing Cardio Cardiology: No chest pain at rest, chest pain with exertion, excessive sweating,dyspnea on exertion, lightheadedness, orthopnea or palpitations Gastro GI: No abdominal pain, change in bowel habits, constipation, cramping, diarrhea,nausea/dyspepsia or vomiting Genitourinary Male: No burning urination, painful urination, urinary incontinence or urinary frequency Musc Musculoskeletal: No abnormal gait, joint pain, back pain, limited range of motion, muscle weakness, neck pain or numbness Skin Skin: No dry skin, redness, lesions, itchy eyes, rash or wounds Neuro Neurology: No abnormal gait, abnormal hearing, weakness, frequent falls, headache(s), memory loss or numbness Psych Psychiatric: No anxiety, No change in appetite, No depression, No memory loss and No Thoughts of harming yourself/Others Endo Endocrine: No cold intolerance, excessive sweating, fatigue, flushing, heat intolerance, increased thirst/drinking or increased hunger Aller/Imm Allergy/Immunologic: No itchy eyes, seasonal allergy symptoms, hives or wheezing Akil/Lymp Hematologic/Lymphatic: No easy bleeding or easy bruising Exam Const General: cooperative, healthy appearing and comfortable Nutritional Appearance: average body habitus [facility] Head: normal to inspection Ears: hearing grossly normal bilaterally Nose: external nose normal Face and sinus: normal facial exam Mouth: oral mucosae normal Teeth and gingiva: dentition normal Eyes General: appearance normal, both eyes and all related structures Neck Neck: normal visual inspection Thyroid: thyroid normal Resp Effort & Inspection: normal respiratory effort Auscultation: Bilateral: Clear to Auscultation Cardio Rate: regular rate Rhythm: regular rhythm Heart Sounds: no murmurs GI Inspection: normal to inspection and scar Auscultation: normal bowel sounds Percussion: normal to percussion Palpation: soft and no hepatosplenomegaly Musc Musculoskeletal: No joint tenderness or decreased range of motion Skin General: no rashes or lesions noted Neuro Cognition: normal cognition Speech: speech normal Gait: normal gait Extrem General: normal to inspection and full ROM Psych Appearance: grossly normal Quality Reporting Tobacco Screening ([facility] 138) Smoking Status: Never smoker Assessment and Plan Assessment and Plan (1) Acute gallstone pancreatitis: Status: Resolved (2) Cholestatic hepatitis: Status: Resolved Plan: 37-year-old male who presents with signs and symptoms of acute gallstone pancreatitis and acute cholecystitis. He underwent ERCP with stone removal and stent placement. He demonstrates further spontaneous improvement in his condition now following ERCP yesterday. As expected, this is also translated tosignificant improvement in his laboratories. Orders: Orders ERCP Biliary/Pancreas 07/13/23 K75.89 - Other specified inflammatory liver diseases, K85.10 - Biliary acute pancreatitis without necrosis or infection I have examined the patient and the H&P has been reviewed. There are no clinicalchanges since date of exam. 07/13/23 1057 <Electronically signed by Geraldo Thompson DO> Cosigner Signature (if applicable): CC: Dr. Benson Desai, DO; Geraldo Thompson DO~ Signed [facility] Work Phone: [phone]) 208-847503-06-2024 [facility] Medical Records Department [address] [place] [id number] History Physical Exam 07/13/23 1056 MR#: [id number] Acct: [id number] Name: ULISSES LANE Rep #: [id number] : 1985 37 From: Geraldo Thompson DO PCP: Dr. Benson Desai, Status:[facility] Location: [place] [address] History and Physical Date of Admission: 07/13/23 7 M who presents to the office today for *[facility] hospitalization 04.17.23-04.19.23 for management of acute gallstone pancreatitis and acute cholecystitis. ERCP 04.18.23 biliary papillary stenosis, benign; biliary dilation with stone causing obstruction; choledocholithiasis; biliary sphincterotomy; biliary tree swept; temporary stent placed in CBD. No specimens ? Surgery 04.19.23 cholecystectomy without complication. Cholesterolosis which chronic cholecystitis and sludge. [facility] ED 05.24.23 with increased upper abdominal pain without concern for pancreatitis. OV 05.30.23 epigastric pain has resolved; RUQ pain is new and intermittent with unknown trigger. Reports he is no longer taking PPI but is not having reflux. Has been paying attention to his diet in regard to cholecystectomy. ROS Const Constitutional: No body ache, chills, excessive sweating, fatigue, fever(s), frequent falls, headache(s), snoring, weakness or change in appetite Eyes Eyes: No blurry vision, change in vision, eye pain or Light sensitivity ENT ENT: No abnormal hearing, ear or mastoid pain, tinnitus, nasal congestion, headache(s), neck pain or sore throat Resp Respiratory: No cough, shortness of breath, snoring or wheezing Cardio Cardiology: No chest pain at rest, chest pain with exertion, excessive sweating, dyspnea on exertion, lightheadedness, orthopnea or palpitations Gastro GI: No abdominal pain, change in bowel habits, constipation, cramping, diarrhea, nausea/dyspepsia or vomiting Genitourinary Male: No burning urination, painful urination, urinary incontinence or urinary frequency Musc Musculoskeletal: No abnormal gait, joint pain, back pain, limited range of motion, muscle weakness, neck pain or numbness Skin Skin: No dry skin, redness, lesions, itchy eyes, rash or wounds Neuro Neurology: No abnormal gait, abnormal hearing, weakness, frequent falls, headache(s), memory loss or numbness Psych Psychiatric: No anxiety, No change in appetite, No depression, No memory loss and No Thoughts of harming yourself/Others Endo Endocrine: No cold intolerance, excessive sweating, fatigue, flushing, heat intolerance, increased thirst/drinking or increased hunger Aller/Imm Allergy/Immunologic: No itchy eyes, seasonal allergy symptoms, hives or wheezing Akil/Lymp Hematologic/Lymphatic: No easy bleeding or easy bruising Exam Const General: cooperative, healthy appearing and comfortable Nutritional Appearance: average body habitus [facility] Head: normal to inspection Ears: hearing grossly normal bilaterally Nose: external nose normal Face and sinus: normal facial exam Mouth: oral mucosae normal Teeth and gingiva: dentition normal Eyes General: appearance normal, both eyes and all related structures Neck Neck: normal visual inspection Thyroid: thyroid normal Resp Effort Inspection: normal respiratory effort Auscultation: Bilateral: Clear to Auscultation Cardio Rate: regular rate Rhythm: regular rhythm Heart Sounds: no murmurs GI Inspection: normal to inspection and scar Auscultation: normal bowel sounds Percussion: normal to percussion Palpation: soft and no hepatosplenomegaly Musc Musculoskeletal: No joint tenderness or decreased range of motion Skin General: no rashes or lesions noted Neuro Cognition: normal cognition Speech: speech normal Gait: normal gait Extrem General: normal to inspection and full ROM Psych Appearance: grossly normal Quality Reporting Tobacco Screening ([facility] 138) Smoking Status: Never smoker Assessment and Plan Assessment and Plan (1) Acute gallstone pancreatitis: Status: Resolved (2) Cholestatic hepatitis: Status: Resolved Plan: 37-year-old male who presents with signs and symptoms of acute gallstone pancreatitis and acute cholecystitis. He underwent ERCP with stone removal and stent placement. He demonstrates further spontaneous improvement in his condition now following ERCP yesterday. As expected, this is also translated to significant improvement in his laboratories. Orders: Orders ERCP Biliary/Pancreas 07/13/23 K75.89 - Other specified inflammatory liver diseases, K85.10 - Biliary acute pancreatitis without necrosis or infection I have examined the patient and the H P has been reviewed. There are no clinical changes since date of exam. 07/13/23 1057 Cosigner Signature (if applicable): CC: Dr. Benson Desai, DO; Gearldo Thompson, DO (more content not included)... [facility]03-06-2024 Procedure [facility] 07-13-2023 Procedure [facility]12-12-2023 [facility] Medical Records Department [address] [place] [address] Discharge Summary 04/19/23 1348 MR#: [id number] Acct: [id number] Name: ULISSES LANE Rep #: [id number] : 1985 37 From: Arie Watkins MD PCP: Care Physician,No Primary Status:DIS IN Location[place] [facility] [id number] Providers Date of Admission: 04/17/23 Primary Care Physician: No Primary Care Phys Consultations 04/17/23 13:21 Consult: Gastroenterology Routine Consulting Provider: [facility] Reason for Consult: Gallstone pancreatitis EMERGENT Consult: Yes Notified: Yes Date Notified: 04/17/23 Time Notified: 13:21 Method of Notification: Verbal Reason For Visit: GALLSTONE PANCREATITIS Diagnosis Discharge Diagnosis (1) Acute gallstone pancreatitis: Status: Acute Code(s): K85.10 - Biliary acute pancreatitis without necrosis or infection (2) Cholecystitis: Status: Acute Code(s): K81.9 - Cholecystitis, unspecified Plan This is a 37-year-old male who presents with signs and symptoms of acute gallstone pancreatitis and acute cholecystitis. He demonstrates further spontaneous improvement in his condition now following ERCP yesterday. As expected, this is also translated to significant improvement in his laboratories. With these clinical improvements and clearance of his common duct, we are planning to go to the operating room today for laparoscopic cholecystectomy with intraoperative cholangiogram. Neuro: As needed Dilaudid Pulm/CV: No current issues FEN/GI: Continue n.p.o. status, proceed for lap suzanne with IOC today, trend abdominal exam and lipase, GI consult : No current issues Heme/ID: Trend CBC, IV fluid rate to 125/h, empiric coverage with IV Zosyn Endo: No current issues Proph: SCDs Dispo: Continue inpatient care Medications at Discharge Home Medications oxycodone 5 mg tablet 5 mg PO Q6H PRN PRN Pain Score 6-10 3 days #10 tabs 04/19/23 Hospital Course Operations cholecystecomy Summary of Care Provided Hospital Course: Patient was admitted via the ER on 04/17/2023 after complaints of acute onset abdominal pain, associated nausea, and jaundice where he was diagnosed with gallstone pancreatitis and probable choledocholithiasis. Upon admission he was aggressively resuscitated with IV fluids and administered empiric IV antibiotic therapy. Hospital day 2 he underwent ERCP with gastroenterology and placement of a common bile duct stent. Each day of his hospitalization he experienced an improvement of both his symptoms and his labs. Hospital day 3 he underwent laparoscopic cholecystectomy with intraoperative cholangiogram confirming a well-placed common bile duct stent and patency of the biliary tree. Postoperatively return to the standard medical surgical floor where his diet was advanced without issue and his pain was well-controlled with oral medications. With this picture of clinical stability and improvement he was granted his request for discharge to home. Outpatient follow-up was requested. Physical Exam Const alert General Appearance: cooperative Resp normal respiratory effort GI GI Narrative: Nondistended, operative dressings with single drop of strikethrough bloody drainage along the midline incision. Otherwise expected tenderness to palpation about the incision sites. Weight / BMI Weight Weight: 220 lb Body Mass Index (BMI) 26.7 ABG / Lab / Microbiology Data 04/19/23 06:05 04/19/23 06:05 Laboratory: Laboratory Results - last 24 hr 04/19/23 06:05: WBC 7.3, RBC 4.32 L, Hgb 12.6 L, Hct 38.8 L, MCV 89.8, MCH 29.2, MCHC 32.5, RDW Std Deviation 42.4, RDW Coeff of Valerie 12.8, Plt Count 184, MPV 10.3, Immature Gran % (Auto) 0.500, Neut % (Auto) 75.6 H, Lymph % (Auto) 16.5 L, [place] % (Auto) 7.2, Eos % (Auto) 0.1, Baso % (Auto) 0.1, Absolute Neuts (auto) 5.5, Absolute Lymphs (auto) 1.21, Nucleated RBC % 0, Sodium 139, Potassium 4.2, Chloride 109 H, Carbon Dioxide 26.0, Anion Gap 4 L, BUN 6 L, Creatinine 0.80, Estim Creat Clear Calc 158.23, Est GFR (MDRD) Af Amer 141, Est GFR (MDRD) Non-Af 116, BUN/Creatinine Ratio 7.5 L, Glucose 103, Calcium 8.4 L, Total Bilirubin 2.80 H, AST 75 H, ALT 280 H, Alkaline Phosphatase 224 H, Total Protein 5.6 L, Albumin 2.8 L, Globulin 2.8, Albumin/Globulin Ratio 1.0, Lipase 171 H Radiography Diagnostic Testing: Radiology Impression Endo Retro Cholangiopancreatogram 04/18/23 11:35 IMPRESSION: Biliary stent placement. Electronically Signed: Michael Palomo MD at 8:33 EST , Meaningful Use Info Meaningful Use Diagnoses (Choose all that apply): None applicable Discharge Plan Admission Admit Date/Time: 04/17/23 13:15 Primary Reason for Yo (more content not included)...[facility] 04-17-2023 [facility] Medical Records Department [address] [place] [address] History Physical Exam 04/17/23 1326 MR#: [id number] Acct: [id number] Name: ULISSES LANE Rep #: [id number] : 1985 37 From: Arie Watkins MD PCP: Care Physician,No Primary Status:ADM IN Location: [facility] [id number] HPI - General General Date of Admission: 04/17/23 Date of Service: 04/17/23 Chief Complaint: Progressive abdominal pain with associated nausea and jaundice HPI Narrative ULISSES LANE, is a 37 M who presents to [facility] with complaints of progressive abdominal pain, associated nausea, and the development of jaundice. He shares he was evaluated in our emergency department 6 days ago for pain that he perceived as being higher than his current pain. He shares that this pain never fully went away, but has now been joined by more abdominal pain (at 1 point patient tries to distinguish his former pain as occurring just behind his breastbone. He states that this latter pain began approximately 3 days ago and has been colicky in nature. Acknowledges some nausea and poor appetite but has not had any vomiting. He then states that he started with jaundice in the last day or two. Beyond the above he remarks that he has had some dark urine over the last couple of days and his past 2 stools have been light in character. Patient's ER workup is notable for CBC that shows normal white count but CMP that shows cholestatic pattern to patient's LFTs as well as hyperbilirubinemia with a T. bili of 7.1. Patient's lipase is greater than 12,000. CT imaging of the abdomen pelvis was performed showing gallbladder wall thickening, intra and extrahepatic biliary dilatation, and peripancreatic fluid. Patient has no significant past medical history and his only prior surgery was an ORIF to his left arm as a child. [facility] Home Medications No Known/Unobtainable [No Known Home Medications] 10/25/16 [History Last Taken Unknown] Allergy/AdvReac Type Severity Reaction Status Date / Time No Known Allergies Allergy Verified 04/11/23 10:14 Surgical History S/P ORIF (open reduction internal fixation) fracture Social History Smoking Status: Never smoker ROS Constitutional Constitutional: Reports chills Gastrointestinal Gastrointestinal: Reports abdominal pain, anorexia, change in stool character, nausea and other Details: Light stools ; Denies constipation or vomiting Genitourinary Genitourinary: Reports other Details: Dark urine noticed Vital Signs Vital Signs Vital Signs: 04/17/23 11:18 Temperature 96.9 F L Temperature Source Temporal Pulse Rate 89 Respiratory Rate 16 Blood Pressure 144/95 H Blood Pressure Mean 111 Pulse Ox 100 Oxygen Delivery Method Room Air Weight Weight: 231 lb 3.2 oz Body Mass Index (BMI) 28.9 Physical Exam Const alert and oriented x3 Constitutional Narrative: Jaundiced General Appearance: cooperative Eyes Eyes Narrative: Scleral icterus present Resp normal respiratory effort GI GI Narrative: Jaundice present across abdominal wall, nondistended, soft, tender to palpation in the epigastrium and right upper quadrant. Technically negative Salgado sign. Results Lab / Micro Data 04/17/23 11:51 04/17/23 11:51 Labs: Laboratory Results - last 24 hr 04/17/23 11:51: WBC 6.2, RBC 4.99, Hgb 14.5, Hct 45.3, MCV 90.8, MCH 29.1, MCHC 32.0, RDW Std Deviation 43.7, RDW Coeff of Valerie 13.0, Plt Count 226, MPV 10.6, Immature Gran % (Auto) 0.500, Neut % (Auto) 79.2 H, Lymph % (Auto) 12.5 L, [place] % (Auto) 7.0, Eos % (Auto) 0.5, Baso % (Auto) 0.3, Absolute Neuts (auto) 4.9, Absolute Lymphs (auto) 0.77 L, Nucleated RBC % 0, Sodium 136, Potassium 4.1, Chloride 105, Carbon Dioxide 28.0, Anion Gap 3 L, BUN 7, Creatinine 1.03, Estim Creat Clear Calc 119.64, Est GFR (MDRD) Af Amer 105, Est GFR (MDRD) Non-Af 87, BUN/Creatinine Ratio 6.8 L, Glucose 135 H, Calcium 9.1, Total Bilirubin 7.10 H, Direct Bilirubin 5.05 H, AST 128 H, ALT 405 H, Alkaline Phosphatase 271 H, Total Protein 7.2, Albumin 3.8, Globulin 3.4, Lipase 51761 H Imagaing Radiology Impression Abdomen/Pelvis CT 04/17/23 11:35 IMPRESSION: Abnormal gallbladder with gallbladder wall thickening and pericholecystic edema. Additionally, there is intra and extrahepatic biliary dilatation suggesting cholecystitis. However, there is also evidence of peripancreatic free fluid so findings could be due to acute pancreatitis as well. Please correlate with lab results and physical findings. No phlegmon or abscess is noted. Surgical consultation recommended. No obstructive uropathy, normal appendix visualized Electronically Signed: Jose Rose (more content not included)...[facility] Author Tony Hills [facility] Note Date/Time December 25, 2024 1: 28pm [facility] Medical Records Department [address] [place] [address] Emergency Department Summary 12/25/24 MR#: [id number] Acct: [id number] Name: ULISSES LANE Rep #:[id number] : 1985 39 From: Tony Hills MD PCP: Dr. Benson Desai, DO Status:RE G ER Location: ED HPI HPI - GI History of Present Illness Chief Complaint: Abd Pain Informant: patient Abdominal Pain/Flank Pain Onset: Today Quality: Aching Location: Epigastric and LUQ Current Severity: Moderate Maximum Severity: Moderate Worsened by: Nothing Relieved by: Nothing Nausea/Vomiting/Emesis GI Symptom: Negative for Nausea or Vomiting Diarrhea/Melena/Hematochezia GI Symptom: Negative for Diarrhea, Melena or Hematochezia Associated Symptoms Associated Symptoms: Negative for Dysuria, Frequency or Hematuria Narrative Narrative: 39-year-old male history of prior pancreatitis x 1 and prior cholecystectomy. Was diagnosed pancreatitis the first and only time in the fall 2022. Patient states since last night around midnight he had epigastric abdominal pain. He denies any nausea, vomiting or diarrhea. He had a low-grade fever 100.1 with chills. He denies any melena. Denies any dysuria. Nothing particular makes the pain better or worse. Prior similar symptoms: Yes Recent Illness/Hospitalization: No PFSH PFSH Medical History Non-smoker Home Medications ?Medication ?Instructions ?Recorded ?Last Taken ?Type multivitamin 1 tab PO DAILY 06/24/23 Unkn own History Allergy/AdvReac Type Severity Reaction Status Date / Time No Known Allergies Allergy Verified 12/25/24 10:32 Surgical History History of cholecystectomy S/P ORIF (open reduction internal fixation) fracture Social History Smoking Status: Never smoker ROS ROS ED ROS Narrative Epigastric abdominal pain. Denies nausea or vomiting or diarrhea. No melena. Low-grade fever of 100. Constitutional Constitutional ED: Reports fever(s) ENT ENT ED: Denies ear pain or rhinorrhea Cardiovascular Cardiovascular: Denies chest pain Respiratory/Chest Respiratory/Chest: Denies cough or dyspnea Gastrointestinal Gastrointestinal: Reports abdominal pain; Denies constipation, diarrhea, melena,nausea or vomiting Genitourinary Genitourinary ED: Denies dysuria or hematuria Musculoskeletal Musculoskeletal: Denies arthralgias or back pain Integumentary Denies abscess or Abrasions Neurologic Neurologic: Denies headache(s) Psychiatric Psychiatric: Denies anxiety Endocrine Endocrinology: Denies polydipsia Hematologic/Lymphatic Hematologic/Lymphatic: Denies easy bleeding Allergic/Immunologic Allergic/Immunologic ED: Denies mouth swelling, tongue swelling or urticaria EXAM Physical Exam Narrative Exam Narrative: 39-year-old male sitting upright in bed. Vital signs stable he does have a fever of 100.1. He does not look septic or toxic. H EENT exam pupils round reactive light. Moist mucous membranes. Neck nontender no JVD. No lymphadenopathy. Lungs clear to auscultation bilaterally. Heart regular rhythmrate about 100 no murmur. Abdomen is soft. Epigastric tenderness. No rebound guarding or rigidity. Patient has normal bowel sounds. Has no hernia. No obstruction. No pulsatile mass. Right upper and right lower quadrants are unremarkable. Moving all 4 extremities. Nontender no edema. Neurologically heis awake and alert. Answering questions and following commands. Back nontender. Const Vital Signs: 12/25/24 10:30 12/25/24 10:46 12/25/24 11:32 Temperature 100.1 F H 100.1 F H 98.6 F Temperature Source Oral Oral Oral Pulse Rate 101 H 101 H 105 H Respiratory Rate 16 16 18 Blood Pressure 134/88 H 134/88 H 129/79 H Blood Pressure Mean 103 103 95 Pulse Ox 100 100 99 Oxygen Delivery Method Room Air Room Air Room Air 12/25/24 12:00 Temperature 98.4 F Temperature Source Oral Pulse Rate 99 Respiratory Rate 16 Blood Pressure 126/77 H Blood Pressure Mean 93 Pulse Ox 99 Oxygen Delivery Method Room Air Positive well nourished and well developed; Negative for cachectic, contracturesor unkempt General Appearance ED: well developed and NAD; Negative for unkempt, cachectic or contractures Nutritional Appearance: Negative for cachectic HEENT Reports moist mucous membranes normocephalic and atraumatic Eyes PERRL and EOMs intact bilaterally General Eye ED: Negative for pale conjunctiva or scleral icterus Neck no lymphadenopathy, supple and no JVD General: Negative for tenderness Resp normal respiratory effort and clear to auscultation bilaterally Cardio regular rate, regular rhythm, S1 normal heart sound and no murmurs GI non-distended and no masses; Negative for non-tender GI Narrative: Epigastric tenderness. Auscultation: normoactive bowel sounds Palpation: soft and tender; Negative for guarding, rigid, hepatomegaly, splenomegaly, hernia, mass, pulsatile mass or rebound tenderness present Back/Spine no CVA tenderness Extremity full ROM General Extremety ED: Negative for edema or tenderness General Extremity: Negative for edema Neuro CN's II-XII intact bilaterally and moves all extremities Sensorium / Orientation: alert, oriented to person, oriented to place and oriented to time; Negative for orientation impaired, confused, lethargic or stuporous Motor Exam: strength 5/5 throughout Psych mental status grossly normal and thought process normal Appearance: Negative for unkempt Skin no wounds Lesions: no lesions Rashes: no rashes Trauma: Negative for abrasion Nails: Negative for discolored MDM MDM MDM Narrative Medical decision making narrative: 39-year-old male with epigastric abdominal pain 1 prior episode of pancreatitis. Differential would include pancreatitis versus gastritis versus other etiologies. Clinically this is not his appendix. There is no obstruction. Hisgallbladder has already been removed. CAT scan labs to be obtained. Will treattreated with morphine for pain and Zofran. Repeat exam patient is doing well. We went over his test results given his CAT scan and his labs this may be secondary to gastritis does not look like an acutepancreatitis. Again his repeat exam is mild epigastric tenderness but nothing in the right upper quadrant or right lower quadrant. He is comfortable being discharged home outpatient follow-up. History & Record Review Discussion w/independent historian: Patient Additional record(s) reviewed:: Prior inpatient record, Prior outpatient record,Prior ED visit and Prior labs Lab Data Attestation: I reviewed the patient's lab results. Lab results narrative: CBC normal. White count of 9. H&H of 15 and 45. Platelets 181. Chemistry is unremarkable. Gap 10. BUN and creatinine 12 and 1. Glucose 101. Liver enzymes normal. Amylase and lipase both normal at 39 and 24. CAT scan no acute process. Prior cholecystectomy. Labs: Laboratory Results - last 24 hr 12/25/24 10:47 WBC 9.5 RBC 5.11 Hgb 15.1 Hct 45.0 MCV 88.1 MCH 29.5 MCHC 33.6 RDW Std Deviation 40.3 RDW Coeff of Valerie 12.4 Plt Count 181 MPV 10.3 Immature Gran % (Auto) 0.500 Neut % (Auto) 93.2 H Lymph % (Auto) 4.3 L [place] % (Auto) 1.6 Eos % (Auto) 0.1 Baso % (Auto) 0.3 Absolute Neuts (auto) 8.8 H Absolute Lymphs (auto) 0.41 L Nucleated RBC % 0 Sodium 139 Potassium 4.2 Chloride 103 Carbon Dioxide 26.6 Anion Gap 10 BUN 12 Creatinine 1.09 Estim Creat Clear Calc 125.81 Est GFR (MDRD) Non-Af 90 BUN/Creatinine Ratio 11.3 Glucose 101 H Calcium 9.4 Total Bilirubin 1.03 AST 21 ALT 21 Alkaline Phosphatase 77 Total Protein 6.9 Albumin 4.6 Globulin 2.4 Albumin/Globulin Ratio 1.9 Amylase 39 Lipase 24 Radiography Diagnostic Testing: Clinical Impression(s) from Imaging Studies Abdomen/Pelvis CT 12/25/24 11:20 IMPRESSION: Status post cholecystectomy. Mild degree of central intrahepatic biliary ductal dilatation most likely secondary to the cholecystectomy state. No acute abnormality is seen. Reading Location: [facility] Discharge Plan Triage Chief Complaint: Abd Pain ED Provider: Tony Hills Dx/Rx/DC Orders Clinical Impression: Abdominal pain, History of pancreatitis, History of cholecystectomy Instructions: Abdominal Pain Prescriptions: No Action multivitamin Tablet 1 tab PO DAILY Primary Care Provider: Benson Desai Referrals: Benson Desai, DO [Primary Care Provider] - 3-5 Days if not improving Activity Restrictions/Additional Instructions: Plenty of fluids and rest. Follow-up with your doctor if not improving. Return if feeling worse. Your labs and CAT scan look good. No signs of pancreatitis. Print Language: Ethiopian Disposition Disposition: Home, Self Care What to do if you have Problems For any increased pain, shortness of breath, bleeding, nausea or vomiting, chestpain, or any unexpected problems, contact your Primary Care Provider. Call [facility] ([phone]) or report to the closest Emergency Room. Call 911 if necessary. 12/25/24 1328 <Electronically signed by Tony Hills MD> Cosigner Signature (if applicable): CC: Dr. Benson Desai, DO ~ Signed [facility] Work Phone: Evaluation note* Diagnosis Onset Date Resolution Status Acute gallstone pancreatitis acute Acute pancreatitis acute Cholecystitis acute [facility] Work Phone: Evaluation note* Diagnosis Onset Date Resolution Status Acute gallstone pancreatitis acute Acute pancreatitis acute Cholestatic hepatitis acute Cholecystitis resolved Jaundice resolved Status post laparoscopic cholecystectomy acute Cholestatic hepatitis acute Status post laparoscopic cholecystectomy acute [facility] Work Phone: Evaluation note* Diagnosis Onset Date Resolution Status Acute pancreatitis acute Acute gallstone pancreatitis resolved Cholecystitis resolved Cholestatic hepatitis resolv ed Jaundice resolved Status post laparoscopic cholecystectomy acute Status post laparoscopic cholecystectomy acute Cholestatic hepatitis resolv ed Acute gallstone pancreatitis resolved Acute gallstone pancreatitis resolved Cholestatic hepatitis resolv ed Bacterial conjunctivitis of both eyes acute [facility] Work Phone: Evaluation noteNo assessment information available [facility] Work Phone: History and physical note Author Arie Watkins [facility] April 17, 2023 1:38pm Note Date/Time April 17, 2023 1:29pm [facility] Medical Records Department [address] [place] [id number] History & Physical Exam 04/17/23 1326 MR#: [id number] Acct: [id number] Name: ULISSES LANE Rep #:[id number] : 1985 37 From: Arie Thomas PCP: Care Physician,No Primary Status :[facility] - General General Date of Admission: 04/17/23 Date of Service: 04/17/23 Chief Complaint: Progressive abdominal pain with associated nausea and jaundice HPI Narrative ULISSES LANE, is a 37 M who presents to [facility] with complaints of progressive abdominal pain, associated nausea, and the developmentof jaundice. He shares he was evaluated in our emergency department 6 days ago for pain that he perceived as being higher than his current pain. He shares that this pain never fully went away, but has now been joined by more abdominal pain (at 1 point patient tries to distinguish his former pain as occurring just behind his breastbone. He states that this latter pain began approximately 3 days ago and has been colicky in nature. Acknowledges some nausea and poor appetite but has not had any vomiting. He then states that he started with jaundice in the last day or two. Beyond the above he remarks that he has had some dark urine over the last couple of days and his past 2 stools have been light in character. Patient's ER workup is notable for CBC that shows normal white count but CMP that shows cholestatic pattern to patient's LFTs as well as hyperbilirubinemia with a T. bili of 7.1. Patient's lipase is greater than 12,000. CT imaging of the abdomen pelvis was performed showing gallbladder wall thickening, intra and extrahepatic biliary dilatation, and peripancreatic fluid. Patient has no significant past medical history and his only prior surgery was an ORIF to his left arm as a child. PFSH Home Medications No Known/Unobtainable [No Known Home Medications] 10/25/16 [History Last Taken Unknown] Allergy/AdvReac Type Severity Reaction Status Date / Time No Known Allergies Allergy Verified 04/11/23 10:14 Surgical History S/P ORIF (open reduction internal fixation) fracture Social History Smoking Status: Never smoker ROS Constitutional Constitutional: Reports chills Gastrointestinal Gastrointestinal: Reports abdominal pain, anorexia, change in stool character, nausea and other Details: Light stools ; Denies constipation or vomiting Genitourinary Genitourinary: Reports other Details: Dark urine noticed Vital Signs Vital Signs Vital Signs: 04/17/23 11:18 Temperature 96.9 F L Temperature Source Temporal Pulse Rate 89 Respiratory Rate 16 Blood Pressure 144/95 H Blood Pressure Mean 111 Pulse Ox 100 Oxygen Delivery Method Room Air Weight Weight: 231 lb 3.2 oz Body Mass Index (BMI) 28.9 Physical Exam Const alert and oriented x3 Constitutional Narrative: Jaundiced General Appearance: cooperative Eyes Eyes Narrative: Scleral icterus present Resp normal respiratory effort GI GI Narrative: Jaundice present across abdominal wall, nondistended, soft, tender to palpation in the epigastrium and right upper quadrant. Technically negative Salgado sign. Results Lab / Micro Data 04/17/23 11:51 04/17/23 11:51 Labs: Laboratory Results - last 24 hr 04/17/23 11:51: WBC 6.2, RBC 4.99, Hgb 14.5, Hct 45.3, MCV 90.8, MCH 29.1, MCHC 32.0, RDW Std Deviation 43.7, RDW Coeff of Valerie 13.0, Plt Count 226, MPV 10.6, Immature Gran % (Auto) 0.500, Neut % (Auto) 79.2 H, Lymph % (Auto) 12.5 L, [place] % (Auto) 7.0, Eos % (Auto) 0.5, Baso % (Auto) 0.3, Absolute Neuts (auto) 4.9, Absolute Lymphs (auto) 0.77 L, Nucleated RBC % 0, Sodium 136, Potassium 4.1, Chloride 105, Carbon Dioxide 28.0, Anion Gap 3 L, BUN 7, Creatinine 1.03, Estim Creat Clear Calc 119.64, Est GFR (MDRD) Af Amer 105, Est GFR (MDRD) Non-Af 87, BUN/Creatinine Ratio 6.8 L, Glucose 135 H, Calcium 9.1, Total Bilirubin 7.10 H, Direct Bilirubin 5.05 H, AST 128 H, ALT 405 H, Alkaline Phosphatase 271 H, TotalProtein 7.2, Albumin 3.8, Globulin 3.4, Lipase 90415 H Imagaing Radiology Impression Abdomen/Pelvis CT 04/17/23 11:35 IMPRESSION: Abnormal gallbladder with gallbladder wall thickening and pericholecystic edema. Additionally, there is intra and extrahepatic biliary dilatation suggesting cholecystitis. However, there is also evidence of peripancreatic free fluid so findings could be due to acute pancreatitis as well. Please correlate with lab results and physical findings. No phlegmon or abscess is noted. Surgical consultation recommended. No obstructive uropathy, normal appendix visualized Electronically Signed: Jose Bliss MD at 12:28 EST , Assessment & Plan Assessment/Plan (1) Acute gallstone pancreatitis: (2) Cholecystitis: PLAN: Plan This is a 37-year-old male who presents with signs and symptoms of acute gallstone pancreatitis and acute cholecystitis. He shares a history of a prodromal period beginning proximately 1 week ago that has gradually intensified. It has been in the last 24 to 48 hours that he is also developed some jaundice. He exhibits tenderness on exam consistent with these diagnoses. CT imaging of the abdomen pelvis was initially performed, but I have requested additional imaging with ultrasound to try to elicit any evidence of persistent choledocholithiasis. I held a detailed conversation with patient and his spouse?inclusive of hand drawings?in order to present the diagnoses and the relevant anatomy and physiology. I discussed the treatment of this condition as including probable ERCP followed by cholecystectomy once pancreatitis has improved. They expressed understanding of this information and are in agreementwith proceeding with treatment as described. Prior to accepting patient for inpatient admission I did confirm with our gas meter installer helper, Dr. Thompson, that he has availability to see patient tomorrow for possible ERCP. A formal consultation has been extended as well. Neuro: As needed Dilaudid Pulm/CV: No current issues FEN/GI: Clear liquid diet then n.p.o. at midnight, trend abdominal exam and lipase, GI consult : No current issues Heme/ID: Trend CBC, will look to decrease hematocrit through aggressive resuscitation with IV fluid rate of 200 mL/h, empiric coverage with IV Zosyn Endo: No current issues Proph: SCDs Dispo: Admit to inpatient Charges/Coding Visit Charges Inpatient E&M: 64064 Subs Hosp L2 04/17/23 3790 <Electronically signed by Arie Watkins MD> Cosigner Signature (if applicable): CC: Dr. Arie Watkins MD; No Primary Care Physician~ Signed [facility] Work Phone: Hospital Discharge instructionsAdditional Instructions Plenty of fluids and rest. Follow-up with your doctor if not improving. Return if feeling worse. Your labs and CAT scan look good. No signs of pancreatitis.[facility] Work Phone: Reason for referral (narrative)No reason for referral information availableWCincinnati [facility] Work Phone: Chief Complaint and Reason for Visit Chief Complaint CHEST PAIN GALLSTONE PANCREATITIS CHOLECYSTITIS Reason for Visit Acute gallstone panc reatitis Acute pancreatitis Cholecystitis Chief Complaint CHEST PAIN GALLSTONE PANCREATITIS CHOLECYSTITIS GALLSTONE PANCREATITIS GALLSTONE PANCREATITIS PREOP GALLSTONE PANCREATITIS GALLSTONE PANCREATITIS Gall Bladder Surgery 12/ [facility] FU Reason for Visit Acute gallstone panc reatitis Acute pancreatitis Cholestatic hepatitis Cholecystitis Jaundice Status post laparoscopic cholecystectomy Cholestatic hepatitis Status post laparoscopic cholecystectomy Chief Complaint CHEST PAIN GALLSTONE PANCREATITIS CHOLECYSTITIS GALLSTONE PANCREATITIS GALLSTONE PANCREATITIS PREOP GALLSTONE PANCREATITIS GALLSTONE PANCREATITIS Gall Bladder Surgery 12 [facility] ABD PAIN fu H FU Concern for pink eye Reason for Visit Acute pancreatitis Acute gallstone pancreatitis Cholecystitis Cholestatic hepatitis Jaundice Status post laparoscopic cholecystectomy Status post laparoscopic cholecystectomy Cholestatic hepatitis Acute gallstone pancreatitis Acute gallstone pancreatitis Cholestatic hepatitis Bacterial conjunctivitis of both eyes Chief Complaint Admit Date ABD PAIN December 25, 2024 10 :29am Chief Complaint Admit Date ABD PAIN December 25, 2024 10 :29am Severe Abdominal Pain December 25, 2024 2:04pm Advance Directives Advance Directive Response Recorded Date/ Time Living Will No April 17 023 11:55am Power of Private Tutor No April 17, 2023 11:55am Advance Directive Response Recorded Date/ Time Living Will No April 17 023 3:33pm Power of Private Tutor No April 17, 2023 3:33pm Advance Directive Response Recorded Date/ Time Living Will No July 11, 2023 10:58am Power of Private Tutor No July 10 10:58am Advance Directive Response Recorded Date/ Time Do you have a Healthcare Power of Private Tutor? No December 25, 2024 10:45am Summary Purpose Family History No Family History Records Found Additional Source Comments Care Teams (unrecognized sec tion and content) Team Status: Active Member Role Status Dates Dr. Benson Desai , DO Family Provider Active No Primary Care Physician Primary Care Provider Active Team Status: Active Member Role Status Dates No Primary Care Physician Primary Care Provider Active Dr. Rickey Nair , DO Emergency Provider Active Dr. Arie Watkins MD Admit Provider, A ttending Provider, Other Provider Active Team Status: Inactive Member Role Status Dates Dr. Rickey Nair , DO Attending Provider, Emergency P rovider Active No Primary Care Physician Primary Care Provider Active Team Status: Active Member Role Status Dates No Primary Care Physician Primary Care Provider Active Dr. Rickey Nair , DO Emergency Provider Active Dr. Arie Watkins MD Admit Provider, Attending Provi ashia Active Team Status: Active Member Role Status Dates Dr. Benson Desai , DO Family Provider Active Dr. Benson Desai , DO Primary Care Provider Active Team Status: Inactive Member Role Status Dates No Primary Care Physician Primary Care Provider, Refer ring Provider Active Dr. Benson Desai , DO Attending Provider Active Team Status: Active Member Role Status Dates No Primary Care Physician Primary Care Provider Active Dr. Rickey Nair , DO Emergency Provider Active Dr. Arie Watkins MD Admit Provider, R eferring Provider, Other Provider Active Dr. Geraldo Thompson , Attending Provider Active Team Status: Active Member Role Status Dates No Primary Care Physician Primary Care Provider Active Dr. Geraldo Thompson , Attending Provider Active Dr. Arie Watkins MD Referring Provider Active Team Status: Inactive Member Role Status Dates No Primary Care Physician Primary Care Provider Active Dr. Arie Watkins MD Attending Provider, Referring P rovider Active Team Status: Active Member Role Status Dates No Primary Care Physician Primary Care Provider Active Dr. Ernesto Vasquez MD Attending Provider Activ e Dr. Arie Watkins MD Referring Provider Active Team Status: Inactive Member Role Status Dates Dr. Benson Desai , DO Primary Care Provider, Attend ing Provider Active Team Status: Inactive Member Role Status Dates No Primary Care Physician Primary Care Provider Active Dr. Rickey Nair , DO Emergency Provider Active Dr. Arie Watkins MD Admit Provider, Attending Provi ashia Active Team Status: Inactive Member Role Status Dates Dr. Besnon Desai , DO Primary Care Provider, Referr ing Provider Active Dr. Geraldo Thompson , DO Attending Provider Active Team Status: Inactive Member Role Status Dates Dr. Benson Desai , DO Primary Care Pr ovider, Attending Provider, Referring Provider Active Team Status: Inactive Member Role Status Dates Dr. Benson Desai DO Primary Care Provider, Referr ing Provider Active LAUREN Wright Attending Provider Active Team Status: Active Member Role Status Dates Dr. Benson Desai DO Primary Care Provider, Referr ing Provider Active Dr. Geraldo Thompson DO Attending Provider, Other Prov ider Active Team Status: Inactive Member Role Status Dates Dr. Benson Desai DO Primary Care Provider Active Dr. Tony Hills MD Attending Provider, Emergency Pro vider Active Team Status: Active Member Role/Relationship Status Dates Dr. Benson Desai DO Primary Care Provider Active Team Status: Inactive Member Role/Relationship Status Dates Dr. Benson Desai DO Primary Care Provider Active Start: December 25, 2024 End: December 25, 2024 Dr. Tony Hills MD Emergency Provider Active S tart: December 25, 2024 End: December 25, 2024 Team Status: Inactive Member Role/Relationship Status Dates Dr. Benson Desai DO Primary Care Provider Active Start: December 25, 2024 End: December 25, 2024 Dr. Benson Desai DO Referring Provider Active Start: December 25, 2024 End: December 25, 2024 NE Roe Attending Provider Active Start: December 25, 2024 End: December 25, 2024 (unrecognized sect ion and content) No Status Records Found INFORMATION SOURCE (unrecogn ized section and content) DATE CREATED AUTHOR 07/19/2023 [facility] Goals (unrecognized section and content) Goals may be documented in a n alternate sectionGoals may be documented in an alternate section FOR RECORDS PERTAINING TO PATIENTS WHO ARE OR HAVE BEEN ENROLLED IN A CHEMICAL DEPENDENCY/SUBSTANCEABUSE PROGRAM, SOME INFORMATION MAY BE OMITTED. This clinical summary was aggregated from multiple sources. Caution should be exercised in using it in the provision of clinical care. This summary normalizes information from multiple sources, and as a consequence, information in this document may materially change the coding, format and clinical context of patient data. In addition, data may be omitted in some cases. CLINICAL DECISIONS SHOULD BE BASED ON THE PRIMARY CLINICAL RECORDS. [employer] provides no warranty or guarantee of the accuracy or completeness of information in this document.
[2024-12-27] MEDS: Pantoprazole Sodium 40 MG in 0.9% Normal Saline (100mL MB+) 100 ML 300 MG IV (05:20)
[2024-12-27] MEDS: Lidocaine 2% Viscous15 ML UDC 15 ML PO (05:20)
[2024-12-27 05:22] LABS: Hematocrit 42.6 % (40-54); Hemoglobin 14.5 g/dL (13.0-16.5); Immature Granulocytes Count 0.050 X10^3/uL (0.0-0.0); Mean Corp Hgb Conc 34.0 g/dL (32-36); Mean Corpuscular Volume 87.7 fL (80-94); Mean Platelet Vol. 10.2 fl (6.2-12.0); NRBC Flagged by Analyzer 0 % (0-5); POSITIVE DIFFERENTIAL YES; Platelet Count 148 K/mm3 (150-450); RBC Distribution Width CV 12.5 % (11.6-14.6); RBC Distribution Width SD 40.0 fl (35.1-43.9); Red Blood Count 4.86 M/mm3 (4.6-6.2); White Blood Count 8.0 K/mm3 (4.4-11.0)
[2024-12-27 05:36] LABS: AST(SGOT) 22 U/L (<=37); Alanine Aminotransfer ALT/SGPT 28 U/L (<=46); Albumin, Serum 3.9 g/dL (3.5-5.0); Alkaline Phosphatase 101 U/L (40-129); Anion Gap 12 (5-15); BUN 9 mg/dL (4-19); BUN/Creat Ratio 8.7 RATIO (10-20); Bilirubin, Direct 0.64 mg/dL (0.00-0.30); CRP 136.00 mg/L (0.0-3.0); Calcium,Total 9.2 mg/dL (7.6-11.0); Carbon Dioxide 23.7 mmol/L (21.0-32.0); Chloride 101 mmol/L (98-108); Estimated Creatinine Clearance 128.56 ml/min (50-250); Globulin 2.8 g/dL (2.2-4.2); Glucose 112 mg/dL (70-99); Lipase 27 U/L (13-75); Potassium 4.1 mmol/L (3.3-5.1)
[2024-12-27 06:15] VITALS: BP 130/79; PULSE 88; RESP 18; TEMP 37.2; O2SAT 99
== END 2024-12-27 06:25 | disposition home or self-care (01) ==
PROVIDERS: Emergency Provider Emergency Medicine; PCP Family Medicine; Visit Provider Emergency Medicine
DX: R10.9 Unspecified abdominal pain (principal); E86.0 Dehydration; Z90.49 Acquired absence of other specified parts of digestive tract
CPT/HCPCS: 80048; 80076; 83605; 83690; 85025; 86140; 96361; 96374; 96375; 99283; A4216; J2405

== ENCOUNTER 2024-12-28 18:37 | Inpatient (IN) | payer OTHER, SELFPAY ==
[2024-12-28] VITALS (10 sets, daily range): BP systolic 118–139; BP diastolic 75–90; PULSE 71–125; RESP 12–19; TEMP 36.8–38.6; O2SAT 96–98; BMI 30.2; BMI 30.3
--- NOTE | 2024-12-28 19:04 | EX.ED.DYSGE1 ---
HPI History of Present Illness Chief Complaint: Abd Pain PFSH PFSH Medical History GERD (gastroesophageal reflux disease) Obesity Gallstone pancreatitis Non-smoker Home Medications ?Medication ?Instructions ?Recorded ?Last Taken ?Type famotidine 40 mg tablet 40 mg PO QDAY #30 tabs 12/25/24 Unknown Rx ondansetron 4 mg disintegrating 4 mg PO TID PRN nausea and 12/27/24 Unknown Rx tablet vomiting #21 tabs oxycodone-acetaminophen 5 mg-325 1 tab PO Q6H PRN pain 5 days #20 12/27/24 Unknown Rx mg tablet (Endocet) tabs sucralfate 1 gram tablet (Carafate) 1 g PO TID 14 days #42 tabs 12/27/24 Unknown Rx Allergy/AdvReac Type Severity Reaction Status Date / Time No Known Allergies Allergy Verified 12/27/24 04:52 Family History (Updated 12/28/24 @ 21:[address] Tiesha Clark MD) Mother Hypertension Thyroid disorder Father Hypertension Surgical History (Updated 12/28/24 @ 21:[address] Tiesha Clark MD) History of cholecystectomy S/P ORIF (open reduction internal fixation) fracture Social History (Updated 12/28/24 @ 21:[address] Tiesha Clark MD) household members: spouse and children Smoking Status: Never smoker alcohol intake: current alcohol intake frequency: holidays/special occasions only substance use type: does not use EXAM Physical Exam Const Vital Signs: 12/28/24 18:39 12/28/24 18:41 12/28/24 19:35 Temperature 101.5 F H 101.5 F H Temperature Source Oral Oral Pulse Rate 125 H 125 H Respiratory Rate 18 18 Blood Pressure 138/81 H 138/81 H Blood Pressure Mean 100 100 Pulse Ox 98 98 Oxygen Delivery Method Room Air Room Air Room Air 12/28/24 19:41 12/28/24 20:00 12/28/24 21:00 Temperature 101.5 F H 101.5 F H Temperature Source Oral Oral Pulse Rate 95 95 96 Respiratory Rate 19 H 18 18 Blood Pressure 139/90 H 129/79 H 134/75 H Blood Pressure Mean 106 95 94 Pulse Ox 96 98 97 Oxygen Delivery Method Room Air Room Air 12/28/24 21:00 12/28/24 21:09 12/28/24 22:00 Temperature 98.3 F 98.3 F Temperature Source Oral Oral Pulse Rate 99 89 Respiratory Rate 16 12 Blood Pressure 134/75 H 126/77 H Blood Pressure Mean 94 93 Pulse Ox 98 97 Oxygen Delivery Method Room Air Room Air 12/28/24 22:03 Temperature 98.3 F Temperature Source Pulse Rate 89 Respiratory Rate 12 Blood Pressure 126/77 H Blood Pressure Mean 93 Pulse Ox 97 [place]xygen Delivery [place] [facility] [place] Medical decision making narrative: HISTORY OF PRESENT ILLNESS: Chief complaint: Abdominal pain 39-year-old male history of pancreatitis, acute gallstone pancreatitis, s/p cholecystectomy presents abdominal pain and fever. States he was told by Dr. Thompson's office to come into the emergency department secondary to abdominal pain and jaundice. REVIEW OF SYSTEMS: Pertinent positives: Abdominal pain, fever Pertinent negatives: Vomiting, difficulty urinating, diarrhea or constipation PHYSICAL EXAM: Nursing triage notes reviewed, Vital signs reviewed Constitutional: please see mdm HENT: MMM Eyes: Pupils equal round and reactive to light, Extraocular muscles intact. No scleral icterus noted Neck: No stridor, no JVD, full neck ROM Lungs: Clear to auscultation, No wheezing or rales. No increased work of breathing, no conversational dyspnea, no accessory muscle use, no nasal flaring. No respiratory distress noted Heart: Regular rate and rhythm, No murmurs, No rubs and No gallops, 2+ distal pulses (radial, femoral, posterior tibial) in all extremities Abdomen: Soft, diffuse tenderness but no rigidity, rebound or guarding, no obvious peritoneal signs, no palpable pulsatile abdominal masses, no auscultated abdominal bruit : No CVAT Extremities: No edema Neuro: No new focal neurological deficits, cranial nerves II through XII intact, 5/5 strength in all present extremities. Intact sensation to light touch in all present extremities, 2+ reflexes bilateral patella tendons. Skin: No jaundice noted MEDICAL DECISION MAKING: Chief Complaint: please see HPI External records reviewed: Reviewed imaging studies: Reviewed CT scan of the abdomen pelvis from 12/25/2024 (3 days ago) it showed normal-sized pancreas without evidence of mass or inflammation, noted status post cholecystectomy, noted mild degree of central intrahepatic biliary ductal dilatation no acute abnormality noted. Reviewed recent ED visit which patient had no leukocytosis, unremarkable chemistry panel normal liver enzyme Factors affecting care: Status post cholecystectomy, pancreatitis Social determinants of health: no Alcohol History obtained from others: none Consults: Gastroenterology (Dr. Thompson), Internal medicine (Dr. Clark) MDM Narrative: The patient was initially tachycardic with pulse 125, febrile with a temperature one 101.5. Abdomen diffusely tender. I considered the following differential diagnosis: choledocholithiasis, pancreatitis, sepsis, UTI I obtained a broad lab and imaging workup to further determine if the patient was suffering from a life-threatening etiology. Initially treated with IVF, tylenol, zofran. ALL IMAGES (IF OBTAINED) HAVE BEEN PERSONALLY REVIEWED AND INTERPRETED BY MYSELF. CBC with no leukocytosis, no anemia, no thrombocytopenia. No coagulopathy BMP without evidence of significant electrolyte abnormalities, no anion gap, no acute kidney injury. LFTs with marked elevations from prior consistent with likely biliary obstruction and choledocholithiasis Lactate is wnl indicating no end-organ hypoperfusion and/or hypoxia. Urinalysis shows no evidence of urinary inflammation suggestive of UTI EKG with normal sinus rhythm rate of 95, normal axis, no intervals, no STEMI Concern for choledocholithiasis given abdominal pain, status post cholecystectomy and elevation liver enzymes. Discussed patient case with GI who recommended admission for MRCP. Discussed with hospitalist agreed to meet the patient. The patient and/or family, caregivers express understanding. The patient and/or family, caregivers agrees with the plan. Shared decision making: I will have a discussion with the patient and or visitors regarding risk/benefits of further testing or admission. They will be made aware of of the risk/benefits inherent in this decision they will be given the opportunity to voice understanding. Total critical care time today provided was at least 0 minutes. This excludes separately billable procedures. Critical care time (if documented) is secondary to the patient having high probability of clinically significant/life threatening deterioration in the patient's condition which required my urgent intervention. Impression: 1. Acute abdominal pain 2. Choledocholithiasis 3. Hyperbilirubinemia Dispo: admit This note was generated with [employer] dictation software. It may contain incorrect words, spelling, and punctuation that were not noted in review of the chart prior to signing. Lab Data Attestation: I reviewed the patient's lab results. Labs: Laboratory Results - last 24 hr 12/28/24 12/28/24 12/28/24 19:00 19:20 20:08 WBC 9.1 RBC 4.85 Hgb 14.3 Hct 41.2 MCV 84.9 MCH 29.5 MCHC 34.7 RDW Std Deviation 39.0 RDW Coeff of Valerie 12.6 Plt Count 186 MPV 10.4 Immature Gran % (Auto) 0.600 Neut % (Auto) 84.9 H Lymph % (Auto) 5.3 L Johnson % (Auto) 8.8 Eos % (Auto) 0.1 Baso % (Auto) 0.3 Absolute Neuts (auto) 7.7 Absolute Lymphs (auto) 0.48 L Nucleated RBC % 0 PT 14.1 INR 1.1 APTT 28.1 Sodium 135 Potassium 4.0 Chloride 99 Carbon Dioxide 21.1 Anion Gap 15 BUN 9 Creatinine 0.85 Estim Creat Clear Calc 159.35 Est GFR (MDRD) Non-Af 115 BUN/Creatinine Ratio 11.0 Glucose 104 H Lactic Acid < 1.0 Calcium 9.0 Total Bilirubin 5.33 H AST 57 H ALT 103 H Alkaline Phosphatase 334 H Total Protein 6.5 Albumin 3.9 Globulin 2.7 Albumin/Globulin Ratio 1.4 Urine Color Yellow Urine Clarity Clear Urine pH 6.0 Ur Specific Simms 1.015 Urine Protein 30 H Urine Glucose (UA) Normal Urine Ketones 150 A* Urine Occult Blood 10 H Urine Nitrite Negative Urine Bilirubin 6 H Urine Urobilinogen 8 H Ur Leukocyte Esterase 25 H Urine RBC 0-5 SEEN Urine WBC 0-5 SEEN Ur Squamous Epith Cells 0 SEEN Urine Bacteria 0 SEEN Urine Mucus 1+ Radiography Diagnostic Testing: Clinical Impression(s) from Imaging Studies Chest X-Ray 12/28/24 19:30 IMPRESSION: No Acute Findings. Reading Location: [facility] Discharge Plan Triage Chief Complaint: Abd Pain ED Provider: Juan Carlos Guallpa Dx/Rx/DC Orders Prescriptions: No Action famotidine 40 mg tablet 40 mg PO QDAY Qty: 30 1RF ondansetron 4 mg tablet,disintegrating 4 mg PO TID PRN (Reason: nausea and vomiting) Qty: 21 0RF sucralfate [Carafate] 1 gram tablet 1 g PO TID 14 Days Qty: 42 0RF oxycodone-acetaminophen [Endocet] 5-325 mg tablet 1 tab PO Q6H PRN (Reason: pain) 5 Days Qty: 20 0RF Primary Care Provider: Benson Desai Referrals: Benson Desai, DO [Primary Care Provider] - Print Language: Citizen Of [place]
--- NOTE | 2024-12-28 19:07 | EKG12_ITS ---
Test Reason : DYSRHYTHMIA Blood Pressure : */* mmHG Vent. Rate : 95 BPM Atrial Rate : 95 BPM P-R Int : 158 ms QRS Dur : 94 ms QT Int : 342 ms P-R-T Axes : 49 25 45 degrees QTcB Int : 429 ms Normal sinus rhythm Normal ECG Confirmed by CAMERON MCINTYRE, DOT ([id number]), purchase request editor DAVID MOSQUEDA ([id number]) on 12/31/2024 7:35:31 AM Referred By: Confirmed By: DOT BARNES MD
[2024-12-28 19:20] LABS: Hematocrit 41.2 % (40-54); Hemoglobin 14.3 g/dL (13.0-16.5); Immature Granulocytes Count 0.050 X10^3/uL (0.0-0.0); Mean Corp Hgb Conc 34.7 g/dL (32-36); Mean Corpuscular Volume 84.9 fL (80-94); Mean Platelet Vol. 10.4 fl (6.2-12.0); NRBC Flagged by Analyzer 0 % (0-5); POSITIVE DIFFERENTIAL YES; Platelet Count 186 K/mm3 (150-450); RBC Distribution Width CV 12.6 % (11.6-14.6); RBC Distribution Width SD 39.0 fl (35.1-43.9); Red Blood Count 4.85 M/mm3 (4.6-6.2); White Blood Count 9.1 K/mm3 (4.4-11.0)
[2024-12-28] MEDS: 0.9% Normal Saline (1000mL) 1,000 ML 999 ML IV ×2 (19:26→23:46)
[2024-12-28] MEDS: Ketorolac 30 MG/ML Syringe IV (19:28)
--- NOTE | 2024-12-28 19:30 | RAD_ITS ---
PROCEDURE: CHEST 1 VIEW (PORTABLE) 12/28/2024 REASON FOR EXAM: FEVER TECHNIQUE: Frontal view of the chest. COMPARISON: None available. FINDINGS: Hardware: None Heart: The heart size is normal. Lungs: The lungs are clear. Bones: The bones are unremarkable. RAD/Chest 1 View (Portable) IMPRESSION: No Acute Findings. Reading [facility]
[2024-12-28 19:31] LABS: Partial Thromboplast Time 28.1 Seconds (24.1-36.2); Prothrombin Time (Protime)PT. 14.1 SECONDS (11.7-14.9)
--- OUTSIDE RECORDS SUMMARY | 2024-12-28 19:33 | XMS RPT_ITS | CCD ---
Author Organization [facility] Care Team Providers Care Disaster Response Director Name Role Phone Care Physician, No Primary [...] Primary Care Unava ilable Ernesto Vasquez Attending Unavailabl e Friend, Geraldo Attending Unavailable Friend, Geraldo Consulting Unavailable Brown, Benson R Primary Care Unavailable Brown, Benson R Referring Unavailable Care Physician, No Primary Primary Care Unava ilable Arie Watkins Attending Unavailable Roland, Arie Consulting Unavailable Roland, Arie Admitting Unavailable Roland, Arie Attending Unavailable Care Physician, No Primary Primary Care Unava ilable Roland, Arie Consulting Unavailable Roland, Arie Admitting Unavailable Roland, Arie Referring Unavailable Friend, Geraldo Attending Unavailable Namrata Castano Attending Unavailable Brown, Benson R Primary Care Unavailable Brown, Benson R Referring Unavailable Brown, Benson R Primary Care Unavailable Brown, Benson R Referring Unavailable Friend, Geraldo Attending Unavailable Roland, Arie Attending Unavailable Care Physician, No Primary Primary Care Unava ilable Roland, Arie Admitting Unavailable Brown, Benson R Attending Unavailable Brown, Benson R Primary Care Unavailable Brown, Benson R Primary Care Unavailable Tony Hills Attending Unavailable Dr. Benson Desai DO Primary Care Provider Dr. Tony Hills MD Emergency Provider [phone] Dr. Benson Desai DO Referring Provider [phone] Rose Marie Escudero Attending Provider [phone] Dr. Mayo Darnell DO Emergency Provider Medications Current Medications Medication Drug Class(es) Dates Sig (Normalized) Sig (Original) acetaminophen 325 mg / oxyCODONE hydrochloride 5 mg oral tablet (1 source) Opioid Agonist Start: 12-27-2024 take 1 tablet by mouth every six hours as needed for pain Oxycodone-Acetamin ophen (Endocet) 5-325 mg tablet Active 1 {tbl} PO EVERY 6 HOURS as needed for pain 5 December 27, 2024 Nonspecific abdominal pain Unspecified abdominal pain Start: 12-27-2024 take 1 tablet by melina th every six hours as needed for pain Oxycodone-Acetaminophen (Endocet) 5-325 mg tablet Active 1 {tbl} PO EVERY 6 HOURS as needed for pain 5 December 27, 2024 Nonspecific abdominal pain Unspecified abdominal pain famotidine 40 mg oral tablet (2 sources) Histamine-2 Receptor Antagonist Start: 12-25-2024 take 1 tablet by mouth once daily Famotidine 40 mg tablet Active 40 mg PO daily 30 1 December 25, 2024 12:00am Multivitamin preparation (1 source) Start: 06-24-2023 take 1 tablet by mouth once daily Multivitamin Active 1 TABLET PO DAILY June 24, 2023 12:00am ondansetron 4 mg disintegrating oral tablet (1 source) Serotonin-3 Receptor Antagonist Start: 12-27-2024 take 1 tablet by mouth three times daily as needed for nausea and vomiting Ondansetron 4 mg tablet,disintegrat ing Active 4 mg PO THREE TIMES A DAY as needed for nausea and vomiting 21 0 December 27, 2024 6:16am sucralfate 1000 mg oral tablet (1 source) Aluminum Complex Start: 12-27-2024 take 1 tablet by mouth three times daily Sucralfate (Carafate) 1 gram tablet Active 1 g PO THREE TIMES A DAY 42 14 0 December 27, 2024 12:00am Completed/Discontinued Medications Medication Drug Class(es) Dates Sig (Normalized) Sig (Original) Multivitamin tablet (3 sources) Start: 06-24-2023 End: 12-25-2024 Multivitamin tablet Discontinued 1 {tbl} PO DAILY June 24, 2023 1:00am December 25, 2024 2:24pm Start: 06-24-2023 Multivitamin t ablet Active 1 {tbl} PO DAILY June 24, 2023 1:00am oxyCODONE hydrochloride 5 mg oral tablet (5 sources) Opioid Agonist Start: 04-19-2023 End: 04-28-2023 [...] pantoprazole 40 mg delayed release oral tablet (5 sources) Proton Pump Inhibitor Start: 05-11-2023 End: 06-24-2023 take 1 tablet by mouth once daily Pantoprazole 40 mg tablet,delayed release (DR/EC) Discontinued 40 mg PO DAILY 90 1 May 11, 2023 1:00am June 24, 2023 2:28pm polymyxin b 22845 unt/ml / trimethoprim 1 mg/ml ophthalmic solution (8 sources) Dihydrofolate Reductase Inhibitor Antibacterial, Polymyxin-class Antibacterial [...] Date Documented Da te Episodic/Chronic Abdominal pain (6 sources) Epigastric pain; Translations: [Abdominal pain] Onset: 05-25-2023 12-25-2024 Episodic Bacterial infection; unspecified site (1 source) Other specified bacterial agents as the cause of diseases classified elsewhere; Translations: [Other specified bacterial agents as the cause of diseases classified elsewhere] Onset: 06-24-2023 Episodic Biliary tract disease (16 sources) Biliary sludge; Translations: [Other specified diseases of gallbladder] Onset: 05-12-2023 04-11-2023 Episodic Gastritis and duodenitis (4 sources) Gastritis; Translations: [Gastritis, unspecified, without bleeding] 05-27-2023 Episodic Inflammation; infection of eye (except that caused by tuberculosis or sexually transmitteddisease) (6 sources) Bacterial conjunctivitis; Translations: [Unspecified conjunctivitis] Onset: 06-24-2023 06-24-2023 Episodic Nonspecific chest pain (7 sources) Chest pain; Translations: [Chest pain, unspecified] Onset: 04-14-2023 04-11-2023 Episodic Other gastrointestinal disorders (8 sources) History of pancreatitis; Translations: [Personal history of other diseases of the digestive system] 05-27-2023 Episodic Other liver diseases (5 sources) Cholestatic hepatitis; 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 Other liver diseases (7 sources) Other specified inflammatory liver diseases; Translations: [Other specified disorders of liver] Onset: 05-12-2023 04-19-2023 Chronic Other liver diseases (5 sources) Jaundice; Translations: [Unspecified jaundice] 04-27-2023 Episodic [...] Range Facility Absolute lymphocyte countOrd ered By: Mayo Darnell on 12-27-2024 Lymphocytes Auto (Unsp spec) [#/Vol] 0.50 10*3/uL Low 0.83-4.51 [facility] Absolute neutrophil countOrd ered By: Mayo Darnell on 12-27-2024 Neutrophils (Bld) [#/Vol] 7.1 10*3/uL 2.0-7.7 [facility] Anion gap in Serum or Plasma Ordered By: Mayo Darnell on 12-27-2024 Anion gap [Moles/Vol] 12 mmol/L 5-15 [facility] Automated lymphocyte count a s percentage of total leukocytesOrdered By: Mayo Darnell on 12-27-2024 Lymphocytes/100 WBC Auto (Unsp spec) 6.3 % Low 19-41 [facility] BUN/creatinine ratioOrdered By: Mayo Darnell on 12-27-2024 Urea nitrogen/Creatinine [Mass ratio] 8.7 mg/mg Low 10-20 [facility] Basophil percentageOrdered B y: Mayo Darnell on 12-27-2024 Basophils/100 WBC (Bld) 0.1 % 0-1 [facility] Bilirubin directOrdered By: Mayo Darnell on 12-27-2024 Bilirubin.direct [Mass/Vol] 0.64 mg/dL High 0.00-0.30 [facility] Bilirubin, totalOrdered By: Mayo Darnell on 12-27-2024 Bilirubin [Mass/Vol] 1.18 mg/dL 0.00-1.30 [facility] Carbon dioxide, total [Moles /volume] in Central venous bloodOrdered By: Mayo Darnell on 12-27-2024 CO2 [Moles/Vol] 23.7 mmol/L 21.0-32.0 [facility] Chloride assayOrdered By: Nicole Darnell on 12-27-2024 Chloride [Moles/Vol] 101 mmol/L 98-108 [facility] Eosinophil percentageOrdered By: Mayo Darnell on 12-27-2024 Eosinophils/100 WBC (Bld) 0.1 % 0-5 [facility] Erythrocyte distribution wid th ratioOrdered By: Mayo Darnell on 12-27-2024 Erythrocyte distribution width (RBC) [Ratio] 12.5 % 11.6-14.6 [facility] Erythrocyte distribution wid th standard deviationOrdered By: Mayo Darnell on 12-27-2024 Erythrocyte distribution width (RBC) [Ratio] 40.0 fl 35.1-43.9 [facility] Glomerular filtration rate ( GFR) estimation/1.73 sq m using serum, plasma, or whole bOrdered By: Mayo Darnell on 12-27-2024 GFR/1.73 sq M.predicted among non-blacks MDRD (S/P/Bld) [Vol rate/Area] 93 mL/min/{1.73_m2} >60 [facility] Comment on above: mL/min/1.73m2 CKD-EP I Creatinine Equation (2020) Hematocrit Auto (Bld) [Volum e fraction]Ordered By: Mayo Darnell on 12-27-2024 Hematocrit (Bld) [Volume fraction] 42.6 % 40-54 [facility] Hemoglobin measurementOrdere d By: Mayo Darnell on 12-27-2024 Hemoglobin (Bld) [Mass/Vol] 14.5 g/dL 13.0-16.5 [facility] Immature granulocytes/100 WB C Auto (Bld)Ordered By: Mayo Darnell on 12-27-2024 Immature granulocytes/100 WBC (Bld) 0.600 % 0.0-0.9 [facility] Comment on above: IG% - Immature Granu locytes (promyelocytes, myelocytes and metamyelocytes) > 1% indicates that a LEFT SHIFT is Present. Laboratory - Chemistry and C hemistry - challengeOrdered By: Mayo Darnell on 12-27-2024 AST [Catalytic activity/Vol] 22 U/L <38 [facility] Lactic acid measurementOrder ed By: Mayo Darnell on 12-27-2024 Lactate [Moles/Vol] mmol/L 0.0-2.0 [facility] Lipase measurementOrdered By : Mayo Darnell on 12-27-2024 Lipase [Catalytic activity/Vol] 27 U/L 13-75 [facility] Comment on above: Please note:LIPASE r evised reference range effective 22. New Lipase methodology. Expected to produce lower values than the previous assay method. NEW Reference Range: 13 - 75 U/L MCV (mean corpuscular volume ) determinationOrdered By: Mayo Darnell on 12-27-2024 MCV (RBC) [Entitic vol] 87.7 fL 80-94 [facility] Mean corpuscular hemoglobin (MCH) determinationOrdered By: Mayo Darnell on 12-27-2024 MCH (RBC) [Entitic mass] 29.8 pg 27.0-32.0 [facility] Mean corpuscular hemoglobin concentration (MCHC) determinationOrdered By: Mayo Darnell on 12-27-2024 MCHC (RBC) [Mass/Vol] 34.0 g/dL 32-36 [facility] Mean platelet volume determi nationOrdered By: Mayo Darnell on 12-27-2024 Platelet mean volume (Bld) [Entitic vol] 10.2 fL 6.2-12.0 [facility] Monocyte percentageOrdered B y: Mayo Darnell on 12-27-2024 Monocytes/100 WBC (Bld) 3.9 % 0-10 [facility] Neutrophil percentageOrdered By: Mayo Darnell on 12-27-2024 Neutrophils/100 WBC (Bld) 89.0 % High 47-70 [facility] Nucleated red blood cell per centageOrdered By: Mayo Darnell on 12-27-2024 Nucleated RBC/100 WBC (Bld) [Ratio] 0 % 0-5 [facility] Platelet countOrdered By: Nicole Darnell on 12-27-2024 Platelets (Bld) [#/Vol] 148 10*3/uL Low 150-450 [facility] Potassium measurement (mass/ volume)Ordered By: Mayo Darnell on 12-27-2024 Potassium (Unsp spec) [Mass/Vol] 4.1 mmol/L 3.3-5.1 [facility] RBC Auto (Bld) [#/Vol]Ordere d By: Mayo Darnell on 12-27-2024 RBC (Bld) [#/Vol] 4.86 10*6/uL 4.6-6.2 [facility] Serum creatinine measurement (mass/volume)Ordered By: Mayo Darnell on 12-27-2024 Creatinine [Mass/Vol] 1.06 mg/dL 0.70-1.20 [facility] Serum globulin measurementOr dered By: Mayo Darnell on 12-27-2024 Globulin (S) [Mass/Vol] 2.8 g/dL 2.2-4.2 [facility] Serum glucose measurement (m ass/volume)Ordered By: Mayo Darnell on 12-27-2024 Glucose [Mass/Vol] 112 mg/dL High 70-99 [facility] Serum or plasma C reactive p rotein measurement (mass/volume)Ordered By: Mayo Darnell on 12-27-2024 CRP [Mass/Vol] 136.00 mg/L High 0.0-3.0 [facility] Serum or plasma alanine multani otransferase (ALT) measurementOrdered By: Mayo Darnell on 12-27-2024 ALT [Catalytic activity/Vol] 28 U/L <47 [facility] Serum or plasma albumin armani urement (mass/volume)Ordered By: Mayo Darnell on 12-27-2024 Albumin [Mass/Vol] 3.9 g/dL 3.5-5.0 [facility] Serum or plasma alkaline sean sphatase measurementOrdered By: Mayo Darnell on 12-27-2024 ALP [Catalytic activity/Vol] 101 U/L 40-129 [facility] Serum or plasma calcium armani urement (mass/volume)Ordered By: Mayo Darnell on 12-27-2024 Calcium [Mass/Vol] 9.2 mg/dL 7.6-11.0 [facility] Serum or plasma urea nitroge n measurement (mass/volume)Ordered By: Mayo Darnell on 12-27-2024 Urea nitrogen [Mass/Vol] 9 mg/dL 4-19 [facility] Sodium levelOrdered By: Glenroy Darnell on 12-27-2024 Sodium [Moles/Vol] 137 mmol/L 133-145 [facility] Total proteinOrdered By: Maikel Darnell on 12-27-2024 Protein [Mass/Vol] 6.7 g/dL 5.9-8.4 [facility] White blood cell (WBC) count Ordered By: Mayo Darnell on 12-27-2024 WBC (Bld) [#/Vol] 8.0 10*3/uL 4.4-11.0 [facility] Absolute lymphocyte countOrd ered By: Tony Hills on 12-25-2024 Lymphocytes Auto (Unsp spec) [#/Vol] 0.41 10*3/uL Low 0.83-4.51 [facility] Absolute neutrophil countOrd ered By: Tony Hills on 12-25-2024 Neutrophils (Bld) [#/Vol] 8.8 10*3/uL High 2.0-7.7 [facility] Anion gap in Serum or Plasma Ordered By: Tony Hills on 12-25-2024 Anion gap [Moles/Vol] 10 mmol/L 5-15 [facility] Automated lymphocyte count a s percentage of total leukocytesOrdered By: Tony Hills on 12-25-2024 Lymphocytes/100 WBC Auto (Unsp spec) 4.3 % Low 19-41 [facility] BUN/creatinine ratioOrdered By: Tony Hills on 12-25-2024 Urea nitrogen/Creatinine [Mass ratio] 11.3 mg/mg 10-20 [facility] Basophil percentageOrdered B y: Tony Hills on 12-25-2024 Basophils/100 WBC (Bld) 0.3 % 0-1 [facility] Bilirubin, totalOrdered By: Tony Hills on 12-25-2024 Bilirubin [Mass/Vol] 1.03 mg/dL 0.00-1.30 [facility] Carbon dioxide, total [Moles /volume] in Central venous bloodOrdered By: Tony Hills on 12-25-2024 CO2 [Moles/Vol] 26.6 mmol/L 21.0-32.0 [facility] Chloride assayOrdered By: Alphonse Hills on 12-25-2024 Chloride [Moles/Vol] 103 mmol/L 98-108 [facility] Eosinophil percentageOrdered By: Tony Hills on 12-25-2024 Eosinophils/100 WBC (Bld) 0.1 % 0-5 [facility] Erythrocyte distribution wid th ratioOrdered By: Tony Hills on 12-25-2024 Erythrocyte distribution width (RBC) [Ratio] 12.4 % 11.6-14.6 [facility] Erythrocyte distribution wid th standard deviationOrdered By: Tony Hills on 12-25-2024 Erythrocyte distribution width (RBC) [Ratio] 40.3 fl 35.1-43.9 [facility] Glomerular filtration rate ( GFR) estimation/1.73 sq m using serum, plasma, or whole bOrdered By: Tony Hills on 12-25-2024 GFR/1.73 sq M.predicted among non-blacks MDRD (S/P/Bld) [Vol rate/Area] 90 mL/min/{1.73_m2} >60 [facility] Comment on above: mL/min/1.73m2 CKD-EP I Creatinine Equation (2020) Hematocrit Auto (Bld) [Volum e fraction]Ordered By: Tony Hills on 12-25-2024 Hematocrit (Bld) [Volume fraction] 45.0 % 40-54 [facility] Hemoglobin measurementOrdere d By: Tony Hills on 12-25-2024 Hemoglobin (Bld) [Mass/Vol] 15.1 g/dL 13.0-16.5 [facility] Immature granulocytes/100 WB C Auto (Bld)Ordered By: Tony Hills on 12-25-2024 Immature granulocytes/100 WBC (Bld) 0.500 % 0.0-0.9 [facility] Comment on above: IG% - Immature Granu locytes (promyelocytes, myelocytes and metamyelocytes) > 1% indicates that a LEFT SHIFT is Present. Laboratory - Chemistry and C hemistry - challengeOrdered By: Tony Hills on 12-25-2024 AST [Catalytic activity/Vol] 21 U/L <38 [facility] Lipase measurementOrdered By : Tony Hills on 12-25-2024 Lipase [Catalytic activity/Vol] 24 U/L 13-75 [facility] Comment on above: Please note:LIPASE r evised reference range effective 22. New Lipase methodology. Expected to produce lower values than the previous assay method. NEW Reference Range: 13 - 75 U/L MCV (mean corpuscular volume ) determinationOrdered By: Tony Hills on 12-25-2024 MCV (RBC) [Entitic vol] 88.1 fL 80-94 [facility] Mean corpuscular hemoglobin (MCH) determinationOrdered By: Tony Hills on 12-25-2024 MCH (RBC) [Entitic mass] 29.5 pg 27.0-32.0 [facility] Mean corpuscular hemoglobin concentration (MCHC) determinationOrdered By: Tony Hills on 12-25-2024 MCHC (RBC) [Mass/Vol] 33.6 g/dL 32-36 [facility] Mean platelet volume determi nationOrdered By: Tony Hills on 12-25-2024 Platelet mean volume (Bld) [Entitic vol] 10.3 fL 6.2-12.0 [facility] Monocyte percentageOrdered B y: Tony Hills on 12-25-2024 Monocytes/100 WBC (Bld) 1.6 % 0-10 [facility] Neutrophil percentageOrdered By: Tony Hills on 12-25-2024 Neutrophils/100 WBC (Bld) 93.2 % High 47-70 [facility] Nucleated red blood cell per centageOrdered By: Tony Hills on 12-25-2024 Nucleated RBC/100 WBC (Bld) [Ratio] 0 % 0-5 [facility] Platelet countOrdered By: Alphonse Hills on 12-25-2024 Platelets (Bld) [#/Vol] 181 10*3/uL 150-450 [facility] Potassium measurement (mass/ volume)Ordered By: Tony Hills on 12-25-2024 Potassium (Unsp spec) [Mass/Vol] 4.2 mmol/L 3.3-5.1 [facility] RBC Auto (Bld) [#/Vol]Ordere d By: Tony Hills on 12-25-2024 RBC (Bld) [#/Vol] 5.11 10*6/uL 4.6-6.2 [facility] Serum creatinine measurement (mass/volume)Ordered By: Tony Hills on 12-25-2024 Creatinine [Mass/Vol] 1.09 mg/dL 0.70-1.20 [facility] Serum globulin measurementOr dered By: Tony Hills on 12-25-2024 Globulin (S) [Mass/Vol] 2.4 g/dL 2.2-4.2 [facility] Serum glucose measurement (m ass/volume)Ordered By: Tony Hills on 12-25-2024 Glucose [Mass/Vol] 101 mg/dL High 70-99 [facility] Serum or plasma alanine multani otransferase (ALT) measurementOrdered By: Tony Hills on 12-25-2024 ALT [Catalytic activity/Vol] 21 U/L <47 [facility] Serum or plasma albumin armani urement (mass/volume)Ordered By: Tony Hills on 12-25-2024 Albumin [Mass/Vol] 4.6 g/dL 3.5-5.0 [facility] Serum or plasma albumin/glob ulin mass ratioOrdered By: Tony Hills on 12-25-2024 Albumin/Globulin [Mass ratio] 1.9 {ratio} 0.9-2.4 [facility] Serum or plasma alkaline sean sphatase measurementOrdered By: Tony Hills on 12-25-2024 ALP [Catalytic activity/Vol] 77 U/L 40-129 [facility] Serum or plasma amylase armani urement (enzymatic activity/volume)Ordered By: Tony Hills on 12-25-2024 Amylase [Catalytic activity/Vol] 39 U/L 28-100 [facility] Serum or plasma calcium armani urement (mass/volume)Ordered By: Tony Hills on 12-25-2024 Calcium [Mass/Vol] 9.4 mg/dL 7.6-11.0 [facility] Serum or plasma urea nitroge n measurement (mass/volume)Ordered By: Tony Hills on 12-25-2024 Urea nitrogen [Mass/Vol] 12 mg/dL 4-19 [facility] Sodium levelOrdered By: Tony Hills on 12-25-2024 Sodium [Moles/Vol] 139 mmol/L 133-145 [facility] Total proteinOrdered By: Faustino Hills on 12-25-2024 Protein [Mass/Vol] 6.9 g/dL 5.9-8.4 [facility] White blood cell (WBC) count Ordered By: Tony Hills on 12-25-2024 WBC (Bld) [#/Vol] 9.5 10*3/uL 4.4-11.0 [facility] ERCP Biliary/Pancreason ERCP Biliary/Pancreas [facility] Imaging Services [address] [place] [address] ERCP Biliary/Pancreas MR#: [id number] Acct: [id number] Name: [address]ISS[address] L[address] Rep #: [id number] : 1985 M 37 From: Mario Thomas PCP: Dr. Benson Desai DO Status: [facility] Study: ERCP Biliary/Pancreas Date of Exam: 07/13/23 Exam# [id number] Ordering Dr: Geraldo Thompson DO [id number] EXAM: ERCP CLINICAL INDICATION: ERCP, PAIN TECHNIQUE: [...] Dr. Benson Desai DO; Geraldo Thompson DO Loss Prevention Agent: Signed [facility] ERCP Reporton 07-13-2023 ERCP Report [facility] Medical Records Department [address] [place] [address] ERCP Report MR#: [id number] Acct: [id number] Name: ULISS[address] Rep #: [id number] : 1985 37 From: Geraldo Thompson DO PCP: Dr. Benson Desai DO Status:[facility] Patient Name: Ulisses Lane Procedure Date: 07/13/2023 [...] hours 8 minutes 29 seconds Findings: The podiatric medicine professor film was normal. The esophagus was successfully [...] biliary tree. Procedure Code(s): --- Professional --- 22996, Endoscopic retrograde cholangiopancreatography (ERCP); with removal of foreign body(s) or stent(s) from biliary/pancreatic duct(s) 57741, Endoscopic retrograde cholangiopancreatography (ERCP); with removal of calculi/debris from biliary/pancreatic duct(s) 66636, Endoscopic retrograde cholangiopancreatography (ERCP); with sphincterotomy/papillotom y 34014, 26, Combined endoscopic catheterization of the biliary and pancreatic ductal systems, radiological supervision and interpretation CPT copyright 2021 [employer] (more content not included)... [facility] Internal Medicine Office Vis iton 06-24-2023 Internal Medicine Office Visit [facility] [address] [place], [place] [address] OFFICE VISIT Date of Service: 06/24/23 MR#: [id number] Acct: [id number] Name: ULISSES L[address] Rep #: [id number] : 1985 Provider: LAUREN knowles Age/Sex: 37/M Location[place] [facility] [place] Status: Signed Intake Vital Signs 05/24/23 11:23 02/16/24 13:29 Height 6 ft 3 in 6 [...] Chief Complaint: B/L eye redness, itching, drainage Jewelry Polisher Required: No Accompanied by: Self Is patient [...] mucosae normal (more content not included)... [facility] Gastroenterology Visit Repor ton 05-30-2023 Gastroenterology Visit Report [facility] Gastroenterology [address] [place] [address] OFFICE VISIT Date of Service: 05/30/23 MR#: [id number] Acct: [id number] Name: ULISSES L[address] Rep #: [id number] : 1985 Provider: Geraldo Thompson DO Age/Sex: 37/M Location: [facility] [place] Status: Signed Intake Vital Signs 05/11/23 13:33 05/24/23 11:23 Height 6 ft 4 in 6 ft 3 in Intake Visit Reasons: H FU Allergies No Known Allergies Allergy (Verified 05/24/23 11:21) [facility] History History of cholecystectomy S/P ORIF (open reduction internal fixation) fracture Social History Smoking Status: Never smoker HPI HPI Details: ULISSES L[address], is a 37 M who presents to the office today for *[facility] hospitalization 04.17.23-04.19.23 for management of acute gallstone pancreatitis and acute cholecystitis. ERCP 04.18.23 biliary papillary stenosis, benign; biliary dilation with stone causing obstruction; choledocholithiasis; biliary sphincterotomy; biliary tree swept; temporary stent placed in CBD. No specimens ? Surgery 04.19.23 cholecystectomy without complication. Cholesterolosis which chronic cholecystitis and sludge. [facility] ED 05.24.23 with increased upper abdominal pain [...] and comfortable Nutritional Appearance: average body habitus [facility] Head: normal to inspection Ears: hearing grossly [...] Appearance: grossly normal Quality Reporting Tobacco Screening ([facility] 138) Smoking Status: Never smoker Assessment and [...] also translated (more content not included)... [facility] Internal Medicine Office Vis iton 05-24-2023 Internal Medicine Office Visit [facility] [address] [place], [place] [address] OFFICE VISIT Date of Service: 05/24/23 MR#: [id number] Acct: [id number] Name: ULISSES L[address] Rep #: [id number] : 1985 Provider: Dr. Benson field, DO Age/Sex: 37/M Location[place] [facility] [place] Status: Signed Intake Vital Signs 05/11/23 13:33 [...] fu Chief Complaint: f/u gall bladder surgery Jewelry Polisher Required: No Accompanied by: Self Is patient [...] reduce the (more content not included)... [facility] Abdomen/Pelvis W IV Cont ONL Yon 05-20-2023 Abdomen/Pelvis W IV Cont ONLY [facility] Imaging Services [address] [place] [address] Abdomen/Pelvis W IV Cont ONLY MR#: [id number] Acct: [id number] Name: ULISSES L[address] Rep #: [id number] : 1985 M 37 From: Estiven Atkins MD PCP: Dr. Benson Desai, DO Status: REG ER Study: Abdomen/Pelvis W IV Cont ONLY Date of Exam: Exam# [id number] Ordering Dr: Tony Hills MD [id number] INDICATION: epigastric abd pain s/p lap suzanne [...] Benson Desai DO; Dr. Tony Hills MD Loss Prevention Agent: Signed [facility] Amylaseon 05-20-2023 LUIS 30 U/L Normal 25-115 [facility] Comment on above: Performed By: #### L 400.0001 #### [facility] [address] [place], [address] Comprehensive Metabolic Prof ilon 05-20-2023 Albumin [Mass/Vol] 3.4 g/dL Normal 3.2-5.0 [facility] Comment on above: Performed By: #### L 500.4050, L100.0100 #### [facility] [address] [place], [address] Albumin/Globulin [Mass ratio] 0.9 {ratio} Normal 0.9-2.4 [facility] Comment on above: Performed By: #### L 500.4050, L100.0100 #### [facility] [address] [place], [address] ALK P 145 U/L High 45-117 [facility] Comment on above: Performed By: #### L 500.4050, L100.0100 #### [facility] [address] [place], [address] ALT [Catalytic activity/Vol] 37 U/L Normal 16-61 [facility] Comment on above: Performed By: #### L 500.4050, L100.0100 #### [facility] [address] [place], [address] AST [Catalytic activity/Vol] 14 U/L Low 15-37 [facility] Comment on above: Performed By: #### L 500.4050, L100.0100 #### [facility] [address] [place], [address] Bilirubin [Mass/Vol] 1.20 mg/dL High 0.20-1.00 [facility] Comment on above: Result Comment: For patients on eltrombopag therapy, use of Dimension [place] TBIL is not recommended. Performed By: #### L 500.4050, L100.0100 #### [facility] [address] [place], [address] BUN/CRE 11.1 RATIO Normal 10-20 [facility] Comment on above: Performed By: #### L 500.4050, L100.0100 #### [facility] [address] [place], [address] CA,Total 9.3 mg/dL Normal 8.5-10.1 [facility] Comment on above: Performed By: #### L 500.4050, L100.0100 #### [facility] [address] [place], [address] Chloride [Moles/Vol] 104 mmol/L Normal 98-107 [facility] Comment on above: Performed By: #### L 500.4050, L100.0100 #### [facility] [address] [place], [address] CO2 [Moles/Vol] 28.0 mmol/L Normal 21.0-32.0 [facility] Comment on above: Performed By: #### L 500.4050, L100.0100 #### [facility] [address] [place], [address] Creatinine [Mass/Vol] 0.99 mg/dL Normal 0.70-1.30 [facility] Comment on above: Result Comment: The validity of the calculated GFR GFRAA in patients over 70 years has not been determined. Clinical correlation is essential. Performed By: #### L 500.4050, L100.0100 #### [facility] [address] [place], [address] ECRCL 124.47 ml/min Normal [facility] Comment on above: Performed By: #### L 500.4050, L100.0100 #### [facility] [address] [place], [address] EST GFR - AA 111 mL/min Normal >60 [facility] Comment on above: Result Comment: Afri can Belarusian GFR Calc Performed By: #### L 500.4050, L100.0100 #### [facility] [address] [place], [address] GAP 6 Normal 5-15 [facility] Comment on above: Performed By: #### L 500.4050, L100.0100 #### [facility] [address] [place], [address] GFR/1.73 sq M.predicted among non-blacks MDRD (S/P/Bld) [Vol rate/Area] 91 mL/min/{1.73_m2} Normal >60 [facility] Comment on above: Result Comment: Non- GFR Calc Performed By: #### L 500.4050, L100.0100 #### [facility] [address] [place], [address] Globulin (S) [Mass/Vol] 3.6 g/dL Normal 2.2-4.2 [facility] Comment on above: Performed By: #### L 500.4050, L100.0100 #### [facility] [address] [place], [address] Glucose [Mass/Vol] 106 mg/dL Normal 74-106 [facility] Comment on above: Result Comment: Fast ing Glucose result from 100 to 125 mg/dL suggests IMPAIRED HOMEOSTASIS per A.D.A. criteria. Performed By: #### L 500.4050, L100.0100 #### [facility] [address] [place], [address] Potassium [Moles/Vol] 4.1 mmol/L Normal 3.5-5.1 [facility] Comment on above: Performed By: #### L 500.4050, L100.0100 #### [facility] [address] [place], [address] Sodium [Moles/Vol] 138 mmol/L Normal 136-145 [facility] Comment on above: Performed By: #### L 500.4050, L100.0100 #### [facility] [address] [place], [address] T PROT 7.0 g/dL Normal 6.4-8.2 [facility] Comment on above: Performed By: #### L 500.4050, L100.0100 #### [facility] [address] [place], [address] Urea nitrogen [Mass/Vol] 11 mg/dL Normal 7-18 [facility] Comment on above: Performed By: #### L 500.4050, L100.0100 #### [facility] [address] [place], [address] Emergency Department Summary on 05-20-2023 Emergency Department Summary [facility] [address] [address] Emergency Department Summary 05/19/23 MR#: [id number] Acct: [id number] Name: ULISSES LANE Rep #: [id number] : 1985 37 From: Tony [place] MD PCP: Dr. Benson Desai, DO Status:REG ER Location: ED HPI HPI [...] wheezes C (more content not included)... Normal [facility] Lipaseon 05-20-2023 Lipase [Catalytic activity/Vol] 26 U/L Normal 13-75 [facility] Comment on above: Result Comment: Janet latham note: LIPASE revised reference range effective 22. New Lipase methodology. Expected to produce lower values than the previous assay method. NEW Reference Range: 13 - 75 U/L Performed By: #### L 400.0001 #### [facility] [address] [place], [address] Absolute lymphocyte countOrd ered By: ED PROVIDER on 05-19-2023 Lymphocytes Auto (Unsp spec) [#/Vol] 0.93 10*3/uL 0.83-4.51 [facility] Basophil percentageOrdered B y: Tony Hills on 05-19-2023 Amylase [Catalytic activity/Vol] 30 U/L 25-115 [facility] Bilirubin [Mass/Vol] 1.20 mg/dL 0.20-1.00 [facility] Comment on above: For patients on eltr ombopag therapy, use of Dimension [place] TBIL is not recommended. Chloride [Moles/Vol] 104 mmol/L 98-107 [facility] Glucose [Mass/Vol] 106 mg/dL 74-106 [facility] Comment on above: Fasting Glucose resu lt from 100 to 125 mg/dL suggests IMPAIRED HOMEOSTASIS per A.D.A. criteria. Potassium [Moles/Vol] 4.1 mmol/L 3.5-5.1 [facility] Protein [Mass/Vol] 7.0 g/dL 6.4-8.2 [facility] Sodium [Moles/Vol] 138 mmol/L 136-145 [facility] Basophil percentageOrdered B y: ED PROVIDER on 05-19-2023 Basophils/100 WBC (Bld) 0.3 % 0-1 [facility] Eosinophils/100 WBC (Bld) 0.4 % 0-5 [facility] Neutrophils (Bld) [#/Vol] 7.4 10*3/uL 2.0-7.7 [facility] Neutrophils/100 WBC (Bld) 76.5 % 47-70 [facility] WBC (Bld) [#/Vol] 9.7 10*3/uL 4.4-11.0 [facility] Basophil percentage 0-5 SEEN /hpf 0-5 [facility] Bilirubin Test strip Ql (U)O rdered By: ED PROVIDER on 05-19-2023 Bilirubin Ql (U) Negative Negative [facility] Blood erythrocytes count (nu mber/volume)Ordered By: ED PROVIDER on 05-19-2023 RBC (Bld) [#/Vol] 4.60 10*6/uL 4.6-6.2 [facility] Blood hemoglobin measurement (mass/volume)Ordered By: ED PROVIDER on 05-19-2023 Hemoglobin (Bld) [Mass/Vol] 13.4 g/dL 13.0-16.5 [facility] Blood lymphocytes/100 leukoc ytesOrdered By: ED PROVIDER on 05-19-2023 Lymphocytes/100 WBC (Bld) 9.6 % 19-41 [facility] Blood monocytes/100 leukocyt esOrdered By: ED PROVIDER on 05-19-2023 Monocytes/100 WBC (Bld) 12.9 % 0-10 [facility] Blood platelet mean volumeOr dered By: ED PROVIDER on 05-19-2023 Platelet mean volume (Bld) [Entitic vol] 9.7 fL 6.2-12.0 [facility] CBC W/Diff, Automatedon 01- Absolute Lymph 0.93 X10 3/uL Normal 0.83-4.51 [facility] Comment on above: Performed By: #### L 500.4050, L100.0100 #### [facility] [address] [place], [address] Absolute Neut 7.4 X10 3/uL Normal 2.0-7.7 [facility] Comment on above: Performed By: #### L 500.4050, L100.0100 #### [facility] [address] [place], [address] Basophils/100 WBC (Bld) 0.3 % Normal 0-1 [facility] Comment on above: Performed By: #### L 500.4050, L100.0100 #### [facility] [address] [place], [address] Eosinophils/100 WBC (Bld) 0.4 % Normal 0-5 [facility] Comment on above: Performed By: #### L 500.4050, L100.0100 #### [facility] [address] [place], [address] Erythrocyte distribution width (RBC) [Ratio] 12.1 % Normal 11.6-14.6 [facility] Comment on above: Performed By: #### L 500.4050, L100.0100 #### [facility] [address] [place], [address] Hematocrit (Bld) [Volume fraction] 39.8 % Low 40-54 [facility] Comment on above: Performed By: #### L 500.4050, L100.0100 #### [facility] [address] [place], [address] Hemoglobin (Bld) [Mass/Vol] 13.4 g/dL Normal 13.0-16.5 [facility] Comment on above: Performed By: #### L 500.4050, L100.0100 #### [facility] [address] [place], [address] IG% 0.300 Normal 0.0-0.9 [facility] Comment on above: Result Comment: IG% - Immature Granulocytes (promyelocytes, myelocytes and metamyelocytes) > 1% indicates that a LEFT SHIFT is Present. Performed By: #### L 500.4050, L100.0100 #### [facility] [address] [place], [address] Lymphocytes/100 WBC (Bld) 9.6 % Low 19-41 [facility] Comment on above: Performed By: #### L 500.4050, L100.0100 #### [facility] [address] [place], [address] MCH (RBC) [Entitic mass] 29.1 pg Normal 27.0-32.0 [facility] Comment on above: Performed By: #### L 500.4050, L100.0100 #### [facility] [address] [place], [address] MCHC (RBC) [Mass/Vol] 33.7 g/dL Normal 32-36 [facility] Comment on above: Performed By: #### L 500.4050, L100.0100 #### [facility] [address] [place], [address] MCV (RBC) [Entitic vol] 86.5 fL Normal 80-94 [facility] Comment on above: Performed By: #### L 500.4050, L100.0100 #### [facility] [address] [place], [address] Monocytes/100 WBC (Bld) 12.9 % High 0-10 [facility] Comment on above: Performed By: #### L 500.4050, L100.0100 #### [facility] [address] [place], [address] Neutrophils/100 WBC (Bld) 76.5 % High 47-70 [facility] Comment on above: Performed By: #### L 500.4050, L100.0100 #### [facility] [address] [place], [address] Nucleated RBC (Bld) [#/Vol] 0 10*3/uL Normal 0-5 [facility] Comment on above: Performed By: #### L 500.4050, L100.0100 #### [facility] [address] [place], [address] Platelet mean volume (Bld) [Entitic vol] 9.7 fL Normal 6.2-12.0 [facility] Comment on above: Performed By: #### L 500.4050, L100.0100 #### [facility] [address] [place], [address] Platelets (Bld) [#/Vol] 209 10*3/uL Normal 150-450 [facility] Comment on above: Performed By: #### L 500.4050, L100.0100 #### [facility] [address] [place], [address] RBC (Bld) [#/Vol] 4.60 10*6/uL Normal 4.6-6.2 [facility] Comment on above: Performed By: #### L 500.4050, L100.0100 #### [facility] [address] [place], [address] RDW SD 38.5 fl Normal 35.1-43.9 [facility] Comment on above: Performed By: #### L 500.4050, L100.0100 #### [facility] [address] [place], [address] WBC (Bld) [#/Vol] 9.7 10*3/uL Normal 4.4-11.0 [facility] Comment on above: Performed By: #### L 500.4050, L100.0100 #### [facility] [address] [place], [address] Determination of erythrocyte mean corpuscular volume (MCV)Ordered By: ED PROVIDER on 05-19-2023 MCV (RBC) [Entitic vol] 86.5 fL 80-94 [facility] Hematocrit Auto (Bld) [Volum e fraction]Ordered By: ED PROVIDER on 05-19-2023 Hematocrit (Bld) [Volume fraction] 39.8 % 40-54 [facility] Ketones Test strip Ql (U)Ord ered By: ED PROVIDER on 05-19-2023 Ketones Ql (U) 150 mg/dl Negative [facility] Comment on above: CRITICAL VALUE *HCRI TICAL VALUE VERIFIED. CALLED TO [id number] Liliana Dixon.RESULTS READ BACK BY SAME . Laboratory - Chemistry and C hemistry - challengeOrdered By: Tony Hills on 05-19-2023 ALP [Catalytic activity/Vol] 145 U/L 45-117 [facility] ALT [Catalytic activity/Vol] 37 U/L 16-61 [facility] CO2 [Moles/Vol] 28.0 mmol/L 21.0-32.0 [facility] Globulin (S) [Mass/Vol] 3.6 g/dL 2.2-4.2 [facility] Lipase [Catalytic activity/Vol] 26 U/L 13-75 [facility] Comment on above: Please note:LIPASE r evised reference range effective 22. New Lipase methodology. Expected to produce lower values than the previous assay method. NEW Reference Range: 13 - 75 U/L Urea nitrogen/Creatinine [Mass ratio] 11.1 mg/mg 10-20 [facility] - Hematology and Cell countsOrdered By: ED PROVIDER on 05-19-2023 Erythrocyte distribution width (RBC) [Entitic vol] 38.5 fL 35.1-43.9 [facility] Erythrocyte distribution width (RBC) [Ratio] 12.1 % 11.6-14.6 [facility] Immature granulocytes/100 WBC (Bld) 0.300 % 0.0-0.9 [facility] Comment on above: IG% - Immature Granu locytes (promyelocytes, myelocytes and metamyelocytes) > 1% indicates that a LEFT SHIFT is Present. MCH (RBC) [Entitic mass] 29.1 pg 27.0-32.0 [facility] Nucleated RBC/100 WBC (Bld) [Ratio] 0 % 0-5 [facility] MCHC Auto (RBC) [Mass/Vol]Or dered By: ED PROVIDER on 05-19-2023 MCHC (RBC) [Mass/Vol] 33.7 g/dL 32-36 [facility] Mucus LM Ql (Urine sed)Order ed By: ED PROVIDER on 05-19-2023 Mucus Ql (Urine sed) 0 SEEN /hpf [facility] Nitrite Test strip Ql (U)Ord ered By: ED PROVIDER on 05-19-2023 Nitrite Ql (U) Negative Negative [facility] No Panel InformationOrdered By: Tony Hills on 05-19-2023 Estimated Creatinine Clearance Calc 124.47 ml/min [facility] Estimated GFR (MDRD) Amer 111 mL/min >60 [facility] Comment on above: GFR Calc Estimated GFR (MDRD) Non-Af Amer 91 mL/min >60 [facility] Comment on above: Non- GFR Calc Platelets bldOrdered By: ED PROVIDER on 05-19-2023 Platelets (Bld) [#/Vol] 209 10*3/uL 150-450 [facility] Protein Test strip Ql (U)Ord ered By: ED PROVIDER on 05-19-2023 Protein Ql (U) Negative Negative [facility] Serum or plasma albumin armani urement (mass/volume)Ordered By: Tony Hills on 05-19-2023 Albumin [Mass/Vol] 3.4 g/dL 3.2-5.0 [facility] Serum or plasma albumin/glob ulin mass ratioOrdered By: Tony Hills on 05-19-2023 Albumin/Globulin [Mass ratio] 0.9 {ratio} 0.9-2.4 [facility] Serum or plasma calcium armani urement (mass/volume)Ordered By: Tony Hills on 05-19-2023 Calcium [Mass/Vol] 9.3 mg/dL 8.5-10.1 [facility] Serum or plasma creatinine m easurement (mass/volume)Ordered By: Tony Hills on 05-19-2023 Creatinine [Mass/Vol] 0.99 mg/dL 0.70-1.30 [facility] Comment on above: The validity of the calculated GFR & GFRAA in patients over 70 years has not been determined. Clinical correlation is essential. Serum or plasma urea nitroge n measurement (mass/volume)Ordered By: Tony Hills on 05-19-2023 Urea nitrogen [Mass/Vol] 11 mg/dL 7-18 [facility] Squamous epithelial cells de tection in urine sediment by light microscopyOrdered By: ED PROVIDER on 05-19-2023 Epithelial cells.squamous LM Ql (Urine sed) 0 SEEN /hpf 0-5 [facility] Thin prep Papanicolaou smear with manual screeningOrdered By: Tony Hills on 05-19-2023 Thin prep Papanicolaou smear with manual screening 14 U/L 15-37 [facility] Thin prep Papanicolaou smear with manual screening 6 5-15 [facility] Urinalysis, Completeon 05-19 WBC 0-5 SEEN Normal 0-5 [facility] Comment on above: Order Comment: KEVIN DORMAN TO SPECIFY Performed By: #### L 400.0001 #### [facility] [address] [place], [address] BACTERIA 0 SEEN Normal None Seen [facility] Comment on above: Order Comment: KEVIN STEVEOR TO SPECIFY Performed By: #### L 400.0001 #### [facility] [address] [facility] [address] EPI,SQUAMOUS 0 SEEN Normal 0-5 [facility] Comment on above: Order Comment: KEVIN STEVEOR TO SPECIFY Performed By: #### L 400.0001 #### [facility] [address] [place], [address] Mucus Ql (Urine sed) 0 SEEN Normal [facility] Comment on above: Order Comment: KEVIN STEVEOR TO SPECIFY Performed By: #### L 400.0001 #### [facility] [address] [place], [address] RBC 0 SEEN Normal 0-5 [facility] Comment on above: Order Comment: COLLE CTOR TO SPECIFY Performed By: #### L 400.0001 #### [facility] [address] [place], [address] Urine blood detectionOrdered By: ED PROVIDER on 05-19-2023 RBC Ql (U) Negative Negative [facility] RBC Ql (U) 0 SEEN /hpf 0-5 [facility] Urine clarityOrdered By: ED PROVIDER on 05-19-2023 Clarity (U) Clear Clear [facility] Urine color determinationOrd ered By: ED PROVIDER on 05-19-2023 Color (U) Yellow Yellow [facility] Urine glucose detectionOrder ed By: ED PROVIDER on 05-19-2023 Glucose Ql (U) Normal mg/dl Normal [facility] Urine leukocyte esterase det ection by dipstickOrdered By: ED PROVIDER on 05-19-2023 Leukocyte esterase Test strip Ql (U) 25 /ul Negative [facility] Urine pHOrdered By: ED PROVI ASHIA on 05-19-2023 pH (U) 7.0 [pH] 5.0 - 8.0 [facility] Urine sediment bacteria coun t by microscopy (number/high power field)Ordered By: ED PROVIDER on 05-19-2023 Bacteria LM.HPF (Urine sed) [#/Area] 0 /[HPF] None Seen [facility] Urine specific gravity measu rementOrdered By: ED PROVIDER on 05-19-2023 Specific gravity (U) [Rel density] 1.010 1.002-1.030 [facility] Urobilinogen Auto test strip Ql (U)Ordered By: ED PROVIDER on 05-19-2023 Urobilinogen Ql (U) 8 mg/dl Normal [facility] Basophil percentageOrdered B y: Benson Brown on 05-11-2023 Bilirubin [Mass/Vol] 0.80 mg/dL 0.20-1.00 [facility] Comment on above: For patients on eltr ombopag therapy, use of Dimension [place] TBIL is not recommended. Chloride [Moles/Vol] 105 mmol/L 98-107 [facility] Cholesterol [Mass/Vol] 163 mg/dL <200 [facility] Comment on above: <200 mg/dL Desirable 200-240 mg/dL Borderline >240 mg/dL High Risk Glucose [Mass/Vol] 90 mg/dL 74-106 [facility] Potassium [Moles/Vol] 4.1 mmol/L 3.5-5.1 [facility] Protein [Mass/Vol] 6.9 g/dL 6.4-8.2 [facility] Sodium [Moles/Vol] 140 mmol/L 136-145 [facility] Triglyceride [Mass/Vol] 57 mg/dL <199 [facility] Comment on above: The drugs N-Acetylcy steine and Metamizole may falsely depress this assay.Serum Triglycerides Reference Interval Normal <150 mg/dL Borderline high 150 - 199 mg/dL High 200 - 499 mg/dL Very High > or = 500 mg/dL Comprehensive Metabolic Prof ilon 05-11-2023 Albumin [Mass/Vol] 3.6 g/dL Normal 3.2-5.0 [facility] Comment on above: Performed By: #### L 500.4050, L500.4100 #### [facility] [address] [place], [address] Albumin/Globulin [Mass ratio] 1.1 {ratio} Normal 0.9-2.4 [facility] Comment on above: Performed By: #### L 500.4050, L500.4100 #### [facility] [address] [place], [address] ALK P 122 U/L High 45-117 [facility] Comment on above: Performed By: #### L 500.4050, L500.4100 #### [facility] [address] [place], [address] ALT [Catalytic activity/Vol] 60 U/L Normal 16-61 [facility] Comment on above: Performed By: #### L 500.4050, L500.4100 #### [facility] [address] [place], [address] AST [Catalytic activity/Vol] 26 U/L Normal 15-37 [facility] Comment on above: Performed By: #### L 500.4050, L500.4100 #### [facility] [address] [place], [address] Bilirubin [Mass/Vol] 0.80 mg/dL Normal 0.20-1.00 [facility] Comment on above: Result Comment: For patients on eltrombopag therapy, use of Dimension [place] TBIL is not recommended. Performed By: #### L 500.4050, L500.4100 #### [facility] [address] [place], [address] BUN/CRE 17.0 RATIO Normal 10-20 [facility] Comment on above: Performed By: #### L 500.4050, L500.4100 #### [facility] [address] [place], [address] CA,Total 8.9 mg/dL Normal 8.5-10.1 [facility] Comment on above: Performed By: #### L 500.4050, L500.4100 #### [facility] [address] [place], [address] Chloride [Moles/Vol] 105 mmol/L Normal 98-107 [facility] Comment on above: Performed By: #### L 500.4050, L500.4100 #### [facility] [address] [place], [address] CO2 [Moles/Vol] 30.0 mmol/L Normal 21.0-32.0 [facility] Comment on above: Performed By: #### L 500.4050, L500.4100 #### [facility] [address] [place], [address] Creatinine [Mass/Vol] 1.06 mg/dL Normal 0.70-1.30 [facility] Comment on above: Result Comment: The validity of the calculated GFR GFRAA in patients over 70 years has not been determined. Clinical correlation is essential. Performed By: #### L 500.4050, L500.4100 #### [facility] [address] [place], [address] EST GFR - AA 102 mL/min Normal >60 [facility] Comment on above: Result Comment: Afri can Belarusian GFR Calc Performed By: #### L 500.4050, L500.4100 #### [facility] [address] [place], [address] GAP 5 Normal 5-15 [facility] Comment on above: Performed By: #### L 500.4050, L500.4100 #### [facility] [address] [place], [address] GFR/1.73 sq M.predicted among non-blacks MDRD (S/P/Bld) [Vol rate/Area] 84 mL/min/{1.73_m2} Normal >60 [facility] Comment on above: Result Comment: Non- GFR Calc Performed By: #### L 500.4050, L500.4100 #### [facility] [address] [place], [address] Globulin (S) [Mass/Vol] 3.3 g/dL Normal 2.2-4.2 [facility] Comment on above: Performed By: #### L 500.4050, L500.4100 #### [facility] [address] [place], [address] Glucose [Mass/Vol] 90 mg/dL Normal 74-106 [facility] Comment on above: Performed By: #### L 500.4050, L500.4100 #### [facility] [address] [place], [address] Potassium [Moles/Vol] 4.1 mmol/L Normal 3.5-5.1 [facility] Comment on above: Performed By: #### L 500.4050, L500.4100 #### [facility] [address] [place], [address] Sodium [Moles/Vol] 140 mmol/L Normal 136-145 [facility] Comment on above: Performed By: #### L 500.4050, L500.4100 #### [facility] [address] [place], [address] T PROT 6.9 g/dL Normal 6.4-8.2 [facility] Comment on above: Performed By: #### L 500.4050, L500.4100 #### [facility] [address] [place], [address] Urea nitrogen [Mass/Vol] 18 mg/dL Normal 7-18 [facility] Comment on above: Performed By: #### L 500.4050, L500.4100 #### [facility] [address] [place], [address] Internal Medicine Office Vis inkki 05-11-2023 Internal Medicine Office Visit [facility] [address] [place] [address] [place] [address] OFFICE VISIT Date of Service: 05/11/23 MR#: [id number] Acct: [id number] Name: ULISSES LANE Rep #: [id number] : 1985 Provider: Dr. Benson field, DO Age/Sex: 37/M Location: [facility] [place] Status: Signed Intake Vital Signs 04/11/23 10:15 [...] Delivery Method room air Intake Visit Reasons: 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 [facility] Surgical History (Updated 05/11/23 @ 13:32 by [...] and comfortable Nutritional Appearance: average body [facility] [facility] Head: normal to inspection Ears: hearing grossly [...] Acute Pl (more content not included)... Normal [facility] - Chemistry and C hemistry - challengeOrdered By: Benson Desai on 05-11-2023 ALP [Catalytic activity/Vol] 122 U/L 45-117 [facility] ALT [Catalytic activity/Vol] 60 U/L 16-61 [facility] CO2 [Moles/Vol] 30.0 mmol/L 21.0-32.0 [facility] Globulin (S) [Mass/Vol] 3.3 g/dL 2.2-4.2 [facility] Urea nitrogen/Creatinine [Mass ratio] 17.0 mg/mg 10-20 [facility] Lipid Profileon 05-11-2023 Cholesterol [Mass/Vol] 163 mg/dL Normal 200 [facility] Comment on above: Result Comment: <200 mg/dL Desirable 200-240 mg/dL Borderline >240 mg/dL High Risk Performed By: #### L 500.4050, L500.4100 #### [facility] [address] [place], [address] Cholesterol in HDL [Mass/Vol] 49 mg/dL Normal [facility] Comment on above: Result Comment: The drugs N-Acetylcysteine and Metamizole may falsely depress this assay. Reference Range HDL <40 mg/dL Low HDL Cholesterol HDL >or= 60 mg/dL High HDL Cholesterol Performed By: #### L 500.4050, L500.4100 #### [facility] [address] [place], [address] Cholesterol in LDL [Mass/Vol] 103 mg/dL Normal 0-130 [facility] Comment on above: Performed By: #### L 500.4050, L500.4100 #### [facility] [address] [place], [address] Cholesterol in VLDL [Mass/Vol] 11 mg/dL Normal 5-40 [facility] Comment on above: Performed By: #### L 500.4050, L500.4100 #### [facility] [address] [place], [address] Triglyceride [Mass/Vol] 57 mg/dL Normal [facility] Comment on above: Result Comment: The drugs N-Acetylcysteine and Metamizole may falsely depress this assay. Serum Triglycerides Reference Interval Normal <150 mg/dL Borderline high 150 - 199 mg/dL High 200 - 499 mg/dL Very High > or = 500 mg/dL Performed By: #### L 500.4050, L500.4100 #### [facility] [address] [place], [address] No Panel InformationOrdered By: Benson Desai on 05-11-2023 Estimated GFR (MDRD) Amer 102 mL/min >60 [facility] Comment on above: GFR Calc Estimated GFR (MDRD) Non-Af Amer 84 mL/min >60 [facility] Comment on above: Non- GFR Calc Serum or plasma albumin armani urement (mass/volume)Ordered By: Benson Desai on 05-11-2023 Albumin [Mass/Vol] 3.6 g/dL 3.2-5.0 [facility] Serum or plasma albumin/glob ulin mass ratioOrdered By: Benson Desai on 05-11-2023 Albumin/Globulin [Mass ratio] 1.1 {ratio} 0.9-2.4 [facility] Serum or plasma calcium armani urement (mass/volume)Ordered By: Benson Desai on 05-11-2023 Calcium [Mass/Vol] 8.9 mg/dL 8.5-10.1 [facility] Serum or plasma cholesterol in HDL measurement (mass/volume)Ordered By: Benson Desai on 05-11-2023 Cholesterol in HDL [Mass/Vol] 49 mg/dL >40 [facility] Comment on above: The drugs N-Acetylcy steine and Metamizole may falsely depress this assay. Reference Range HDL <40 mg/dL Low HDL Cholesterol HDL >or= 60 mg/dL High HDL Cholesterol Serum or plasma cholesterol in VLDL measurement (mass/volume)Ordered By: Benson Desai on 05-11-2023 Cholesterol in VLDL [Mass/Vol] 11 mg/dL 5-40 [facility] Serum or plasma creatinine m easurement (mass/volume)Ordered By: Benson Desai on 05-11-2023 Creatinine [Mass/Vol] 1.06 mg/dL 0.70-1.30 [facility] Comment on above: The validity of the calculated GFR & GFRAA in patients over 70 years has not been determined. Clinical correlation is essential. Serum or plasma low density lipoprotein (LDL) cholesterol measurement (mass/volume)Ordered By: Benson Deasi on 05-11-2023 Cholesterol in LDL [Mass/Vol] 103 mg/dL 0-130 [facility] Serum or plasma urea nitroge n measurement (mass/volume)Ordered By: Benson Desai on 05-11-2023 Urea nitrogen [Mass/Vol] 18 mg/dL 7-18 [facility] Thin prep Papanicolaou smear with manual screeningOrdered By: Benson Desai on 05-11-2023 Thin prep Papanicolaou smear with manual screening 26 U/L 15-37 [facility] Thin prep Papanicolaou smear with manual screening 5 5-15 [facility] Surgery Visit Reporton 04-28 Surgery Visit Report [facility] [address] [place] [address] OFFICE VISIT Date of Service: 04/28/23 MR#: [id number] Acct: [id number] Name: ULISSES LANE Rep #: [id number] : 1985 Provider: Dr. 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 Since hospital discharge they have been doing well. They report minimal postoperative pain. They report use of only yrfw-mob-gdmlglm pain medication postoperatively. They report tolerance of [...] Op Diagnoses Status post laparoscopic cholecystectomy Z90.49 [facility] Surgical History (Updated 04/28/23 @ 17:29 by [...] Date ____ (more content not included)... Normal [facility] Absolute lymphocyte countOrd ered By: Arie Watkins on 04-19-2023 Lymphocytes Auto (Unsp spec) [#/Vol] 1.21 10*3/uL 0.83-4.51 [facility] Basophil percentageOrdered B y: Arie Watkins on 04-19-2023 Basophils/100 WBC (Bld) 0.1 % 0-1 [facility] Bilirubin [Mass/Vol] 2.80 mg/dL 0.20-1.00 [facility] Comment on above: For patients on eltr ombopag therapy, use of Dimension [place] TBIL is not recommended. Chloride [Moles/Vol] 109 mmol/L 98-107 [facility] Eosinophils/100 WBC (Bld) 0.1 % 0-5 [facility] Glucose [Mass/Vol] 103 mg/dL 74-106 [facility] Comment on above: Fasting Glucose resu lt from 100 to 125 mg/dL suggests IMPAIRED HOMEOSTASIS per A.D.A. criteria. Neutrophils (Bld) [#/Vol] 5.5 10*3/uL 2.0-7.7 [facility] Neutrophils/100 WBC (Bld) 75.6 % 47-70 [facility] Potassium [Moles/Vol] 4.2 mmol/L 3.5-5.1 [facility] Protein [Mass/Vol] 5.6 g/dL 6.4-8.2 [facility] Sodium [Moles/Vol] 139 mmol/L 136-145 [facility] WBC (Bld) [#/Vol] 7.3 10*3/uL 4.4-11.0 [facility] Blood erythrocytes count (nu mber/volume)Ordered By: Arie Watkins on 04-19-2023 RBC (Bld) [#/Vol] 4.32 10*6/uL 4.6-6.2 [facility] Blood hemoglobin measurement (mass/volume)Ordered By: Arie Watkins on 04-19-2023 Hemoglobin (Bld) [Mass/Vol] 12.6 g/dL 13.0-16.5 [facility] Blood lymphocytes/100 leukoc ytesOrdered By: Arie Watkins on 04-19-2023 Lymphocytes/100 WBC (Bld) 16.5 % 19-41 [facility] Blood monocytes/100 leukocyt esOrdered By: Arie Watkins on 04-19-2023 Monocytes/100 WBC (Bld) 7.2 % 0-10 [facility] Blood platelet mean volumeOr dered By: Arie Watkins on 04-19-2023 Platelet mean volume (Bld) [Entitic vol] 10.3 fL 6.2-12.0 [facility] CBC W/Diff, Automatedon 04-08 Absolute Lymph 1.21 X10 3/uL Normal 0.83-4.51 [facility] Comment on above: Performed By: #### L 501.2450, L100.0100, L500.4050 #### [facility] [address] [place], [address] Absolute Neut 5.5 X10 3/uL Normal 2.0-7.7 [facility] Comment on above: Performed By: #### L 501.2450, L100.0100, L500.4050 #### [facility] [address] [place], [address] Basophils/100 WBC (Bld) 0.1 % Normal 0-1 [facility] Comment on above: Performed By: #### L 501.2450, L100.0100, L500.4050 #### [facility] [address] [place], [address] Eosinophils/100 WBC (Bld) 0.1 % Normal 0-5 [facility] Comment on above: Performed By: #### L 501.2450, L100.0100, L500.4050 #### [facility] [address] [place], [address] Erythrocyte distribution width (RBC) [Ratio] 12.8 % Normal 11.6-14.6 [facility] Comment on above: Performed By: #### L 501.2450, L100.0100, L500.4050 #### [facility] [address] [place], [address] Hematocrit (Bld) [Volume fraction] 38.8 % Low 40-54 [facility] Comment on above: Performed By: #### L 501.2450, L100.0100, L500.4050 #### [facility] [address] [place], [address] Hemoglobin (Bld) [Mass/Vol] 12.6 g/dL Low 13.0-16.5 [facility] Comment on above: Performed By: #### L 501.2450, L100.0100, L500.4050 #### [facility] [address] [place], [address] IG% 0.500 Normal 0.0-0.9 [facility] Comment on above: Result Comment: IG% - Immature Granulocytes (promyelocytes, myelocytes and metamyelocytes) > 1% indicates that a LEFT SHIFT is Present. Performed By: #### L 501.2450, L100.0100, L500.4050 #### [facility] [address] [place], [address] Lymphocytes/100 WBC (Bld) 16.5 % Low 19-41 [facility] Comment on above: Performed By: #### L 501.2450, L100.0100, L500.4050 #### [facility] [address] [place], [address] MCH (RBC) [Entitic mass] 29.2 pg Normal 27.0-32.0 [facility] Comment on above: Performed By: #### L 501.2450, L100.0100, L500.4050 #### [facility] [address] [place], [address] MCHC (RBC) [Mass/Vol] 32.5 g/dL Normal 32-36 [facility] Comment on above: Performed By: #### L 501.2450, L100.0100, L500.4050 #### [facility] [address] [place], [address] MCV (RBC) [Entitic vol] 89.8 fL Normal 80-94 [facility] Comment on above: Performed By: #### L 501.2450, L100.0100, L500.4050 #### [facility] [address] [place], [address] Monocytes/100 WBC (Bld) 7.2 % Normal 0-10 [facility] Comment on above: Performed By: #### L 501.2450, L100.0100, L500.4050 #### [facility] [address] [place], [address] Neutrophils/100 WBC (Bld) 75.6 % High 47-70 [facility] Comment on above: Performed By: #### L 501.2450, L100.0100, L500.4050 #### [facility] [address] [place], [address] Nucleated RBC (Bld) [#/Vol] 0 10*3/uL Normal 0-5 [facility] Comment on above: Performed By: #### L 501.2450, L100.0100, L500.4050 #### [facility] [address] [place], [address] Platelet mean volume (Bld) [Entitic vol] 10.3 fL Normal 6.2-12.0 [facility] Comment on above: Performed By: #### L 501.2450, L100.0100, L500.4050 #### [facility] [address] [place], [address] Platelets (Bld) [#/Vol] 184 10*3/uL Normal 150-450 [facility] Comment on above: Performed By: #### L 501.2450, L100.0100, L500.4050 #### [facility] [address] [place], [address] RBC (Bld) [#/Vol] 4.32 10*6/uL Low 4.6-6.2 [facility] Comment on above: Performed By: #### L 501.2450, L100.0100, L500.4050 #### [facility] [address] [place], [address] RDW SD 42.4 fl Normal 35.1-43.9 [facility] Comment on above: Performed By: #### L 501.2450, L100.0100, L500.4050 #### [facility] [address] [place], [address] WBC (Bld) [#/Vol] 7.3 10*3/uL Normal 4.4-11.0 [facility] Comment on above: Performed By: #### L 501.2450, L100.0100, L500.4050 #### [facility] [address] [place], [address] Cholangiogram/ O R,Initialon 04-19-2023 Cholangiogram/ O R,Initial [facility] Imaging Services [address] [place] [address] Cholangiogram/ O R,Initial MR#: [id number] Acct: [id number] Name: ULISSES LANE Rep #: [id number] : 1985 M 37 From: Michael moncada MD PCP: Care Physician,No Primary Status: ADM IN Study: Cholangiogram/ O R,Initial Date of Exam: 04/19 Exam# [id number] Ordering Dr: Arie Watkins MD [id number] STUDY: INTRAOPERATIVE CHOLANGIOGRAM. REASON FOR EXAM: Male, [...] Arie Watkins MD; No Primary Care Physician Loss Prevention Agent: Signed Normal [facility] Comprehensive Metabolic Prof ilon 04-19-2023 Albumin [Mass/Vol] 2.8 g/dL Low 3.2-5.0 [facility] Comment on above: Performed By: #### L 501.8550, L100.0100, L500.4050 #### [facility] [address] [place], [address] Albumin/Globulin [Mass ratio] 1.0 {ratio} Normal 0.9-2.4 [facility] Comment on above: Performed By: #### L 501.2450, L100.0100, L500.4050 #### [facility] [address] [place], [address] ALK P 224 U/L High 45-117 [facility] Comment on above: Performed By: #### L 501.2450, L100.0100, L500.4050 #### [facility] [address] [place], [address] ALT [Catalytic activity/Vol] 280 U/L High 16-61 [facility] Comment on above: Performed By: #### L 501.2450, L100.0100, L500.4050 #### [facility] [address] [place], [address] AST [Catalytic activity/Vol] 75 U/L High 15-37 [facility] Comment on above: Performed By: #### L 501.2450, L100.0100, L500.4050 #### [facility] [address] [place], [address] Bilirubin [Mass/Vol] 2.80 mg/dL High 0.20-1.00 [facility] Comment on above: Result Comment: For patients on eltrombopag therapy, use of Dimension [place] TBIL is not recommended. Performed By: #### L 501.2450, L100.0100, L500.4050 #### [facility] [address] [place], [address] BUN/CRE 7.5 RATIO Low 10-20 [facility] Comment on above: Performed By: #### L 501.2450, L100.0100, L500.4050 #### [facility] [address] [place], [address] CA,Total 8.4 mg/dL Low 8.5-10.1 [facility] Comment on above: Performed By: #### L 501.2450, L100.0100, L500.4050 #### [facility] [address] [place], [address] Chloride [Moles/Vol] 109 mmol/L High 98-107 [facility] Comment on above: Performed By: #### L 501.2450, L100.0100, L500.4050 #### [facility] [address] [place], [address] CO2 [Moles/Vol] 26.0 mmol/L Normal 21.0-32.0 [facility] Comment on above: Performed By: #### L 501.2450, L100.0100, L500.4050 #### [facility] [address] [place], [address] Creatinine [Mass/Vol] 0.80 mg/dL Normal 0.70-1.30 [facility] Comment on above: Result Comment: The validity of the calculated GFR GFRAA in patients over 70 years has not been determined. Clinical correlation is essential. Performed By: #### L 501.2450, L100.0100, L500.4050 #### [facility] [address] [place], [address] ECRCL 158.23 ml/min Normal [facility] Comment on above: Performed By: #### L 501.2450, L100.0100, L500.4050 #### [facility] [address] [place], [address] EST GFR - AA 141 mL/min Normal >60 [facility] Comment on above: Result Comment: Afri can Belarusian GFR Calc Performed By: #### L 501.2450, L100.0100, L500.4050 #### [facility] [address] [place], [address] GAP 4 Low 5-15 [facility] Comment on above: Performed By: #### L 501.2450, L100.0100, L500.4050 #### [facility] [address] [place], [address] GFR/1.73 sq M.predicted among non-blacks MDRD (S/P/Bld) [Vol rate/Area] 116 mL/min/{1.73_m2} Normal >60 [facility] Comment on above: Result Comment: Non- GFR Calc Performed By: #### L 501.2450, L100.0100, L500.4050 #### [facility] [address] [place], [address] Globulin (S) [Mass/Vol] 2.8 g/dL Normal 2.2-4.2 [facility] Comment on above: Performed By: #### L 501.2450, L100.0100, L500.4050 #### [facility] [address] [place], [address] Glucose [Mass/Vol] 103 mg/dL Normal 74-106 [facility] Comment on above: Result Comment: Fast ing Glucose result from 100 to 125 mg/dL suggests IMPAIRED HOMEOSTASIS per A.D.A. criteria. Performed By: #### L 501.2450, L100.0100, L500.4050 #### [facility] [address] [place], [address] Potassium [Moles/Vol] 4.2 mmol/L Normal 3.5-5.1 [facility] Comment on above: Performed By: #### L 501.2450, L100.0100, L500.4050 #### [facility] [address] [place], [address] Sodium [Moles/Vol] 139 mmol/L Normal 136-145 [facility] Comment on above: Performed By: #### L 501.2450, L100.0100, L500.4050 #### [facility] [address] [place], [address] T PROT 5.6 g/dL Low 6.4-8.2 [facility] Comment on above: Performed By: #### L 501.2450, L100.0100, L500.4050 #### [facility] [address] [place], [address] Urea nitrogen [Mass/Vol] 6 mg/dL Low 7-18 [facility] Comment on above: Performed By: #### L 501.2450, L100.0100, L500.4050 #### [facility] [address] [place], [address] Determination of erythrocyte mean corpuscular volume (MCV)Ordered By: Arie Watkins on 04-19-2023 MCV (RBC) [Entitic vol] 89.8 fL 80-94 [facility] Discharge Instructionon 04-08 Discharge Instruction [facility] Medical Records Department [address] [place] [address] Instructions for Home/Discharge Instructions 04/19/23 1545 MR#: [id number] Acct: [id number] Name: ULISSES LANE Rep #: [id number] : 1985 37 From: Arie Watkins MD PCP: Care Physician,No Primary Status:ADM IN Discharge Instructions Diet Discharge [...] Attending Provider: Arie Watkins Primary Care Provider: Chelsy Physician,Ghazala Primary Discharge Orders/Prescriptions Prescriptions: New oxycodone 5 mg Tablet 5 mg PO Q6H PRN PRN (Reason: Pain Score 6-10) 3 Days Qty: 10 0RF Referrals / Follow Up: Care Physician,Ghazala Primary [Primary Care Provider] - Arie Watkins MD [Med Staff - Active Staff] - Disposition Disposition (needs filled in before D/C Order can be placed): Home, Self Care 04/19/23 4541 Arie Watkins MD CC: No Primary Care Physician Signed Normal [facility] Hematocrit Auto (Bld) [Volum e fraction]Ordered By: Arie Watkins on 04-19-2023 Hematocrit (Bld) [Volume fraction] 38.8 % 40-54 [facility] - Chemistry and C hemistry - challengeOrdered By: Arie Watkins on 04-19-2023 ALP [Catalytic activity/Vol] 224 U/L 45-117 [facility] ALT [Catalytic activity/Vol] 280 U/L 16-61 [facility] CO2 [Moles/Vol] 26.0 mmol/L 21.0-32.0 [facility] Globulin (S) [Mass/Vol] 2.8 g/dL 2.2-4.2 [facility] Lipase [Catalytic activity/Vol] 171 U/L 13-75 [facility] Comment on above: Please note:LIPASE r evised reference range effective 22. New Lipase methodology. Expected to produce lower values than the previous assay method. NEW Reference Range: 13 - 75 U/L Urea nitrogen/Creatinine [Mass ratio] 7.5 mg/mg 10-20 [facility] - Hematology and Cell countsOrdered By: Arie Watkins on 04-19-2023 Erythrocyte distribution width (RBC) [Entitic vol] 42.4 fL 35.1-43.9 [facility] Erythrocyte distribution width (RBC) [Ratio] 12.8 % 11.6-14.6 [facility] Immature granulocytes/100 WBC (Bld) 0.500 % 0.0-0.9 [facility] Comment on above: IG% - Immature Granu locytes (promyelocytes, myelocytes and metamyelocytes) > 1% indicates that a LEFT SHIFT is Present. MCH (RBC) [Entitic mass] 29.2 pg 27.0-32.0 [facility] Nucleated RBC/100 WBC (Bld) [Ratio] 0 % 0-5 [facility] Lipaseon 04-19-2023 Lipase [Catalytic activity/Vol] 171 U/L High 13-75 [facility] Comment on above: Result Comment: Janet latham note: LIPASE revised reference range effective 22. New Lipase methodology. Expected to produce lower values than the previous assay method. NEW Reference Range: 13 - 75 U/L Performed By: #### L 501.2450, L100.0100, L500.4050 #### [facility] [address] [place], [address] MCHC Auto (RBC) [Mass/Vol]Or dered By: Arie Watkins on 04-19-2023 MCHC (RBC) [Mass/Vol] 32.5 g/dL 32-36 [facility] MR/PN.GIon 04-19-2023 MR/PN.GI [facility] Medical Records Department [address] [place] [address] Progress Note - GI 04/19/23 0700 MR#: [id number] Acct: [id number] Name: ULISSES LANE Rep #: [id number] : 1985 37 From: Geraldo Friend DO PCP: Care Physician,No Primary Status:ADM IN Location: [place] [address] Subjective Subjective Patient underwent ERCP yesterday for [...] 75.6 H, Lymph % (Auto) 16.5 L, [place] % (Auto) 7.2, Eos % (Auto) 0.1, [...] hour. Charges/Coding Visit Charges Inpatient E M: 25909 Subs Hosp L3 04/19/23 1641 Cosigner Signature (if applicable): CC: Signed [facility] No Panel InformationOrdered By: Arie Watkins on 04-19-2023 Estimated Creatinine Clearance Calc 158.23 ml/min [facility] Estimated GFR (MDRD) Amer 141 mL/min >60 [facility] Comment on above: GFR Calc Estimated GFR (MDRD) Non-Af Amer 116 mL/min >60 [facility] Comment on above: Non- GFR Calc Operative Reporton 3 Operative Report [facility] Medical Records Department [address] [place] [address] Operative Report 04/19/23 1339 MR#: [id number] Acct: [id number] Name: ULISSES L[address] Rep #: [id number] : 1985 37 From: Arie Watkins MD PCP: Care Physician,No Primary Status:DIS IN Location: [facility] [id number] Report of Operation Date of Procedure: 04/19/23 Pre-Operative Diagnosis: 1. Gallstone pancreatitis 2. Choledocholithiasis 3. Acute cholecystitis Post-Operative Diagnosis: Same Surgery/Procedure Performed:: Laparoscopic cholecystectomy with intraoperative cholangiogram Description of Surgical Findings:: ??? Moderate to severely edematous gallbladder with normal gallbladder anatomy and single anterior cystic artery ??? Normal intraoperative cholangiogram showing common bile duct stent is patent`` Surgeon: Arie Watkins elementary school art teacher: Tony Odom Type of Anesthesia: General/Supplemental Anesthesiologist: [...] milked of any debris Using an Rodríguez [place] clamp, a cholangiocatheter was fed into the [...] sites was closed with #1Vicryl in a lktlfi-lr-nfgqm fashion. A total of 30 mL of [...] Mechan Device Prophylaxis: SCD's Procedures Digestive 40xxx-49xxx: 66352 Laparo cholecystectomy/graph 04/20/236 Cosigner Signature (if applicable): CC: Dr. Arie Watkins MD; No Primary Care Physician Signed Normal [facility] Platelets bldOrdered By: Andi Watkins on 04-19-2023 Platelets (Bld) [#/Vol] 184 10*3/uL 150-450 [facility] Serum or plasma albumin armani urement (mass/volume)Ordered By: Arie Watkins on 04-19-2023 Albumin [Mass/Vol] 2.8 g/dL 3.2-5.0 [facility] Serum or plasma albumin/glob ulin mass ratioOrdered By: Arie Watkins on 04-19-2023 Albumin/Globulin [Mass ratio] 1.0 {ratio} 0.9-2.4 [facility] Serum or plasma calcium armani urement (mass/volume)Ordered By: Arie Watkins on 04-19-2023 Calcium [Mass/Vol] 8.4 mg/dL 8.5-10.1 [facility] Serum or plasma creatinine m easurement (mass/volume)Ordered By: Arie Watkins on 04-19-2023 Creatinine [Mass/Vol] 0.80 mg/dL 0.70-1.30 [facility] Comment on above: The validity of the calculated GFR & GFRAA in patients over 70 years has not been determined. Clinical correlation is essential. Serum or plasma urea nitroge n measurement (mass/volume)Ordered By: Arie Watkins on 04-19-2023 Urea nitrogen [Mass/Vol] 6 mg/dL 7-18 [facility] Surgery Specimen Level IIIon 04-19-2023 Surgery Specimen Level III Patient Age/Sex Location Account Attending Physician [address] 37/M MS3 [id number] Dr. Arie Watkins MD Specimen: [id number] Received: 04/20/23 Status: [facility] Num: [id number] Spec Type: ISIDRO Mac Dr: Dr. Arie Watkins MD HEADER [...] measures up to 0.2 cm in thickness. Database Tester sections from the gallbladder and the cystic duct are submitted in one cassette. / SJ:rg 04/20/2023 TC:3 [facility]: [id number] Patient Age/Sex Location Account Attending Physician [address] 37/M MS3 [id number] Dr. Arie Watkins MD Signed (signature on file) Dr. Liu Mansfield DO 04/21/23 1416 Normal [facility] Comment on above: Performed By: #### L 400.0001 #### [facility] [address] [place], [address] Thin prep Papanicolaou smear with manual screeningOrdered By: Arie Watkins on 04-19-2023 Thin prep Papanicolaou smear with manual screening 75 U/L 1537 [facility] Thin prep Papanicolaou smear with manual screening 4 5-15 [facility] 12 Lead EKGon 04-18-2023 12 Lead EKG [facility] Cardiovascular Services [address] [place] [address] 12 Lead EKG 04/18/23 1321 MR#: [id number] Acct: [id number] Name: ULISSES LANE Rep #: [id number] : 1985 37 From: Ernesto Vasquez MD Attending Dr: Dr. Arie Watkins MD Status: DIS IN Ordering Dr: Brooks Moy MD Date: 04/18/23 [place] [facility] [place] Sex: M C Admitted: 04/17/23 Test Reason [...] ECGs available Confirmed by CAMERON MCINTYRE, DOT ([id number]), assignment editor JARRET FLOWERS ([id number]) on 04/25/2023 1:00:43 PM Referred By: ROLAND Confirmed By:RYANNE VASQUEZ MD 04/25/23 1300 Date Ernesto Vasquez MD CC: Dr. Brooks Moy MD; Dr. Arie Watkins MD; No Primary Care Physician Signed Normal [facility] CBC W/Diff, Automatedon 12- Absolute Lymph 1.08 X10 3/uL Normal 0.83-4.51 [facility] Comment on above: Performed By: #### L 500.4050, L100.0100 #### [facility] [address] [place], [address] Absolute Neut 2.7 X10 3/uL Normal 2.0-7.7 [facility] Comment on above: Performed By: #### L 500.4050, L100.0100 #### [facility] [address] [place], [address] Basophils/100 WBC (Bld) 0.5 % Normal 0-1 [facility] Comment on above: Performed By: #### L 500.4050, L100.0100 #### [facility] [address] [place], [address] Eosinophils/100 WBC (Bld) 1.1 % Normal 0-5 [facility] Comment on above: Performed By: #### L 500.4050, L100.0100 #### [facility] [address] [place], [address] Erythrocyte distribution width (RBC) [Ratio] 13.3 % Normal 11.6-14.6 [facility] Comment on above: Performed By: #### L 500.4050, L100.0100 #### [facility] [address] [place], [address] Hematocrit (Bld) [Volume fraction] 39.1 % Low 40-54 [facility] Comment on above: Performed By: #### L 500.4050, L100.0100 #### [facility] [address] [place], [address] Hemoglobin (Bld) [Mass/Vol] 12.4 g/dL Low 13.0-16.5 [facility] Comment on above: Performed By: #### L 500.4050, L100.0100 #### [facility] [address] [place], [address] IG% 0.200 Normal 0.0-0.9 [facility] Comment on above: Result Comment: IG% - Immature Granulocytes (promyelocytes, myelocytes and metamyelocytes) > 1% indicates that a LEFT SHIFT is Present. Performed By: #### L 500.4050, L100.0100 #### [facility] [address] [place], [address] Lymphocytes/100 WBC (Bld) 24.7 % Normal 19-41 [facility] Comment on above: Performed By: #### L 500.4050, L100.0100 #### [facility] [address] [place], [address] MCH (RBC) [Entitic mass] 29.2 pg Normal 27.0-32.0 [facility] Comment on above: Performed By: #### L 500.4050, L100.0100 #### [facility] [address] [place], [address] MCHC (RBC) [Mass/Vol] 31.7 g/dL Low 32-36 [facility] Comment on above: Performed By: #### L 500.4050, L100.0100 #### [facility] [address] [place], [address] MCV (RBC) [Entitic vol] 92.0 fL Normal 80-94 [facility] Comment on above: Performed By: #### L 500.4050, L100.0100 #### [facility] [address] [place], [address] Monocytes/100 WBC (Bld) 11.6 % High 0-10 [facility] Comment on above: Performed By: #### L 500.4050, L100.0100 #### [facility] [address] [place], [address] Neutrophils/100 WBC (Bld) 61.9 % Normal 47-70 [facility] Comment on above: Performed By: #### L 500.4050, L100.0100 #### [facility] [address] [place], [address] Nucleated RBC (Bld) [#/Vol] 0 10*3/uL Normal 0-5 [facility] Comment on above: Performed By: #### L 500.4050, L100.0100 #### [facility] [address] [place], [address] Platelet mean volume (Bld) [Entitic vol] 10.6 fL Normal 6.2-12.0 [facility] Comment on above: Performed By: #### L 500.4050, L100.0100 #### [facility] [address] [place], [address] Platelets (Bld) [#/Vol] 186 10*3/uL Normal 150-450 [facility] Comment on above: Performed By: #### L 500.4050, L100.0100 #### [facility] [address] [place], [address] RBC (Bld) [#/Vol] 4.25 10*6/uL Low 4.6-6.2 [facility] Comment on above: Performed By: #### L 500.4050, L100.0100 #### [facility] [address] [place], [address] RDW SD 45.3 fl High 35.1-43.9 [facility] Comment on above: Performed By: #### L 500.4050, L100.0100 #### [facility] [address] [place], [address] WBC (Bld) [#/Vol] 4.4 10*3/uL Normal 4.4-11.0 [facility] Comment on above: Performed By: #### L 500.4050, L100.0100 #### [facility] [address] [place], [address] Comprehensive Metabolic Prof ilon 04-18-2023 Albumin [Mass/Vol] 2.9 g/dL Low 3.2-5.0 [facility] Comment on above: Performed By: #### L 500.4050, L100.0100 #### [facility] [address] [place], [address] Albumin/Globulin [Mass ratio] 1.2 {ratio} Normal 0.9-2.4 [facility] Comment on above: Performed By: #### L 500.4050, L100.0100 #### [facility] [address] [place], [address] ALK P 226 U/L High 45-117 [facility] Comment on above: Performed By: #### L 500.4050, L100.0100 #### [facility] [address] [place], [address] ALT [Catalytic activity/Vol] 297 U/L High 16-61 [facility] Comment on above: Performed By: #### L 500.4050, L100.0100 #### [facility] [address] [place], [address] AST [Catalytic activity/Vol] 85 U/L High 15-37 [facility] Comment on above: Performed By: #### L 500.4050, L100.0100 #### [facility] [address] [place], [address] Bilirubin [Mass/Vol] 4.30 mg/dL High 0.20-1.00 [facility] Comment on above: Result Comment: For patients on eltrombopag therapy, use of Dimension [place] TBIL is not recommended. Performed By: #### L 500.4050, L100.0100 #### [facility] [address] [place], [address] BUN/CRE 7.4 RATIO Low 10-20 [facility] Comment on above: Performed By: #### L 500.4050, L100.0100 #### [facility] [address] [place], [address] CA,Total 8.1 mg/dL Low 8.5-10.1 [facility] Comment on above: Performed By: #### L 500.4050, L100.0100 #### [facility] [address] [place], [address] Chloride [Moles/Vol] 110 mmol/L High 98-107 [facility] Comment on above: Performed By: #### L 500.4050, L100.0100 #### [facility] [address] [place], [address] CO2 [Moles/Vol] 25.0 mmol/L Normal 21.0-32.0 [facility] Comment on above: Performed By: #### L 500.4050, L100.0100 #### [facility] [address] [place], [address] Creatinine [Mass/Vol] 0.94 mg/dL Normal 0.70-1.30 [facility] Comment on above: Result Comment: The validity of the calculated GFR GFRAA in patients over 70 years has not been determined. Clinical correlation is essential. Performed By: #### L 500.4050, L100.0100 #### [facility] [address] [place], [address] ECRCL 134.66 ml/min Normal [facility] Comment on above: Performed By: #### L 500.4050, L100.0100 #### [facility] [address] [place], [address] EST GFR - AA 117 mL/min Normal >60 [facility] Comment on above: Result Comment: Afri can Belarusian GFR Calc Performed By: #### L 500.4050, L100.0100 #### [facility] [address] [place], [address] GAP 4 Low 5-15 [facility] Comment on above: Performed By: #### L 500.4050, L100.0100 #### [facility] [address] [place], [address] GFR/1.73 sq M.predicted among non-blacks MDRD (S/P/Bld) [Vol rate/Area] 97 mL/min/{1.73_m2} Normal >60 [facility] Comment on above: Result Comment: Non- GFR Calc Performed By: #### L 500.4050, L100.0100 #### [facility] [address] [place], [address] Globulin (S) [Mass/Vol] 2.5 g/dL Normal 2.2-4.2 [facility] Comment on above: Performed By: #### L 500.4050, L100.0100 #### [facility] [address] [place], [address] Glucose [Mass/Vol] 85 mg/dL Normal 74-106 [facility] Comment on above: Performed By: #### L 500.4050, L100.0100 #### [facility] [address] [place], [address] Potassium [Moles/Vol] 4.2 mmol/L Normal 3.5-5.1 [facility] Comment on above: Performed By: #### L 500.4050, L100.0100 #### [facility] [address] [place], [address] Sodium [Moles/Vol] 139 mmol/L Normal 136-145 [facility] Comment on above: Performed By: #### L 500.4050, L100.0100 #### [facility] [address] [place], [address] T PROT 5.4 g/dL Low 6.4-8.2 [facility] Comment on above: Performed By: #### L 500.4050, L100.0100 #### [facility] [address] [place], [address] Urea nitrogen [Mass/Vol] 7 mg/dL Normal 7-18 [facility] Comment on above: Performed By: #### L 500.4050, L100.0100 #### [facility] [address] [place], [address] ERCP Biliary/Pancreason 12 ERCP Biliary/Pancreas [facility] Imaging Services [address] [place] [address] ERCP Biliary/Pancreas MR#: [id number] Acct: [id number] Name: ULISSES LANE Rep #: [id number] : 1985 M 37 From: Michael moncada MD PCP: Care Physician,No Primary Status: ADM IN Study: ERCP Biliary/Pancreas Date of Exam: 04/18/23 Exam# [id number] Ordering Dr: Geraldo Thompson DO [id number] STUDY: ERCP REASON FOR EXAM: Male, 37 years old. ERCP FLUOROSCOPY TIME (if supplied): ( 29 seconds ) minutes/seconds. 8.76 mGy TECHNIQUE: Fluoroscopic services provided for ERCP. COMPARISON: None. FINDINGS: Dilated Central intrahepatic biliary ducts. Biliary stent was placed. RAD/ERCP Biliary/Pancreas IMPRESSION: Biliary stent placement. Electronically Signed: Michael Palomo MD at 8:33 EST , CC: No Primary Care Physician; Geraldo Thompson DO Loss Prevention Agent: Signed Normal [facility] ERCP Reporton 04-18-2023 ERCP Report [facility] Medical Records Department [address] [place] [address] ERCP Report MR#: [id number] Acct: [id number] Name: ULISSES LANE Rep #: [id number] : 1985 37 From: Geraldo Thompson DO [...] hours 13 minutes 4 seconds Findings: The podiatric medicine professor film was normal. The esophagus was successfully [...] bile duct. Procedure Code(s): --- Professional --- 20563, Endoscopic retrograde cholangiopancreatography (ERCP); with placement of endoscopic stent into biliary or pancreatic duct, including pre- and post-dilation and guide w (more content not included)... Normal [facility] Lipaseon 04-18-2023 Lipase [Catalytic activity/Vol] U/L High 13-75 [facility] Comment on above: Result Comment: Janet latham note: LIPASE revised reference range effective 22. New Lipase methodology. Expected to produce lower values than the previous assay method. NEW Reference Range: 13 - 75 U/L Performed By: #### L 500.4050, L100.0100 #### [facility] [address] [place], [address] MR/CON.PCM.GIon 04-18-2023 MR/CON.PCM.GI [facility] Medical Records Department [address] [place] [address] Consultation - GI 04/17/23 2300 MR#: [id number] Acct: [id number] Name: ULISSES LANE Rep #: [id number] : 1985 37 From: Geraldo Friend DO PCP: Care Physician,No Primary Status:ADM IN [place] [facility] [place] [id number] HPI Consult Data Date of Consult: 04/17/23 [...] noted. I was consulted for therapeutic ERCP. [facility] Home Medications No Known/Unobtainable [No Known Home [...] 79.2 H, Lymph % (Auto) 12.5 L, [place] % (Auto) 7.0, Eos % (Auto) 0.5, [...] Protein 7.2, Albumin 3.8, Globulin 3.4, Lipase 05402 H 04/18/23 04:33: WBC 4.4, RBC 4.25 L, Hgb 12.4 L, Hct 39.1 L, MCV 92.0, MCH 29.2, MCHC 31.7 L, RDW S td Deviation 45.3 H, RDW Coeff of Valerie 13.3, Plt Count 186, MPV 10.6, Immature Gran % (Auto) 0.200, Neut % (Auto) 61.9, Lymph % (Auto) 24.7, Pendleton % (Auto) 11.6 H, Eos % (Auto) [...] 04/17/23 11:35 (more content not included)... Normal [facility] Abdomen/Pelvis W IV Cont ONL Yon 04-17-2023 Abdomen/Pelvis W IV Cont ONLY [facility] Imaging Services [address] [place] [address] Abdomen/Pelvis W IV Cont ONLY MR#: [id number] Acct: [id number] Name: ULISSES LANE Rep #: [id number] : 1985 M 37 From: Blade Bliss MD PCP: Care Physician,No Primary Status: REG ER Study: Abdomen/Pelvis W IV Cont ONLY Date of Exam: Exam# [id number] Ordering Dr: Iliana Price [id number] STUDY: CT ABDOMEN AND PELVIS WITH CONTRAST [...] Signed: Jose Bliss MD at 12:28 EST Reading Location ID and State: [address] [place] [address] , Service support , CC: [place] Rosas; No Primary Care Physician Loss Prevention Agent: Signed Normal [facility] Absolute lymphocyte countOrd ered By: Iliana Price on 04-17-2023 Lymphocytes Auto (Unsp spec) [#/Vol] 0.77 10*3/uL 0.83-4.51 [facility] Basic Metabolic Profile (BMP )on 04-17-2023 BUN/CRE 6.8 RATIO Low 10-20 [facility] Comment on above: Order Comment: SP ECIMEN IS MODERATELY ICTERIC Performed By: #### L 500.4050, L100.0100 #### [facility] [address] [place], [address] CA,Total 9.1 mg/dL Normal 8.5-10.1 [facility] Comment on above: Order Comment: SP ECIMEN IS MODERATELY ICTERIC Performed By: #### L 500.4050, L100.0100 #### [facility] [address] [place], [address] Chloride [Moles/Vol] 105 mmol/L Normal 98-107 [facility] Comment on above: Order Comment: SP ECIMEN IS MODERATELY ICTERIC Performed By: #### L 500.4050, L100.0100 #### [facility] [address] [place], [address] CO2 [Moles/Vol] 28.0 mmol/L Normal 21.0-32.0 [facility] Comment on above: Order Comment: SP ECIMEN IS MODERATELY ICTERIC Performed By: #### L 500.4050, L100.0100 #### [facility] [address] [place], [address] Creatinine [Mass/Vol] 1.03 mg/dL Normal 0.70-1.30 [facility] Comment on above: Order Comment: SP ECIMEN IS MODERATELY ICTERIC Result Comment: The validity of the calculated GFR GFRAA in patients over 70 years has not been determined. Clinical correlation is essential. Performed By: #### L 500.4050, L100.0100 #### [facility] [address] [place], [address] ECRCL 119.64 ml/min Normal [facility] Comment on above: Order Comment: SP ECIMEN IS MODERATELY ICTERIC Performed By: #### L 500.4050, L100.0100 #### [facility] [address] [place], [address] EST GFR - AA 105 mL/min Normal >60 [facility] Comment on above: Order Comment: SP ECIMEN IS MODERATELY ICTERIC Result Comment: Afri can Belarusian GFR Calc Performed By: #### L 500.4050, L100.0100 #### [facility] [address] [place], [address] GAP 3 Low 5-15 [facility] Comment on above: Order Comment: SP ECIMEN IS MODERATELY ICTERIC Performed By: #### L 500.4050, L100.0100 #### [facility] [address] [place], [address] GFR/1.73 sq M.predicted among non-blacks MDRD (S/P/Bld) [Vol rate/Area] 87 mL/min/{1.73_m2} Normal >60 [facility] Comment on above: Order Comment: SP ECIMEN IS MODERATELY ICTERIC Result Comment: Non- GFR Calc Performed By: #### L 500.4050, L100.0100 #### [facility] [address] [place], [address] Glucose [Mass/Vol] 135 mg/dL High 74-106 [facility] Comment on above: Order Comment: SP ECIMEN IS MODERATELY ICTERIC Result Comment: Fast ing Glucose result greater than or equal to 126 mg/dL suggests DIABETES MELLITUS per A.D.A. criteria. Performed By: #### L 500.4050, L100.0100 #### [facility] [address] [place], [address] Potassium [Moles/Vol] 4.1 mmol/L Normal 3.5-5.1 [facility] Comment on above: Order Comment: SP ECIMEN IS MODERATELY ICTERIC Performed By: #### L 500.4050, L100.0100 #### [facility] [address] [place], [address] Sodium [Moles/Vol] 136 mmol/L Normal 136-145 [facility] Comment on above: Order Comment: SP ECIMEN IS MODERATELY ICTERIC Performed By: #### L 500.4050, L100.0100 #### [facility] [address] [place], [address] Urea nitrogen [Mass/Vol] 7 mg/dL Normal 7-18 [facility] Comment on above: Order Comment: SP ECIMEN IS MODERATELY ICTERIC Performed By: #### L 500.4050, L100.0100 #### [facility] [address] [place], [address] Basophil percentageOrdered B y: Iliana Price on 04-17-2023 Basophils/100 WBC (Bld) 0.3 % 0-1 [facility] Bilirubin [Mass/Vol] 7.10 mg/dL 0.20-1.00 [facility] Comment on above: For patients on eltr ombopag therapy, use of Dimension [place] TBIL is not recommended. Chloride [Moles/Vol] 105 mmol/L 98-107 [facility] Eosinophils/100 WBC (Bld) 0.5 % 0-5 [facility] Glucose [Mass/Vol] 135 mg/dL 74-106 [facility] Comment on above: Fasting Glucose resu lt greater than or equal to 126 mg/dL suggests DIABETES MELLITUS per A.D.A. criteria. Neutrophils (Bld) [#/Vol] 4.9 10*3/uL 2.0-7.7 [facility] Neutrophils/100 WBC (Bld) 79.2 % 47-70 [facility] Potassium [Moles/Vol] 4.1 mmol/L 3.5-5.1 [facility] Protein [Mass/Vol] 7.2 g/dL 6.4-8.2 [facility] Sodium [Moles/Vol] 136 mmol/L 136-145 [facility] WBC (Bld) [#/Vol] 6.2 10*3/uL 4.4-11.0 [facility] Blood erythrocytes count (nu mber/volume)Ordered By: Iliana Price on 04-17-2023 RBC (Bld) [#/Vol] 4.99 10*6/uL 4.6-6.2 [facility] Blood hemoglobin measurement (mass/volume)Ordered By: Iliana Price on 04-17-2023 Hemoglobin (Bld) [Mass/Vol] 14.5 g/dL 13.0-16.5 [facility] Blood lymphocytes/100 leukoc ytesOrdered By: Iliana Price on 04-17-2023 Lymphocytes/100 WBC (Bld) 12.5 % 19-41 [facility] Blood monocytes/100 leukocyt esOrdered By: Iliana Price on 04-17-2023 Monocytes/100 WBC (Bld) 7.0 % 0-10 [facility] Blood platelet mean volumeOr dered By: Iliana Price on 04-17-2023 Platelet mean volume (Bld) [Entitic vol] 10.6 fL 6.2-12.0 [facility] CBC W/Diff, Automatedon 12--2022 Absolute Lymph 0.77 X10 3/uL Low 0.83-4.51 [facility] Comment on above: Performed By: #### L 500.4050, L100.0100 #### [facility] [address] [place], [address] Absolute Neut 4.9 X10 3/uL Normal 2.0-7.7 [facility] Comment on above: Performed By: #### L 500.4050, L100.0100 #### [facility] [address] [place], [address] Basophils/100 WBC (Bld) 0.3 % Normal 0-1 [facility] Comment on above: Performed By: #### L 500.4050, L100.0100 #### [facility] [address] [place], [address] Eosinophils/100 WBC (Bld) 0.5 % Normal 0-5 [facility] Comment on above: Performed By: #### L 500.4050, L100.0100 #### [facility] [address] [place], [address] Erythrocyte distribution width (RBC) [Ratio] 13.0 % Normal 11.6-14.6 [facility] Comment on above: Performed By: #### L 500.4050, L100.0100 #### [facility] [address] [place], [address] Hematocrit (Bld) [Volume fraction] 45.3 % Normal 40-54 [facility] Comment on above: Performed By: #### L 500.4050, L100.0100 #### [facility] [address] [place], [address] Hemoglobin (Bld) [Mass/Vol] 14.5 g/dL Normal 13.0-16.5 [facility] Comment on above: Performed By: #### L 500.4050, L100.0100 #### [facility] [address] [place], [address] IG% 0.500 Normal 0.0-0.9 [facility] Comment on above: Result Comment: IG% - Immature Granulocytes (promyelocytes, myelocytes and metamyelocytes) > 1% indicates that a LEFT SHIFT is Present. Performed By: #### L 500.4050, L100.0100 #### [facility] [address] [place], [address] Lymphocytes/100 WBC (Bld) 12.5 % Low 19-41 [facility] Comment on above: Performed By: #### L 500.4050, L100.0100 #### [facility] [address] [place], [address] MCH (RBC) [Entitic mass] 29.1 pg Normal 27.0-32.0 [facility] Comment on above: Performed By: #### L 500.4050, L100.0100 #### [facility] [address] [place], [address] MCHC (RBC) [Mass/Vol] 32.0 g/dL Normal 32-36 [facility] Comment on above: Performed By: #### L 500.4050, L100.0100 #### [facility] [address] [place], [address] MCV (RBC) [Entitic vol] 90.8 fL Normal 80-94 [facility] Comment on above: Performed By: #### L 500.4050, L100.0100 #### [facility] [address] [place], [address] Monocytes/100 WBC (Bld) 7.0 % Normal 0-10 [facility] Comment on above: Performed By: #### L 500.4050, L100.0100 #### [facility] [address] [place], [address] Neutrophils/100 WBC (Bld) 79.2 % High 47-70 [facility] Comment on above: Performed By: #### L 500.4050, L100.0100 #### [facility] [address] [place], [address] Nucleated RBC (Bld) [#/Vol] 0 10*3/uL Normal 0-5 [facility] Comment on above: Performed By: #### L 500.4050, L100.0100 #### [facility] [address] [place], [address] Platelet mean volume (Bld) [Entitic vol] 10.6 fL Normal 6.2-12.0 [facility] Comment on above: Performed By: #### L 500.4050, L100.0100 #### [facility] [address] [place], [address] Platelets (Bld) [#/Vol] 226 10*3/uL Normal 150-450 [facility] Comment on above: Performed By: #### L 500.4050, L100.0100 #### [facility] [address] [place], [address] RBC (Bld) [#/Vol] 4.99 10*6/uL Normal 4.6-6.2 [facility] Comment on above: Performed By: #### L 500.4050, L100.0100 #### [facility] [address] [place], [address] RDW SD 43.7 fl Normal 35.1-43.9 [facility] Comment on above: Performed By: #### L 500.4050, L100.0100 #### [facility] [address] [place], [address] WBC (Bld) [#/Vol] 6.2 10*3/uL Normal 4.4-11.0 [facility] Comment on above: Performed By: #### L 500.4050, L100.0100 #### [facility] [address] [place], [address] Determination of erythrocyte mean corpuscular volume (MCV)Ordered By: Iliana Price on 04-17-2023 MCV (RBC) [Entitic vol] 90.8 fL 80-94 [facility] Direct bilirubinOrdered By: Iliana Price on 04-17-2023 Bilirubin.direct [Mass/Vol] 5.05 mg/dL 0.00-0.30 [facility] Emergency Department Summary on 04-17-2023 Emergency Department Summary [facility] Medical Records Department [address] [place] [address] Emergency Department Summary 04/17/23 MR#: [id number] Acct: [id number] Name: DOMINGOULISSES VALENTINY Rep #: [id number] : 1985 37 From: Iliana OLIVIA PCP: Care Physician,No Primary Status:ADM IN Location: MS3 [id number] HPI History of Present Illness Chief Complaint: Abd [...] 79.2 H Lymph % (Auto) 12.5 L Pendleton % (Auto) 7.0 Eos % (Auto) 0.5 [...] Protein 7.2 Albumin 3.8 Globulin 3.4 Lipase 46906 H Radiography Diagnostic Testing: (more content not included)... Normal [facility] Gallbladderon 04-17-2023 Gallbladder [facility] Imaging Services [address] [place] [address] Gallbladder MR#: [id number] Acct: [id number] Name: ULISSES LANE Rep #: [id number] : 1985 M 37 From: Blade Bliss MD PCP: Care Physician,No Primary Status: ADM IN Study: Gallbladder Date of Exam: 04/17/23 Exam# [id number] Ordering Dr: Iliana Price [id number] STUDY: ABDOMINAL ULTRASOUND - RIGHT UPPER QUADRANT [...] There is a negative sonographic Salgado''s sign. Medical Billing Clerk notes no pericholecystic fluid but there was [...] CC: NE Rosas; No Primary Care Physician Loss Prevention Agent: Signed Normal [facility] Hematocrit Auto (Bld) [Volum e fraction]Ordered By: Iliana Price on 04-17-2023 Hematocrit (Bld) [Volume fraction] 45.3 % 40-54 [facility] - Chemistry and C hemistry - challengeOrdered By: Iliana Price on 04-17-2023 ALP [Catalytic activity/Vol] 271 U/L 45-117 [facility] ALT [Catalytic activity/Vol] 405 U/L 16-61 [facility] CO2 [Moles/Vol] 28.0 mmol/L 21.0-32.0 [facility] Globulin (S) [Mass/Vol] 3.4 g/dL 2.2-4.2 [facility] Lipase [Catalytic activity/Vol] 62383 U/L 13-75 [facility] Comment on above: Please note:LIPASE r evised reference range effective 22. New Lipase methodology. Expected to produce lower values than the previous assay method. NEW Reference Range: 13 - 75 U/L Urea nitrogen/Creatinine [Mass ratio] 6.8 mg/mg 10-20 [facility] - Hematology and Cell countsOrdered By: Iliana Price on 04-17-2023 Erythrocyte distribution width (RBC) [Entitic vol] 43.7 fL 35.1-43.9 [facility] Erythrocyte distribution width (RBC) [Ratio] 13.0 % 11.6-14.6 [facility] Immature granulocytes/100 WBC (Bld) 0.500 % 0.0-0.9 [facility] Comment on above: IG% - Immature Granu locytes (promyelocytes, myelocytes and metamyelocytes) > 1% indicates that a LEFT SHIFT is Present. MCH (RBC) [Entitic mass] 29.1 pg 27.0-32.0 [facility] Nucleated RBC/100 WBC (Bld) [Ratio] 0 % 0-5 [facility] Lipaseon 04-17-2023 Lipase [Catalytic activity/Vol] 99777 U/L High 13-75 [facility] Comment on above: Order Comment: SP ECIMEN IS MODERATELY ICTERIC Result Comment: Antoninaa se note: LIPASE revised reference range effective 22. New Lipase methodology. Expected to produce lower values than the previous assay method. NEW Reference Range: 13 - 75 U/L Performed By: #### L 500.4050, L100.0100 #### [facility] [address] [place], [address] Liver Profileon 04-17-2023 Albumin [Mass/Vol] 3.8 g/dL Normal 3.2-5.0 [facility] Comment on above: Performed By: #### L 500.3400 #### [facility] [address] [place], [address] ALK P 271 U/L High 45-117 [facility] Comment on above: Performed By: #### L 500.3400 #### [facility] [address] [place], [address] ALT [Catalytic activity/Vol] 405 U/L High 16-61 [facility] Comment on above: Performed By: #### L 500.3400 #### [facility] [address] [place], [address] AST [Catalytic activity/Vol] 128 U/L High 15-37 [facility] Comment on above: Performed By: #### L 500.3400 #### [facility] [address] [place], [address] Bilirubin [Mass/Vol] 7.10 mg/dL High 0.20-1.00 [facility] Comment on above: Result Comment: For patients on eltrombopag therapy, use of Dimension [place] TBIL is not recommended. Performed By: #### L 500.3400 #### [facility] [address] [place], [address] Bilirubin.direct [Mass/Vol] 5.05 mg/dL High 0.00-0.30 [facility] Comment on above: Performed By: #### L 500.3400 #### [facility] [address] [place], [address] Globulin (S) [Mass/Vol] 3.4 g/dL Normal 2.2-4.2 [facility] Comment on above: Performed By: #### L 500.3400 #### [facility] [address] [place], [address] T PROT 7.2 g/dL Normal 6.4-8.2 [facility] Comment on above: Performed By: #### L 500.3400 #### [facility] [address] [place], [address] MCHC Auto (RBC) [Mass/Vol]Or dered By: Iliana Price on 04-17-2023 MCHC (RBC) [Mass/Vol] 32.0 g/dL 32-36 [facility] No Panel InformationOrdered By: Iliana Price on 04-17-2023 Estimated Creatinine Clearance Calc 119.64 ml/min [facility] Estimated GFR (MDRD) Amer 105 mL/min >60 [facility] Comment on above: GFR Calc Estimated GFR (MDRD) Non-Af Amer 87 mL/min >60 [facility] Comment on above: Non- GFR Calc Platelets bldOrdered By: Paris Price on 04-17-2023 Platelets (Bld) [#/Vol] 226 10*3/uL 150-450 [facility] Serum or plasma albumin armani urement (mass/volume)Ordered By: Iliana Price on 04-17-2023 Albumin [Mass/Vol] 3.8 g/dL 3.2-5.0 [facility] Serum or plasma calcium armani urement (mass/volume)Ordered By: Iliana Price on 04-17-2023 Calcium [Mass/Vol] 9.1 mg/dL 8.5-10.1 [facility] Serum or plasma creatinine m easurement (mass/volume)Ordered By: Iliana Price on 04-17-2023 Creatinine [Mass/Vol] 1.03 mg/dL 0.70-1.30 [facility] Comment on above: The validity of the calculated GFR & GFRAA in patients over 70 years has not been determined. Clinical correlation is essential. Serum or plasma urea nitroge n measurement (mass/volume)Ordered By: Iliana Price on 04-17-2023 Urea nitrogen [Mass/Vol] 7 mg/dL 7-18 [facility] Thin prep Papanicolaou smear with manual screeningOrdered By: Iliana Price on 04-17-2023 Thin prep Papanicolaou smear with manual screening 128 U/L 15-37 [facility] Thin prep Papanicolaou smear with manual screening 3 5-15 [facility] Absolute lymphocyte countOrd ered By: Rickey Nair on 04-11-2023 Lymphocytes Auto (Unsp spec) [#/Vol] 0.84 10*3/uL 0.83-4.51 [facility] Basophil percentageOrdered B y: Rickey Nair on 04-11-2023 Basophils/100 WBC (Bld) 0.5 % 0-1 [facility] Bilirubin [Mass/Vol] 2.40 mg/dL 0.20-1.00 [facility] Comment on above: For patients on eltr ombopag therapy, use of Dimension [place] TBIL is not recommended. Chloride [Moles/Vol] 106 mmol/L 98-107 [facility] Eosinophils/100 WBC (Bld) 0.8 % 0-5 [facility] Glucose [Mass/Vol] 100 mg/dL 74-106 [facility] Comment on above: Fasting Glucose resu lt from 100 to 125 mg/dL suggests IMPAIRED HOMEOSTASIS per A.D.A. criteria. Neutrophils (Bld) [#/Vol] 2.7 10*3/uL 2.0-7.7 [facility] Neutrophils/100 WBC (Bld) 69.5 % 47-70 [facility] Potassium [Moles/Vol] 4.2 mmol/L 3.5-5.1 [facility] Protein [Mass/Vol] 7.2 g/dL 6.4-8.2 [facility] Sodium [Moles/Vol] 139 mmol/L 136-145 [facility] WBC (Bld) [#/Vol] 3.9 10*3/uL 4.4-11.0 [facility] Blood erythrocytes count (nu mber/volume)Ordered By: Rickey Nair on 04-11-2023 RBC (Bld) [#/Vol] 5.06 10*6/uL 4.6-6.2 [facility] Blood hemoglobin measurement (mass/volume)Ordered By: Rickey Nair on 04-11-2023 Hemoglobin (Bld) [Mass/Vol] 15.0 g/dL 13.0-16.5 [facility] Blood lymphocytes/100 leukoc ytesOrdered By: Rickey Nair on 04-11-2023 Lymphocytes/100 WBC (Bld) 21.5 % 19-41 [facility] Blood monocytes/100 leukocyt esOrdered By: Rickey Nair on 04-11-2023 Monocytes/100 WBC (Bld) 7.4 % 0-10 [facility] Blood platelet mean volumeOr dered By: Rickey Nair on 04-11-2023 Platelet mean volume (Bld) [Entitic vol] 10.9 fL 6.2-12.0 [facility] CBC W/Diff, Automatedon Absolute Lymph 0.84 X10 3/uL Normal 0.83-4.51 [facility] Comment on above: Performed By: #### L 500.4050, L100.0100 #### [facility] [place], [address] Absolute Neut 2.7 X10 3/uL Normal 2.0-7.7 [facility] Comment on above: Performed By: #### L 500.4050, L100.0100 #### [facility] [address] [place], [address] Basophils/100 WBC (Bld) 0.5 % Normal 0-1 [facility] Comment on above: Performed By: #### L 500.4050, L100.0100 #### [facility] [address] [place], [address] Eosinophils/100 WBC (Bld) 0.8 % Normal 0-5 [facility] Comment on above: Performed By: #### L 500.4050, L100.0100 #### [facility] [address] [place], [address] Erythrocyte distribution width (RBC) [Ratio] 12.8 % Normal 11.6-14.6 [facility] Comment on above: Performed By: #### L 500.4050, L100.0100 #### [facility] [address] [place], [address] Hematocrit (Bld) [Volume fraction] 45.2 % Normal 40-54 [facility] Comment on above: Performed By: #### L 500.4050, L100.0100 #### [facility] [address] [place], [address] Hemoglobin (Bld) [Mass/Vol] 15.0 g/dL Normal 13.0-16.5 [facility] Comment on above: Performed By: #### L 500.4050, L100.0100 #### [facility] [address] [place], [address] IG% 0.300 Normal 0.0-0.9 [facility] Comment on above: Result Comment: IG% - Immature Granulocytes (promyelocytes, myelocytes and metamyelocytes) > 1% indicates that a LEFT SHIFT is Present. Performed By: #### L 500.4050, L100.0100 #### [facility] [address] [place], [address] Lymphocytes/100 WBC (Bld) 21.5 % Normal 19-41 [facility] Comment on above: Performed By: #### L 500.4050, L100.0100 #### [facility] [address] [place], [address] MCH (RBC) [Entitic mass] 29.6 pg Normal 27.0-32.0 [facility] Comment on above: Performed By: #### L 500.4050, L100.0100 #### [facility] [address] [place], [address] MCHC (RBC) [Mass/Vol] 33.2 g/dL Normal 32-36 [facility] Comment on above: Performed By: #### L 500.4050, L100.0100 #### [facility] [address] [place], [address] MCV (RBC) [Entitic vol] 89.3 fL Normal 80-94 [facility] Comment on above: Performed By: #### L 500.4050, L100.0100 #### [facility] [address] [place], [address] Monocytes/100 WBC (Bld) 7.4 % Normal 0-10 [facility] Comment on above: Performed By: #### L 500.4050, L100.0100 #### [facility] [address] [place], [address] Neutrophils/100 WBC (Bld) 69.5 % Normal 47-70 [facility] Comment on above: Performed By: #### L 500.4050, L100.0100 #### [facility] [address] [place], [address] Nucleated RBC (Bld) [#/Vol] 0 10*3/uL Normal 0-5 [facility] Comment on above: Performed By: #### L 500.4050, L100.0100 #### [facility] [address] [place], [address] Platelet mean volume (Bld) [Entitic vol] 10.9 fL Normal 6.2-12.0 [facility] Comment on above: Performed By: #### L 500.4050, L100.0100 #### [facility] [address] [place], [address] Platelets (Bld) [#/Vol] 209 10*3/uL Normal 150-450 [facility] Comment on above: Performed By: #### L 500.4050, L100.0100 #### [facility] [address] [place], [address] RBC (Bld) [#/Vol] 5.06 10*6/uL Normal 4.6-6.2 [facility] Comment on above: Performed By: #### L 500.4050, L100.0100 #### [facility] [address] [place], [address] RDW SD 42.1 fl Normal 35.1-43.9 [facility] Comment on above: Performed By: #### L 500.4050, L100.0100 #### [facility] [address] [place], [address] WBC (Bld) [#/Vol] 3.9 10*3/uL Low 4.4-11.0 [facility] Comment on above: Performed By: #### L 500.4050, L100.0100 #### [facility] [address] [place], [address] Chest PA and Lateralon 04-11 Chest PA and Lateral [facility] Imaging Services [address] [place] [address] Chest PA and Lateral MR#: [id number] Acct: [id number] Name: ULISSES LANE Rep #: [id number] : 1985 M 37 From: Michael moncada MD PCP: Care Physician,No Primary Status: REG ER Study: Chest PA and Lateral Date of Exam: 04/11/23 Exam# [id number] Ordering Dr: Rickey Nair DO [id number] STUDY: X-RAY CHEST REASON FOR EXAM: Male, [...] at 12:08 EST , CC: Dr. Rickey Nair DO; No Primary Care Physician Loss Prevention Agent: Signed Normal [facility] Comprehensive Metabolic Prof ilon 04-11-2023 Albumin [Mass/Vol] 3.9 g/dL Normal 3.2-5.0 [facility] Comment on above: Order Comment: 'TROP ' Serial specimen #1, #2 or #3: 1 Performed By: #### L 500.4050, L100.0100 #### [facility] [address] [place], [address] Albumin/Globulin [Mass ratio] 1.2 {ratio} Normal 0.9-2.4 [facility] Comment on above: Order Comment: 'TROP ' Serial specimen #1, #2 or #3: 1 Performed By: #### L 500.4050, L100.0100 #### [facility] [address] [place], [address] ALK P 184 U/L High 45-117 [facility] Comment on above: Order Comment: 'TROP ' Serial specimen #1, #2 or #3: 1 Performed By: #### L 500.4050, L100.0100 #### [facility] [address] [place], [address] ALT [Catalytic activity/Vol] 476 U/L High 16-61 [facility] Comment on above: Order Comment: 'TROP ' Serial specimen #1, #2 or #3: 1 Performed By: #### L 500.4050, L100.0100 #### [facility] [address] [place], [address] AST [Catalytic activity/Vol] 123 U/L High 15-37 [facility] Comment on above: Order Comment: 'TROP ' Serial specimen #1, #2 or #3: 1 Performed By: #### L 500.4050, L100.0100 #### [facility] [address] [place], [address] Bilirubin [Mass/Vol] 2.40 mg/dL High 0.20-1.00 [facility] Comment on above: Order Comment: 'TROP ' Serial specimen #1, #2 or #3: 1 Result Comment: For patients on eltrombopag therapy, use of Dimension [place] TBIL is not recommended. Performed By: #### L 500.4050, L100.0100 #### [facility] [address] [place], [address] BUN/CRE 11.4 RATIO Normal 10-20 [facility] Comment on above: Order Comment: 'TROP ' Serial specimen #1, #2 or #3: 1 Performed By: #### L 500.4050, L100.0100 #### [facility] [address] [place], [address] CA,Total 9.2 mg/dL Normal 8.5-10.1 [facility] Comment on above: Order Comment: 'TROP ' Serial specimen #1, #2 or #3: 1 Performed By: #### L 500.4050, L100.0100 #### [facility] [address] [place], [address] Chloride [Moles/Vol] 106 mmol/L Normal 98-107 [facility] Comment on above: Order Comment: 'TROP ' Serial specimen #1, #2 or #3: 1 Performed By: #### L 500.4050, L100.0100 #### [facility] [address] [place], [address] CO2 [Moles/Vol] 27.0 mmol/L Normal 21.0-32.0 [facility] Comment on above: Order Comment: 'TROP ' Serial specimen #1, #2 or #3: 1 Performed By: #### L 500.4050, L100.0100 #### [facility] [address] [place], [address] Creatinine [Mass/Vol] 1.05 mg/dL Normal 0.70-1.30 [facility] Comment on above: Order Comment: 'TROP ' Serial specimen #1, #2 or #3: 1 Result Comment: The validity of the calculated GFR GFRAA in patients over 70 years has not been determined. Clinical correlation is essential. Performed By: #### L 500.4050, L100.0100 #### [facility] [address] [place], [address] ECRCL 117.36 ml/min Normal [facility] Comment on above: Order Comment: 'TROP ' Serial specimen #1, #2 or #3: 1 Performed By: #### L 500.4050, L100.0100 #### [facility] [address] [place], [address] EST GFR - AA 103 mL/min Normal >60 [facility] Comment on above: Order Comment: 'TROP ' Serial specimen #1, #2 or #3: 1 Result Comment: Afri can [place] GFR Calc Performed By: #### L 500.4050, L100.0100 #### [facility] [address] [place], [address] GAP 6 Normal 5-15 [facility] Comment on above: Order Comment: 'TROP ' Serial specimen #1, #2 or #3: 1 Performed By: #### L 500.4050, L100.0100 #### [facility] [address] [place], [address] GFR/1.73 sq M.predicted among non-blacks MDRD (S/P/Bld) [Vol rate/Area] 85 mL/min/{1.73_m2} Normal >60 [facility] Comment on above: Order Comment: 'TROP ' Serial specimen #1, #2 or #3: 1 Result Comment: Non- GFR Calc Performed By: #### L 500.4050, L100.0100 #### [facility] [address] [place], [address] Globulin (S) [Mass/Vol] 3.3 g/dL Normal 2.2-4.2 [facility] Comment on above: Order Comment: 'TROP ' Serial specimen #1, #2 or #3: 1 Performed By: #### L 500.4050, L100.0100 #### [facility] [address] [place], [address] Glucose [Mass/Vol] 100 mg/dL Normal 74-106 [facility] Comment on above: Order Comment: 'TROP ' Serial specimen #1, #2 or #3: 1 Result Comment: Fast ing Glucose result from 100 to 125 mg/dL suggests IMPAIRED HOMEOSTASIS per A.D.A. criteria. Performed By: #### L 500.4050, L100.0100 #### [facility] [address] [place], [address] Potassium [Moles/Vol] 4.2 mmol/L Normal 3.5-5.1 [facility] Comment on above: Order Comment: 'TROP ' Serial specimen #1, #2 or #3: 1 Performed By: #### L 500.4050, L100.0100 #### [facility] [address] [place], [address] Sodium [Moles/Vol] 139 mmol/L Normal 136-145 [facility] Comment on above: Order Comment: 'TROP ' Serial specimen #1, #2 or #3: 1 Performed By: #### L 500.4050, L100.0100 #### [facility] [address] [place], [address] T PROT 7.2 g/dL Normal 6.4-8.2 [facility] Comment on above: Order Comment: 'TROP ' Serial specimen #1, #2 or #3: 1 Performed By: #### L 500.4050, L100.0100 #### [facility] [address] [place], [address] Urea nitrogen [Mass/Vol] 12 mg/dL Normal 7-18 [facility] Comment on above: Order Comment: 'TROP ' Serial specimen #1, #2 or #3: 1 Performed By: #### L 500.4050, L100.0100 #### [facility] [address] [place], [address] Determination of erythrocyte mean corpuscular volume (MCV)Ordered By: Rickey Nair on 04-11-2023 MCV (RBC) [Entitic vol] 89.3 fL 80-94 [facility] Emergency Department Summary on 04-11-2023 Emergency Department Summary [facility] Records Department [address] [place] [address] Emergency Department Summary 04/11/23 MR#: [id number] Acct: [id number] Name: ULISSES LANE Rep #: [id number] : 1985 37 From: Rickey Nair DO [...] within no (more content not included)... Normal [facility] Gallbladderon 04-11-2023 Gallbladder [facility] Imaging Services [address] [place] [address] Gallbladder MR#: [id number] Acct: [id number] Name: ULISSES L[address] Rep #: [id number] : 1985 M 37 From: Michael moncada MD PCP: Care Physician,No Primary Status: REG ER Study: Gallbladder Date of Exam: 04/11/23 Exam# [id number] Ordering Dr: Rickey Nair DO [id number] STUDY: ABDOMINAL ULTRASOUND - RIGHT UPPER QUADRANT [...] Signed: Michael Palomo MD at 14:06 EST Reading Location ID and State: [address] [place] [address] , Service support , CC: Dr. Rickey Nair, DO; No Primary Care Physician Loss Prevention Agent: Signed Normal [facility] Hematocrit Auto (Bld) [Volum e fraction]Ordered By: Rickey Nair on 04-11-2023 Hematocrit (Bld) [Volume fraction] 45.2 % 40-54 [facility] Influenza virus A and B and SARS-CoV-2 (COVID-19) Ag panel - Upper respiratory specimOrdered By: Rickey Nair on 04-11-2023 SARS-CoV-2 (COVID-19) RNA KERRIE+probe Ql (Resp) [facility] L501.4020on 04-11-2023 TROPONIN-I HS 6 pg/mL Normal 3.0-78.0 [facility] Comment on above: Order Comment: 'TROP ' Serial specimen #1, #2 or #3: 1 Result Comment: Plea se Note: New Test Units and Gender Specific Reference Ranges. For more information see Policy Stat Procedure [place] High Sensitivity Troponin (TNIH) and attachments. Performed By: #### L 500.4050, L100.0100 #### [facility] [address] [place], [address] Laboratory - Chemistry and C hemistry - challengeOrdered By: Rickey Nair on 04-11-2023 ALP [Catalytic activity/Vol] 184 U/L 45-117 [facility] ALT [Catalytic activity/Vol] 476 U/L 16-61 [facility] CO2 [Moles/Vol] 27.0 mmol/L 21.0-32.0 [facility] Globulin (S) [Mass/Vol] 3.3 g/dL 2.2-4.2 [facility] Lipase [Catalytic activity/Vol] 54 U/L 13- [facility] Comment on above: Please note:LIPASE r evised reference range effective 22. New Lipase methodology. Expected to produce lower values than the previous assay method. NEW Reference Range: 13 - 75 U/L Urea nitrogen/Creatinine [Mass ratio] 11.4 mg/mg 10-20 [facility] - Hematology and Cell countsOrdered By: Rikcey Nair on 04-11-2023 Erythrocyte distribution width (RBC) [Entitic vol] 42.1 fL 35.1-43.9 [facility] Erythrocyte distribution width (RBC) [Ratio] 12.8 % 11.6-14.6 [facility] Immature granulocytes/100 WBC (Bld) 0.300 % 0.0-0.9 [facility] Comment on above: IG% - Immature Granu locytes (promyelocytes, myelocytes and metamyelocytes) > 1% indicates that a LEFT SHIFT is Present. MCH (RBC) [Entitic mass] 29.6 pg 27.0-32.0 [facility] Nucleated RBC/100 WBC (Bld) [Ratio] 0 % 0-5 [facility] Lipaseon 04-11-2023 Lipase [Catalytic activity/Vol] 54 U/L Normal - [facility] Comment on above: Order Comment: 'TROP ' Serial specimen #1, #2 or #3: 1 Result Comment: Janet latham note: LIPASE revised reference range effective 22. New Lipase methodology. Expected to produce lower values than the previous assay method. NEW Reference Range: 13 - 75 U/L Performed By: #### L 500.4050, L100.0100 #### [facility] [address] [place], [address] M101.0111on 04-11-2023 M101.0111 *Negative results fr om [...] for Influenza A/B Antigen (See Note) Normal [facility] Comment on above: Performed By: #### L 400.0001 #### [facility] [address] [place], [address] MCHC Auto (RBC) [Mass/Vol]Or dered By: Rickey Nair on 04-11-2023 MCHC (RBC) [Mass/Vol] 33.2 g/dL 32-36 [facility] No Panel InformationOrdered By: Rickey Nair on 04-11-2023 Estimated Creatinine Clearance Calc 117.36 ml/min [facility] Estimated GFR (MDRD) Amer 103 mL/min >60 [facility] Comment on above: GFR Calc Estimated GFR (MDRD) Non-Af Amer 85 mL/min >60 [facility] Comment on above: Non- GFR Calc Troponin I High Sensitivity 6 pg/mL 3.0-78.0 [facility] Comment on above: Please Note: New [place] t Units and Gender Specific Reference Ranges. For more information see Policy Stat Procedure [place] High Sensitivity Troponin (TNIH) and attachments. Platelets bldOrdered By: Angela Nair on 04-11-2023 Platelets (Bld) [#/Vol] 209 10*3/uL 150-450 [facility] Serum or plasma albumin armani urement (mass/volume)Ordered By: Rickey Nair on 04-11-2023 Albumin [Mass/Vol] 3.9 g/dL 3.2-5.0 [facility] Serum or plasma albumin/glob ulin mass ratioOrdered By: Rickey Nair on 04-11-2023 Albumin/Globulin [Mass ratio] 1.2 {ratio} 0.9-2.4 [facility] Serum or plasma calcium armani urement (mass/volume)Ordered By: Rickey Nair on 04-11-2023 Calcium [Mass/Vol] 9.2 mg/dL 8.5-10.1 [facility] Serum or plasma creatinine m easurement (mass/volume)Ordered By: Rickey Niar on 04-11-2023 Creatinine [Mass/Vol] 1.05 mg/dL 0.70-1.30 [facility] Comment on above: The validity of the calculated GFR & GFRAA in patients over 70 years has not been determined. Clinical correlation is essential. Serum or plasma urea nitroge n measurement (mass/volume)Ordered By: Rickey Nair on 04-11-2023 Urea nitrogen [Mass/Vol] 12 mg/dL 7-18 [facility] Thin prep Papanicolaou smear with manual screeningOrdered By: Rickey Nair on 04-11-2023 Thin prep Papanicolaou smear with manual screening 123 U/L 15-37 [facility] Thin prep Papanicolaou smear with manual screening 6 5-15 [facility] Upper respiratory specimen i nfluenza A virus, influenza B virus, and severe acute resOrdered By: Rickey Nair on 04-11-2023 Upper respiratory specimen influenza A virus, influenza B virus, and severe acute res [facility] Vital Signs Date Time Vital Sign Value Performing Clinician Facility 12-27-2024 06:15-0400 Body temperature 98.9 [degF] Dr. Benson Desai DO Work Phone: [facility] 12-27-2024 06:15-0400 Diastolic blood pressure 79 mm[Hg] Dr. Benson Desai DO Work Phone: [facility] 12-27-2024 06:15-0400 Heart rate 88 /min Dr. Benson Desai DO Work Phone: [facility] 12-27-2024 06:15-0400 Respiratory rate 18 /min Dr. Benson Desai DO Work Phone: [facility] 12-27-2024 06:15-0400 SaO2% (BldA) [Mass fraction] 99 % Dr. Benson Desai DO Work Phone: [facility] 12-27-2024 06:15-0400 Systolic blood pressure 130 mm[Hg] Dr. Benson Desai DO Work Phone: [facility] 12-27-2024 04:52-0400 Body height 190.[address] Benson Desai DO Work Phone: [facility] 12-27-2024 04:52-0400 Body mass index (BMI) [Ratio] 30.7 kg/m2 Dr. Benson Desai DO Work Phone: [facility] 12-27-2024 04:52-0400 Body weight 111.[address] Benson Desai DO Work Phone: [facility] 12-25-2024 13:32-0400 Body temperature 100.1 [degF] Dr. Benson Desai DO Work Phone: [facility] 12-25-2024 13:32-0400 Diastolic blood pressure 56 mm[Hg] Dr. Benson Desai DO Work Phone: [facility] 12-25-2024 13:32-0400 Heart rate 92 /min Dr. Benson Desai DO Work Phone: [facility] 12-25-2024 13:32-0400 Respiratory rate 18 /min Dr. Benson Desai DO Work Phone: [facility] 12-25-2024 13:32-0400 SaO2% (BldA) [Mass fraction] 100 % Dr. Benson Desai DO Work Phone: [facility] 12-25-2024 13:32-0400 Systolic blood pressure 115 mm[Hg] Dr. Benson Desai DO Work Phone: [facility] 12-25-2024 10:30-0400 Body height 190.[address] Benson Desai DO Work Phone: [facility] 12-25-2024 10:30-0400 Body mass index (BMI) [Ratio] 31.1 kg/m2 Dr. Benson Desai DO Work Phone: [facility] 12-25-2024 10:30-0400 Body weight 112.[address] Benson Desai DO Work Phone: [facility] 07-13-2023 13:28-0500 Body temperature 97.5 [degF] No Primary Care Physician [facility] 07-13-2023 13:28-0500 Diastolic blood pressure 82 mm[Hg] No Primary Care Physician [facility] 07-13-2023 13:28-0500 Heart rate 52 /min No Primary Care Physician [facility] 07-13-2023 13:28-0500 Respiratory rate 16 /min No Primary Care Physician [facility] 07-13-2023 13:28-0500 SaO2% (BldA) [Mass fraction] 100 % No Primary Care Physician [facility] 07-13-2023 13:28-0500 Systolic blood pressure 118 mm[Hg] No Primary Care Physician [facility] 07-13-2023 11:06-0500 Body height 190.5 cm No Primary Care Physician [facility] 07-13-2023 11:06-0500 Body mass index (BMI) [Ratio] 29.1 kg/m2 No Primary Care Physician [facility] 07-13-2023 11:06-0500 Body weight 105.68 kg No Primary Care Physician [facility] 06-24-2023 13:29-0500 Body mass index (BMI) [Ratio] 29.5 kg/m2 No Primary Care Physician [facility] 06-24-2023 13:29-0500 Body temperature 98.8 [degF] No Primary Care Physician [facility] 06-24-2023 13:29-0500 Body weight 107.04 kg No Primary Care Physician [facility] 06-24-2023 13:29-0500 Diastolic blood pressure 66 mm[Hg] No Primary Care Physician [facility] 06-24-2023 13:29-0500 Heart rate 85 /min No Primary Care Physician [facility] 06-24-2023 13:29-0500 Respiratory rate 16 /min No Primary Care Physician [facility] 06-24-2023 13:29-0500 SaO2% (BldA) [Mass fraction] 99 % No Primary Care Physician [facility] 06-24-2023 13:29-0500 Systolic blood pressure 132 mm[Hg] No Primary Care Physician [facility] 05-24-2023 11:23-0500 Body mass index (BMI) [Ratio] 28.9 kg/m2 No Primary Care Physician [facility] 05-24-2023 11:23-0500 Body temperature 98.5 [degF] No Primary Care Physician [facility] 05-24-2023 11:23-0500 Body weight 104.89 kg No Primary Care Physician [facility] 05-24-2023 11:23-0500 Diastolic blood pressure 82 mm[Hg] No Primary Care Physician [facility] 05-24-2023 11:23-0500 Heart rate 75 /min No Primary Care Physician [facility] 05-24-2023 11:23-0500 Respiratory rate 16 /min No Primary Care Physician [facility] 05-24-2023 11:23-0500 SaO2% (BldA) [Mass fraction] 99 % No Primary Care Physician [facility] 05-24-2023 11:23-0500 Systolic blood pressure 122 mm[Hg] No Primary Care Physician [facility] 05-19-2023 23:49-0500 Diastolic blood pressure 71 mm[Hg] No Primary Care Physician [facility] 05-19-2023 23:49-0500 Heart rate 69 /min No Primary Care Physician [facility] 05-19-2023 23:49-0500 Respiratory rate 17 /min No Primary Care Physician [facility] 05-19-2023 23:49-0500 SaO2% (BldA) [Mass fraction] 98 % No Primary Care Physician [facility] 05-19-2023 23:49-0500 Systolic blood pressure 132 mm[Hg] No Primary Care Physician [facility] 05-19-2023 20:54-0500 Body mass index (BMI) [Ratio] 26.6 kg/m2 No Primary Care Physician [facility] 05-19-2023 20:54-0500 Body temperature 98.4 [degF] No Primary Care Physician [facility] 05-19-2023 20:54-0500 Body weight 96.61 kg No Primary Care Physician [facility] 05-11-2023 13:33-0500 Body height 193.04 cm No Primary Care Physician [facility] 05-11-2023 13:33-0500 Body mass index (BMI) [Ratio] 28.8 kg/m2 No Primary Care Physician [facility] 05-11-2023 13:33-0500 Body temperature 97 [degF] No Primary Care Physician [facility] 05-11-2023 13:33-0500 Body weight 107.5 kg No Primary Care Physician [facility] 05-11-2023 13:33-0500 Diastolic blood pressure 72 mm[Hg] No Primary Care Physician [facility] 05-11-2023 13:33-0500 Heart rate 80 /min No Primary Care Physician [facility] 05-11-2023 13:33-0500 Respiratory rate 14 /min No Primary Care Physician [facility] 05-11-2023 13:33-0500 SaO2% (BldA) [Mass fraction] 98 % No Primary Care Physician [facility] 05-11-2023 13:33-0500 Systolic blood pressure 132 mm[Hg] No Primary Care Physician [facility] 04-19-2023 18:23-0500 Body temperature 97.2 [degF] No Primary Care Physician [facility] 04-19-2023 18:23-0500 Diastolic blood pressure 86 mm[Hg] No Primary Care Physician [facility] 04-19-2023 18:23-0500 Heart rate 83 /min No Primary Care Physician [facility] 04-19-2023 18:23-0500 Respiratory rate 18 /min No Primary Care Physician [facility] 04-19-2023 18:23-0500 SaO2% (BldA) [Mass fraction] 99 % No Primary Care Physician [facility] 04-19-2023 18:23-0500 Systolic blood pressure 130 mm[Hg] No Primary Care Physician [facility] 04-18-2023 23:57-0500 Body mass index (BMI) [Ratio] 26.7 kg/m2 No Primary Care Physician [facility] 04-18-2023 23:57-0500 Body weight 99.79 kg No Primary Care Physician [facility] 04-17-2023 15:11-0500 Body temperature 98.3 [degF] No Primary Care Physician [facility] 04-17-2023 15:11-0500 Diastolic blood pressure 76 mm[Hg] No Primary Care Physician [facility] 04-17-2023 15:11-0500 Heart rate 80 /min No Primary Care Physician [facility] 04-17-2023 15:11-0500 Respiratory rate 18 /min No Primary Care Physician [facility] 04-17-2023 15:11-0500 SaO2% (BldA) [Mass fraction] 100 % No Primary Care Physician [facility] 04-17-2023 15:11-0500 Systolic blood pressure 132 mm[Hg] No Primary Care Physician [facility] 04-17-2023 11:18-0500 Body height 190.5 cm No Primary Care Physician [facility] 04-17-2023 11:18-0500 Body mass index (BMI) [Ratio] 28.9 kg/m2 No Primary Care Physician [facility] 04-17-2023 11:18-0500 Body weight 104.87 kg No Primary Care Physician [facility] 04-11-2023 10:15-0500 Body mass index (BMI) [Ratio] 29.7 kg/m2 No Primary Care Physician [facility] 04-11-2023 10:15-0500 Body temperature 97.3 [degF] No Primary Care Physician [facility] 04-11-2023 10:15-0500 Body weight 107.72 kg No Primary Care Physician [facility] 04-11-2023 10:15-0500 Diastolic blood pressure 91 mm[Hg] No Primary Care Physician [facility] 04-11-2023 10:15-0500 Heart rate 91 /min No Primary Care Physician [facility] 04-11-2023 10:15-0500 Respiratory rate 18 /min No Primary Care Physician [facility] 04-11-2023 10:15-0500 SaO2% (BldA) [Mass fraction] 99 % No Primary Care Physician [facility] 04-11-2023 10:15-0500 Systolic blood pressure 146 mm[Hg] No Primary Care Physician [facility] Encounters Encounter Date Encounter Type Care Provider Facility Start: 12-27-2024 End: 12-27-2024 Emergency department patient visit Dr. Benson Desai DO Work Phone: -Emergency Department Work Phone: Start: 12-25-2024 End: 12-25-[address] Benson Desai DO Work Phone: -[facility] Start: 12-25-2024 End: 12-25-2024 Patient encounter procedure Rose Marie OLIVIA -[facility] Work Phone: Start: 12-25-2024 End: 12-25-2024 Emergency department patient visit Dr. Benson Desai DO Work Phone: -Emergency Department Work Phone: Start: 07-13-2023 End: 07-13-2023 ambulatory Benson Desai Facility:[facility] Start: 07-13-2023 Non-patient / Non-visit No Primary Care Physician [facility] Start: 07-13-2023 End: 07-13-2023 Admission to same day surgery center No Primary Care Physician [facility] Work Phone: Start: 07-13-2023 End: 07-13-2023 ambulatory No Primary Care Physician [facility] Work Phone: Start: 06-24-2023 End: 06-24-2023 ambulatory Namrata Tanoneelam Facility:[facility] Start: 06-24-2023 End: 06-24-2023 Patient encounter procedure No Primary Care Physician [facility] Work Phone: Start: 05-30-2023 End: 05-31-2023 ambulatory Geraldo Thompson Facility:[facility] Start: 05-30-2023 End: 05-30-2023 Patient encounter procedure No Primary Care Physician [facility] Work Phone: Start: 05-24-2023 End: 05-24-2023 ambulatory Benson Desai Facility:[facility] Start: 05-24-2023 End: 05-24-2023 Patient encounter procedure No Primary Care Physician [facility] Work Phone: Start: 05-19-2023 End: 05-20-2023 Emergency department patient visit Bensonsolitario Desai Facility:[facility] Start: 05-19-2023 End: 05-19-2023 Emergency department patient visit No Primary Care Physician [facility] Work Phone: Start: 05-11-2023 End: 05-11-2023 ambulatory No Primary Care Physician Facility:[facility] Start: 05-11-2023 End: 05-11-2023 ambulatory No Primary Care Physician [facility] Work Phone: Start: 05-11-2023 End: 05-11-2023 Patient encounter procedure No Primary Care Physician [facility] Work Phone: Start: 04-28-2023 End: 04-28-2023 ambulatory Arie Nyemarilu Facility:[facility] Start: 04-28-2023 End: 04-28-2023 Patient encounter procedure No Primary Care Physician [facility] Work Phone: Start: 04-19-2023 Non-patient / Non-visit No Primary Care Physician [facility] Start: 04-18-2023 End: 04-18-2023 ambulatory Arie Parrismarilu Facility:[facility] Start: 04-18-2023 End: 04-18-2023 Non-patient / Non-visit No Primary Care Physician [facility] Work Phone: Start: 04-18-2023 ambulatory Arie Watkins Facility: [facility] Start: 04-18-2023 Non-patient / Non-visit No Primary Care Physician [facility] Start: 04-17-2023 End: 04-19-2023 Evaluation and management of inpatient Arie Nyemairlu Facility:[facility] Start: 04-17-2023 ambulatory No Primary Car e Physician Facility:[facility] Start: 04-17-2023 Non-patient / Non-visit No Primary Care Physician [facility] Start: 04-17-2023 End: 04-19-2023 Evaluation and management of inpatient No Primary Care Physician [facility] Work Phone: Start: 04-11-2023 End: 04-11-2023 Emergency department patient visit No Primary Care Physician Facility:[facility] Start: 04-11-2023 End: 04-11-2023 Emergency department patient visit No Primary Care Physician [facility] Work Phone: Procedures Date Procedure Procedure Detail Performing Clinician Start: 12-27-[address] Navi Desai DO Work Phone: Start: 12-25-2024 Computed tomography of abdomen and [...] History of cholecystectomy Histo ry of cholecystectomy Rose Marie OLIVIA Plan of Treatment Date Care Activity Detail Author Start: 12-27-2024 End: 12-27-2024 [facility] Start: 12-25-2024 [facility] Start: 07-13-2023 Endoscopic retrograde cholangiopancreatography ERCP Biliary/Pancreas [facility] Start: 07-13-2023 RF Guidance for endoscopy of Biliary ducts and Pancreatic duct-- W contrast retrograde [facility] Start: 07-13-2023 Patient discharge [facility] Start: 05-19-2023 [facility] Start: 04-19-2023 Patient discharge [facility] Start: 04-18-2023 [facility] Start: 04-18-2023 Preoperative care [facility] Start: 04-18-2023 Triacylglycerol lipase measurement [facility] Start: 04-18-2023 [facility] Start: 04-17-2023 Application of intermittent pneumatic compression device [facility] Start: 04-17-2023 Following clinical pathway protocol [facility] Start: 04-17-2023 Referral to gastroenterology service [facility] Start: 04-17-2023 Elevation of head of bed [facility] Start: 04-17-2023 Incentive spirometry [facility] Start: 04-17-2023 [facility] Start: 04-17-2023 Admission procedure [facility] Start: 04-17-2023 Hospital admission, emergency, from emergency room, medical nature [facility] Start: 04-17-2023 [facility] Start: 04-11-2023 [facility] Alanine aminotransfe rase [Enzymatic activity/volume] in Serum or Plasma [facility] Albumin [Mass/volume ] in Serum or Plasma [facility] Alkaline phosphatase [Enzymatic activity/volume] in Serum or Plasma [facility] Anion gap measurement [facility] Aspartate aminotrans ferase [Enzymatic activity/volume] in Serum or Plasma [facility] Bilirubin, total measurement [facility] BUN/Creatinine ratio [facility] Calcium [Mass/volume ] in Serum or Plasma [facility] Carbon dioxide, tota l [Moles/volume] in Serum or Plasma [facility] Chloride [Moles/volu me] in Serum or Plasma [facility] Creatinine [Moles/vo lume] in Serum or Plasma [facility] Glucose [Mass/volume ] in Serum or Plasma [facility] Hematocrit [Volume F raction] of Blood [facility] Hemoglobin [Mass/volume] in Blood [facility] Leukocytes [#/volume] in Blood [facility] Mean corpuscular hem oglobin concentration determination [facility] Mean corpuscular hem oglobin determination [facility] Measurement of renal function [facility] Neutrophil count [facility] Neutrophil percent d ifferential count [facility] Patient Education [facility] Work Phone: Patient referral [facility] Work Phone: Platelets [#/volume] in Blood [facility] Potassium [Moles/vol ume] in Serum or Plasma [facility] Red blood cell count [facility] Red cell distributio n width determination [facility] RF Guidance for endo scopy of Biliary ducts and Pancreatic duct-- W contrast retrograde [facility] Sodium [Moles/volume ] in Serum or Plasma [facility] Total protein measurement [facility] Urea nitrogen [Mass/ volume] in Serum or Plasma [facility] Payers Date Payer Category Payer Self-pay 2023 Unknown [id number] Unknown [id number] 2.16.8 [id number] Unknown [id number] 2.16.8 [id number] Unknown [id number] 2.16.8 [id number] Unknown [id number] 2.16.8 40.1.927061.3.579.2.462 Unknown [id number] 2.16.8 40.1.330410.3.579.2.462 Unknown [id number] 2.16.8 40.1.352707.3.579.2.462 Unknown [id number] 2.16.8 40.1.794990.3.579.2.462 Unknown [id number] 2.16.8 40.1.621554.3.579.2.462 Unknown [id number] 2.16.8 40.1.117027.3.579.2.462 Unknown [id number] 2.16.8 40.1.323026.3.579.2.462 Unknown [id number] 2.16.8 40.1.470618.3.579.2.462 Unknown [id number] 2.16.8 40.1.438107.3.579.2.462 Unknown [id number] 2.16.8 40.1.443871.3.579.2.462 Unknown [id number] 2.16.8 40.1.418488.3.579.2.462 Unknown [id number] 2.16.8 40.1.576667.3.579.2.462 Unknown [id number] 2.16.8 40.1.137948.3.579.2.462 Unknown [id number] 2.16.8 40.1.554366.3.579.2.462 Unknown [id number] 2.16.8 40.1.267362.3.579.2.462 Unknown [id number] Social History Date Type Detail Facility Start: 04-17-2023 End: 07-11-2023 Tobacco smoking status CTIS Unknown if ever smoked [facility] Start: 1985 Sex Assigned At Male [facility] Start: 12-25-2024 End: 12-27-2024 Tobacco smoking status NHIS Never smoked tobacco (finding) [facility] Medical Equipment Procedure Code Equipment Code Equipment Original Text Equipment Identifier Dates Total cholecystectomy with exploration of common bile duct Open-surgery ligation 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 services 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 [id number] FDA Start: 04-19-2023 ERCP (endoscopic retrograde cholangiopancreatograph y) ([id number]) Polymeric biliary stent, non-bioabsorbable [id number] FDA Start: 04-18-2023 Goals Date Patient Goal Desired Activity /State Functional Status Date Assessment Result Facility 04-19-2023 Functional status Ambulates [facility] Work Phone: Mental Status Date Assessment Result Facility 07-13-2023 Cognitive function Level Of Consciousness Sedated [facility] Work Phone: 04-19-2023 Cognitive function Level Of Cons ciousness Awake;Alert;Appropriate;Follow s Commands [facility] Work Phone: 04-19-2023 Cognitive function Voice/Name [facility] Work Phone: 04-11-2023 Cognitive function Level Of Cons ciousness Awake;Alert;Appropriate;Follow s Commands [facility] Work Phone: Clinical Notes 04-17-2023 to 12-25-2024 Note Date & Type Note Facility 12-25-2024 Evaluation note Diagnosis Onset Date Resolution Abdominal pain acute December 2:04pm History of cholecystectomy acute December 25 2:04pm History of pancreatitis acute A ugust 2024 2:04pm [facility] Work Phone: 1(585) 134-217508-19-2025 Hospital Discharge instructionsAdditional Instructions Your lab work today was very similar to the labs you had on December 25 going against signs of biliary stricture or obstruction and your lipase was essentially the same as the previous day going against acute pancreatitis. Please continue the famotidine that was prescribed by gastroenterology but add the Zofran for nausea control Carafate to add a layer of protection to the abdominal lining and use the Percocet for pain control. Keep your appointment with gastroenterology to have your EGD as this is truly the test needed to assess for stomach or intestinal inflammation. [facility] Work [facility]: 1(170) 979-248608-19-2025 Discharge summary [facility] Medical Records Department [address] [place] [address] Emergency Department Summary 12/25/24 MR#: [id number] Acct: [id number] Name: [address]ISS[address] Rep #:[id number] : [...] any dysuria. Nothing particular makes the pain betteror worse. Prior similar symptoms: Yes Recent Illness/Hospitalization: [...] Negative for guarding, rigid, hepatomegaly, splenomegaly, hernia, mass,pulsatile mass or rebound tenderness present Back/Spine no [...] pain 1 prior episode of pancreatitis. Differential wouldinclude pancreatitis versus gastritis versus other etiologies. Clinically this is not his appendix.There is no obstruction. Hisgallbladder has already been [...] 93.2 H Lymph % (Auto) 4.3 L [place] % (Auto) 1.6 Eos % (Auto) 0.1 [...] No acute abnormality is seen. Reading Location: [facility] Discharge Plan Triage Chief Complaint: [...] good. No signs of pancreatitis. Print Language: [place] Disposition Disposition: Home, Self Care What to do if you have Problems For any increased pain, shortness of breath, bleeding, nausea or vomiting, chestpain, or any unexpected problems, contact your Primary Care Provider. Call [facility] ([phone]) or report tothe closest Emergency Room. Call 911 if necessary. 12/25/24 1328 Cosigner Signature (if applicable): CC: Dr. Benson Desai, DO ~ Signed [facility]08-19-2025 Radiology Diagnostic study note [facility] Imaging Services [address] [place], [place] [address] Abdomen/Pelvis W IV Cont ONLY MR#: [id number] Acct: [id number] Name: [address]ISS[address] Rep #: [id number] : 1985 M 39 From: Deangelo Palomo MD PCP: Dr. Benson Desai, DO Status: [place] E ER Study:Abdomen/Pelvis W IV Cont ONLY Date of E xam: 12/25/24 Exam# [id number] Ordering Dr: Carlos Hills MD PROCEDURE: ABDOMEN/PELVIS [...] No acute abnormality is seen. Reading Location: [id number] CC: Dr. Benson Desai DO; Dr. Tony Hills MD ~ Loss Prevention Agent: Signed [facility]03-06-2024 History and physical note Author Geraldo Friend [facility] July 13, 2023 10:57am Note Date/Time July 13, 2023 10:5 7am [facility] Medical Records Department [address] [place] [address] History & Physical Exam 07/13/23 1056 MR#: [id number] Acct: [id number] Name: [address] Rep #:[id number] : 1985 37 From: Geraldo Thompson DO PCP: Dr. Benson Desai DO Status:RE G [facility] Location: [place] [address] History and Physical Date of Admission: 07/13/23 7 M who presents to the office today for *[facility] hospitalization 04.17.23-04.19.23 for management of acute gallstone pancreatitis and acute cholecystitis. ERCP 04.18.23 biliary papillary stenosis, benign; biliary dilation with stone causing obstruction; choledocholithiasis; biliary sphincterotomy; biliary tree swept; temporary stent placed in CBD. No specimens ? Surgery 04.19.23 cholecystectomy without complication. Cholesterolosis which chronic cholecystitis and sludge. [facility] ED 05.24.23 with increased upper abdominal pain [...] and comfortable Nutritional Appearance: average body habitus [facility] Head: normal to inspection Ears: hearing grossly [...] Appearance: grossly normal Quality Reporting Tobacco Screening ([facility] 138) Smoking Status: Never smoker Assessment and [...] Signature (if applicable): CC: Dr. Benson Desai, ; Geraldo Thompson DO~ Signed [facility] Work Phone: 1(188) 289-438003-06-2024 [facility] Medical Records Department [address] [place] [id number] History Physical Exam 07/13/23 1056 MR#: [id number] Acct: [id number] Name: [address]ISS[address] Rep #: [id number] : 1985 37 From: Geraldo Thompson DO PCP: Dr. Benson Desai DO Status:[facility] Location: [place] [address] History and Physical Date of Admission: 07/13/23 7 M who presents to the office today for *[facility] hospitalization 04.17.23-04.19.23 for management of acute gallstone pancreatitis and acute cholecystitis. ERCP 04.18.23 biliary papillary stenosis, benign; biliary dilation with stone causing obstruction; choledocholithiasis; biliary sphincterotomy; biliary tree swept; temporary stent placed in CBD. No specimens ? Surgery 04.19.23 cholecystectomy without complication. Cholesterolosis which chronic cholecystitis and sludge. [facility] ED 05.24.23 with increased upper abdominal pain [...] and comfortable Nutritional Appearance: average body habitus [facility] Head: normal to inspection Ears: hearing grossly [...] Appearance: grossly normal Quality Reporting Tobacco Screening ([facility] 138) Smoking Status: Never smoker Assessment and [...] applicable): CC: Dr. Benson Desai, DO; Geraldo Thompson, DO (more content not included)... [facility]03-06-2024 Procedure [facility] 07-13-2023 Procedure [facility]12-12-2023 [facility] Medical Records Department [address] [place] [address] Discharge Summary 04/19/23 1348 MR#: [id number] Acct: [id number] Name: [address]ISS[address] Rep #: [id number] : 1985 37 From: Arie Watkins MD PCP: Care Physician,No Primary Status:DIS IN Location: [facility] [id number] Providers Date of Admission: 04/17/23 Primary Care Physician: No Primary Care Phys Consultations 04/17/23 13:21 Consult: Gastroenterology Routine Consulting Provider: [facility] Reason for Consult: Gallstone pancreatitis EMERGENT Consult: Yes MD Notified: Yes Date Notified: 04/17/23 Time Notified: [...] 75.6 H, Lymph % (Auto) 16.5 L, [place] % (Auto) 7.2, Eos % (Auto) 0.1, [...] Primary Reason for Yo (more content not included)...[facility] 04-17-2023 [facility] Medical Records Department [address] [place] [address] History Physical Exam 04/17/23 1326 MR#: [id number] Acct: [id number] Name: ULISSES LANE Rep #: [id number] : 1985 37 From: Arie Watkins MD PCP: Care Physician,No Primary Status:ADM [place] [facility] [id number] HPI - General General Date of Admission: 04/17/23 Date of Service: 04/17/23 Chief Complaint: Progressive abdominal pain with associated nausea and jaundice HPI Narrative ULISSES LANE, is a 37 M who presents to [facility] with complaints of progressive abdominal pain, associated [...] 79.2 H, Lymph % (Auto) 12.5 L, [place] % (Auto) 7.0, Eos % (Auto) 0.5, [...] Protein 7.2, Albumin 3.8, Globulin 3.4, Lipase 73903 H [facility] Radiology Impression Abdomen/Pelvis CT 04/17/23 [...] Electronically Signed: Jose Rose (more content not included)...[facility] Tony [facility] Note Date/Time December 25, 2024 1: 28pm [facility] Medical Records Department [address] [place] [address] Emergency Department Summary 12/25/24 MR#: [id number] Acct: [id number] Name: ULISSES LANE Rep #:[id number] : [...] 93.2 H Lymph % (Auto) 4.3 L Pend[place] % (Auto) 1.6 Eos % (Auto) 0.1 [...] No acute abnormality is seen. Reading Location: [id number] Discharge Plan Triage Chief Complaint: Abd Pain ED Provider: Tony Hills Dx/Rx/DC Orders Clinical Impression: Abdominal pain, History of pancreatitis, History of cholecystectomy Instructions: Abdominal Pain Prescriptions: No Action multivitamin Tablet 1 tab PO DAILY Primary Care Provider: Benson Desai Referrals: Benson Desai, [Primary Care Provider] - 3-5 Days if not improving Activity Restrictions/Additional Instructions: Plenty of fluids and rest. Follow-up with your doctor if not improving. Return if feeling worse. Your labs and CAT scan look good. No signs of pancreatitis. Print Language: [place] Disposition Disposition: Home, Self Care What to do if you have Problems For any increased pain, shortness of breath, bleeding, nausea or vomiting, chestpain, or any unexpected problems, contact your Primary Care Provider. Call [facility] ([phone]) or report to the closest Emergency Room. Call 911 if necessary. 12/25/24 1328 <Electronically signed by Tony Hills MD> Cosigner Signature (if applicable): CC: Dr. Benson Desai DO ~ Signed [facility] Work Phone: Evaluation note* Diagnosis Onset Date Resolution Status Acute gallstone pancreatitis acute Acute pancreatitis acute Cholecystitis acute [facility] Work Phone: Evaluation note* Diagnosis Onset Date Resolution Status Acute gallstone pancreatitis acute Acute pancreatitis acute Cholestatic hepatitis acute Cholecystitis resolved Jaundice resolved Status post laparoscopic cholecystectomy acute Cholestatic hepatitis acute Status post laparoscopic cholecystectomy acute [facility] Work Phone: Evaluation note* Diagnosis Onset Date Resolution Status Acute pancreatitis acute Acute gallstone pancreatitis resolved Cholecystitis resolved Cholestatic hepatitis resolv ed Jaundice resolved Status post laparoscopic cholecystectomy acute Status post laparoscopic cholecystectomy acute Cholestatic hepatitis resolv ed Acute gallstone pancreatitis resolved Acute gallstone pancreatitis resolved Cholestatic hepatitis resolv ed Bacterial conjunctivitis of both eyes acute [facility] Work Phone: Evaluation noteNo assessment information available [facility] Work Phone: History and physical note Author Arie Watkins [facility] April 17, 2023 1:38pm Note Date/Time April 17, 2023 1:29pm [facility] Medical Records Department [address] [place] [address] History & Physical Exam 04/17/23 1326 MR#: [id number] Acct: [id number] Name: ULISSES LANE Rep #:[id number] : 1985 37 From: Arie Thomas PCP: Care Physician,No Primary Status :ADM IN [place]: [facility] [place] [id number] HPI - General General Date of Admission: 04/17/23 Date of Service: 04/17/23 Chief Complaint: Progressive abdominal pain with associated nausea and jaundice HPI Narrative ULISSES LANE, is a 37 M who presents to [facility] with complaints of progressive abdominal pain, associated [...] to his left arm as a child. [facility] Home Medications No Known/Unobtainable [No Known Home [...] 79.2 H, Lymph % (Auto) 12.5 L, [place] % (Auto) 7.0, Eos % (Auto) 0.5, [...] TotalProtein 7.2, Albumin 3.8, Globulin 3.4, Lipase 60075 H [facility] Radiology Impression Abdomen/Pelvis CT 04/17/23 [...] Signed: Jose Bliss MD at 12:28 EST Reading Location ID and State: [facility] / [place] , Service support , Assessment & Plan Assessment/Plan (1) Acute [...] inpatient admission I did confirm with our supervisor gelatin plant, Dr. Thompson, that he has availability to [...] to inpatient Charges/Coding Visit Charges Inpatient E&M: 22716 Subs Hosp L2 04/17/23 133 <Electronically signed by Arie Watkins MD> Cosigner Signature (if applicable): CC: Dr. Arie Watkins MD; No Primary Care Physician~ Signed [facility] Work Phone: Hospital Discharge instructionsAdditional Instructions Plenty of fluids and rest. Follow-up with your doctor if not improving. Return if feeling worse. Your labs and CAT scan look good. No signs of pancreatitis.[facility] Work Phone: Reason for referral (narrative)No reason for referral information availableWEast [facility] Work Phone: Chief Complaint and Reason for Visit Chief Complaint CHEST PAIN GALLSTONE PANCREATITIS CHOLECYSTITIS Reason for Visit Acute gallstone panc reatitis Acute pancreatitis Cholecystitis Chief Complaint CHEST PAIN GALLSTONE PANCREATITIS CHOLECYSTITIS GALLSTONE PANCREATITIS GALLSTONE PANCREATITIS PREOP GALLSTONE PANCREATITIS GALLSTONE PANCREATITIS Gall Bladder Surgery 04/19 [facility] Reason for Visit Acute gallstone panc reatitis Acute pancreatitis Cholestatic hepatitis Cholecystitis Jaundice Status post laparoscopic cholecystectomy Cholestatic hepatitis Status post laparoscopic cholecystectomy Chief Complaint CHEST PAIN GALLSTONE PANCREATITIS CHOLECYSTITIS GALLSTONE PANCREATITIS GALLSTONE PANCREATITIS PREOP GALLSTONE PANCREATITIS GALLSTONE PANCREATITIS Gall Bladder Surgery 04/19 [facility] ABD PAIN fu H FU [...] Severe Abdominal Pain December 25, 2024 2:04pm Chief Complaint Admit Date ABD PAIN December 25, 2024 10 :29am Severe Abdominal Pain December 25, 2024 2:04pm ABD PAIN December 27, 2024 4: 51am Reason for Visit Admit Date Abdominal pain December 25, 2024 2: 04pm History of cholecystectomy December 25, 2024 2:04pm History of pancreatitis December 25 2:04pm Advance Directives Advance Directive Response Recorded Date/ Time Living Will No April 17, 2 023 11:55am Power of Manufacturing Scheduler No April 17, 2023 11:55am Advance Directive Response Recorded Date/ Time Living Will No April 17, 2 023 3:33pm Power of Manufacturing Scheduler No April 17, 2023 3:33pm Advance Directive Response Recorded Date/ Time Living Will No July 11, 2023 10:58am Power of Manufacturing Scheduler No July 10 10:58am Advance Directive Response Recorded Date/ Time Do you have a Healthcare Power of Manufacturing Scheduler? No December 25, 2024 10:45am Advance Directive Response Recorded Date/ Time Do you have a Healthcare Power of Manufacturing Scheduler? No December 25, 2024 10:45am Do you have a Healthcare Power of Manufacturing Scheduler? No December 27, 2024 4:52am Summary Purpose Family History No Family History [...] Status: Inactive Member Role Status Dates Dr. Rcikey Nair DO Attending Provider, Emergency P rovider Active No Primary Care Physician Primary Care Provider Active Team Status: Active Member Role Status Dates No Primary Care Physician Primary Care Provider Active Dr. Rickey Nair DO Emergency Provider Active Dr. Arie Watkins MD Admit Provider, Attending Provi ashia Active Team Status: Active Member Role Status Dates Dr. Benson Desai DO Family Provider Active Dr. Benson Desai DO Primary Care Provider Active Team Status: Inactive Member Role Status Dates No Primary Care Physician Primary Care Provider, Refer ring Provider Active Dr. Benson Desai DO Attending Provider Active Team Status: Active Member Role Status Dates No Primary Care Physician Primary Care Provider Active Dr. Rickey Nair DO Emergency Provider Active Dr. Arie Watkins MD Admit Provider, R eferring Provider, Other Provider Active Dr. Geraldo Thompson , DO Attending Provider Active Team Status: Active Member Role Status Dates No Primary Care Physician Primary Care Provider Active Dr. Geraldo Thompson DO Attending Provider Active Dr. Arie Watkins MD [...] Benson Desai , DO Primary Care Provider, Referr ing Provider Active Dr. Geraldo Thompson , DO Attending Provider Active Team Status: Inactive Member Role Status Dates Dr. Benson Desai , DO Primary Care Pr ovider, Attending Provider, Referring Provider Active Team Status: Inactive Member Role Status Dates Dr. Benson Desai DO Primary Care Provider, Referr ing Provider Active Namrata Castano NP-Gab Attending Provider Active Team Status: Active Member Role Status Dates Dr. Benson Desai DO Primary Care Provider, Referr ing Provider Active Dr. Geraldo Thompson , DO Attending Provider, Other Prov ider Active [...] DO Primary Care Provider Active Start: December 27, 2024 End: December 27, 2024 Dr. Mayo Darnell , DO Emergency Provider Active Start: December 27, 2024 End: December 27, 2024 (unrecognized sect ion and content) No Status Records Found INFORMATION SOURCE (unrecogn ized section and content) DATE CREATED AUTHOR 07/19/2023 [facility] Goals (unrecognized section and content) Goals may be documented in a n alternate sectionGoals may be documented in an alternate sectionGoals may be documented in an [...] BE BASED ON THE PRIMARY CLINICAL RECORDS. [facility] [place] [facility]. provides no warranty or guarantee of the accuracy or completeness of information in this document.
[2024-12-28 20:13] LABS: Squamous Epithelial Cells - UA 0 SEEN /hpf (0-5)
[2024-12-28 20:14] LABS: Color, Urine Yellow (Yellow); Glucose, Dipstick Normal (Normal); Leukocyte Esterase-Dipstick 25 /ul (Negative); Nitrite-Dipstick Negative (Negative); Occult Blood-Urine 10 /ul (Negative); Protein-Dipstick 30 mg/dl (Negative); Specific Gravity, Urine 1.015 (1.002-1.030)
[2024-12-28 20:19] LABS: AST(SGOT) 57 U/L (<=37); Alanine Aminotransfer ALT/SGPT 103 U/L (<=46); Albumin, Serum 3.9 g/dL (3.5-5.0); Alkaline Phosphatase 334 U/L (40-129); Anion Gap 15 (5-15); BUN 9 mg/dL (4-19); BUN/Creat Ratio 11.0 RATIO (10-20); Calcium,Total 9.0 mg/dL (7.6-11.0); Carbon Dioxide 21.1 mmol/L (21.0-32.0); Chloride 99 mmol/L (98-108); Estimated Creatinine Clearance 159.35 ml/min (50-250); Globulin 2.7 g/dL (2.2-4.2); Glucose 104 mg/dL (70-99); Potassium 4.0 mmol/L (3.3-5.1)
[2024-12-28 20:21] LABS: Urine Bilirubin Dipstick 6 mg/dL (Negative)
[2024-12-28 20:22] LABS: Ketone-Dipstick 150 mg/dl (Negative)
[2024-12-28 20:23] LABS: Mucous, Urine 1+ /hpf (<or=2+); Red Blood Cells-Urine 0-5 SEEN /hpf (0-5)
--- NOTE | 2024-12-28 21:30 | PCM.HP.STD ---
HPI - General General Date of Admission: 12/28/24 Date of Service: 12/28/24 Chief Complaint: Abdominal pain, fever. 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 Patient denies any recent URI type symptoms. He denies any ill contacts. He notes normal BM on am on day of presentation. He notes pain current at rest in the ED mild 2-3/10 in severity, aching but with activity attempts immediately worsens to 8-10/10 in severity, aching and stabbbing. Workup in the ED included T101.5, heart rate 125, BP 138/81, respiratory rate 18, 98% on room air with most recent repeat vitals T98.3, heart rate 99, BP 134/75, respiratory rate 16, 98% on room air, CBC with WC 9.1, hemoglobin 14.3, platelet 186 with lymphopenia, unremarkable coags, CMP with glucose 104, lactic acid less than 1, T. bili 5.33, AST/ALT 57/103, alk phos 334, urinalysis with specific [place] 1.015, protein 30, ketones 150, occult blood 10, negative nitrite, leukocyte esterase 25 with no evidence of urinary tract infection, chest x-ray with no acute cardiopulmonary findings, blood culture x 2 pending per ED, urine culture pending per ED, rapid SARS COVID/influenza/RSV pending upon request evaluation of patient. In the ED patient ministered 1 L normal saline, Tylenol 1000 mg p.o. x 1, Toradol 30 mg IV x 1, morphine 4 mg IV x 2, Zofran 4 mg IV x 1. ED discussed case with Dr. Thompson who requested admission and MRCP. [facility] Medical History GERD (gastroesophageal reflux disease) Obesity Gallstone pancreatitis Non-smoker Home Medications ?Medication ?Instructions ?Recorded ?Last Taken ?Type famotidine 40 mg tablet 40 mg PO QDAY #30 tabs 12/25/24 Unknown Rx ondansetron 4 mg disintegrating 4 mg PO TID PRN nausea and 12/27/24 Unknown Rx tablet vomiting #21 tabs oxycodone-acetaminophen 5 mg-325 1 tab PO Q6H PRN pain 5 days #20 12/27/24 Unknown Rx mg tablet (Endocet) tabs sucralfate 1 gram tablet (Carafate) 1 g PO TID 14 days #42 tabs 12/27/24 Unknown Rx Allergy/AdvReac Type Severity Reaction Status Date / Time No Known Allergies Allergy Verified 12/27/24 04:52 Family History (Updated 12/28/24 @ 21:[address] Tiesha Clark MD) Mother Hypertension Thyroid disorder Father Hypertension Surgical History (Updated 12/28/24 @ 21:[address] Tiesha Clark MD) History of cholecystectomy S/P ORIF (open reduction internal fixation) fracture Social History (Updated 12/28/24 @ 21:[address] Tiesha Clark MD) household members: spouse and children Smoking Status: Never smoker alcohol intake: current alcohol intake frequency: holidays/special occasions only substance use type: does not use ROS ROS Narrative Admission Review of Systems: CONSTITUTIONAL: No weight loss, + fever, chills, weakness or fatigue. HEENT: + Jaundiced appearance, mild scleral icterus, mild headaches generalized with light sensitivity. Eyes: No visual loss, blurred vision, double vision. Ears, Nose, Throat: No hearing loss, sneezing, congestion, runny nose or sore throat. SKIN: No rash or itching, lesions, wounds except + noted mild jaundiced appearance, occasional stage ecchymoses, abrasion. CARDIOVASCULAR: No chest pain, chest pressure or chest discomfort, palpitations, edema, orthopnea, syncopal events. RESPIRATORY: No shortness of breath, cough or sputum, wheezing, hemoptysis. GASTROINTESTINAL: + anorexia, abdominal pain. No nausea, vomiting, diarrhea, melena, BRBPR. GENITOURINARY: No dysuria, frequency, urgency or retention. NEUROLOGICAL: + Headaches, mild, generalized with light sensitivity. No dizziness, syncope, paralysis, ataxia, numbness or tingling in the extremities, focal weakness, change in bowel or bladder control, seizure. MUSCULOSKELETAL: + muscle, back pain, joint pain or stiffness. HEMATOLOGIC: No anemia, bleeding or bruising. LYMPHATICS: No enlarged nodes. No history of splenectomy. PSYCHIATRIC: No history of depression or anxiety. ENDOCRINOLOGIC: + Notable episodes of diaphoresis, cold or heat intolerance. No polyuria or polydipsia. ALLERGIES: No history of asthma, hives, eczema or rhinitis. Vital Signs Vital Signs Vital Signs: 12/28/24 18:39 12/28/24 18:41 12/28/24 19:35 Temperature 101.5 F H 101.5 F H Temperature Source Oral Oral Pulse Rate 125 H 125 H Respiratory Rate 18 18 Blood Pressure 138/81 H 138/81 H Blood Pressure Mean 100 100 Pulse Ox 98 98 Oxygen Delivery Method Room Air Room Air Room Air 12/28/24 19:41 12/28/24 20:00 12/28/24 21:00 Temperature 101.5 F H 101.5 F H Temperature Source Oral Oral Pulse Rate 95 95 96 Respiratory Rate 19 H 18 18 Blood Pressure 139/90 H 129/79 H 134/75 H Blood Pressure Mean 106 95 94 Pulse Ox 96 98 97 Oxygen Delivery Method Room Air Room Air 12/28/24 21:00 12/28/24 21:09 Temperature 98.3 F 98.3 F Temperature Source Oral Oral Pulse Rate 99 Respiratory Rate 16 Blood Pressure 134/75 H Blood Pressure Mean 94 Pulse Ox 98 Oxygen Delivery Method Room Air Weight Weight: 242 lb 6.4 oz Body Mass Index (BMI) 30.2 Physical Exam Narrative Physical Examination: General: Awake, alert, oriented x 3 and cooperative, laying in the bed, fatigued and uncomfortable appearing, at rest currently rating discomfort 2-3 out of 10 in severity, generalized in the epigastric down to the periumbilical region. Skin: Mildly jaundiced appearance with also mild scleral icterus, normal turgor, no cyanosis, occasional stage ecchymoses, abrasion. HEENT: AT/NC, EOMI, PERRLA, dry MM, no carotid bruits or JVD noted, mild scleral icterus. Lungs: CTA bilaterally, moderate effort, mild decrease BL bases, no rales, ronchi or wheezing. Heart: Mildly tachycardic with regular rhythm; no gallop, rub audible. Abdomen: Soft, discomfort to palpation of the epigastric down to the periumbilical region but no significant pain in the lateral quadrants or in the lower quadrants, voluntary guarding, no marked distention, mildly hyperactive BS, difficult to discern HSM given pain elicited with evaluation but no obvious findings. Extremities: No cyanosis, clubbing, or edema. Neurological: Patient awake, alert, oriented as noted, cognitive function intact; pupils equally reactive to light and accommodation, cranial nerves grossly normal, moving all 4 extremities, no focal deficits, strength moderately globally decreased secondary to acute presentation complaints. Psychiatric: Affect appears fatigued, uncomfortable appearing, no acute evidence of depressive or anxiety feelings. Results Lab / Micro Data 12/28/24 19:00 12/28/24 19:00 Labs: Laboratory Results - last 24 hr 12/28/24 19:00: WBC 9.1, RBC 4.85, Hgb 14.3, Hct 41.2, MCV 84.9, MCH 29.5, MCHC 34.7, RDW Std Deviation 39.0, RDW Coeff of Valerie 12.6, Plt Count 186, MPV 10.4, Immature Gran % (Auto) 0.600, Neut % (Auto) 84.9 H, Lymph % (Auto) 5.3 L, [place] % (Auto) 8.8, Eos % (Auto) 0.1, Baso % (Auto) 0.3, Absolute Neuts (auto) 7.7, Absolute Lymphs (auto) 0.48 L, Nucleated RBC % 0, PT 14.1, INR 1.1, APTT 28.1, Sodium 135, Potassium 4.0, Chloride 99, Carbon Dioxide 21.1, Anion Gap 15, BUN 9, Creatinine 0.85, Estim Creat Clear Calc 159.35, Est GFR (MDRD) Non-Af 115, BUN/Creatinine Ratio 11.0, Glucose 104 H, Calcium 9.0, Total Bilirubin 5.33 H, AST 57 H, ALT 103 H, Alkaline Phosphatase 334 H, Total Protein 6.5, Albumin 3.9, Globulin 2.7, Albumin/Globulin Ratio 1.4 12/28/24 19:20: Lactic Acid < 1.0 12/28/24 20:08: Urine Color Yellow, Urine Clarity Clear, Urine pH 6.0, Ur Specific [place] 1.015, Urine Protein 30 H, Urine Glucose (UA) Normal, Urine Ketones 150 A*, Urine Occult Blood 10 H, Urine Nitrite Negative, Urine Bilirubin 6 H, Urine Urobilinogen 8 H, Ur Leukocyte Esterase 25 H, Urine RBC 0-5 SEEN, Urine WBC 0-5 SEEN, Ur Squamous Epith Cells 0 SEEN, Urine Bacteria 0 SEEN, Urine Mucus 1+ Imaging Radiology Impression Chest X-Ray 12/28/24 19:30 IMPRESSION: No Acute Findings. 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, History of cholestatic hepatitis with prior gallstone pancreatitis status post cholecystectomy who presents to the [facility] ED on 12/28/2024 with history of significantly worsening abdominal discomfort x 4 days, initially epigastric and then extended to periumbilical with associated fever and mildly jaundiced appearance with intermittent fevers, chills and diaphoresis with recent lack of appetite prompting 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 #1. Acute Intractable Abdominal pain s/p recent gallstone pancreatitis s/p cholelithiasis with progressively worsening transaminitis/hyperbilirubinemia of unclear etiology: Will admit to MS telemetry, will administer an additional 1 L normal saline bolus and maintain on judicious IV fluids, will obtain hepatitis panel, repeat hepatic profile in AM and continue to trend CBC, will request MRCP, maintain NPO on IV PPI, GI consulted and aware, procalcitonin requested, IV zosyn empirically. Pending findings may need to consider surgery involvement but will await MRCP and GI recommendations. #2. Elevated BP without hypertensive diagnosis: Patient with elevated BP, transiently in the ED, likely secondary to associated pain with acute presentation #1, will continue to monitor and add regimen if appropriate, as needed IV hydralazine in the interim. #3. Obesity: Weight loss and lifestyle changes encouraged. #4. GERD: Will maintain on IV PPI. #5. DVT prophylaxis: SCDs, hold chemoprophylaxis in case of intervention needs per gastroenterology. Charges/Coding Visit Charges Inpatient E&M: 41118 Init Hosp L3
[2024-12-28] MEDS: Piperacil/Tazobactam 4.5 GM in 0.9% Normal Saline (100mL MB+) 100 ML IV (22:14)
--- OUTSIDE RECORDS SUMMARY | 2024-12-28 23:12 | XMS RPT_ITS | CCD ---
Author Organization 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 Rickey Nair Emergency Provider Dr. Arie Watkins Admit Provider Dr. Arie Watkins Attending Provider Dr. Arie Watkins Other Provider Dr. Arie Watkins Referring Provider Friend, Dr. Chow Attending Provider Dr. Ernesto Vasquez Attending Provider Care Physician, No Primary Referring Provider Un available Dr. Benson Desai Attending Provider Dr. Benson Desai Primary Care Provider Dr. Benson Desai Referring Provider LAUREN Castano Attending Provider FriendDr. Chow Other Provider Dr. Benson Desai DO Primary Care Provider [phone] Dr. Tony Hills MD Emergency Provider [phone] Dr. Benson Desai DO Referring Provider Rose Marie Escudero Attending Provider Dr. Mayo Darnell DO Emergency Provider Benson Desai Primary Care Unavailable FriendGeraldo Attending Unavailable Juan Carlos Guallpa Attending Unavailable Benson Desai Primary Care Unavailable Benson Desai Primary Care Unavailable Rose Marie Palacios Attending Unavailable Benson Desai Referring Unavailable Benson Desai Primary Care Unavailable Tiesha Clark Attending Unavailable Mayo Darnell Attending Unavailable Benson Desai Primary Care Unavailable Benson Desai Primary Care Unavailable Tony Hills Attending Unavailable Medications Current Medications Medication Drug Class(es) Dates Sig (Normalized) Sig (Original) acetaminophen 325 mg / oxyCODONE hydrochloride 5 mg oral tablet (1 source) Opioid Agonist Start: 12-27-2024 take 1 tablet by mouth every six hours as needed for pain Oxycodone-Acetamin ophen (Endocet) 5-325 mg tablet Active 1 {tbl} PO EVERY 6 HOURS as needed for pain December 27, 2024 Nonspecific abdominal pain Unspecified abdominal pain Start: 12-27-2024 take 1 tablet by melina th every six hours as needed for pain Oxycodone-Acetaminophen (Endocet) 5-325 mg tablet Active 1 {tbl} PO EVERY 6 HOURS as needed for pain December 27, 2024 Nonspecific abdominal pain Unspecified abdominal pain famotidine 40 mg oral tablet (2 sources) Histamine-2 Receptor Antagonist Start: 12-25-2024 take 1 tablet by mouth once daily Famotidine 40 mg tablet Active 40 mg PO daily 07 06December 25, 2024 12:00am Multivitamin preparation (1 source) [...] DAY as needed for nausea and vomiting December 27, 2024 6:16am sucralfate 1000 mg oral tablet (1 source) Aluminum Complex Start: 12-27-2024 take 1 tablet by mouth three times daily Sucralfate (Carafate) 1 gram tablet Active 1 g PO THREE TIMES A DAY 42 December 27, 2024 12:00am Completed/Discontinued Medications Medication [...] 1:00am June 24, 2023 2:28pm polymyxin b 88773 unt/ml / trimethoprim 1 mg/ml ophthalmic solution [...] Date Documented Da te Episodic/Chronic Abdominal pain (7 sources) Abdominal pain; Translations: [Unspecified abdominal pain] Onset: 12-27-2024 12-25-2024 Episodic Biliary tract disease (15 sources) Biliary sludge; Translations: [Other specified diseases of gallbladder] 04-11-2023 Episodic Gastritis and duodenitis (4 sources) Gastritis; Translations: [Gastritis, unspecified, without bleeding] 05-27-2023 Episodic Inflammation; infection of eye (except that caused by tuberculosis or sexually transmitteddisease) (5 sources) Bacterial conjunctivitis; Translations: [Unspecified conjunctivitis] 06-24-2023 Episodic Nonspecific chest pain (6 sources) Chest pain; Translations: [Chest pain, unspecified] 04-11-2023 Episodic Other gastrointestinal disorders (8 sources) History of pancreatitis; Translations: [Personal history of other diseases of the digestive system] 05-27-2023 Episodic Other liver diseases (5 sources) Cholestatic hepatitis; 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 Other liver diseases (5 sources) Other specified inflammatory liver diseases; Translations: [Other specified disorders of liver] 04-19-2023 Chronic Other liver diseases (5 sources) Jaundice; Translations: [Unspecified jaundice] 04-27-2023 Episodic Other liver diseases (2 sources) Unspecified jaundice; Translations: [Jaundice, unspecified, not of ] 04-19-2023 Episodic Pancreatic disorders (not diabetes) (20 sources) Gallstone acute pancreatitis; Translations: [Biliary acute pancreatitis without necrosis or infection] 04-17-2023 Episodic Residual codes; unclassified (4 sources) Acquired absence of other specified parts of digestive tract; Translations: [Other postprocedural status] 04-28-2023 Episodic Results Test Name Value Interpretation Reference Range Facility CBC W/Diff, Automatedon 08-2 Absolute Lymph 0.48 X10 3/uL Low 0.83-4.51 [facility] Comment on above: Performed By: #### L 100.0100, L300.3900, L300.4310, L500.4050, L503.6005 ####[facility] [address] [place], [address] Absolute Neut 7.7 X10 3/uL Normal 2.0-7.7 [facility] Comment on above: Performed By: #### L 100.0100, L300.3900, L300.4310, L500.4050, L503.6005 ####[facility] [address] [place], [address] Basophils/100 WBC (Bld) 0.3 % Normal 0-1 [facility] Comment on above: Performed By: #### L 100.0100, L300.3900, L300.4310, L500.4050, L503.6005 ####[facility] [address] [place], [address] Eosinophils/100 WBC (Bld) 0.1 % Normal 0-5 [facility] Comment on above: Performed By: #### L 100.0100, L300.3900, L300.4310, L500.4050, L503.6005 ####[facility] [address] [place], [address] Erythrocyte distribution width (RBC) [Ratio] 12.6 % Normal 11.6-14.6 [facility] Comment on above: Performed By: #### L 100.0100, L300.3900, L300.4310, L500.4050, L503.6005 ####[facility] [address] [place], [address] Hematocrit (Bld) [Volume fraction] 41.2 % Normal 40-54 [facility] Comment on above: Performed By: #### L 100.0100, L300.3900, L300.4310, L500.4050, L503.6005 ####[facility] [address] [place], [address] Hemoglobin (Bld) [Mass/Vol] 14.3 g/dL Normal 13.0-16.5 [facility] Comment on above: Performed By: #### L 100.0100, L300.3900, L300.4310, L500.4050, L503.6005 ####[facility] [address] [place], [address] IG% 0.600 Normal 0.0-0.9 [facility] Comment on above: Result Comment: IG% - Immature Granulocytes (promyelocytes, myelocytes and metamyelocytes) > 1% indicates that a LEFT SHIFT is Present. Performed By: #### L 100.0100, L300.3900, L300.4310, L500.4050, L503.6005 ####[facility] [address] [place], [address] Lymphocytes/100 WBC (Bld) 5.3 % Low 19-41 [facility] Comment on above: Performed By: #### L 100.0100, L300.3900, L300.4310, L500.4050, L503.6005 ####[facility] [address] [place], [address] MCH (RBC) [Entitic mass] 29.5 pg Normal 27.0-32.0 [facility] Comment on above: Performed By: #### L 100.0100, L300.3900, L300.4310, L500.4050, L503.6005 ####[facility] [address] [place], [address] MCHC (RBC) [Mass/Vol] 34.7 g/dL Normal 32-36 [facility] Comment on above: Performed By: #### L 100.0100, L300.3900, L300.4310, L500.4050, L503.6005 ####[facility] [address] [place], [address] MCV (RBC) [Entitic vol] 84.9 fL Normal 80-94 [facility] Comment on above: Performed By: #### L 100.0100, L300.3900, L300.4310, L500.4050, L503.6005 ####[facility] [address] [place], [address] Monocytes/100 WBC (Bld) 8.8 % Normal 0-10 [facility] Comment on above: Performed By: #### L 100.0100, L300.3900, L300.4310, L500.4050, L503.6005 ####[facility] [address] [place], [address] Neutrophils/100 WBC (Bld) 84.9 % High 47-70 [facility] Comment on above: Performed By: #### L 100.0100, L300.3900, L300.4310, L500.4050, L503.6005 ####[facility] [address] [place], [address] Nucleated RBC (Bld) [#/Vol] 0 10*3/uL Normal 0-5 [facility] Comment on above: Performed By: #### L 100.0100, L300.3900, L300.4310, L500.4050, L503.6005 ####[facility] [address] [place], [address] Platelet mean volume (Bld) [Entitic vol] 10.4 fL Normal 6.2-12.0 [facility] Comment on above: Performed By: #### L 100.0100, L300.3900, L300.4310, L500.4050, L503.6005 ####[facility] [address] [place], [address] Platelets (Bld) [#/Vol] 186 10*3/uL Normal 150-450 [facility] Comment on above: Performed By: #### L 100.0100, L300.3900, L300.4310, L500.4050, L503.6005 ####[facility] [address] [place], [address] RBC (Bld) [#/Vol] 4.85 10*6/uL Normal 4.6-6.2 [facility] Comment on above: Performed By: #### L 100.0100, L300.3900, L300.4310, L500.4050, L503.6005 ####[facility] [address] [place], [address] RDW SD 39.0 fl Normal 35.1-43.9 [facility] Comment on above: Performed By: #### L 100.0100, L300.3900, L300.4310, L500.4050, L503.6005 ####[facility] [address] [place], [address] WBC (Bld) [#/Vol] 9.1 10*3/uL Normal 4.4-11.0 [facility] Comment on above: Performed By: #### L 100.0100, L300.3900, L300.4310, L500.4050, L503.6005 ####[facility] [address] [place], [address] Chest 1 View (Portable)on Chest 1 View (Portable) [facility] Imaging Services [address] [place] [address] Chest 1 View (Portable) MR#: [id number] Acct: [id number] Name: ULISSES LANE Rep #: [id number] : 1985 M 39 From: Clifford Tolentino MD PCP: Dr. Benson Desai DO Status: REG ER Study: Chest 1 View (Portable) Date of Exam: 12/28/24 Exam# [id number] Ordering Dr: Juan Carlos Guallpa DO PROCEDURE: CHEST 1 VIEW (PORTABLE) 12/28/2024 REASON FOR EXAM: FEVER TECHNIQUE: Frontal view of the chest. COMPARISON: None available. FINDINGS: Hardware: None Heart: The heart size is normal. Lungs: The lungs are clear. Bones: The bones are unremarkable. RAD/Chest 1 View (Portable) IMPRESSION: No Acute Findings. Reading Location: [facility] CC: Dr. Benson Desai DO; Dr. Juan Carlos Guallpa DO [employer]: Signed Normal [facility] Comprehensive Metabolic Prof ilon 12-28-2024 Albumin [Mass/Vol] 3.9 g/dL Normal 3.5-5.0 [facility] Comment on above: Performed By: #### L 100.0100, L300.3900, L300.4310, L500.4050, L503.6005 ####[facility] [address] [place], [address] Albumin/Globulin [Mass ratio] 1.4 {ratio} Normal 0.9-2.4 [facility] Comment on above: Performed By: #### L 100.0100, L300.3900, L300.4310, L500.4050, L503.6005 ####[facility] [address] [place], [address] ALK PHOS 334 U/L High 40-129 [facility] Comment on above: Performed By: #### L 100.0100, L300.3900, L300.4310, L500.4050, L503.6005 ####[facility] [address] [place], [address] ALT [Catalytic activity/Vol] 103 U/L High <=46 [facility] Comment on above: Performed By: #### L 100.0100, L300.3900, L300.4310, L500.4050, L503.6005 ####[facility] [address] [place], [address] AST [Catalytic activity/Vol] 57 U/L High <=37 [facility] Comment on above: Performed By: #### L 100.0100, L300.3900, L300.4310, L500.4050, L503.6005 ####[facility] [address] [place], [address] Bilirubin [Mass/Vol] 5.33 mg/dL High 0.00-1.30 [facility] Comment on above: Performed By: #### L 100.0100, L300.3900, L300.4310, L500.4050, L503.6005 ####[facility] [address] [place], [address] BUN/CRE 11.0 RATIO Normal 10-20 [facility] Comment on above: Performed By: #### L 100.0100, L300.3900, L300.4310, L500.4050, L503.6005 ####[facility] [address] [place], [address] Calcium [Mass/Vol] 9.0 mg/dL Normal 7.6-11.0 [facility] Comment on above: Performed By: #### L 100.0100, L300.3900, L300.4310, L500.4050, L503.6005 ####[facility] [address] [place], [address] Chloride [Moles/Vol] 99 mmol/L Normal 98-108 [facility] Comment on above: Performed By: #### L 100.0100, L300.3900, L300.4310, L500.4050, L503.6005 ####[facility] [address] [place], [address] CO2 [Moles/Vol] 21.1 mmol/L Normal 21.0-32.0 [facility] Comment on above: Performed By: #### L 100.0100, L300.3900, L300.4310, L500.4050, L503.6005 ####[facility] [address] [place], [address] Creatinine [Mass/Vol] 0.85 mg/dL Normal 0.70-1.20 [facility] Comment on above: Result Comment: Icte jacquelin present, Results may be affected. Performed By: #### L 100.0100, L300.3900, L300.4310, L500.4050, L503.6005 ####[facility] [address] [place], [address] ECRCL 159.35 ml/min Normal 50-250 [facility] Comment on above: Performed By: #### L 100.0100, L300.3900, L300.4310, L500.4050, L503.6005 ####[facility] [address] [place], [address] GAP 15 Normal 5-15 [facility] Comment on above: Performed By: #### L 100.0100, L300.3900, L300.4310, L500.4050, L503.6005 ####[facility] [address] [place], [address] GFR/1.73 sq M.predicted among non-blacks MDRD (S/P/Bld) [Vol rate/Area] 115 mL/min/{1.73_m2} Normal >60 [facility] Comment on above: Result Comment: mL/m in/1.73m2 CKD-EPI Creatinine Equation (2020) Performed By: #### L 100.0100, L300.3900, L300.4310, L500.4050, L503.6005 ####[facility] [address] [place], [address] Globulin (S) [Mass/Vol] 2.7 g/dL Normal 2.2-4.2 [facility] Comment on above: Performed By: #### L 100.0100, L300.3900, L300.4310, L500.4050, L503.6005 ####[facility] [address] [place], [address] Glucose [Mass/Vol] 104 mg/dL High 70-99 [facility] Comment on above: Performed By: #### L 100.0100, L300.3900, L300.4310, L500.4050, L503.6005 ####[facility] [address] [place], [address] Potassium [Moles/Vol] 4.0 mmol/L Normal 3.3-5.1 [facility] Comment on above: Performed By: #### L 100.0100, L300.3900, L300.4310, L500.4050, L503.6005 ####[facility] [address] [place], [address] Sodium [Moles/Vol] 135 mmol/L Normal 133-145 [facility] Comment on above: Performed By: #### L 100.0100, L300.3900, L300.4310, L500.4050, L503.6005 ####[facility] [address] [place], [address] T PROT 6.5 g/dL Normal 5.9-8.4 [facility] Comment on above: Performed By: #### L 100.0100, L300.3900, L300.4310, L500.4050, L503.6005 ####[facility] [address] [place], [address] Urea nitrogen [Mass/Vol] 9 mg/dL Normal 4-19 [facility] Comment on above: Performed By: #### L 100.0100, L300.3900, L300.4310, L500.4050, L503.6005 ####[facility] [address] [place], [address] H AND P Exam - Hospitaliston 12-28-2024 H&P Exam - Hospitalist [facility] Medical Records Department [address] [place] [address] H P Exam - Hospitalist 12/28/24 2130 MR#: [id number] Acct: [id number] Name: ULISSES LANE Rep #: [id number] : 1985 39 From: Tiesha Clark MD PCP: Dr. Benson Desai, DO Status:REG ER Location: ED HPI - General General Date of Admission: 12/28/24 Date of Service: 12/28/24 Chief Complaint: Abdominal pain, fever. 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, Obesity, History of cholestatic hepatitis with prior gallstone pancreatitis status post cholecystectomy who presents to the [facility] ED on 12/28/2024 with history of significantly worsening abdominal discomfort x 4 days, initially epigastric and then extended to periumbilical with associated fever and mildly jaundiced appearance with intermittent fevers, chills and diaphoresis with recent lack of appetite prompting his bakery supervisor to refer patient to the ED to be cautious with recent CT of the abdomen pelvis noted on 12/25/2024 with a normal-sized pancreas without any evidence of mass or inflammation status post cholecystectomy with a mild degree of central intrahepatic biliary ductal dilatation with no acute abnormality noted at that time. Patient denies any recent URI type symptoms. He denies any ill contacts. He notes normal BM on am on day of presentation. He notes pain current at rest in the ED mild 2-3/10 in severity, aching but with activity attempts immediately worsens to 8-10/10 in severity, aching and stabbbing. Workup in the ED included T101.5, heart rate 125, BP 138/81, respiratory rate 18, 98% on room air with most recent repeat vitals T98.3, heart rate 99, BP 134/75, respiratory rate 16, 98% on room air, CBC with WC 9.1, hemoglobin 14.3, platelet 186 with lymphopenia, unremarkable coags, CMP with glucose 104, lactic acid less than 1, T. bili 5.33, AST/ALT 57/103, alk phos 334, urinalysis with specific Robley 1.015, protein 30, ketones 150, occult blood 10, negative nitrite, leukocyte esterase 25 with no evidence of urinary tract infection, chest x-ray with no acute cardiopulmonary findings, blood culture x 2 pending per ED, urine culture pending per ED, rapid SARS COVID/influenza/RSV pending upon request evaluation of patient. In the ED patient ministered 1 L normal saline, Tylenol 1000 mg p.o. x 1, Toradol 30 mg IV x 1, morphine 4 mg IV x 2, Zofran 4 mg IV x 1. ED discussed case with Dr. Thompson who requested admission and MRCP. [facility] Medical History GERD (gastroesophageal reflux disease) Obesity Gallstone pancreatitis Non-smoker Home Medications ???Medication ???Instructions ???Recorded ???Last Taken ???Type famotidine 40 mg tablet 40 mg PO QDAY #30 tabs 12/25/24 Un known Rx ondansetron 4 mg disintegrating 4 mg PO TID PRN nausea and 5 Unknown Rx tablet vomiting #21 tabs oxycodone-acetaminophe n 5 mg-325 1 tab PO Q6H PRN pain 5 days #20 0 12/27/24 Unknown Rx mg tablet (Endocet) tabs sucralfate 1 gram tablet (Carafate) 1 g PO TID 14 days #42 tabs Unknown Rx Allergy/AdvReac Type Severity Reaction Status Date / Time No Known Allergies Allergy Verified 12/27/24 04:52 Family History (Updated 12/28/24 @ 21:[address] Tiesha Clark MD) Mother Hypertension Thyroid disorder Father Hypertension Surgical History (Updated 12/28/24 @ 21:[address] iTesha Clark MD) History of cholecystectomy S/P ORIF (open reduction internal fixation) fracture Social History (Updated 12/28/24 @ 21:[address] Tiesha Clark MD) household members: spouse and children Smoking Status: Never smoker alcohol intake: current alcohol intake frequency: holidays/special occasions only substance use type: does not use ROS ROS Narrative Admission Review of Systems: CONSTITUTIONAL: No weight loss, + fever, chills, weakness or fatigue. HEENT: + Jaundiced appearance, mild scleral icterus, mild headaches generalized with light sensitivity. Eyes: No visual loss, blurred vision, double vision. Ears, Nose, Throat: No hearing loss, sneezing, congestion, runny nose or sore throat. SKIN: No rash or itching, lesions, wounds except + noted mild jaundiced appearance, occasional stage ecchymoses, abrasion. CARDIOVASCULAR: No chest pain, chest pressure or chest discomfort, palpitations, edema, orthopnea, syncopal events. RESPIRATORY: No shortness of breath, cough or sputum, wheezing, hemoptysis. GASTROINTESTINAL: + anorexia, abdominal pain. No nausea, vomiting, diarrhea, melena, BRBPR. GENITOURINARY: No dysuria, frequency, urgency or retention. NEUROLOGICAL: + Headaches, mild, generalized with light sensitivity. No dizziness, syncope, paralysis, ataxia, numbness or tingling in the extremities, focal weakness, change in bowel or bladder control, seizure. MUSCULOSKELETAL: + m (more content not included)... Normal [facility] Lactic Acidon 12-28-2024 Lactate [Moles/Vol] mmol/L Normal 0.0-2.0 [facility] Comment on above: Order Comment: Y Performed By: #### L 100.0100, L300.3900, L300.4310, L500.4050, L503.6005 ####[facility] [address] [place], [address] M100.678on 12-28-2024 M100.678 SARS-CoV-2 (COVID 19 ) Negative INFLUENZA A Negative INFLUENZA B Negative RSV PCR Negative Normal [facility] Comment on above: Performed By: #### M 100.678 #### [facility] [address] [place], [address] Partial Thromboplast Timeon 12-28-2024 aPTT Coag (Bld) [Time] 28.1 s Normal 24.1-36.2 [facility] Comment on above: Performed By: #### L 100.0100, L300.3900, L300.4310, L500.4050, L503.6005 ####[facility] [address] [place], [address] Prothrombin Time w/INRon INR Coag (PPP) [Relative time] 1.1 {INR} Normal [facility] Comment on above: Performed By: #### L 100.0100, L300.3900, L300.4310, L500.4050, L503.6005 ####[facility] [address] [place], [address] PT Coag (PPP) [Time] 14.1 s Normal 11.7-14.9 [facility] Comment on above: Performed By: #### L 100.0100, L300.3900, L300.4310, L500.4050, L503.6005 ####[facility] [address] [place], [address] Urinalysis, Completeon 12-28 Mucus Ql (Urine sed) 1+ /hpf Normal [facility] Comment on above: Order Comment: CLEAN CATCH Performed By: #### L 400.0001 ####[facility] [address] [place], [address] RBC 0-5 SEEN Normal 0-5 [facility] Comment on above: Order Comment: CLEAN CATCH Performed By: #### L 400.0001 ####[facility] [address] [place], [address] WBC 0-5 SEEN Normal 0-5 [facility] Comment on above: Order Comment: CLEAN CATCH Performed By: #### L 400.0001 ####[facility] [address] [place], [address] BACTERIA 0 SEEN Normal None Seen [facility] Comment on above: Order Comment: CLEAN CATCH Performed By: #### L 400.0001 ####[facility] [address] [place], [address] EPI,SQUAMOUS 0 SEEN Normal 0-5 [facility] Comment on above: Order Comment: CLEAN CATCH Performed By: #### L 400.0001 ####[facility] [address] [place], [address] Absolute lymphocyte countOrd ered By: Mayo Darnell on 12-27-2024 Lymphocytes Auto (Unsp spec) [#/Vol] 0.50 10*3/uL Low 0.83-4.51 [facility] Absolute neutrophil countOrd ered By: Mayo Darnell on 12-27-2024 Neutrophils (Bld) [#/Vol] 7.1 10*3/uL 2.0-7.7 [facility] Anion gap in Serum or Plasma Ordered By: Mayo Darnell on 12-27-2024 Anion gap [Moles/Vol] 12 mmol/L 5-15 [facility] Automated lymphocyte count a s percentage of total leukocytesOrdered By: Mayo Darnell on 12-27-2024 Lymphocytes/100 WBC Auto (Unsp spec) 6.3 % Low 19-41 [facility] BUN/creatinine ratioOrdered By: Mayo Darnell on 12-27-2024 Urea nitrogen/Creatinine [Mass ratio] 8.7 mg/mg Low 10-20 [facility] Basic Metabolic Profile (BMP )on 12-27-2024 BUN/CRE 8.7 RATIO Low - [facility] Comment on above: Performed By: #### L 501.2450, L501.6710, L503.6005, L100.0100, L500.2500, L500.3400 #### [facility] [address] [place], [address] Calcium [Mass/Vol] 9.2 mg/dL Normal 7.6-11.0 [facility] Comment on above: Performed By: #### L 501.2450, L501.6710, L503.6005, L100.0100, L500.2500, L500.3400 #### [facility] [address] [place], [address] Chloride [Moles/Vol] 101 mmol/L Normal 98-108 [facility] Comment on above: Performed By: #### L 501.2450, L501.6710, L503.6005, L100.0100, L500.2500, L500.3400 #### [facility] [address] [place], [address] CO2 [Moles/Vol] 23.7 mmol/L Normal 21.0-32.0 [facility] Comment on above: Performed By: #### L 501.2450, L501.6710, L503.6005, L100.0100, L500.2500, L500.3400 #### [facility] [address] [place], [address] Creatinine [Mass/Vol] 1.06 mg/dL Normal 0.70-1.20 [facility] Comment on above: Performed By: #### L 501.2450, L501.6710, L503.6005, L100.0100, L500.2500, L500.3400 #### [facility] [address] [place], [address] ECRCL 128.56 ml/min Normal 50-250 [facility] Comment on above: Performed By: #### L 501.2450, L501.6710, L503.6005, L100.0100, L500.2500, L500.3400 #### [facility] [address] [place], [address] GAP 12 Normal 5-15 [facility] Comment on above: Performed By: #### L 501.2450, L501.6710, L503.6005, L100.0100, L500.2500, L500.3400 #### [facility] [address] [place], [address] GFR/1.73 sq M.predicted among non-blacks MDRD (S/P/Bld) [Vol rate/Area] 93 mL/min/{1.73_m2} Normal >60 [facility] Comment on above: Result Comment: mL/m in/1.73m2 CKD-EPI Creatinine Equation (2020) Performed By: #### L 501.2450, L501.6710, L503.6005, L100.0100, L500.2500, L500.3400 #### [facility] [address] [place], [address] Glucose [Mass/Vol] 112 mg/dL High 70-99 [facility] Comment on above: Performed By: #### L 501.2450, L501.6710, L503.6005, L100.0100, L500.2500, L500.3400 #### [facility] [address] [place], [address] Potassium [Moles/Vol] 4.1 mmol/L Normal 3.3-5.1 [facility] Comment on above: Performed By: #### L 501.2450, L501.6710, L503.6005, L100.0100, L500.2500, L500.3400 #### [facility] [address] [place], [address] Sodium [Moles/Vol] 137 mmol/L Normal 133-145 [facility] Comment on above: Performed By: #### L 501.2450, L501.6710, L503.6005, L100.0100, L500.2500, L500.3400 #### [facility] [address] [place], [address] Urea nitrogen [Mass/Vol] 9 mg/dL Normal 4-19 [facility] Comment on above: Performed By: #### L 501.2450, L501.6710, L503.6005, L100.0100, L500.2500, L500.3400 #### [facility] [address] [place], [address] Basophil percentageOrdered B y: Mayo Darnell on 12-27-2024 Basophils/100 WBC (Bld) 0.1 % 0-1 [facility] Bilirubin directOrdered By: Mayo Darnell on 12-27-2024 Bilirubin.direct [Mass/Vol] 0.64 mg/dL High 0.00-0.30 [facility] Bilirubin, totalOrdered By: Mayo Darnell on 12-27-2024 Bilirubin [Mass/Vol] 1.18 mg/dL 0.00-1.30 [facility] CBC W/Diff, Automatedon 12-08 Absolute Lymph 0.50 X10 3/uL Low 0.83-4.51 [facility] Comment on above: Performed By: #### L 501.2450, L501.6710, L503.6005, L100.0100, L500.2500, L500.3400 #### [facility] [address] [place], [address] Absolute Neut 7.1 X10 3/uL Normal 2.0-7.7 [facility] Comment on above: Performed By: #### L 501.2450, L501.6710, L503.6005, L100.0100, L500.2500, L500.3400 #### [facility] [address] [place], [address] Basophils/100 WBC (Bld) 0.1 % Normal 0-1 [facility] Comment on above: Performed By: #### L 501.2450, L501.6710, L503.6005, L100.0100, L500.2500, L500.3400 #### [facility] [address] [place], [address] Eosinophils/100 WBC (Bld) 0.1 % Normal 0-5 [facility] Comment on above: Performed By: #### L 501.2450, L501.6710, L503.6005, L100.0100, L500.2500, L500.3400 #### [facility] [address] [place], [address] Erythrocyte distribution width (RBC) [Ratio] 12.5 % Normal 11.6-14.6 [facility] Comment on above: Performed By: #### L 501.2450, L501.6710, L503.6005, L100.0100, L500.2500, L500.3400 #### [facility] [address] [place], [address] Hematocrit (Bld) [Volume fraction] 42.6 % Normal 40-54 [facility] Comment on above: Performed By: #### L 501.2450, L501.6710, L503.6005, L100.0100, L500.2500, L500.3400 #### [facility] [address] [place], [address] Hemoglobin (Bld) [Mass/Vol] 14.5 g/dL Normal 13.0-16.5 [facility] Comment on above: Performed By: #### L 501.2450, L501.6710, L503.6005, L100.0100, L500.2500, L500.3400 #### [facility] [address] [place], [address] IG% 0.600 Normal 0.0-0.9 [facility] Comment on above: Result Comment: IG% - Immature Granulocytes (promyelocytes, myelocytes and metamyelocytes) > 1% indicates that a LEFT SHIFT is Present. Performed By: #### L 501.2450, L501.6710, L503.6005, L100.0100, L500.2500, L500.3400 #### [facility] [address] [place], [address] Lymphocytes/100 WBC (Bld) 6.3 % Low 19-41 [facility] Comment on above: Performed By: #### L 501.2450, L501.6710, L503.6005, L100.0100, L500.2500, L500.3400 #### [facility] [address] [place], [address] MCH (RBC) [Entitic mass] 29.8 pg Normal 27.0-32.0 [facility] Comment on above: Performed By: #### L 501.2450, L501.6710, L503.6005, L100.0100, L500.2500, L500.3400 #### [facility] [address] [place], [address] MCHC (RBC) [Mass/Vol] 34.0 g/dL Normal 32-36 [facility] Comment on above: Performed By: #### L 501.2450, L501.6710, L503.6005, L100.0100, L500.2500, L500.3400 #### [facility] [address] [place], [address] MCV (RBC) [Entitic vol] 87.7 fL Normal 80-94 [facility] Comment on above: Performed By: #### L 501.2450, L501.6710, L503.6005, L100.0100, L500.2500, L500.3400 #### [facility] [address] [place], [address] Monocytes/100 WBC (Bld) 3.9 % Normal 0-10 [facility] Comment on above: Performed By: #### L 501.2450, L501.6710, L503.6005, L100.0100, L500.2500, L500.3400 #### [facility] [address] [place], [address] Neutrophils/100 WBC (Bld) 89.0 % High 47-70 [facility] Comment on above: Performed By: #### L 501.2450, L501.6710, L503.6005, L100.0100, L500.2500, L500.3400 #### [facility] [address] [place], [address] Nucleated RBC (Bld) [#/Vol] 0 10*3/uL Normal 0-5 [facility] Comment on above: Performed By: #### L 501.2450, L501.6710, L503.6005, L100.0100, L500.2500, L500.3400 #### [facility] [address] [place], [address] Platelet mean volume (Bld) [Entitic vol] 10.2 fL Normal 6.2-12.0 [facility] Comment on above: Performed By: #### L 501.2450, L501.6710, L503.6005, L100.0100, L500.2500, L500.3400 #### [facility] [address] [place], [address] Platelets (Bld) [#/Vol] 148 10*3/uL Low 150-450 [facility] Comment on above: Performed By: #### L 501.2450, L501.6710, L503.6005, L100.0100, L500.2500, L500.3400 #### [facility] [address] [place], [address] RBC (Bld) [#/Vol] 4.86 10*6/uL Normal 4.6-6.2 [facility] Comment on above: Performed By: #### L 501.2450, L501.6710, L503.6005, L100.0100, L500.2500, L500.3400 #### [facility] [address] [place], [address] RDW SD 40.0 fl Normal 35.1-43.9 [facility] Comment on above: Performed By: #### L 501.2450, L501.6710, L503.6005, L100.0100, L500.2500, L500.3400 #### [facility] [address] [place], [address] WBC (Bld) [#/Vol] 8.0 10*3/uL Normal 4.4-11.0 [facility] Comment on above: Performed By: #### L 501.2450, L501.6710, L503.6005, L100.0100, L500.2500, L500.3400 #### [facility] [address] [place], [place], [address] CRPon 12-27-2024 C-REACTIVE PROT 136.00 mg/L High 0.0-3.0 [facility] Comment on above: Performed By: #### L 501.2450, L501.6710, L503.6005, L100.0100, L500.2500, L500.3400 ####[facility] [address] [facility] [place], [address] Carbon dioxide, total [Moles /volume] in Central venous bloodOrdered By: Mayo Darnell on 12-27-2024 CO2 [Moles/Vol] 23.7 mmol/L 21.0-32.0 [facility] Chloride assayOrdered By: Nicole Darnell on 12-27-2024 Chloride [Moles/Vol] 101 mmol/L 98-108 [facility] Emergency Department Summary on 12-27-2024 Emergency Department Summary [facility] Medical Records Department [address] [place] [address] Emergency Department Summary 12/27/24 MR#: [id number] Acct: [id number] Name: [address] Rep #: [id number] : 1985 39 From: Mayo Darnell DO PCP: Dr. Benson Desai, DO Status:DEP ER Location: ED HPI History of Present Illness Chief Complaint: Abd Pain Informant: patient and spouse/S.O. Narrative Narrative: Patient is a 39-year-old male with past medical history of gallstone pancreatitis who is status post cholecystectomy in 2022. He was seen on December 25 secondary to midepigastric abdominal pain. At that time labs were negative and a CT with IV contrast revealed no sign of acute pancreatitis or common bile duct stenosis or obstruction. Patient has an EGD scheduled for January 11 but he states he has had persistent subjective fevers and chills with spreading/worsening of his abdominal pain. He reports nausea without vomiting he denies any dysuria or hematuria or diarrhea. However with his worsening symptoms and concern that he is developing pancreatitis he [facility] Medical History Non-smoker Home Medications ???Medication ???Instructions ???Recorded ???Last Taken ???Type famotidine 40 mg tablet 40 mg PO QDAY #30 tabs 12/25/24 Un known Rx ondansetron 4 mg disintegrating 4 mg PO TID PRN nausea and 5 Unknown Rx tablet vomiting #21 tabs oxycodone-acetaminophe n 5 mg-325 1 tab PO Q6H PRN pain 5 days #20 0 12/27/24 Unknown Rx mg tablet (Endocet) tabs sucralfate 1 gram tablet (Carafate) 1 g PO TID 14 days #42 tabs Unknown Rx Allergy/AdvReac Type Severity Reaction Status Date / Time No Known Allergies Allergy Verified 12/27/24 04:52 Family History no significant family his Surgical History History of cholecystectomy S/P ORIF (open reduction internal fixation) fracture Social History Smoking Status: Never smoker ROS ROS ED Constitutional Constitutional ED: Reports chills, fever(s) and subjective Eyes Eyes: Denies change in vision ENT ENT ED: Denies sore throat Cardiovascular Cardiovascular: Denies chest pain Respiratory/Chest Respiratory/Chest: Denies cough Gastrointestinal Gastrointestinal: Reports abdominal pain and nausea; Denies diarrhea or vomiting Genitourinary Genitourinary ED: Denies dysuria or hematuria Musculoskeletal Musculoskeletal: Denies back pain Integumentary Denies rash Neurologic Neurologic: Denies headache(s) Hematologic/Lymphatic Hematologic/Lymphatic: Denies easy bleeding or easy bruising EXAM Physical Exam Const Vital Signs: 12/27/24 04:52 12/27/24 04:55 12/27/24 06:15 Temperature 98.1 F 98.1 F 98.9 F Temperature Source Oral Oral Pulse Rate 110 H 105 H 88 Respiratory Rate 18 18 18 Blood Pressure 141/91 H 141/91 H 130/79 H Blood Pressure Mean 107 107 96 Pulse Ox 98 98 99 Oxygen Delivery Method Room Air Room Air Positive well nourished and well developed General Appearance ED: well developed; Negative for pallor HEENT Reports dry mucous membranes HEENT Narrative: Normocephalic atraumatic No tongue or lip swelling no oral lesions no airway edema or compromise; no sign of infection noted in the posterior pharynx Mucous membranes are mildly dry and tacky Mouth ED: Yes dry mucous membranes Mouth: dry mucous membranes Eyes PERRL and EOMs intact bilaterally General Eye ED: Negative for scleral icterus Neck supple Resp normal respiratory effort and clear to auscultation bilaterally Resp Narrative: No nasal flaring retractions tachypnea or accessory muscle use Cardio regular rhythm Rate: tachycardic and other Other Details: Tachycardic rate with regular rhythm No murmurs rubs or gallop Radial and carotid pulses are equal and symmetric GI non-distended and no masses GI Narrative: Abdomen is soft and nondistended with normal active bowel sounds. There is pain with palpation mainly in the midepigastric and right upper quadrant region. However no voluntary guarding or rigidity. No pulsatile mass or fluid wave. No peritoneal signs Auscultation: normoactive bowel sounds Palpation: soft Extremity normal to inspection Extremity Narrative: No asymmetric edema no pitting edema negative Homans' sign bilaterally Neuro oriented x3, CN's II-XII intact bilaterally and no sensory deficits noted Sensorium / Orientation: alert Motor Exam: strength 5/5 throughout Psych mental status grossly normal Skin no rashes or lesions noted, no wounds and No skin turgor normal Skin Narrative: Skin turgor is slightly increased General Skin Exam: Negative for jaundice or pallor MDM MDM (more content not included)... Normal [facility] Eosinophil percentageOrdered By: Mayo Darnell on 12-27-2024 Eosinophils/100 WBC (Bld) 0.1 % 0-5 [facility] Erythrocyte distribution wid th ratioOrdered By: Mayo Darnell on 12-27-2024 Erythrocyte distribution width (RBC) [Ratio] 12.5 % 11.6-14.6 [facility] Erythrocyte distribution wid th standard deviationOrdered By: Mayo Darnell on 12-27-2024 Erythrocyte distribution width (RBC) [Ratio] 40.0 fl 35.1-43.9 [facility] Glomerular filtration rate ( GFR) estimation/1.73 sq m using serum, plasma, or whole bOrdered By: Mayo Darnell on 12-27-2024 GFR/1.73 sq M.predicted among non-blacks MDRD (S/P/Bld) [Vol rate/Area] 93 mL/min/{1.73_m2} >60 [facility] Comment on above: mL/min/1.73m2 CKD-EP I Creatinine Equation (2020) Hematocrit Auto (Bld) [Volum e fraction]Ordered By: Mayo Darnell on 12-27-2024 Hematocrit (Bld) [Volume fraction] 42.6 % 40-54 [facility] Hemoglobin measurementOrdere d By: Mayo Darnell on 12-27-2024 Hemoglobin (Bld) [Mass/Vol] 14.5 g/dL 13.0-16.5 [facility] Immature granulocytes/100 WB C Auto (Bld)Ordered By: Mayo Darnell on 12-27-2024 Immature granulocytes/100 WBC (Bld) 0.600 % 0.0-0.9 [facility] Comment on above: IG% - Immature Granu locytes (promyelocytes, myelocytes and metamyelocytes) > 1% indicates that a LEFT SHIFT is Present. Laboratory - Chemistry and C hemistry - challengeOrdered By: Mayo Darnell on 12-27-2024 AST [Catalytic activity/Vol] 22 U/L <38 [facility] Lactic Acidon 12-27-2024 Lactate [Moles/Vol] mmol/L Normal 0.0-2.0 [facility] Comment on above: Order Comment: Y Performed By: #### L 501.2450, L501.6710, L503.6005, L100.0100, L500.2500, L500.3400 ####[facility] [address] [place], [place], [id number] Lactic acid measurementOrder ed By: Mayo Darnell on 12-27-2024 Lactate [Moles/Vol] mmol/L 0.0-2.0 [facility] Lipaseon 12-27-2024 Lipase [Catalytic activity/Vol] 27 U/L Normal 13-75 [facility] Comment on above: Result Comment: Janet latham note: LIPASE revised reference range effective 22. New Lipase methodology. Expected to produce lower values than the previous assay method. NEW Reference Range: 13 - 75 U/L Performed By: #### L 501.2450, L501.6710, L503.6005, L100.0100, L500.2500, L500.3400 #### [facility] [address] [place], [address] Lipase measurementOrdered By : Mayo Darnell on 12-27-2024 Lipase [Catalytic activity/Vol] 27 U/L 13-75 [facility] Comment on above: Please note:LIPASE r evised reference range effective 22. New Lipase methodology. Expected to produce lower values than the previous assay method. NEW Reference Range: 13 - 75 U/L Liver Profileon 12-27-2024 Albumin [Mass/Vol] 3.9 g/dL Normal 3.5-5.0 [facility] Comment on above: Performed By: #### L 501.2450, L501.6710, L503.6005, L100.0100, L500.2500, L500.3400 #### [facility] [address] [place], [address] ALK PHOS 101 U/L Normal 40-129 [facility] Comment on above: Performed By: #### L 501.2450, L501.6710, L503.6005, L100.0100, L500.2500, L500.3400 #### [facility] [address] [place], [address] ALT [Catalytic activity/Vol] 28 U/L Normal <=46 [facility] Comment on above: Performed By: #### L 501.2450, L501.6710, L503.6005, L100.0100, L500.2500, L500.3400 #### [facility] [address] [place], [address] AST [Catalytic activity/Vol] 22 U/L Normal <=37 [facility] Comment on above: Performed By: #### L 501.2450, L501.6710, L503.6005, L100.0100, L500.2500, L500.3400 #### [facility] [address] [place], [address] Bilirubin [Mass/Vol] 1.18 mg/dL Normal 0.00-1.30 [facility] Comment on above: Performed By: #### L 501.2450, L501.6710, L503.6005, L100.0100, L500.2500, L500.3400 #### [facility] [address] [place], [address] Bilirubin.direct [Mass/Vol] 0.64 mg/dL High 0.00-0.30 [facility] Comment on above: Performed By: #### L 501.2450, L501.6710, L503.6005, L100.0100, L500.2500, L500.3400 #### [facility] [address] [place], [address] Globulin (S) [Mass/Vol] 2.8 g/dL Normal 2.2-4.2 [facility] Comment on above: Performed By: #### L 501.2450, L501.6710, L503.6005, L100.0100, L500.2500, L500.3400 #### [facility] [address] [place], [address] T PROT 6.7 g/dL Normal 5.9-8.4 [facility] Comment on above: Performed By: #### L 501.2450, L501.6710, L503.6005, L100.0100, L500.2500, L500.3400 #### [facility] [address] [place], [address] MCV (mean corpuscular volume ) determinationOrdered By: Mayo Darnell on 12-27-2024 MCV (RBC) [Entitic vol] 87.7 fL 80-94 [facility] Mean corpuscular hemoglobin (MCH) determinationOrdered By: Mayo Darnell on 12-27-2024 MCH (RBC) [Entitic mass] 29.8 pg 27.0-32.0 [facility] Mean corpuscular hemoglobin concentration (MCHC) determinationOrdered By: Mayo Darnell on 12-27-2024 MCHC (RBC) [Mass/Vol] 34.0 g/dL 32-36 [facility] Mean platelet volume determi nationOrdered By: Mayo Darnell on 12-27-2024 Platelet mean volume (Bld) [Entitic vol] 10.2 fL 6.2-12.0 [facility] Monocyte percentageOrdered B y: Mayo Darnell on 12-27-2024 Monocytes/100 WBC (Bld) 3.9 % 0-10 [facility] Neutrophil percentageOrdered By: Mayo Darnell on 12-27-2024 Neutrophils/100 WBC (Bld) 89.0 % High 47-70 [facility] Nucleated red blood cell per centageOrdered By: Mayo Darnell on 12-27-2024 Nucleated RBC/100 WBC (Bld) [Ratio] 0 % 0-5 [facility] Platelet countOrdered By: Nicole Darnell on 12-27-2024 Platelets (Bld) [#/Vol] 148 10*3/uL Low 150-450 [facility] Potassium measurement (mass/ volume)Ordered By: Mayo Darnell on 12-27-2024 Potassium (Unsp spec) [Mass/Vol] 4.1 mmol/L 3.3-5.1 [facility] RBC Auto (Bld) [#/Vol]Ordere d By: Mayo Darnell on 12-27-2024 RBC (Bld) [#/Vol] 4.86 10*6/uL 4.6-6.2 [facility] Serum creatinine measurement (mass/volume)Ordered By: Mayo Darnell on 12-27-2024 Creatinine [Mass/Vol] 1.06 mg/dL 0.70-1.20 [facility] Serum globulin measurementOr dered By: Mayo Darnell on 12-27-2024 Globulin (S) [Mass/Vol] 2.8 g/dL 2.2-4.2 [facility] Serum glucose measurement (m ass/volume)Ordered By: Mayo Darnell on 12-27-2024 Glucose [Mass/Vol] 112 mg/dL High 70-99 [facility] Serum or plasma C reactive p rotein measurement (mass/volume)Ordered By: Mayo Darnell on 12-27-2024 CRP [Mass/Vol] 136.00 mg/L High 0.0-3.0 [facility] Serum or plasma alanine multani otransferase (ALT) measurementOrdered By: Mayo Darnell on 12-27-2024 ALT [Catalytic activity/Vol] 28 U/L <47 [facility] Serum or plasma albumin armani urement (mass/volume)Ordered By: Mayo Darnell on 12-27-2024 Albumin [Mass/Vol] 3.9 g/dL 3.5-5.0 [facility] Serum or plasma alkaline sean sphatase measurementOrdered By: Mayo Darnell on 12-27-2024 ALP [Catalytic activity/Vol] 101 U/L 40-129 [facility] Serum or plasma calcium armani urement (mass/volume)Ordered By: Mayo Darnell on 12-27-2024 Calcium [Mass/Vol] 9.2 mg/dL 7.6-11.0 [facility] Serum or plasma urea nitroge n measurement (mass/volume)Ordered By: Mayo Darnell on 12-27-2024 Urea nitrogen [Mass/Vol] 9 mg/dL 4-19 [facility] Sodium levelOrdered By: Glenroy Darnell on 12-27-2024 Sodium [Moles/Vol] 137 mmol/L 133-145 [facility] Total proteinOrdered By: Maikel Darnell on 12-27-2024 Protein [Mass/Vol] 6.7 g/dL 5.9-8.4 [facility] White blood cell (WBC) count Ordered By: Mayo Darnell on 12-27-2024 WBC (Bld) [#/Vol] 8.0 10*3/uL 4.4-11.0 [facility] Abdomen/Pelvis W IV Cont ONL Yon 12-25-2024 Abdomen/Pelvis W IV Cont ONLY [facility] Services [address] [place], [place] [id number] Abdomen/Pelvis W IV Cont ONLY MR#: [id number] Acct: [id number] Name: DOMINGOULISSES Rep #: [id number] : 1985 M 39 From: Michael moncada MD PCP: Dr. Benson Desai, Status: PRE ER Study: Abdomen/Pelvis W IV Cont ONLY Date of Exam: Exam# [id number] Ordering Dr: Tony Hills MD PROCEDURE: ABDOMEN/PELVIS W IV CONT [...] No acute abnormality is seen. Reading Location: [id number] CC: Dr. Benson Desai DO; Dr. Tony Hills MD [employer]: Signed Normal [facility] Absolute lymphocyte countOrd ered By: Tony Hills on 12-25-2024 Lymphocytes Auto (Unsp spec) [#/Vol] 0.41 10*3/uL Low 0.83-4.51 [facility] Absolute neutrophil countOrd ered By: Tony Hills on 12-25-2024 Neutrophils (Bld) [#/Vol] 8.8 10*3/uL High 2.0-7.7 [facility] Amylaseon 12-25-2024 LUIS 39 U/L Normal 28-100 [facility] Comment on above: Performed By: #### L 100.0100, L500.4050, L501.2400, L501.2450 ####[facility] [address] [place], [address] Anion gap in Serum or Plasma Ordered By: Tony Hills on 12-25-2024 Anion gap [Moles/Vol] 10 mmol/L 5-15 [facility] Automated lymphocyte count a s percentage of total leukocytesOrdered By: Tony Hills on 12-25-2024 Lymphocytes/100 WBC Auto (Unsp spec) 4.3 % Low [facility] BUN/creatinine ratioOrdered By: Tony Hills on 12-25-2024 Urea nitrogen/Creatinine [Mass ratio] 11.3 mg/mg - [facility] Basophil percentageOrdered B y: Tony Hills on 12-25-2024 Basophils/100 WBC (Bld) 0.3 % 0-1 [facility] Bilirubin, totalOrdered By: Tony Hills on 12-25-2024 Bilirubin [Mass/Vol] 1.03 mg/dL 0.00-1.30 [facility] CBC W/Diff, Automatedon 12-07 Absolute Lymph 0.41 X10 3/uL Low 0.83-4.51 [facility] Comment on above: Performed By: #### L 100.0100, L500.4050, L501.2400, L501.2450 ####[facility] [address] [place], [address] Absolute Neut 8.8 X10 3/uL High 2.0-7.7 [facility] Comment on above: Performed By: #### L 100.0100, L500.4050, L501.2400, L501.2450 ####[facility] [address] [place], [address] Basophils/100 WBC (Bld) 0.3 % Normal 0-1 [facility] Comment on above: Performed By: #### L 100.0100, L500.4050, L501.2400, L501.2450 ####[facility] [address] [place], [address] Eosinophils/100 WBC (Bld) 0.1 % Normal 0-5 [facility] Comment on above: Performed By: #### L 100.0100, L500.4050, L501.2400, L501.2450 ####[facility] [address] [place], [address] Erythrocyte distribution width (RBC) [Ratio] 12.4 % Normal 11.6-14.6 [facility] Comment on above: Performed By: #### L 100.0100, L500.4050, L501.2400, L501.2450 ####[facility] [address] [place], [address] Hematocrit (Bld) [Volume fraction] 45.0 % Normal 40-54 [facility] Comment on above: Performed By: #### L 100.0100, L500.4050, L501.2400, L501.2450 ####[facility] [address] [place], [address] Hemoglobin (Bld) [Mass/Vol] 15.1 g/dL Normal 13.0-16.5 [facility] Comment on above: Performed By: #### L 100.0100, L500.4050, L501.2400, L501.2450 ####[facility] [address] [place], [address] IG% 0.500 Normal 0.0-0.9 [facility] Comment on above: Result Comment: IG% - Immature Granulocytes (promyelocytes, myelocytes and metamyelocytes) > 1% indicates that a LEFT SHIFT is Present. Performed By: #### L 100.0100, L500.4050, L501.2400, L501.2450 ####[facility] [address] [place], [address] Lymphocytes/100 WBC (Bld) 4.3 % Low 19-41 [facility] Comment on above: Performed By: #### L 100.0100, L500.4050, L501.2400, L501.2450 ####[facility] [address] [place], [address] MCH (RBC) [Entitic mass] 29.5 pg Normal 27.0-32.0 [facility] Comment on above: Performed By: #### L 100.0100, L500.4050, L501.2400, L501.2450 ####[facility] [address] [place], [address] MCHC (RBC) [Mass/Vol] 33.6 g/dL Normal 32-36 [facility] Comment on above: Performed By: #### L 100.0100, L500.4050, L501.2400, L501.2450 ####[facility] [address] [place], [address] MCV (RBC) [Entitic vol] 88.1 fL Normal 80-94 [facility] Comment on above: Performed By: #### L 100.0100, L500.4050, L501.2400, L501.2450 ####[facility] [address] [place], [address] Monocytes/100 WBC (Bld) 1.6 % Normal 0-10 [facility] Comment on above: Performed By: #### L 100.0100, L500.4050, L501.2400, L501.2450 ####[facility] [address] [place], [address] Neutrophils/100 WBC (Bld) 93.2 % High 47-70 [facility] Comment on above: Performed By: #### L 100.0100, L500.4050, L501.2400, L501.2450 ####[facility] [address] [place], [address] Nucleated RBC (Bld) [#/Vol] 0 10*3/uL Normal 0-5 [facility] Comment on above: Performed By: #### L 100.0100, L500.4050, L501.2400, L501.2450 ####[facility] [address] [place], [address] Platelet mean volume (Bld) [Entitic vol] 10.3 fL Normal 6.2-12.0 [facility] Comment on above: Performed By: #### L 100.0100, L500.4050, L501.2400, L501.2450 ####[facility] [address] [place], [address] Platelets (Bld) [#/Vol] 181 10*3/uL Normal 150-450 [facility] Comment on above: Performed By: #### L 100.0100, L500.4050, L501.2400, L501.2450 ####[facility] [address] [place], [address] RBC (Bld) [#/Vol] 5.11 10*6/uL Normal 4.6-6.2 [facility] Comment on above: Performed By: #### L 100.0100, L500.4050, L501.2400, L501.2450 ####[facility] [address] [place], [address] RDW SD 40.3 fl Normal 35.1-43.9 [facility] Comment on above: Performed By: #### L 100.0100, L500.4050, L501.2400, L501.2450 ####[facility] [address] [place], [address] WBC (Bld) [#/Vol] 9.5 10*3/uL Normal 4.4-11.0 [facility] Comment on above: Performed By: #### L 100.0100, L500.4050, L501.2400, L501.2450 ####[facility] [address] [place], [address] Carbon dioxide, total [Moles /volume] in Central venous bloodOrdered By: [place] on 12-25-2024 CO2 [Moles/Vol] 26.6 mmol/L 21.0-32.0 [facility] Chloride assayOrdered By: Alphonse Hills on 12-25-2024 Chloride [Moles/Vol] 103 mmol/L 98-108 [facility] Comprehensive Metabolic Prof ilon 12-25-2024 Albumin [Mass/Vol] 4.6 g/dL Normal 3.5-5.0 [facility] Comment on above: Performed By: #### L 100.0100, L500.4050, L501.2400, L501.2450 ####[facility] [address] [place], [address] Albumin/Globulin [Mass ratio] 1.9 {ratio} Normal 0.9-2.4 [facility] Comment on above: Performed By: #### L 100.0100, L500.4050, L501.2400, L501.2450 ####[facility] [address] [place], [address] ALK PHOS 77 U/L Normal 40-129 [facility] Comment on above: Performed By: #### L 100.0100, L500.4050, L501.2400, L501.2450 ####[facility] [address] [place], [address] ALT [Catalytic activity/Vol] 21 U/L Normal <=46 [facility] Comment on above: Performed By: #### L 100.0100, L500.4050, L501.2400, L501.2450 ####[facility] [address] [place], [address] AST [Catalytic activity/Vol] 21 U/L Normal <=37 [facility] Comment on above: Performed By: #### L 100.0100, L500.4050, L501.2400, L501.2450 ####[facility] [address] [place], [address] Bilirubin [Mass/Vol] 1.03 mg/dL Normal 0.00-1.30 [facility] Comment on above: Performed By: #### L 100.0100, L500.4050, L501.2400, L501.2450 ####[facility] [address] [place], [address] BUN/CRE 11.3 RATIO Normal 10-20 [facility] Comment on above: Performed By: #### L 100.0100, L500.4050, L501.2400, L501.2450 ####[facility] [address] [place], [address] Calcium [Mass/Vol] 9.4 mg/dL Normal 7.6-11.0 [facility] Comment on above: Performed By: #### L 100.0100, L500.4050, L501.2400, L501.2450 ####[facility] [address] [place], [address] Chloride [Moles/Vol] 103 mmol/L Normal 98-108 [facility] Comment on above: Performed By: #### L 100.0100, L500.4050, L501.2400, L501.2450 ####[facility] [address] [place], [address] CO2 [Moles/Vol] 26.6 mmol/L Normal 21.0-32.0 [facility] Comment on above: Performed By: #### L 100.0100, L500.4050, L501.2400, L501.2450 ####[facility] [address] [place], [address] Creatinine [Mass/Vol] 1.09 mg/dL Normal 0.70-1.20 [facility] Comment on above: Performed By: #### L 100.0100, L500.4050, L501.2400, L501.2450 ####[facility] [address] [place], [address] ECRCL 125.81 ml/min Normal 50-250 [facility] Comment on above: Performed By: #### L 100.0100, L500.4050, L501.2400, L501.2450 ####[facility] [address] [place], [address] GAP 10 Normal 5-15 [facility] Comment on above: Performed By: #### L 100.0100, L500.4050, L501.2400, L501.2450 ####[facility] [address] [place], [address] GFR/1.73 sq M.predicted among non-blacks MDRD (S/P/Bld) [Vol rate/Area] 90 mL/min/{1.73_m2} Normal >60 [facility] Comment on above: Result Comment: mL/m in/1.73m2 CKD-EPI Creatinine Equation (2020) Performed By: #### L 100.0100, L500.4050, L501.2400, L501.2450 ####[facility] [address] [place], [address] Globulin (S) [Mass/Vol] 2.4 g/dL Normal 2.2-4.2 [facility] Comment on above: Performed By: #### L 100.0100, L500.4050, L501.2400, L501.2450 ####[facility] [address] [place], [address] Glucose [Mass/Vol] 101 mg/dL High 70-99 [facility] Comment on above: Performed By: #### L 100.0100, L500.4050, L501.2400, L501.2450 ####[facility] [address] [place], [address] Potassium [Moles/Vol] 4.2 mmol/L Normal 3.3-5.1 [facility] Comment on above: Performed By: #### L 100.0100, L500.4050, L501.2400, L501.2450 ####[facility] [address] [place], [address] Sodium [Moles/Vol] 139 mmol/L Normal 133-145 [facility] Comment on above: Performed By: #### L 100.0100, L500.4050, L501.2400, L501.2450 ####[facility] [address] [place], [address] T PROT 6.9 g/dL Normal 5.9-8.4 [facility] Comment on above: Performed By: #### L 100.0100, L500.4050, L501.2400, L501.2450 ####[facility] [address] [place], [address] Urea nitrogen [Mass/Vol] 12 mg/dL Normal 4-19 [facility] Comment on above: Performed By: #### L 100.0100, L500.4050, L501.2400, L501.2450 ####[facility] [address] [place], [address] Emergency Department Summary on 12-25-2024 Emergency Department Summary [facility] Medical Records Department [address] [place] [address] Emergency Department Summary 12/25/24 MR#: [id number] Acct: [id number] Name: ULISSES LANE Rep #: [id number] : 1985 39 From: Tony Hills MD PCP: Dr. Benson Desai, DO Status:REG ER Location: ED HPI HPI - GI History of Present Illness Chief Complaint: Abd Pain Informant: patient Abdominal Pain/Flank Pain Onset: Today Quality: Aching Location: Epigastric and LUQ Current Severity: Moderate Maximum Severity: Moderate Worsened by: Nothing Relieved by: Nothing Nausea/Vomiting/Emesis GI Symptom: Negative for Nausea or Vomiting Diarrhea/Melena/Hemato chezia GI Symptom: Negative for Diarrhea, Melena or [...] or worse. Prior similar symptoms: Yes Recent Illness/Hospitalizatio n: No PFSH PFSH Medical History Non-smoker Home Medications ???Medication ???Instructions ???Recorded ???Last Taken ???Type multivitamin 1 tab PO DAILY 06/24/23 Unknown Hi story Allergy/AdvReac Type Severity Reaction Status Date / [...] Lungs clear to auscultation bilaterally. Heart regular rhythm rate about 100 no murmur. Abdomen is soft. Epigastric tenderness. No rebound guarding or rigidity. Patient has normal bowel sounds. Has no hernia. No obstruction. No pulsatile mass. Right upper and right lower quadrants are unremarkable. Moving all 4 extremities. Nontender no edema. Neurologically he is awake and alert. Answering questions and following [...] nourished and well developed; Negative for cachectic, contractures or unkempt General Appearance ED: [...] normal heart sound and no murmurs GI (more content not included)... Normal [facility] Eosinophil percentageOrdered By: Tony Hills on 12-25-2024 Eosinophils/100 WBC (Bld) 0.1 % 0-5 [facility] Erythrocyte distribution wid th ratioOrdered By: Tony Hills on 12-25-2024 Erythrocyte distribution width (RBC) [Ratio] 12.4 % 11.6-14.6 [facility] Erythrocyte distribution wid th standard deviationOrdered By: Tony Hills on 12-25-2024 Erythrocyte distribution width (RBC) [Ratio] 40.3 fl 35.1-43.9 [facility] Gastroenterology Visit Repor ton 12-25-2024 Gastroenterology Visit Report [facility] Gastroenterology [address] [place] [address] OFFICE VISIT Date of Service: 12/25/24 MR#: [id number] Acct: [id number] Name: ULISSES LANE Rep #: [id number] : 1985 Provider: NE Roe Age/Sex: 39/M [place] [facility] [place]: Signed Intake Vital Signs 07/13/23 11:06 12/25/24 10:30 Height 6 ft 3 in 6 ft 3 in Intake Visit Reasons: Severe Abdominal Pain Chief Complaint: epigastric pain Allergies No Known Allergies Allergy (Verified 12/25/24 10:32) Medications ???Medication ???Instructions ???Recorded ???Confirmed ???Type famotidine 40 mg tablet 40 mg PO QDAY #30 tabs 12/25/24 Rx PFSH Medical History Non-smoker Surgical History History of cholecystectomy S/P ORIF (open reduction internal fixation) fracture Social History Smoking Status: Never smoker HPI HPI Chief Complaint: epigastric pain Details: ULISSES LANE, is a 39 M who presents to the office today for follow-up. *[facility] hospitalization 04.17.23-04.19.23 for management of acute gallstone pancreatitis and acute cholecystitis. ERCP 04.18.23 biliary papillary stenosis, benign; biliary dilation with stone causing obstruction; choledocholithiasis; biliary sphincterotomy; biliary tree swept; temporary stent placed in CBD. No specimens ? Surgery 04.19.23 cholecystectomy without complication. Cholesterolosis which chronic cholecystitis and sludge. [facility] ED 05.24.23 with increased upper abdominal pain without concern for pancreatitis. OV 05.30.23 epigastric pain has resolved; RUQ pain is new and intermittent with unknown trigger. Reports he is no longer taking PPI but is not having reflux. Has been paying attention to his diet in regard to cholecystectomy. [facility] ED 12.25.24 with epigastric pain and chills. Ct abd negative for pancreatitis or other acute process. Blood work wnl. Discharged OV 12.25.24 patient here today for epigastric pain and chills over the past 24 hours. Patient notes this is what it felt like when he had pancreatitis in the past. He did present to the ED regarding this and workup was negative. He is not on PPI currently. Pain is in the epigastric region. He has not really eaten much due to no appetite. He has had some nausea but no vomiting. ROS Const Constitutional: Positive for fatigue and fever(s); No weight change ENT ENT: No difficulty swallowing Gastro GI: Positive for abdominal pain, bloating and excessive flatus; No belching, change in bowel habits, change in stool character, coffee ground emesis, constipation, cramping, diarrhea, heartburn, difficulty swallowing, feeling full early, incontinent of stools, Vomiting blood/hematemesis, Blood in stool, loose stools, Black,tarry stools, nausea/dyspepsia, pain with swallowing, vomiting or other Musc Musculoskeletal: Positive for joint pain, back pain and muscle weakness Skin Skin: No yellowing of the eye or itchy eyes Psych Psychiatric: No anxiety and No depression Endo Endocrine: Positive for fatigue; No weight change Aller/Imm Allergy/Immunologic: No itchy eyes Akil/Lymp Hematologic/Lymphatic: No easy bleeding or easy bruising Exam Const General: cooperative and healthy appearing Orientation: alert [facility] Head: normal to inspection Eyes General: appearance normal, both eyes and all related structures Neck Neck: normal visual inspection Chest Chest palpation inspection: normal inspection of the chest Resp Effort Inspection: normal respiratory effort Cardio Rate: tachycardic Rhythm: regular rhythm GI Inspection: normal to inspection Auscultation: normal bowel sounds Palpation: soft and nontender Assessment and Plan Assessment and Plan (1) History of cholecystectomy: Status: Acute Plan: Ulisses is a 39-year-old male patient here today for follow-up. Over the last 24 hours patient has had epigastric pain, lack of appetite and nausea. She has a past medical history of gallstone pancreatitis in 2022. At that time he underwent cholecystectomy and ERCP. He has had a few episodes of similar pain since his surgery. Patient feels his current symptoms are similar to that of which he had in the past with pancreatitis. He presented to the ED earlier today with negative workup. CT abdomen pelvis without acute pancreatitis or other acute processes. Blood work was within normal limits. Patient may have been passing gallstones also on the differential is gastritis. He is not currently on PPI and appeared hesitant in starting 1 at this time. I did prescribe famotidine for as needed use. He will undergo EGD to assess his upper GI tract. If symptoms continue or if he deve (more content not included)... Normal [facility] Glomerular filtration rate ( GFR) estimation/1.73 sq m using serum, plasma, or whole bOrdered By: Tony Hills on 12-25-2024 GFR/1.73 sq M.predicted among non-blacks MDRD (S/P/Bld) [Vol rate/Area] 90 mL/min/{1.73_m2} >60 [facility] Comment on above: mL/min/1.73m2 CKD-EP I Creatinine Equation (2020) Hematocrit Auto (Bld) [Volum e fraction]Ordered By: Tony Hills on 12-25-2024 Hematocrit (Bld) [Volume fraction] 45.0 % 40-54 [facility] Hemoglobin measurementOrdere d By: Tony Hills on 12-25-2024 Hemoglobin (Bld) [Mass/Vol] 15.1 g/dL 13.0-16.5 [facility] Immature granulocytes/100 WB C Auto (Bld)Ordered By: Tony Hills on 12-25-2024 Immature granulocytes/100 WBC (Bld) 0.500 % 0.0-0.9 [facility] Comment on above: IG% - Immature Granu locytes (promyelocytes, myelocytes and metamyelocytes) > 1% indicates that a LEFT SHIFT is Present. Laboratory - Chemistry and C hemistry - challengeOrdered By: Tony Hills on 12-25-2024 AST [Catalytic activity/Vol] 21 U/L <38 [facility] Lipaseon 12-25-2024 Lipase [Catalytic activity/Vol] 24 U/L Normal 13-75 [facility] Comment on above: Result Comment: Janet latham note: LIPASE revised reference range effective 22. New Lipase methodology. Expected to produce lower values than the previous assay method. NEW Reference Range: 13 - 75 U/L Performed By: #### L 100.0100, L500.4050, L501.2400, L501.2450 ####[facility] [address] [place], [address] Lipase measurementOrdered By : Tony Hills on 12-25-2024 Lipase [Catalytic activity/Vol] 24 U/L 13-75 [facility] Comment on above: Please note:LIPASE r evised reference range effective 22. New Lipase methodology. Expected to produce lower values than the previous assay method. NEW Reference Range: 13 - 75 U/L MCV (mean corpuscular volume ) determinationOrdered By: Tony Hills on 12-25-2024 MCV (RBC) [Entitic vol] 88.1 fL 80-94 [facility] Mean corpuscular hemoglobin (MCH) determinationOrdered By: Tony Hills on 12-25-2024 MCH (RBC) [Entitic mass] 29.5 pg 27.0-32.0 [facility] Mean corpuscular hemoglobin concentration (MCHC) determinationOrdered By: Tony Hills on 12-25-2024 MCHC (RBC) [Mass/Vol] 33.6 g/dL 32-36 [facility] Mean platelet volume determi nationOrdered By: Tony Hills on 12-25-2024 Platelet mean volume (Bld) [Entitic vol] 10.3 fL 6.2-12.0 [facility] Monocyte percentageOrdered B y: Tony Hills on 12-25-2024 Monocytes/100 WBC (Bld) 1.6 % 0-10 [facility] Neutrophil percentageOrdered By: Tony Hills on 12-25-2024 Neutrophils/100 WBC (Bld) 93.2 % High 47-70 [facility] Nucleated red blood cell per centageOrdered By: Tony Hills on 12-25-2024 Nucleated RBC/100 WBC (Bld) [Ratio] 0 % 0-5 [facility] Platelet countOrdered By: Alphonse Hills on 12-25-2024 Platelets (Bld) [#/Vol] 181 10*3/uL 150-450 [facility] Potassium measurement (mass/ volume)Ordered By: Tony Hills on 12-25-2024 Potassium (Unsp spec) [Mass/Vol] 4.2 mmol/L 3.3-5.1 [facility] RBC Auto (Bld) [#/Vol]Ordere d By: Tony Hills on 12-25-2024 RBC (Bld) [#/Vol] 5.11 10*6/uL 4.6-6.2 [facility] Serum creatinine measurement (mass/volume)Ordered By: Tony Hills on 12-25-2024 Creatinine [Mass/Vol] 1.09 mg/dL 0.70-1.20 [facility] Serum globulin measurementOr dered By: Tony Hills on 12-25-2024 Globulin (S) [Mass/Vol] 2.4 g/dL 2.2-4.2 [facility] Serum glucose measurement (m ass/volume)Ordered By: Tony Hills on 12-25-2024 Glucose [Mass/Vol] 101 mg/dL High 70-99 [facility] Serum or plasma alanine multani otransferase (ALT) measurementOrdered By: Tony Hills on 12-25-2024 ALT [Catalytic activity/Vol] 21 U/L <47 [facility] Serum or plasma albumin armani urement (mass/volume)Ordered By: Tony Hills on 12-25-2024 Albumin [Mass/Vol] 4.6 g/dL 3.5-5.0 [facility] Serum or plasma albumin/glob ulin mass ratioOrdered By: Tony Hills on 12-25-2024 Albumin/Globulin [Mass ratio] 1.9 {ratio} 0.9-2.4 [facility] Serum or plasma alkaline sean sphatase measurementOrdered By: Tony Hills on 12-25-2024 ALP [Catalytic activity/Vol] 77 U/L 40-129 [facility] Serum or plasma amylase armani urement (enzymatic activity/volume)Ordered By: Tony Hills on 12-25-2024 Amylase [Catalytic activity/Vol] 39 U/L 28-100 [facility] Serum or plasma calcium armani urement (mass/volume)Ordered By: Tony Hills on 12-25-2024 Calcium [Mass/Vol] 9.4 mg/dL 7.6-11.0 [facility] [facility] Serum or plasma urea nitroge n measurement (mass/volume)Ordered By: Tony Hills on 12-25-2024 Urea nitrogen [Mass/Vol] 12 mg/dL 4-19 [facility] Sodium levelOrdered By: Tony Hills on 12-25-2024 Sodium [Moles/Vol] 139 mmol/L 133-145 [facility] Total proteinOrdered By: Faustino Hills on 12-25-2024 Protein [Mass/Vol] 6.9 g/dL 5.9-8.4 [facility] White blood cell (WBC) count Ordered By: Tony Hills on 12-25-2024 WBC (Bld) [#/Vol] 9.5 10*3/uL 4.4-11.0 [facility] Absolute lymphocyte countOrd ered By: ED PROVIDER on 05-19-2023 Lymphocytes Auto (Unsp spec) [#/Vol] 0.93 10*3/uL 0.83-4.51 [facility] Basophil percentageOrdered B y: Tony Hills on 05-19-2023 Amylase [Catalytic activity/Vol] 30 U/L 25-115 [facility] Bilirubin [Mass/Vol] 1.20 mg/dL 0.20-1.00 [facility] Comment on above: For patients on eltr ombopag therapy, use of Dimension Hulen TBIL is not recommended. Chloride [Moles/Vol] 104 mmol/L 98-107 [facility] Glucose [Mass/Vol] 106 mg/dL 74-106 [facility] Comment on above: Fasting Glucose resu lt from 100 to 125 mg/dL suggests IMPAIRED HOMEOSTASIS per A.D.A. criteria. Potassium [Moles/Vol] 4.1 mmol/L 3.5-5.1 [facility] Protein [Mass/Vol] 7.0 g/dL 6.4-8.2 [facility] Sodium [Moles/Vol] 138 mmol/L 136-145 [facility] Basophil percentageOrdered B y: ED PROVIDER on 05-19-2023 Basophils/100 WBC (Bld) 0.3 % 0-1 [facility] Eosinophils/100 WBC (Bld) 0.4 % 0-5 [facility] Neutrophils (Bld) [#/Vol] 7.4 10*3/uL 2.0-7.7 [facility] Neutrophils/100 WBC (Bld) 76.5 % 47-70 [facility] WBC (Bld) [#/Vol] 9.7 10*3/uL 4.4-11.0 [facility] Basophil percentage 0-5 SEEN /hpf 0-5 [facility] Bilirubin Test strip Ql (U)O rdered By: ED PROVIDER on 05-19-2023 Bilirubin Ql (U) Negative Negative [facility] Blood erythrocytes count (nu mber/volume)Ordered By: ED PROVIDER on 05-19-2023 RBC (Bld) [#/Vol] 4.60 10*6/uL 4.6-6.2 [facility] Blood hemoglobin measurement (mass/volume)Ordered By: ED PROVIDER on 05-19-2023 Hemoglobin (Bld) [Mass/Vol] 13.4 g/dL 13.0-16.5 [facility] Blood lymphocytes/100 leukoc ytesOrdered By: ED PROVIDER on 05-19-2023 Lymphocytes/100 WBC (Bld) 9.6 % 19-41 [facility] Blood monocytes/100 leukocyt esOrdered By: ED PROVIDER on 05-19-2023 Monocytes/100 WBC (Bld) 12.9 % 0-10 [facility] Blood platelet mean volumeOr dered By: ED PROVIDER on 05-19-2023 Platelet mean volume (Bld) [Entitic vol] 9.7 fL 6.2-12.0 [facility] Determination of erythrocyte mean corpuscular volume (MCV)Ordered By: ED PROVIDER on 05-19-2023 MCV (RBC) [Entitic vol] 86.5 fL 80-94 [facility] Hematocrit Auto (Bld) [Volum e fraction]Ordered By: ED PROVIDER on 05-19-2023 Hematocrit (Bld) [Volume fraction] 39.8 % 40-54 [facility] Ketones Test strip Ql (U)Ord ered By: ED PROVIDER on 05-19-2023 Ketones Ql (U) 150 mg/dl Negative [facility] Comment on above: CRITICAL VALUE *HCRI TICAL VALUE VERIFIED. CALLED TO [id number] Liliana Dixon.RESULTS READ BACK BY SAME . Laboratory - Chemistry and C hemistry - challengeOrdered By: Tony Hills on 05-19-2023 ALP [Catalytic activity/Vol] 145 U/L 45-117 [facility] ALT [Catalytic activity/Vol] 37 U/L 16-61 [facility] CO2 [Moles/Vol] 28.0 mmol/L 21.0-32.0 [facility] Globulin (S) [Mass/Vol] 3.6 g/dL 2.2-4.2 [facility] Lipase [Catalytic activity/Vol] 26 U/L 13-75 [facility] Comment on above: Please note:LIPASE r evised reference range effective 22. New Lipase methodology. Expected to produce lower values than the previous assay method. NEW Reference Range: 13 - 75 U/L Urea nitrogen/Creatinine [Mass ratio] 11.1 mg/mg 10-20 [facility] Laboratory - Hematology and Cell countsOrdered By: ED PROVIDER on 05-19-2023 Erythrocyte distribution width (RBC) [Entitic vol] 38.5 fL 35.1-43.9 [facility] Erythrocyte distribution width (RBC) [Ratio] 12.1 % 11.6-14.6 [facility] Immature granulocytes/100 WBC (Bld) 0.300 % 0.0-0.9 [facility] Comment on above: IG% - Immature Granu locytes (promyelocytes, myelocytes and metamyelocytes) > 1% indicates that a LEFT SHIFT is Present. MCH (RBC) [Entitic mass] 29.1 pg 27.0-32.0 [facility] Nucleated RBC/100 WBC (Bld) [Ratio] 0 % 0-5 [facility] MCHC Auto (RBC) [Mass/Vol]Or dered By: ED PROVIDER on 05-19-2023 MCHC (RBC) [Mass/Vol] 33.7 g/dL 32-36 [facility] Mucus LM Ql (Urine sed)Order ed By: ED PROVIDER on 05-19-2023 Mucus Ql (Urine sed) 0 SEEN /hpf [facility] Nitrite Test strip Ql (U)Ord ered By: ED PROVIDER on 05-19-2023 Nitrite Ql (U) Negative Negative [facility] No Panel InformationOrdered By: Tony Hills on 05-19-2023 Estimated Creatinine Clearance Calc 124.47 ml/min [facility] Estimated GFR (MDRD) Amer 111 mL/min >60 [facility] Comment on above: GFR Calc Estimated GFR (MDRD) Non-Af Amer 91 mL/min >60 [facility] Comment on above: Non- GFR Calc Platelets bldOrdered By: ED PROVIDER on 05-19-2023 Platelets (Bld) [#/Vol] 209 10*3/uL 150-450 [facility] Protein Test strip Ql (U)Ord ered By: ED PROVIDER on 05-19-2023 Protein Ql (U) Negative Negative [facility] Serum or plasma albumin armani urement (mass/volume)Ordered By: Tony Hills on 05-19-2023 Albumin [Mass/Vol] 3.4 g/dL 3.2-5.0 [facility] Serum or plasma albumin/glob ulin mass ratioOrdered By: Tony Hills on 05-19-2023 Albumin/Globulin [Mass ratio] 0.9 {ratio} 0.9-2.4 [facility] Serum or plasma calcium armani urement (mass/volume)Ordered By: Tony Hills on 05-19-2023 Calcium [Mass/Vol] 9.3 mg/dL 8.5-10.1 [facility] Serum or plasma creatinine m easurement (mass/volume)Ordered By: Tony Hills on 05-19-2023 Creatinine [Mass/Vol] 0.99 mg/dL 0.70-1.30 [facility] Comment on above: The validity of the calculated GFR & GFRAA in patients over 70 years has not been determined. Clinical correlation is essential. Serum or plasma urea nitroge n measurement (mass/volume)Ordered By: Tony Hills on 05-19-2023 Urea nitrogen [Mass/Vol] 11 mg/dL 7-18 [facility] Squamous epithelial cells de tection in urine sediment by light microscopyOrdered By: ED PROVIDER on 05-19-2023 Epithelial cells.squamous LM Ql (Urine sed) 0 SEEN /hpf 0-5 [facility] Thin prep Papanicolaou smear with manual screeningOrdered By: Tony Hills on 05-19-2023 Thin prep Papanicolaou smear with manual screening 14 U/L 15-37 [facility] Thin prep Papanicolaou smear with manual screening 6 5-15 [facility] Urine blood detectionOrdered By: ED PROVIDER on 05-19-2023 RBC Ql (U) Negative Negative [facility] RBC Ql (U) 0 SEEN /hpf 0-5 [facility] Urine clarityOrdered By: ED PROVIDER on 05-19-2023 Clarity (U) Clear Clear [facility] Urine color determinationOrd ered By: ED PROVIDER on 05-19-2023 Color (U) Yellow Yellow [facility] Urine glucose detectionOrder ed By: ED PROVIDER on 05-19-2023 Glucose Ql (U) Normal mg/dl Normal [facility] Urine leukocyte esterase det ection by dipstickOrdered By: ED PROVIDER on 05-19-2023 Leukocyte esterase Test strip Ql (U) 25 /ul Negative [facility] Urine pHOrdered By: ED PROVI ASHIA on 05-19-2023 pH (U) 7.0 [pH] 5.0 - 8.0 [facility] Urine sediment bacteria coun t by microscopy (number/high power field)Ordered By: ED PROVIDER on 05-19-2023 Bacteria LM.HPF (Urine sed) [#/Area] 0 /[HPF] None Seen [facility] Urine specific gravity measu rementOrdered By: ED PROVIDER on 05-19-2023 Specific gravity (U) [Rel density] 1.010 1.002-1.030 [facility] Urobilinogen Auto test strip Ql (U)Ordered By: ED PROVIDER on 05-19-2023 Urobilinogen Ql (U) 8 mg/dl Normal [facility] Basophil percentageOrdered B y: Benson Brown on 05-11-2023 Bilirubin [Mass/Vol] 0.80 mg/dL 0.20-1.00 [facility] Comment on above: For patients on eltr ombopag therapy, use of Dimension Hulen TBIL is not recommended. Chloride [Moles/Vol] 105 mmol/L 98-107 [facility] Cholesterol [Mass/Vol] 163 mg/dL <200 [facility] Comment on above: <200 mg/dL Desirable 200-240 mg/dL Borderline >240 mg/dL High Risk Glucose [Mass/Vol] 90 mg/dL 74-106 [facility] Potassium [Moles/Vol] 4.1 mmol/L 3.5-5.1 [facility] Protein [Mass/Vol] 6.9 g/dL 6.4-8.2 [facility] Sodium [Moles/Vol] 140 mmol/L 136-145 [facility] Triglyceride [Mass/Vol] 57 mg/dL <199 [facility] Comment on above: The drugs N-Acetylcy steine and Metamizole may falsely depress this assay.Serum Triglycerides Reference Interval Normal <150 mg/dL Borderline high 150 - 199 mg/dL High 200 - 499 mg/dL Very High > or = 500 mg/dL Laboratory - Chemistry and C hemistry - challengeOrdered By: Benson Desai on 05-11-2023 ALP [Catalytic activity/Vol] 122 U/L 45-117 [facility] ALT [Catalytic activity/Vol] 60 U/L 16-61 [facility] CO2 [Moles/Vol] 30.0 mmol/L 21.0-32.0 [facility] Globulin (S) [Mass/Vol] 3.3 g/dL 2.2-4.2 [facility] Urea nitrogen/Creatinine [Mass ratio] 17.0 mg/mg 10-20 [facility] No Panel InformationOrdered By: Benson Desai on 05-11-2023 Estimated GFR (MDRD) Amer 102 mL/min >60 [facility] Comment on above: GFR Calc Estimated GFR (MDRD) Non-Af Amer 84 mL/min >60 [facility] Comment on above: Non- GFR Calc Serum or plasma albumin armani urement (mass/volume)Ordered By: Benson Desai on 05-11-2023 Albumin [Mass/Vol] 3.6 g/dL 3.2-5.0 [facility] Serum or plasma albumin/glob ulin mass ratioOrdered By: Benson Desai on 05-11-2023 Albumin/Globulin [Mass ratio] 1.1 {ratio} 0.9-2.4 [facility] Serum or plasma calcium armani urement (mass/volume)Ordered By: Benson Desai on 05-11-2023 Calcium [Mass/Vol] 8.9 mg/dL 8.5-10.1 [facility] Serum or plasma cholesterol in HDL measurement (mass/volume)Ordered By: Benson Desai on 05-11-2023 Cholesterol in HDL [Mass/Vol] 49 mg/dL >40 [facility] Comment on above: The drugs N-Acetylcy steine and Metamizole may falsely depress this assay. Reference Range HDL <40 mg/dL Low HDL Cholesterol HDL >or= 60 mg/dL High HDL Cholesterol Serum or plasma cholesterol in VLDL measurement (mass/volume)Ordered By: Benson Desai on 05-11-2023 Cholesterol in VLDL [Mass/Vol] 11 mg/dL 5-40 [facility] Serum or plasma creatinine m easurement (mass/volume)Ordered By: Benson Desai on 05-11-2023 Creatinine [Mass/Vol] 1.06 mg/dL 0.70-1.30 [facility] Comment on above: The validity of the calculated GFR & GFRAA in patients over 70 years has not been determined. Clinical correlation is essential. Serum or plasma low density lipoprotein (LDL) cholesterol measurement (mass/volume)Ordered By: Benson Desai on 05-11-2023 Cholesterol in LDL [Mass/Vol] 103 mg/dL 0-130 [facility] Serum or plasma urea nitroge n measurement (mass/volume)Ordered By: Besnon Desai on 05-11-2023 Urea nitrogen [Mass/Vol] 18 mg/dL 7-18 [facility] Thin prep Papanicolaou smear with manual screeningOrdered By: Benson Desai on 05-11-2023 Thin prep Papanicolaou smear with manual screening 26 U/L 15-37 [facility] Thin prep Papanicolaou smear with manual screening 5 5-15 [facility] Absolute lymphocyte countOrd ered By: Arie Watkins on 04-19-2023 Lymphocytes Auto (Unsp spec) [#/Vol] 1.21 10*3/uL 0.83-4.51 [facility] Basophil percentageOrdered B y: Arie Watkins on 04-19-2023 Basophils/100 WBC (Bld) 0.1 % 0-1 [facility] Bilirubin [Mass/Vol] 2.80 mg/dL 0.20-1.00 [facility] Comment on above: For patients on eltr ombopag therapy, use of Dimension Hulen TBIL is not recommended. Chloride [Moles/Vol] 109 mmol/L 98-107 [facility] Eosinophils/100 WBC (Bld) 0.1 % 0-5 [facility] Glucose [Mass/Vol] 103 mg/dL 74-106 [facility] Comment on above: Fasting Glucose resu lt from 100 to 125 mg/dL suggests IMPAIRED HOMEOSTASIS per A.D.A. criteria. Neutrophils (Bld) [#/Vol] 5.5 10*3/uL 2.0-7.7 [facility] Neutrophils/100 WBC (Bld) 75.6 % 47-70 [facility] Potassium [Moles/Vol] 4.2 mmol/L 3.5-5.1 [facility] Protein [Mass/Vol] 5.6 g/dL 6.4-8.2 [facility] Sodium [Moles/Vol] 139 mmol/L 136-145 [facility] WBC (Bld) [#/Vol] 7.3 10*3/uL 4.4-11.0 [facility] Blood erythrocytes count (nu mber/volume)Ordered By: Arie Watkins on 04-19-2023 RBC (Bld) [#/Vol] 4.32 10*6/uL 4.6-6.2 [facility] Blood hemoglobin measurement (mass/volume)Ordered By: Arie Watkins on 04-19-2023 Hemoglobin (Bld) [Mass/Vol] 12.6 g/dL 13.0-16.5 [facility] Blood lymphocytes/100 leukoc ytesOrdered By: Arie Watkins on 04-19-2023 Lymphocytes/100 WBC (Bld) 16.5 % 19-41 [facility] Blood monocytes/100 leukocyt esOrdered By: Arie Watkins on 04-19-2023 Monocytes/100 WBC (Bld) 7.2 % 0-10 [facility] Blood platelet mean volumeOr dered By: Arie Watkins on 04-19-2023 Platelet mean volume (Bld) [Entitic vol] 10.3 fL 6.2-12.0 [facility] Determination of erythrocyte mean corpuscular volume (MCV)Ordered By: Arie Watkins on 04-19-2023 MCV (RBC) [Entitic vol] 89.8 fL 80-94 [facility] Hematocrit Auto (Bld) [Volum e fraction]Ordered By: Arie Watkins on 04-19-2023 Hematocrit (Bld) [Volume fraction] 38.8 % 40-54 [facility] Laboratory - Chemistry and C hemistry - challengeOrdered By: Arie Watkins on 04-19-2023 ALP [Catalytic activity/Vol] 224 U/L 45-117 [facility] ALT [Catalytic activity/Vol] 280 U/L 16-61 [facility] CO2 [Moles/Vol] 26.0 mmol/L 21.0-32.0 [facility] Globulin (S) [Mass/Vol] 2.8 g/dL 2.2-4.2 [facility] Lipase [Catalytic activity/Vol] 171 U/L 13-75 [facility] Comment on above: Please note:LIPASE r evised reference range effective 22. New Lipase methodology. Expected to produce lower values than the previous assay method. NEW Reference Range: 13 - 75 U/L Urea nitrogen/Creatinine [Mass ratio] 7.5 mg/mg 10-20 [facility] Laboratory - Hematology and Cell countsOrdered By: Arie Watkins on 04-19-2023 Erythrocyte distribution width (RBC) [Entitic vol] 42.4 fL 35.1-43.9 [facility] Erythrocyte distribution width (RBC) [Ratio] 12.8 % 11.6-14.6 [facility] Immature granulocytes/100 WBC (Bld) 0.500 % 0.0-0.9 [facility] Comment on above: IG% - Immature Granu locytes (promyelocytes, myelocytes and metamyelocytes) > 1% indicates that a LEFT SHIFT is Present. MCH (RBC) [Entitic mass] 29.2 pg 27.0-32.0 [facility] Nucleated RBC/100 [facility]Bld) [[facility]] 0 % [facility] [Mass/Vol]Or dered By: Arie Watkins on 04-19-2023 MCHC (RBC) [Mass/Vol] 32.5 g/dL 32-36 [facility] No Panel InformationOrdered By: Arie Watkins on 04-19-2023 Estimated Creatinine Clearance Calc 158.23 ml/min [facility] Estimated GFR (MDRD) Amer 141 mL/min >60 [facility] Comment on above: GFR Calc Estimated GFR (MDRD) Non-Af Amer 116 mL/min >60 [facility] Comment on above: Non- GFR Calc Platelets bldOrdered By: Andi Watkins on 04-19-2023 Platelets (Bld) [#/Vol] 184 10*3/uL 150-450 [facility] Serum or plasma albumin armani urement (mass/volume)Ordered By: Arie Watkins on 04-19-2023 Albumin [Mass/Vol] 2.8 g/dL 3.2-5.0 [facility] Serum or plasma albumin/glob ulin mass ratioOrdered By: Arie Watkins on 04-19-2023 Albumin/Globulin [Mass ratio] 1.0 {ratio} 0.9-2.4 [facility] Serum or plasma calcium armani urement (mass/volume)Ordered By: Arie Watkins on 04-19-2023 Calcium [Mass/Vol] 8.4 mg/dL 8.5-10.1 [facility] Serum or plasma creatinine m easurement (mass/volume)Ordered By: Arie Watkins on 04-19-2023 Creatinine [Mass/Vol] 0.80 mg/dL 0.70-1.30 [facility] Comment on above: The validity of the calculated GFR & GFRAA in patients over 70 years has not been determined. Clinical correlation is essential. Serum or plasma urea nitroge n measurement (mass/volume)Ordered By: Arie Watkins on 04-19-2023 Urea nitrogen [Mass/Vol] 6 mg/dL 7-18 [facility] Thin prep Papanicolaou smear with manual screeningOrdered By: Arie Watkins on 04-19-2023 Thin prep Papanicolaou smear with manual screening 75 U/L 15-37 [facility] Thin prep Papanicolaou smear with manual screening 4 5-15 [facility] Absolute lymphocyte countOrd ered By: Iliana Dee on 04-17-2023 Lymphocytes Auto (Unsp spec) [#/Vol] 0.77 10*3/uL 0.83-4.51 [facility] Basophil percentageOrdered B y: Iliana Price on 04-17-2023 Basophils/100 WBC (Bld) 0.3 % 0-1 [facility] Bilirubin [Mass/Vol] 7.10 mg/dL 0.20-1.00 [facility] Comment on above: For patients on eltr ombopag therapy, use of Dimension Hulen TBIL is not recommended. Chloride [Moles/Vol] 105 mmol/L 98-107 [facility] Eosinophils/100 WBC (Bld) 0.5 % 0-5 [facility] Glucose [Mass/Vol] 135 mg/dL 74-106 [facility] Comment on above: Fasting Glucose resu lt greater than or equal to 126 mg/dL suggests DIABETES MELLITUS per A.D.A. criteria. Neutrophils (Bld) [#/Vol] 4.9 10*3/uL 2.0-7.7 [facility] Neutrophils/100 WBC (Bld) 79.2 % 47-70 [facility] Potassium [Moles/Vol] 4.1 mmol/L 3.5-5.1 [facility] Protein [Mass/Vol] 7.2 g/dL 6.4-8.2 [facility] Sodium [Moles/Vol] 136 mmol/L 136-145 [facility] WBC (Bld) [#/Vol] 6.2 10*3/uL 4.4-11.0 [facility] Blood erythrocytes count (nu mber/volume)Ordered By: Iliana Price on 04-17-2023 RBC (Bld) [#/Vol] 4.99 10*6/uL 4.6-6.2 [facility] Blood hemoglobin measurement (mass/volume)Ordered By: Iliana Price on 04-17-2023 Hemoglobin (Bld) [Mass/Vol] 14.5 g/dL 13.0-16.5 [facility] Blood lymphocytes/100 leukoc ytesOrdered By: Iliana Price on 04-17-2023 Lymphocytes/100 WBC (Bld) 12.5 % 19-41 [facility] Blood monocytes/100 leukocyt esOrdered By: Iliana Price on 04-17-2023 Monocytes/100 WBC (Bld) 7.0 % 0-10 [facility] Blood platelet mean volumeOr dered By: Iliana Price on 04-17-2023 Platelet mean volume (Bld) [Entitic vol] 10.6 fL 6.2-12.0 [facility] Determination of erythrocyte mean corpuscular volume (MCV)Ordered By: Iliana Price on 04-17-2023 MCV (RBC) [Entitic vol] 90.8 fL 80-94 [facility] Direct bilirubinOrdered By: Iliana Price on 04-17-2023 Bilirubin.direct [Mass/Vol] 5.05 mg/dL 0.00-0.30 [facility] Hematocrit Auto (Bld) [Volum e fraction]Ordered By: Iliana Price on 04-17-2023 Hematocrit (Bld) [Volume fraction] 45.3 % 40-54 [facility] Laboratory - Chemistry and C hemistry - challengeOrdered By: Iliana Price on 04-17-2023 ALP [Catalytic activity/Vol] 271 U/L 45-117 [facility] ALT [Catalytic activity/Vol] 405 U/L 16-61 [facility] CO2 [Moles/Vol] 28.0 mmol/L 21.0-32.0 [facility] Globulin (S) [Mass/Vol] 3.4 g/dL 2.2-4.2 [facility] Lipase [Catalytic activity/Vol] 08017 U/L 13-75 [facility] Comment on above: Please note:LIPASE r evised reference range effective 22. New Lipase methodology. Expected to produce lower values than the previous assay method. NEW Reference Range: 13 - 75 U/L Urea nitrogen/Creatinine [Mass ratio] 6.8 mg/mg 10-20 [facility] Laboratory - Hematology and Cell countsOrdered By: Iliana Price on 04-17-2023 Erythrocyte distribution width (RBC) [Entitic vol] 43.7 fL 35.1-43.9 [facility] Erythrocyte distribution width (RBC) [Ratio] 13.0 % 11.6-14.6 [facility] Immature granulocytes/100 WBC (Bld) 0.500 % 0.0-0.9 [facility] Comment on above: IG% - Immature Granu locytes (promyelocytes, myelocytes and metamyelocytes) > 1% indicates that a LEFT SHIFT is Present. MCH (RBC) [Entitic mass] 29.1 pg 27.0-32.0 [facility] Nucleated RBC/100 WBC (Bld) [Ratio] 0 % 0-5 [facility] MCHC Auto (RBC) [Mass/Vol]Or dered By: Iliana Price on 04-17-2023 MCHC (RBC) [Mass/Vol] 32.0 g/dL 32-36 [facility] No Panel InformationOrdered By: Iliana Price on 04-17-2023 Estimated Creatinine Clearance Calc 119.64 ml/min [facility] Estimated GFR (MDRD) Amer 105 mL/min >60 [facility] Comment on above: GFR Calc Estimated GFR (MDRD) Non-Af Amer 87 mL/min >60 [facility] Comment on above: Non- GFR Calc Platelets bldOrdered By: Paris Price on 04-17-2023 Platelets (Bld) [#/Vol] 226 10*3/uL 150-450 [facility] Serum or plasma albumin armani urement (mass/volume)Ordered By: Iliana Price on 04-17-2023 Albumin [Mass/Vol] 3.8 g/dL 3.2-5.0 [facility] Serum or plasma calcium armani urement (mass/volume)Ordered By: Iliana Price on 04-17-2023 Calcium [Mass/Vol] 9.1 mg/dL 8.5-10.1 [facility] Serum or plasma creatinine m easurement (mass/volume)Ordered By: Iliana Price on 04-17-2023 Creatinine [Mass/Vol] 1.03 mg/dL 0.70-1.30 [facility] Comment on above: The validity of the calculated GFR & GFRAA in patients over 70 years has not been determined. Clinical correlation is essential. Serum or plasma urea nitroge n measurement (mass/volume)Ordered By: Iliana Price on 04-17-2023 Urea nitrogen [Mass/Vol] 7 mg/dL 7-18 [facility] Thin prep Papanicolaou smear with manual screeningOrdered By: Iliana Price on 04-17-2023 Thin prep Papanicolaou smear with manual screening 128 U/L 15-37 [facility] Thin prep Papanicolaou smear with manual screening 3 5-15 [facility] Absolute lymphocyte countOrd ered By: Rickeyviet Nair on 04-11-2023 Lymphocytes Auto (Unsp spec) [#/Vol] 0.84 10*3/uL 0.83-4.51 [facility] Basophil percentageOrdered B y: Rickey Nair on 04-11-2023 Basophils/100 WBC (Bld) 0.5 % 0-1 [facility] Bilirubin [Mass/Vol] 2.40 mg/dL 0.20-1.00 [facility] Comment on above: For patients on eltr ombopag therapy, use of Dimension Hulen TBIL is not recommended. Chloride [Moles/Vol] 106 mmol/L 98-107 [facility] Eosinophils/100 WBC (Bld) 0.8 % 0-5 [facility] Glucose [Mass/Vol] 100 mg/dL 74-106 [facility] Comment on above: Fasting Glucose resu lt from 100 to 125 mg/dL suggests IMPAIRED HOMEOSTASIS per A.D.A. criteria. Neutrophils (Bld) [#/Vol] 2.7 10*3/uL 2.0-7.7 [facility] Neutrophils/100 WBC (Bld) 69.5 % 47-70 [facility] Potassium [Moles/Vol] 4.2 mmol/L 3.5-5.1 [facility] Protein [Mass/Vol] 7.2 g/dL 6.4-8.2 [facility] Sodium [Moles/Vol] 139 mmol/L 136-145 [facility] WBC (Bld) [#/Vol] 3.9 10*3/uL 4.4-11.0 [facility] Blood erythrocytes count (nu mber/volume)Ordered By: Rickey Nair on 04-11-2023 RBC (Bld) [#/Vol] 5.06 10*6/uL 4.6-6.2 [facility] Blood hemoglobin measurement (mass/volume)Ordered By: Rickey Nair on 04-11-2023 Hemoglobin (Bld) [Mass/Vol] 15.0 g/dL 13.0-16.5 [facility] Blood lymphocytes/100 leukoc ytesOrdered By: Rickey Nair on 04-11-2023 Lymphocytes/100 WBC (Bld) 21.5 % 19-41 [facility] Blood monocytes/100 leukocyt esOrdered By: Rickey Nair on 04-11-2023 Monocytes/100 WBC (Bld) 7.4 % 0-10 [facility] Blood platelet mean volumeOr dered By: Rickey Nair on 04-11-2023 Platelet mean volume (Bld) [Entitic vol] 10.9 fL 6.2-12.0 [facility] Determination of erythrocyte mean corpuscular volume (MCV)Ordered By: Rickey Nair on 04-11-2023 MCV (RBC) [Entitic vol] 89.3 fL 80-94 [facility] Hematocrit Auto (Bld) [Volum e fraction]Ordered By: Rickey Nair on 04-11-2023 Hematocrit (Bld) [Volume fraction] 45.2 % 40-54 [facility] Influenza virus A and B and SARS-CoV-2 (COVID-19) Ag panel - Upper respiratory specimOrdered By: Rickey Nair on 04-11-2023 SARS-CoV-2 (COVID-19) RNA KERRIE+probe Ql (Resp) [facility] Laboratory - Chemistry and C hemistry - challengeOrdered By: Rickey Nair on 04-11-2023 ALP [Catalytic activity/Vol] 184 U/L 45-117 [facility] ALT [Catalytic activity/Vol] 476 U/L 16-61 [facility] CO2 [Moles/Vol] 27.0 mmol/L 21.0-32.0 [facility] Globulin (S) [Mass/Vol] 3.3 g/dL 2.2-4.2 [facility] Lipase [Catalytic activity/Vol] 54 U/L 13-75 [facility] Comment on above: Please note:LIPASE r evised reference range effective 22. New Lipase methodology. Expected to produce lower values than the previous assay method. NEW Reference Range: 13 - 75 U/L Urea nitrogen/Creatinine [Mass ratio] 11.4 mg/mg 10-20 [facility] Laboratory - Hematology and Cell countsOrdered By: Rickey Nair on 04-11-2023 Erythrocyte distribution width (RBC) [Entitic vol] 42.1 fL 35.1-43.9 [facility] Erythrocyte distribution width (RBC) [Ratio] 12.8 % 11.6-14.6 [facility] Immature granulocytes/100 WBC (Bld) 0.300 % 0.0-0.9 [facility] Comment on above: IG% - Immature Granu locytes (promyelocytes, myelocytes and metamyelocytes) > 1% indicates that a LEFT SHIFT is Present. MCH (RBC) [Entitic mass] 29.6 pg 27.0-32.0 [facility] Nucleated RBC/100 WBC (Bld) [Ratio] 0 % 0-5 [facility] MCHC Auto (RBC) [Mass/Vol]Or dered By: Rickey Nair on 04-11-2023 MCHC (RBC) [Mass/Vol] 33.2 g/dL 32-36 [facility] No Panel InformationOrdered By: Rickey Nair on 04-11-2023 Estimated Creatinine Clearance Calc 117.36 ml/min [facility] Estimated GFR (MDRD) Amer 103 mL/min >60 [facility] Comment on above: GFR Calc Estimated GFR (MDRD) Non-Af Amer 85 mL/min >60 [facility] Comment on above: Non- GFR Calc Troponin I High Sensitivity 6 pg/mL 3.0-78.0 [facility] Comment on above: Please Note: New [place] t Units and Gender Specific Reference Ranges. For more information see Policy Stat Procedure Hulen High Sensitivity Troponin (TNIH) and attachments. Platelets bldOrdered By: Angela Nair on 04-11-2023 Platelets (Bld) [#/Vol] 209 10*3/uL 150-450 [facility] Serum or plasma albumin armani urement (mass/volume)Ordered By: Rickey Nair on 04-11-2023 Albumin [Mass/Vol] 3.9 g/dL 3.2-5.0 [facility] Serum or plasma albumin/glob ulin mass ratioOrdered By: Rickey Nair on 04-11-2023 Albumin/Globulin [Mass ratio] 1.2 {ratio} 0.9-2.4 [facility] Serum or plasma calcium armani urement (mass/volume)Ordered By: Rickey Nair on 04-11-2023 Calcium [Mass/Vol] 9.2 mg/dL 8.5-10.1 [facility] Serum or plasma creatinine m easurement (mass/volume)Ordered By: Rickey Nair on 04-11-2023 Creatinine [Mass/Vol] 1.05 mg/dL 0.70-1.30 [facility] Comment on above: The validity of the calculated GFR & GFRAA in patients over 70 years has not been determined. Clinical correlation is essential. Serum or plasma urea nitroge n measurement (mass/volume)Ordered By: Rickey Nair on 04-11-2023 Urea nitrogen [Mass/Vol] 12 mg/dL 7-18 [facility] Thin prep Papanicolaou smear with manual screeningOrdered By: Rickey Nair on 04-11-2023 Thin prep Papanicolaou smear with manual screening 123 U/L 15-37 [facility] Thin prep Papanicolaou smear with manual screening 6 5-15 [facility] Upper respiratory specimen i nfluenza A virus, influenza B virus, and severe acute resOrdered By: Rickey Nair on 04-11-2023 Upper respiratory specimen influenza A virus, influenza B virus, and severe acute res [facility] Vital Signs Date Time Vital Sign Value Performing Clinician Facility 12-27-2024 06:15-0400 Body temperature 98.9 [degF] Dr. Benson Desai DO Work Phone: [facility] 12-27-2024 06:15-0400 Diastolic blood pressure 79 mm[Hg] Dr. Benson Desai DO Work Phone: [facility] 12-27-2024 06:15-0400 Heart rate 88 /min Dr. Benson Desai DO Work Phone: [facility] 12-27-2024 06:15-0400 Respiratory rate 18 /min Dr. Benson Desai DO Work Phone: [facility] 12-27-2024 06:15-0400 SaO2% (BldA) [Mass fraction] 99 % Dr. Benson Desai DO Work Phone: [facility] 12-27-2024 06:15-0400 Systolic blood pressure 130 mm[Hg] Dr. Benson Desai DO Work Phone: [facility] 12-27-2024 04:52-0400 Body height 190.[address] Benson Desai DO Work Phone: [facility] 12-27-2024 04:52-0400 Body mass index (BMI) [Ratio] 30.7 kg/m2 Dr. Benson Desai DO Work Phone: [facility] 12-27-2024 04:52-0400 Body weight 111.[address] Benson Desai DO Work Phone: [facility] 12-25-2024 13:32-0400 Body temperature 100.1 [degF] Dr. Benson Desai DO Work Phone: [facility] 12-25-2024 13:32-0400 Diastolic blood pressure 56 mm[Hg] Dr. Benson Desai DO Work Phone: [facility] 12-25-2024 13:32-0400 Heart rate 92 /min Dr. Benosn Desai DO Work Phone: [facility] 12-25-2024 13:32-0400 Respiratory rate 18 /min Dr. Benson Desai DO Work Phone: [facility] 12-25-2024 13:32-0400 SaO2% (BldA) [Mass fraction] 100 % Dr. Benson Desai DO Work Phone: [facility] 12-25-2024 13:32-0400 Systolic blood pressure 115 mm[Hg] Dr. Benson Desai DO Work Phone: [facility] 12-25-2024 10:30-0400 Body height 190.[address] Benson Desai DO Work Phone: [facility] 12-25-2024 10:30-0400 Body mass index (BMI) [Ratio] 31.1 kg/m2 Dr. Benson Desai DO Work Phone: [facility] 12-25-2024 10:30-0400 Body weight 112.[address] Benson Desai DO Work Phone: [facility] 07-13-2023 13:28-0500 Body temperature 97.5 [degF] No Primary Care Physician [facility] 07-13-2023 13:28-0500 Diastolic blood pressure 82 mm[Hg] No Primary Care Physician [facility] 07-13-2023 13:28-0500 Heart rate 52 /min No Primary Care Physician [facility] 07-13-2023 13:28-0500 Respiratory rate 16 /min No Primary Care Physician [facility] 07-13-2023 13:28-0500 SaO2% (BldA) [Mass fraction] 100 % No Primary Care Physician [facility] 07-13-2023 13:28-0500 Systolic blood pressure 118 mm[Hg] No Primary Care Physician [facility] 07-13-2023 11:06-0500 Body height 190.5 cm No Primary Care Physician [facility] 07-13-2023 11:06-0500 Body mass index (BMI) [Ratio] 29.1 kg/m2 No Primary Care Physician [facility] 07-13-2023 11:06-0500 Body weight 105.68 kg No Primary Care Physician [facility] 06-24-2023 13:29-0500 Body mass index (BMI) [Ratio] 29.5 kg/m2 No Primary Care Physician [facility] 06-24-2023 13:29-0500 Body temperature 98.8 [degF] No Primary Care Physician [facility] 06-24-2023 13:29-0500 Body weight 107.04 kg No Primary Care Physician [facility] 06-24-2023 13:29-0500 Diastolic blood pressure 66 mm[Hg] No Primary Care Physician [facility] 06-24-2023 13:29-0500 Heart rate 85 /min No Primary Care Physician [facility] 06-24-2023 13:29-0500 Respiratory rate 16 /min No Primary Care Physician [facility] 06-24-2023 13:29-0500 SaO2% (BldA) [Mass fraction] 99 % No Primary Care Physician [facility] 06-24-2023 13:29-0500 Systolic blood pressure 132 mm[Hg] No Primary Care Physician [facility] 05-24-2023 11:23-0500 Body mass index (BMI) [Ratio] 28.9 kg/m2 No Primary Care Physician [facility] 05-24-2023 11:23-0500 Body temperature 98.5 [degF] No Primary Care Physician [facility] 05-24-2023 11:23-0500 Body weight 104.89 kg No Primary Care Physician [facility] 05-24-2023 11:23-0500 Diastolic blood pressure 82 mm[Hg] No Primary Care Physician [facility] 05-24-2023 11:23-0500 Heart rate 75 /min No Primary Care Physician [facility] 05-24-2023 11:23-0500 Respiratory rate 16 /min No Primary Care Physician [facility] 05-24-2023 11:23-0500 SaO2% (BldA) [Mass fraction] 99 % No Primary Care Physician [facility] 05-24-2023 11:23-0500 Systolic blood pressure 122 mm[Hg] No Primary Care Physician [facility] 05-19-2023 23:49-0500 Diastolic blood pressure 71 mm[Hg] No Primary Care Physician [facility] 05-19-2023 23:49-0500 Heart rate 69 /min No Primary Care Physician [facility] 05-19-2023 23:49-0500 Respiratory rate 17 /min No Primary Care Physician [facility] 05-19-2023 23:49-0500 SaO2% (BldA) [Mass fraction] 98 % No Primary Care Physician [facility] 05-19-2023 23:49-0500 Systolic blood pressure 132 mm[Hg] No Primary Care Physician [facility] 05-19-2023 20:54-0500 Body mass index (BMI) [Ratio] 26.6 kg/m2 No Primary Care Physician [facility] 05-19-2023 20:54-0500 Body temperature 98.4 [degF] No Primary Care Physician [facility] 05-19-2023 20:54-0500 Body weight 96.61 kg No Primary Care Physician [facility] 05-11-2023 13:33-0500 Body height 193.04 cm No Primary Care Physician [facility] 05-11-2023 13:33-0500 Body mass index (BMI) [Ratio] 28.8 kg/m2 No Primary Care Physician [facility] 05-11-2023 13:33-0500 Body temperature 97 [degF] No Primary Care Physician [facility] 05-11-2023 13:33-0500 Body weight 107.5 kg No Primary Care Physician [facility] 05-11-2023 13:33-0500 Diastolic blood pressure 72 mm[Hg] No Primary Care Physician [facility] 05-11-2023 13:33-0500 Heart rate 80 /min No Primary Care Physician [facility] 05-11-2023 13:33-0500 Respiratory rate 14 /min No Primary Care Physician [facility] 05-11-2023 13:33-0500 SaO2% (BldA) [Mass fraction] 98 % No Primary Care Physician [facility] 05-11-2023 13:33-0500 Systolic blood pressure 132 mm[Hg] No Primary Care Physician [facility] 04-19-2023 18:23-0500 Body temperature 97.2 [degF] No Primary Care Physician [facility] 04-19-2023 18:23-0500 Diastolic blood pressure 86 mm[Hg] No Primary Care Physician [facility] 04-19-2023 18:23-0500 Heart rate 83 /min No Primary Care Physician [facility] 04-19-2023 18:23-0500 Respiratory rate 18 /min No Primary Care Physician [facility] 04-19-2023 18:23-0500 SaO2% (BldA) [Mass fraction] 99 % No Primary Care Physician [facility] 04-19-2023 18:23-0500 Systolic blood pressure 130 mm[Hg] No Primary Care Physician [facility] 04-18-2023 23:57-0500 Body mass index (BMI) [Ratio] 26.7 kg/m2 No Primary Care Physician [facility] 04-18-2023 23:57-0500 Body weight 99.79 kg No Primary Care Physician [facility] 04-17-2023 15:11-0500 Body temperature 98.3 [degF] No Primary Care Physician [facility] 04-17-2023 15:11-0500 Diastolic blood pressure 76 mm[Hg] No Primary Care Physician [facility] 04-17-2023 15:11-0500 Heart rate 80 /min No Primary Care Physician [facility] 04-17-2023 15:11-0500 Respiratory rate 18 /min No Primary Care Physician [facility] 04-17-2023 15:11-0500 SaO2% (BldA) [Mass fraction] 100 % No Primary Care Physician [facility] 04-17-2023 15:11-0500 Systolic blood pressure 132 mm[Hg] No Primary Care Physician [facility] 04-17-2023 11:18-0500 Body height 190.5 cm No Primary Care Physician [facility] 04-17-2023 11:18-0500 Body mass index (BMI) [Ratio] 28.9 kg/m2 No Primary Care Physician [facility] 04-17-2023 11:18-0500 Body weight 104.87 kg No Primary Care Physician [facility] 04-11-2023 10:15-0500 Body mass index (BMI) [Ratio] 29.7 kg/m2 No Primary Care Physician [facility] 04-11-2023 10:15-0500 Body temperature 97.3 [degF] No Primary Care Physician [facility] 04-11-2023 10:15-0500 Body weight 107.72 kg No Primary Care Physician [facility] 04-11-2023 10:15-0500 Diastolic blood pressure 91 mm[Hg] No Primary Care Physician [facility] 04-11-2023 10:15-0500 Heart rate 91 /min No Primary Care Physician [facility] 04-11-2023 10:15-0500 Respiratory rate 18 /min No Primary Care Physician [facility] 04-11-2023 10:15-0500 SaO2% (BldA) [Mass fraction] 99 % No Primary Care Physician [facility] 04-11-2023 10:15-0500 Systolic blood pressure 146 mm[Hg] No Primary Care Physician [facility] Encounters Encounter Date Encounter Type Care Provider Facility Start: 01-11-2025 ambulatory Benson Desai Facilit y:[facility] Start: 12-28-2024 ambulatory Benson Desai Facilit y:[facility] Start: 12-28-2024 Emergency department patient visit Juan Carlos Guallpa Facility:[facility] Start: 12-27-2024 End: 12-27-2024 Emergency department patient visit Dr. Benson Desai DO Work Phone: -Emergency Department Work Phone: Start: 12-25-2024 End: 12-25-2024 Patient encounter procedure Rose Marie OLIVIA -[facility] Work Phone: Start: 12-25-2024 End: 12-25-[address] Benson Desai DO Work Phone: -[facility] Start: 12-25-2024 End: 12-25-2024 Emergency department patient visit Dr. Benson Desai DO Work Phone: -Emergency Department Work Phone: Start: 07-13-2023 Non-patient / Non-visit No Primary Care Physician [facility] Start: 07-13-2023 End: 07-13-2023 Admission to same day surgery center No Primary Care Physician [facility]Endoscopy Work Phone: Start: 07-13-2023 End: 07-13-2023 ambulatory No Primary Care Physician [facility] Work Phone: Start: 06-24-2023 End: 06-24-2023 Patient encounter procedure No Primary Care Physician [facility] Work Phone: Start: 05-30-2023 End: 05-30-2023 Patient encounter procedure No Primary Care Physician [facility] Work Phone: Start: 05-24-2023 End: 05-24-2023 Patient encounter procedure No Primary Care Physician [facility] Work Phone: Start: 05-19-2023 End: 05-19-2023 Emergency department patient visit No Primary Care Physician [facility]Emergency Department Work Phone: Start: 05-11-2023 End: 05-11-2023 ambulatory No Primary Care Physician [facility] Work Phone: Start: 05-11-2023 End: 05-11-2023 Patient encounter procedure No Primary Care Physician [facility] Work Phone: Start: 04-28-2023 End: 04-28-2023 Patient encounter procedure No Primary Care Physician [facility] Work Phone: Start: 04-19-2023 Non-patient / Non-visit No Primary Care Physician [facility] Start: 04-18-2023 End: 04-18-2023 Non-patient / Non-visit No Primary Care Physician [facility] Work Phone: Start: 04-18-2023 Non-patient / Non-visit No Primary Care Physician [facility] Start: 04-17-2023 Non-patient / Non-visit No Primary Care Physician [facility] Start: 04-17-2023 End: 04-19-2023 Evaluation and management of inpatient No Primary Care Physician [facility] Work Phone: Start: 04-11-2023 End: 04-11-2023 Emergency department patient visit No Primary Care Physician [facility]Emergency Department Work Phone: Procedures Date Procedure Procedure Detail Performing Clinician Start: 12-27-[address] Navi Desai DO Work Phone: Start: 12-25-2024 Computed tomography of abdomen and pelvis with intravenous contrast Dr. Benson Desai DO Work Phone: Start: 08-19-[address] Navi Desai DO [...] Activity Detail Author Start: 12-27-2024 End: 12-27-2024 [facility] Start: 12-25-2024 [facility] Start: 07-13-2023 Endoscopic retrograde cholangiopancreatography ERCP Biliary/Pancreas [facility] Start: 07-13-2023 RF Guidance for endoscopy of Biliary ducts and Pancreatic duct-- W contrast retrograde [facility] Start: 07-13-2023 Patient discharge [facility] Start: 05-19-2023 [facility] Start: 04-19-2023 Patient discharge [facility] Start: 04-18-2023 [facility] Start: 04-18-2023 Preoperative care [facility] Start: 04-18-2023 Triacylglycerol lipase measurement [facility] Start: 04-18-2023 [facility] Start: 04-17-2023 Application of intermittent pneumatic compression device [facility] Start: 04-17-2023 Following clinical pathway protocol [facility] Start: 04-17-2023 Referral to gastroenterology service [facility] Start: 04-17-2023 Elevation of head of bed [facility] Start: 04-17-2023 Incentive spirometry [facility] Start: 04-17-2023 [facility] Start: 04-17-2023 Admission procedure [facility] Start: 04-17-2023 Hospital admission, emergency, from emergency room, medical nature [facility] Start: 04-17-2023 [facility] Start: 04-11-2023 [facility] Alanine aminotransfe rase [Enzymatic activity/volume] in Serum or Plasma [facility] Albumin [Mass/volume ] in Serum or Plasma [facility] Alkaline phosphatase [Enzymatic activity/volume] in Serum or Plasma [facility] Anion gap measurement [facility] Aspartate aminotrans ferase [Enzymatic activity/volume] in Serum or Plasma [facility] Bilirubin, total measurement [facility] BUN/Creatinine ratio [facility] Calcium [Mass/volume ] in Serum or Plasma [facility] Carbon dioxide, tota l [Moles/volume] in Serum or Plasma [facility] Chloride [Moles/volu me] in Serum or Plasma [facility] Creatinine [Moles/vo lume] in Serum or Plasma [facility] Glucose [Mass/volume ] in Serum or Plasma [facility] Hematocrit [Volume F raction] of Blood [facility] Hemoglobin [Mass/volume] in Blood [facility] Leukocytes [#/volume] in Blood [facility] Mean corpuscular hem oglobin concentration determination [facility] Mean corpuscular hem oglobin determination [facility] Measurement of renal function [facility] Neutrophil count [facility] Neutrophil percent d ifferential count [facility] Patient Education [facility] Work Phone: Patient referral [facility] Work Phone: Platelets [#/volume] in Blood [facility] Potassium [Moles/vol ume] in Serum or Plasma [facility] Red blood cell count [facility] Red cell distributio n width determination [facility] RF Guidance for endo scopy of Biliary ducts and Pancreatic duct-- W contrast retrograde [facility] Sodium [Moles/volume ] in Serum or Plasma [facility] Total protein measurement [facility] Urea nitrogen [Mass/ volume] in Serum or Plasma [facility] Payers Date Payer Category Payer Self-pay 2024 Unknown [id number] Unknown [facility] [id number] Unknown [id number] [id number] Unknown [id number] [id number] Unknown [id number] 2.16.8 [id number] Unknown [id number] [id number] Unknown [id number] [id number] Unknown [id number] [id number] Social History Date Type Detail Facility Start: 04-17-2023 End: 07-11-2023 Tobacco smoking status NHIS Unknown if ever smoked [facility] Start: 1985 Sex Assigned At Male [facility] Start: 12-25-2024 End: 12-27-2024 Tobacco smoking status NHIS Never smoked tobacco (finding) [facility] Medical Equipment Procedure Code Equipment Code Equipment Original Text Equipment Identifier Dates Total cholecystectomy with exploration of common bile duct Open-surgery ligation clip 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 services manager [id number] FDA Start: 04-19-2023 ERCP (endoscopic retrograde cholangiopancreatograph y) ([id number]) Polymeric biliary stent, non-bioabsorbable ()[id number] FDA Start: 04-18-2023 Goals Date Patient Goal Desired Activity /State Functional Status Date Assessment Result Facility 04-19-2023 Functional status Ambulates [facility] Work Phone: Mental Status Date Assessment Result Facility 07-13-2023 Cognitive function Level Of Consciousness Sedated [facility] Work Phone: 04-19-2023 Cognitive function Level Of Cons ciousness Awake;Alert;Appropriate;Follow s Commands [facility] Work Phone: 04-19-2023 Cognitive function Voice/Name [facility] Work Phone: 04-11-2023 Cognitive function Level Of Cons ciousness Awake;Alert;Appropriate;Follow s Commands [facility] Work Phone: Clinical Notes 07-13-2023 to 12-25-2024 Note Date & Type Note Facility 12-25-2024 Evaluation note Diagnosis Onset Date Resolution Abdominal pain acute December 2:04pm History of cholecystectomy acute December 25 2:04pm History of pancreatitis acute A ugust 2024 2:04pm [facility] Work Phone: 1(838) 153-207208-19-2025 Hospital Discharge instructionsAdditional Instructions Your lab work [...] the ER should you have any further [facility] Work Phone: 1(497) 230-833408-19-2025 Discharge summary [facility] Medical Records Department [address] [place] [address] Emergency Department Summary 12/25/24 MR#: [id number] Acct: [id number] Name: ULISSES L[address] Rep #:[id number] : [...] 93.2 H Lymph % (Auto) 4.3 L [place] % (Auto) 1.6 Eos % (Auto) 0.1 [...] No acute abnormality is seen. Reading Location: [facility] Discharge Plan Triage Chief Complaint: Abd Pain [...] good. No signs of pancreatitis. Print Language: [place] Disposition Disposition: Home, Self Care What to do if you have Problems For any increased pain, shortness of breath, bleeding, nausea or vomiting, chestpain, or any unexpected problems, contact your Primary Care Provider. Call [facility] ([phone]) or report tothe closest Emergency Room. Call 911 if necessary. 12/25/24 1328 Cosigner Signature (if applicable): CC: Dr. Benson Desai, DO ~ Signed [facility]08-19-2025 Radiology Diagnostic study note [facility] Imaging Services [address] [place] [address] Abdomen/Pelvis W IV Cont ONLY MR#: [id number] Acct: [id number] Name: ULISSES L[address] Rep #: [id number] : 1985 M 39 From: Deangelo Palomo MD PCP: Dr. Benson Desai, DO Status: MS E ER Study:Abdomen/Pelvis W IV Cont ONLY Date of E xam: 12/25/24 Exam# [id number] Ordering Dr: Carlos Hills MD PROCEDURE: ABDOMEN/PELVIS [...] No acute abnormality is seen. Reading Location: [id number] CC: Dr. Benson Desai DO; Dr. Tony Hills MD ~ [employer]: Signed [facility]03-06-2024 History and physical note Author Geraldo Friend [facility] July 13, 2023 10:57am Note Date/Time July 13, 2023 10:5 7am [facility] Medical Records Department [address] [facility] [place] [address] History & Physical Exam 07/13/23 1056 MR#: [id number] Acct: [id number] Name: ULISSES L[address] Rep #:[id number] : 1985 37 From: Geraldo Thompson DO PCP: Dr. Benson Desai DO Status:RE G [facility] Location: [place] [address] History and Physical Date of Admission: 07/13/23 7 M who presents to the office today for *[facility] hospitalization 04.17.23-04.19.23 for management of acute gallstone pancreatitis and acute cholecystitis. ERCP 04.18.23 biliary papillary stenosis, benign; biliary dilation with stone causing obstruction; choledocholithiasis; biliary sphincterotomy; biliary tree swept; temporary stent placed in CBD. No specimens ? Surgery 04.19.23 cholecystectomy without complication. Cholesterolosis which chronic cholecystitis and sludge. [facility] ED 05.24.23 with increased upper abdominal pain [...] Appearance: grossly normal Quality Reporting Tobacco Screening ([facility] 138) Smoking Status: Never smoker Assessment [...] Signature (if applicable): CC: Dr. Benson Desai DO; Geraldo Thompson DO~ Signed [facility] Work Phone: 1(116) 941-333503-06-2024 [facility]WA[facility] Tony [facility] Note Date/Time December 25, 2024 1: 28pm [facility] Medical Records Department [address] [place] [address] Emergency Department Summary 12/25/24 MR#: [id number] Acct: [id number] Name: ULISSES [address] Rep #:[id number] : 1985 39 From: Tony Hills MD PCP: Dr. Benson Desai DO Status:RE G ER Location: ED HPI [...] 93.2 H Lymph % (Auto) 4.3 L [place] % (Auto) 1.6 Eos % (Auto) 0.1 [...] No acute abnormality is seen. Reading Location: [facility] Discharge Plan Triage Chief Complaint: Abd Pain ED Provider: Tony Hills Dx/Rx/DC Orders Clinical Impression: Abdominal pain, History of pancreatitis, History of cholecystectomy Instructions: Abdominal Pain Prescriptions: No Action multivitamin Tablet 1 tab PO DAILY Primary Care Provider: Benson Desai Referrals: Benson Desai DO [Primary Care Provider] - 3-5 Days if not improving Activity Restrictions/Additional Instructions: Plenty of fluids and rest. Follow-up with your doctor if not improving. Return if feeling worse. Your labs and CAT scan look good. No signs of pancreatitis. Print Language: [place] Disposition Disposition: Home, Self Care What to do if you have Problems For any increased pain, shortness of breath, bleeding, nausea or vomiting, chestpain, or any unexpected problems, contact your Primary Care Provider. Call [facility] ([phone]) or report to the closest Emergency Room. Call 911 if necessary. 12/25/24 1328 <Electronically signed by Tony Hills MD> Cosigner Signature (if applicable): CC: Dr. Benson Desai DO ~ Signed [facility] Work Phone: evaluation note* Diagnosis Onset Date Resolution Status Acute gallstone pancreatitis acute Acute pancreatitis acute Cholecystitis acute [facility] Work Phone: Evaluation note* Diagnosis Onset Date Resolution Status Acute gallstone pancreatitis acute Acute pancreatitis acute Cholestatic hepatitis acute Cholecystitis resolved Jaundice resolved Status post laparoscopic cholecystectomy acute Cholestatic hepatitis acute Status post laparoscopic cholecystectomy acute [facility] Work Phone: Evaluation note* Diagnosis Onset Date Resolution Status Acute pancreatitis acute Acute gallstone pancreatitis resolved Cholecystitis resolved Cholestatic hepatitis resolv ed Jaundice resolved Status post laparoscopic cholecystectomy acute Status post laparoscopic cholecystectomy acute Cholestatic hepatitis resolv ed Acute gallstone pancreatitis resolved Acute gallstone pancreatitis resolved Cholestatic hepatitis resolv ed Bacterial conjunctivitis of both eyes acute [facility] Work Phone: Evaluation noteNo assessment information available [facility] Work Phone: History and physical note Author Arie Watkins [facility] April 17, 2023 1:38pm Note Date/Time April 17, 2023 1:29pm [facility] Medical Records Department [address] [place] [address] History & Physical Exam 04/17/23 1326 MR#: [id number] Acct: [id number] Name: ULISSES [address] Rep #:[id number] : 1985 37 From: Arie Thomas PCP: Care Physician,No Primary Status :ADM IN Location: [facility] [id number] HPI - General General Date of Admission: 04/17/23 Date of Service: 04/17/23 Chief Complaint: Progressive abdominal pain with associated nausea and jaundice HPI Narrative ULISSES L[address], is a 37 M who presents to [facility] with complaints of progressive abdominal [...] to his left arm as a child. [facility] Home Medications No Known/Unobtainable [No Known Home [...] 79.2 H, Lymph % (Auto) 12.5 L, [place] % (Auto) 7.0, Eos % (Auto) 0.5, [...] TotalProtein 7.2, Albumin 3.8, Globulin 3.4, Lipase 39268 H Imagaing Radiology Impression Abdomen/Pelvis CT 04/17/23 [...] 12:28 EST Reading Location ID and State: [id number] , Service support , Assessment & Plan [...] inpatient admission I did confirm with our bakery supervisor, Dr. Thompson, that he has availability to [...] to inpatient Charges/Coding Visit Charges Inpatient E&M: 36259 Subs Hosp L2 04/17/23 1338 <Electronically signed by Arie Watkins MD> Cosigner Signature (if applicable): CC: Dr. Arie Watkins MD; No Primary Care Physician~ Signed [facility] Work Phone: Hospital Discharge instructionsAdditional Instructions Plenty of fluids and rest. Follow-up with your doctor if not improving. Return if feeling worse. Your labs and CAT scan look good. No signs of pancreatitis.[facility] Work Phone: Reason for referral (narrative)No reason for referral information availableWAkron Children's Hospital Work Phone: Chief Complaint and Reason [...] PANCREATITIS GALLSTONE PANCREATITIS Gall Bladder Surgery 04/19 [facility] FU ABD PAIN fu H FU Concern [...] of pancreatitis December 25 2:04pm Advance Directives No Advanced Directives Records Found Advance Directive Response Recorded Date/ Time Living Will No April 17, 023 11:55am Power of Inspector [employer] No April 17, 2023 11:55am Advance Directive Response Recorded Date/ Time Living Will No April 17 023 3:33pm Power of Inspector [employer] No April 17, 2023 3:33pm Advance Directive Response Recorded Date/ Time Living Will No July 11, 2023 10:58am Power of Inspector [employer] No July 10 10:58am Advance Directive Response Recorded Date/ Time Do you have a Healthcare Power of Inspector [employer]? No December 25, 2024 10:45am Advance Directive Response Recorded Date/ Time Do you have a Healthcare Power of Inspector [employer]? No December 25, 2024 10:45am Do you have a Healthcare Power of Inspector [employer]? No December 27, 2024 4:52am Summary Purpose Family History No Family History Records Found Additional Source Comments Care Teams (unrecognized sec tion and content) Team Status: Active Member Role Status Dates Dr. Benson Desai , Family Provider Active No Primary Care Physician Primary Care Provider Active Team Status: Active Member Role Status Dates No Primary Care Physician Primary Care Provider Active Dr. Rickey Nair , DO Emergency Provider Active Dr. Arie Watkins MD Admit Provider, A ttending Provider, Other Provider Active Team Status: Inactive Member Role Status Dates Dr. Rickey Nair DO Attending Provider, Emergency P carter Active No Primary Care Physician Primary Care [...] Provider, Other Provider Active Dr. Geraldo Thompson DO Attending Provider Active Team Status: Active Member Role Status Dates No Primary Care Physician Primary Care Provider Active Dr. Geraldo Thompson , DO Attending Provider Active Dr. Arie Watkins [...] Dr. Geraldo Thompson DO Attending Provider Active Team Status: Inactive Member Role Status Dates Dr. Benson Desai DO Primary Care Pr ovider, Attending Provider, [...] End: December 25, 2024 Dr. Benson Desai , DO Referring Provider Active Start: December 25, 2024 End: December 25, 2024 NE Roe Attending Provider Active Start: December 25, 2024 End: December 25, 2024 Team Status: Inactive Member Role/Relationship Status Dates Dr. Benson Desai , DO Primary Care Provider Active Start: December 27, 2024 End: December 27, 2024 Dr. Mayo Darnell , DO Emergency Provider Active Start: December 27, 2024 End: December 27, 2024 Goals (unrecognized section and content) Goals may be documented in a n alternate sectionGoals may be documented in an alternate sectionGoals may be documented in an alternate section (unrecognized sect ion and content) No Status Records Found INFORMATION SOURCE (unrecogn ized section and content) DATE CREATED AUTHOR 12/28/2024 [facility] FOR RECORDS PERTAINING TO PATIENTS WHO ARE [...] BE BASED ON THE PRIMARY CLINICAL RECORDS. [employer] provides no warranty or guarantee of the accuracy or completeness of information in this document.
[2024-12-29] VITALS (8 sets, daily range): BP systolic 116–149; BP diastolic 76–86; PULSE 54–98; RESP 16–17; TEMP 36.6–37.1; O2SAT 97–99
[2024-12-29] MEDS: Pantoprazole Sodium 40 MG in 0.9% Normal Saline (100mL MB+) 100 ML 330 MG IV ×2 (00:54→21:28)
[2024-12-29] MEDS: 0.9% Normal Saline (1000mL) 1,000 ML 100 ML IV ×2 (00:56→14:48)
[2024-12-29 05:01] LABS: Hematocrit 36.5 % (40-54); Hemoglobin 12.2 g/dL (13.0-16.5); Immature Granulocytes Count 0.020 X10^3/uL (0.0-0.0); Mean Corp Hgb Conc 33.4 g/dL (32-36); Mean Corpuscular Volume 87.7 fL (80-94); Mean Platelet Vol. 9.9 fl (6.2-12.0); NRBC Flagged by Analyzer 0 % (0-5); Platelet Count 142 K/mm3 (150-450); RBC Distribution Width CV 12.8 % (11.6-14.6); RBC Distribution Width SD 41.2 fl (35.1-43.9); Red Blood Count 4.16 M/mm3 (4.6-6.2); White Blood Count 5.0 K/mm3 (4.4-11.0)
[2024-12-29] MEDS: Piperacil/Tazobactam 3.375 GM in 0.9% Normal Saline (50mL MB+) 50 ML IV ×3 (05:28→21:54)
--- NOTE | 2024-12-29 05:55 | MRI_ITS ---
PROCEDURE: MRCP ABDOMEN WITHOUT CONTRAST 12/29/2024 REASON FOR EXAM: HYPERBILIRUBINEMIA/TRANSAMINITIS, ABDOMINAL PAIN TECHNIQUE: MRCP ABDOMEN WITHOUT CONTRAST Multiplanar and multisequence images were obtained. COMPARISON: CT study dated 12/25/2024. FINDINGS: On the localizer images, normal liver, spleen and kidneys without hydronephrosis. Fat saturated T2 weighted images demonstrate no liver masses. Normal appearance of the spleen. No renal masses are documented. Pancreatic tail and body unremarkable. No pancreatic mass lesion. No definitive intrahepatic biliary distention. The extrahepatic biliary tree does not appear significantly enlarged. I believe the patient is status post cholecystectomy. There is no evidence for choledocholithiasis. There is no dilatation of the pancreatic duct. MRI/MRCP Abdomen without Contrast IMPRESSION: Prior cholecystectomy. No biliary distention. Negative for choledocholithiasi s. No pancreatic or liver mass. Reading [facility]
[2024-12-29 06:24] LABS: Hepatitis B Surface Antigen Nonreactive (Nonreactive); Hepatitis C Antibody Nonreactive (Nonreactive); Procalcitonin 1.28 ng/mL (<=0.10)
[2024-12-29 06:59] LABS: AST(SGOT) 39 U/L (<=37); Alanine Aminotransfer ALT/SGPT 78 U/L (<=46); Albumin, Serum 3.1 g/dL (3.5-5.0); Alkaline Phosphatase 276 U/L (40-129); Anion Gap 13 (5-15); BUN 9 mg/dL (4-19); BUN/Creat Ratio 10.2 RATIO (10-20); Bilirubin, Direct 3.70 mg/dL (0.00-0.30); Calcium,Total 8.3 mg/dL (7.6-11.0); Carbon Dioxide 21.7 mmol/L (21.0-32.0); Chloride 104 mmol/L (98-108); Estimated Creatinine Clearance 152.30 ml/min (50-250); Globulin 2.4 g/dL (2.2-4.2); Glucose 74 mg/dL (70-99); Potassium 3.9 mmol/L (3.3-5.1)
[2024-12-29] MEDS: 0.9% Saline Lock 10 ML Syringe IV ×2 (08:51→21:20)
--- NOTE | 2024-12-29 13:31 | CASEMGMT ---
RAAD JOSHUA Assessment Face to Face with patient for initial transition planning/care coordination assessment. RAAD JOSHUA introduced self and role at [facility], pt voices understanding. Pt is A&Ox4 and is resting comfortably in bed and is calm. Care providers, pharmacy, and demographics verified. Admitting dx: ABD Pain LACE Strata: 2 PCP: Benson Desai Specialists: Friend (GI) Preferred Pharmacy: [facility] Insurance: MMO Prescription Benefit: yes LNOK: Verónica (W) Living Arrangements:Pt lives with his and 3 kids (Ages 7, 5, and 14 months) in a 2 story home with 10 total steps to enter ADLs/IADLs: Indep. 6-Click score is 24 Transportation: Self, DME: BP Machine and pulse ox HHC/SNF: Denies Pt?s goal: Home Plan: Home, no additional needs. Pt states that he feels safe returning home with his family once he is medically ready. Pt denies any further DC needs. Pt states that he has increasing ABD pain at this time. Pt's RN notified. Derrick House RN, CM
[2024-12-29] MEDS: 0.9% Normal Saline (250mL Bag) 250 ML 15 ML IV (13:37)
[2024-12-29] MEDS: Pantoprazole Sodium 40 MG in 0.9% Normal Saline (100mL MB+) 100 ML 300 MG IV (13:46)
--- NOTE | 2024-12-29 14:30 | PN.HOSP_ITS ---
Reason for Visit Chief Complaint: Abdominal pain, fever. Subjective Subjective Patient was seen and examined today, he still having abdominal pain, he had a MRCP today which did not show any evidence of ductal dilatation or choledocholithiasis. Pancreas also appeared to be normal. He has required more pain meds to control his pain, I talked briefly with gastroenterology today and they will see him tomorrow and he will be set up for an ERCP on Tuesday. I have elected to leave him on antibiotics for now and advance his diet to full liquid diet. Objective Data Objective Data Vital Signs: Vital Signs Temp Pulse Resp BP Pulse Ox O2 Del Method 97.8 F 67 16 139/86 H 99 Room Air 12/29/24 08:42 12/29/24 08:42 12/29/24 08:42 12/29/24 08:42 12/29/24 08:42 12/29/24 08:42 Oxygen Delivery Method Room Air Weight: 110.132 kg Body Mass Index (BMI) 30.3 Intake & Output: Intake and Output for Last 24 Hours 12/27/24 12/28/24 12/29/24 23:59 23:59 23:59 Intake Total 1100 / 1100 2252.50 / 2252.50 Balance 1100 / 1100 2252.50 / 2252.50 Lab / Micro Data 12/29/24 04:39 12/29/24 04:39 Labs: Laboratory Results - last 24 hr 12/28/24 19:00: WBC 9.1, RBC 4.85, Hgb 14.3, Hct 41.2, MCV 84.9, MCH 29.5, MCHC 34.7, RDW Std Deviation 39.0, RDW Coeff of Valerie 12.6, Plt Count 186, MPV 10.4, Immature Gran % (Auto) 0.600, Neut % (Auto) 84.9 H, Lymph % (Auto) 5.3 L, Swift % (Auto) 8.8, Eos % (Auto) 0.1, Baso % (Auto) 0.3, Absolute Neuts (auto) 7.7, A bsolute Lymphs (auto) 0.48 L, Nucleated RBC % 0, PT 14.1, INR 1.1, APTT 28.1, Sodium 135, Potassium 4.0, Chloride 99, Carbon Dioxide 21.1, Anion Gap 15, BUN 9, Creatinine 0.85, Estim Creat Clear Calc 159.35, Est GFR (MDRD) Non-Af 115, BUN/Creatinine Ratio 11.0, Glucose 104 H, Calcium 9.0, Total Bilirubin 5.33 H, A ST 57 H, ALT 103 H, Alkaline Phosphatase 334 H, Total Protein 6.5, Albumin 3.9, Globulin 2.7, Albumin/Globulin Ratio 1.4 12/28/24 19:20: Lactic Acid < 1.0 12/28/24 20:08: Urine Color Yellow, Urine Clarity Clear, Urine pH 6.0, Ur Specific Sherwood 1.015, Urine Protein 30 H, Urine Glucose (UA) Normal, Urine Ketones 150 A*, Urine Occult Blood 10 H, Urine Nitrite Negative, Urine Bilirubin 6 H, Urine Urobilinogen 8 H, Ur Leukocyte Esterase 25 H, Urine RBC 0-5 SEEN, Urine WBC 0-5 SEEN, Ur Squamous Epith Cells 0 SEEN, Urine Bacteria 0 SEEN, Urine Mucus 1+ 12/29/24 04:39: WBC 5.0, RBC 4.16 L, Hgb 12.2 L, Hct 36.5 L, MCV 87.7, MCH 29.3, MCHC 33.4, RDW Std Deviation 41.2, RDW Coeff of Valerie 12.8, Plt Count 142 L, MPV 9.9, Immature Gran % (Auto) 0.400, Neut % (Auto) 68.0, Lymph % (Auto) 15.0 L, M sujey % (Auto) 15.2 H, Eos % (Auto) 1.0, Baso % (Auto) 0.4, Absolute Neuts (auto) 3.4, Absolute Lymphs (auto) 0.75 L, Nucleated RBC % 0, Sodium 138, Potassium 3.9, Chloride 104, Carbon Dioxide 21.7, Anion Gap 13, BUN 9, Creatinine 0.89, Estim Creat Clear Calc 152.30, Est GFR (MDRD) Non-Af 113, BUN/Creatinine Ratio 10.2, Glucose 74, Calcium 8.3, Total Bilirubin 4.77 H, Direct Bilirubin 3.70 H, AST 39 H, ALT 78 H, Alkaline Phosphatase 276 H, Total Protein 5.5 L, Albumin 3.1 L, Globulin 2.4, Procalcitonin 1.28 H, Hep Bs Antigen Nonreactive, Hep Bs Antibody Nonreactive, Hepatitis C Antibody Nonreactive Micro: Microbiology 12/28/24 20:25 Mucosa - Nose SARS-CoV-2, Influenza & RSV (PCR) - Final Radiography Diagnostic Testing: Radiology Impression Chest X-Ray 12/28/24 19:30 IMPRESSION: No Acute Findings. Reading Location: [facility] MRCP 12/29/24 05:55 IMPRESSION: Prior cholecystectomy. No biliary distention. Negative for choledocholithiasis. No pancreatic or liver mass. Reading Location: [facility] Physical Exam Const alert, oriented x3, no apparent distress and healthy appearing General Appearance: cooperative, well kempt and well developed Orientation / Consciousness: awake, oriented to person, oriented to place and oriented to time HEENT normocephalic, head/scalp atraumatic and moist oral mucous membranes Eyes PERRL, EOMs intact bilaterally and conjunctivae normal Neck supple, no JVD, thyroid normal and no carotid bruits General: trachea midline Resp normal respiratory effort, no retractions, no use of accessory muscles and clear to auscultation bilaterally Auscultation: Negative for rales, rhonchi or wheezes Cardio regular rate, regular rhythm, S1 normal heart sound, S2 normal heart sound, no murmurs, no rub and no gallops GI normal to inspection, nondistended, normoactive bowel sounds, soft to palpation and non-distended GI Narrative: Mild to moderate abdominal tenderness is noted across the abdomen particularly in the right upper quadrant. Extremity no clubbing, cyanosis or edema Skin no rashes or lesions noted General Skin Exam: no breakdown Neuro oriented x3, CN's II-XII intact bilaterally, no focal motor deficits and no sensory deficits noted Sensorium / Orientation: awake and alert Speech: speech normal Psych affect normal Assessment & Plan Assessment/Plan (1) Abdominal pain: PLAN: Plan 1. Abdominal pain-possibly secondary to choledocholithiasis with negative MRCP- have chosen to keep the patient on IV fluids and advance his diet to a full liquid diet, he will continue to receive narcotics for pain, the plan is for the patient undergo an ERCP on Tuesday. #2 elevated liver enzymes secondary to undetected choledocholithiasis-patient's liver profile will be rechecked tomorrow Total clinical time spent by myself addressing the patient's medical issues, reviewing all of his data, and collaborating with patient's care team: 35 minutes Charges/Coding Visit Charges Inpatient E&M: 21393 Subs Hosp L2
--- NOTE | 2024-12-29 15:17 | RAD_ITS ---
PROCEDURE: ABD INC DECUB AND/OR ERECT 12/29/2024 REASON FOR EXAM: R/O PERFORATED VISCUS TECHNIQUE: ABD INC DECUB AND/OR ERECT COMPARISON: MRI abdomen today. CT abdomen December 26, 2019 chest radiograph yesterday FINDINGS: Bowel gas: Normal volume and pattern Calcifications: No suspicious urinary tract calcifications. Bones: Normal osseous structures Other: Cholecystectomy clips in the right upper quadrant. No evidence of free air. RAD/Abd Inc Decub and/or Erect IMPRESSION: No acute cardiopulmonary or acute abdominal process. No free air. Reading [facility]
--- NOTE | 2024-12-29 15:35 | NURSING ---
pt with whole body rigors intermittently. pt states he feels like he gets cool chills, just not extremely cool. stating he got these episodes at home as well. the edge of my pain is starting to be taken off, i am still having pain.
[2024-12-30 01:52] VITALS: BP 119/63; PULSE 72; RESP 16; TEMP 37; O2SAT 97
[2024-12-30] MEDS: 0.9% Normal Saline (1000mL) 1,000 ML 100 ML IV ×2 (05:56→15:56)
[2024-12-30] MEDS: Piperacil/Tazobactam 3.375 GM in 0.9% Normal Saline (50mL MB+) 50 ML IV ×3 (05:57→20:29)
[2024-12-30 05:58] LABS: Hematocrit 35.4 % (40-54); Hemoglobin 12.0 g/dL (13.0-16.5); Immature Granulocytes Count 0.010 X10^3/uL (0.0-0.0); Mean Corp Hgb Conc 33.9 g/dL (32-36); Mean Corpuscular Volume 87.6 fL (80-94); Mean Platelet Vol. 10.4 fl (6.2-12.0); NRBC Flagged by Analyzer 0 % (0-5); POSITIVE MORPHOLOGY YES; Platelet Count 170 K/mm3 (150-450); RBC Distribution Width CV 12.8 % (11.6-14.6); RBC Distribution Width SD 41.1 fl (35.1-43.9); Red Blood Count 4.04 M/mm3 (4.6-6.2); White Blood Count 4.6 K/mm3 (4.4-11.0)
[2024-12-30 06:01] VITALS: BP 128/78; PULSE 64; RESP 16; TEMP 36.7; O2SAT 98
[2024-12-30 06:12] LABS: Differential Indicated SCAN CRITERIA MET
[2024-12-30 06:41] LABS: AST(SGOT) 28 U/L (<=37); Alanine Aminotransfer ALT/SGPT 60 U/L (<=46); Albumin, Serum 3.0 g/dL (3.5-5.0); Alkaline Phosphatase 297 U/L (40-129); Bilirubin, Direct 3.85 mg/dL (0.00-0.30); Globulin 2.4 g/dL (2.2-4.2)
[2024-12-30 07:00] LABS: Differential Comment SCANNED; Red Cell Morphology NORM C+C NORMAL (NORM C&C)
[2024-12-30 08:08] VITALS: BP 126/88; PULSE 65; RESP 16; TEMP 36.5; O2SAT 99
--- NOTE | 2024-12-30 10:10 | PCM.PN.HOSP ---
Reason for Visit Chief Complaint: Abdominal pain, fever. Subjective Subjective Patient was seen and examined today, his liver enzymes remain elevated, he appears to have less pain today than yesterday. I talked with gastroenterology about his care, it is planned he will have an ERCP done tomorrow Objective Data Objective Data Vital Signs: Vital Signs Temp Pulse Resp BP Pulse Ox O2 Del Method 97.7 F L 65 16 126/88 H 99 Room Air 12/30/24 08:08 12/30/24 08:08 12/30/24 08:08 12/30/24 08:08 12/30/24 08:08 12/30/24 08:08 Oxygen Delivery Method Room Air Weight: 109.6 kg Body Mass Index (BMI) 30.0 Intake & Output: Intake and Output for Last 24 Hours 12/28/24 12/29/24 12/30/24 23:59 23:59 23:59 Intake Total 1100 / 1100 2737.08 / 2737.08 966.67 / 966.67 Output Total 400 / 400 Balance 1100 / 1100 2737.08 / 2337.08 566.67 / 566.67 Lab / Micro Data 12/30/24 04:58 12/29/24 04:39 Labs: Laboratory Results - last 24 hr 12/30/24 04:58: WBC 4.6, RBC 4.04 L, Hgb 12.0 L, Hct 35.4 L, MCV 87.6, MCH 29.7, MCHC 33.9, RDW Std Deviation 41.1, RDW Coeff of Valerie 12.8, Plt Count 170, MPV 10.4, Immature Gran % (Auto) 0.200, Neut % (Auto) 64.0, Lymph % (Auto) 21.4, Hendricks % (Auto) 12.0 H, Eos % (Auto) 2.2, Baso % (Auto) 0.2, Absolute Neuts (auto) 2.9, Absolute Lymphs (auto) 0.98, Nucleated RBC % 0, Differential Comment SCANNED, Platelet Estimate ADEQUATE, RBC Morphology NORM C+C, Total Bilirubin 4.83 H, Direct Bilirubin 3.85 H, AST 28, ALT 60 H, Alkaline Phosphatase 297 H, Total Protein 5.4 L, Albumin 3.0 L, Globulin 2.4 Micro: Microbiology 12/28/24 20:25 Mucosa - Nose SARS-CoV-2, Influenza & RSV (PCR) - Final Radiography Diagnostic Testing: Radiology Impression MRCP 12/29/24 05:55 IMPRESSION: Prior cholecystectomy. No biliary distention. Negative for choledocholithiasis. No pancreatic or liver mass. Reading Location: [facility] Abdomen X-Ray 12/29/24 15:17 IMPRESSION: No acute cardiopulmonary or acute abdominal process. No free air. Reading [facility] Physical Exam Narrative alert, oriented x3, no apparent distress and healthy appearing General Appearance: cooperative, well kempt and well developed Orientation / Consciousness: awake, oriented to person, oriented to place and oriented to time HEENT normocephalic, head/scalp atraumatic and moist oral mucous membranes Eyes PERRL, EOMs intact bilaterally and conjunctivae normal Neck supple, no JVD, thyroid normal and no carotid bruits General: trachea midline Resp normal respiratory effort, no retractions, no use of accessory muscles and clear to auscultation bilaterally Auscultation: Negative for rales, rhonchi or wheezes Cardio regular rate, regular rhythm, S1 normal heart sound, S2 normal heart sound, no murmurs, no rub and no gallops GI normal to inspection, nondistended, normoactive bowel sounds, soft to palpation and non-distended GI Narrative: Mild to moderate abdominal tenderness is noted across the abdomen particularly in the right upper quadrant. Extremity no clubbing, cyanosis or edema Skin no rashes or lesions noted General Skin Exam: no breakdown Neuro oriented x3, CN's II-XII intact bilaterally, no focal motor deficits and no sensory deficits noted Sensorium / Orientation: awake and alert Speech: speech normal Psych affect normal Assessment & Plan Assessment/Plan (1) Abdominal pain: PLAN: Plan 1. Abdominal pain-possibly secondary to choledocholithiasis with negative MRCP-have chosen to keep the patient on IV fluids and advance his diet to a full liquid diet, he will continue to receive narcotics for pain, the plan is for the patient undergo an ERCP on Tuesday. Patient is also receiving IV antibiotics. #2 elevated liver enzymes secondary to undetected choledocholithiasis-patient's liver profile will be rechecked tomorrow Total clinical time spent by myself addressing the patient's medical issues, reviewing all of his data, and collaborating with patient's care team: 35 minutes Charges/Coding Visit Charges Inpatient E&M: 61420 Subs Hosp L2
[2024-12-30] MEDS: Pantoprazole Sodium 40 MG in 0.9% Normal Saline (100mL MB+) 100 ML 300 MG IV (10:51)
[2024-12-30 14:20] VITALS: BP 133/92; PULSE 66; RESP 16; TEMP 36.7; O2SAT 100
[2024-12-30 19:56] VITALS: BP 134/82; PULSE 61; RESP 16; TEMP 36.7; O2SAT 100
[2024-12-30] MEDS: 0.9% Saline Lock 10 ML Syringe IV (20:01)
[2024-12-30] MEDS: Pantoprazole Sodium 40 MG in 0.9% Normal Saline (100mL MB+) 100 ML 330 MG IV (20:01)
[2024-12-31] VITALS (10 sets, daily range): BP systolic 123–155; BP diastolic 79–92; PULSE 60–92; RESP 16; TEMP 36.3–36.7; O2SAT 97–99; BMI 30.2; BMI 30.6
[2024-12-31] MEDS: 0.9% Normal Saline (1000mL) 1,000 ML 100 ML IV ×2 (01:37→14:38)
[2024-12-31] MEDS: Piperacil/Tazobactam 3.375 GM in 0.9% Normal Saline (50mL MB+) 50 ML IV ×2 (04:31→14:38)
[2024-12-31 05:11] LABS: AST(SGOT) 21 U/L (<=37); Alanine Aminotransfer ALT/SGPT 50 U/L (<=46); Albumin, Serum 3.1 g/dL (3.5-5.0); Alkaline Phosphatase 290 U/L (40-129); Bilirubin, Direct 1.81 mg/dL (0.00-0.30); Globulin 2.4 g/dL (2.2-4.2)
[2024-12-31] MEDS: Pantoprazole Sodium 40 MG in 0.9% Normal Saline (100mL MB+) 100 ML 330 MG IV (10:00)
[2024-12-31] MEDS: Lactated Ringers 1,000 ML 15 ML IV (11:02)
--- NOTE | 2024-12-31 11:21 | PCM.PRE.AN2 ---
ASA Classification* ASA Classification ASA Classification: 2 and E Assessment & Plan Anesthesia* Anesthesia Assessment Anesthesia Assessment: Discussed sedation and/or anesthesia options, risks, benefits, and alternatives with patient/parents/legal guardian/POA. Questions invited. The patient/parents/legal guardian/POA seems to understand and agrees to proceed with anesthesia plan. Reviewed the physical assessment, medical history, allergy history and patient home medications list prior to surgery/procedure/anesthetic and documented any changes. Performed airway and anesthesia risk assessments. Anesthesia Type Anesthesia Type: General History Source History Obtained from:: Patient and Chart Anesthesia Focused Assessment* Temperature: 97.7 F Pulse Rate: 72 Blood Pressure: 144/92 Respiratory Rate: 16 Pulse Ox: 99 Oxygen Delivery Method: Room Air Airway Assessment Mouth opens: 2 cm Mallampati Score: III Teeth Condition: Intact Neck Range of motion (ROM): Full ROM Labs Anesthesia Preop lab: CBC WBC 4.6 K/mm3 (4.4-11.0) 12/30/24 04:58 12/30/24 RBC 4.04 M/mm3 (4.6-6.2) L 12/30/24 04:58 12/30/24 Hgb 12.0 g/dL (13.0-16.5) L 12/30/24 04:58 12/30/24 Hct 35.4 % (40-54) L 12/30/24 04:58 12/30/24 Plt Count 170 K/mm3 (150-450) 12/30/24 04:58 12/30/24 CHEMISTRY Potassium 3.9 mmol/L (3.3-5.1) 12/29/24 04:39 12/29/24 Sodium 138 mmol/L (133-145) 12/29/24 04:39 12/29/24 BUN 9 mg/dL (4-19) 12/29/24 04:39 12/29/24 Creatinine 0.89 mg/dL (0.70-1.20) 12/29/24 04:39 12/29/24 Glucose 74 mg/dL (70-99) 12/29/24 04:39 12/29/24 COAG PT 14.1 SECONDS (11.7-14.9) 12/28/24 19:00 12/28/24 Pre-Assessment Diagnosis/Proposed Procedure Planned Operative Procedure(s): ERCP Anesthesia History 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 APR 2023. Any Problems With Anesthesia No 12/31/24 09:24 Cholinesterase deficiency No 12/31/24 09:24 You/Your Family Experience No 12/31/24 09:24 fever (hyperthermia) with Relationship Recent Exposure to Contagious No 12/31/24 09:24 Disease Does patient have nerve No 12/31/24 09:24 stimulator Patient instructed to have No 12/31/24 09:24 device shut off --Does patient have Pacemaker No 12/31/24 05:00 or ICD? When Was Last Pacemaker Check QUESTION #4 FULL TEXT: You/Your Family Experience fever (hyperthermia) with Anesthesia Last Oral Intake Last Oral intake: Last Oral Intake NPO since 00:00 12/31/24 05:00 Meds taken in AM with sips of Yes 12/31/24 05:00 water? Meds patient instructed to take am of surgery PONV PONV - wildlife refuge specialist: PONV - wildlife refuge specialist Female HX of Motion Sickness HX of N/V After Surgery Non-Smoker Duration of Surgery greater than 60 minutes Number of Risk Factors PONV Score Height & Weight Height & Weight: Anesthesia: Height & Weight Height 6 ft 3 in 12/31/24 05:00 Weight: 111.1 kg 12/31/24 05:00 Body Mass Index (BMI) 30.6 12/31/24 05:00 Respiratory Assessment Respiratory Assessment - wildlife refuge specialist: Respiratory Tract Infection Hx - wildlife refuge specialist Hx Respiratory Tract Infection No 12/31/24 09:24 STOP Sleep Apnea STOP Sleep Apnea - wildlife refuge specialist: STOP Sleep Apnea - wildlife refuge specialist Hx Hypertension No 12/28/24 23:30 Hx Sleep Apnea No 12/28/24 23:30 CPAP BIPAP Do you snore loudly (louder No 12/28/24 23:30 than talking or can be heard Do you often feel tired/ No 12/28/24 23:30 fatigued/ sleepy during daytime? Has anyone observed you stop No 12/28/24 23:30 breathing during sleep? STOP Results Negative 12/28/24 23:30 QUESTION #5 FULL TEXT : Do you snore loudly (louder than talking or can be heard through closed doors)? 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 Specify any problems Hx of Preganancy in last 3 N/A 12/28/24 23:30 Months Nurse Filling Out Transfusion TMELLOR 12/28/24 23:30 & Questions: Date: 12/28/24 12/28/24 23:30 Time: 23:31 12/28/24 23:30 Patient unable to answer at this time (ie. confused, unrespo /Reproduction History /Reproductive History - wildlife refuge specialist: /Reproductive Hx- wildlife refuge specialist Hx Now No 12/31/24 09:24 Gestational Age (in weeks): EDC: Hx Hx Para Hx Section SAB No 12/31/24 09:24 Active Medications Active Medications: Current Medications Generic Name Dose Route Start Last Admin Trade Name Freq PRN Reason Stop Dose Admin Acetaminophen 650 mg 12/28/24 23:25 Acetaminophen 325 Mg Tablet PO Q4H PRN PRN Fever, pain 1-10/10 Hydromorphone HCl 1 - 1.5 mg 12/29/24 15:17 12/29/24 21:18 Hydromorphone 1 Mg/Ml Syringe IV 1 mg Q4H PRN PRN Administration Pain Score 6-10 Hydromorphone HCl 1 mg 12/30/24 08:36 Hydromorphone 2 Mg Tablet PO Q4H PRN PRN Pain Score 4-10 Piperacillin Sod/Tazobactam 50 mls @ 12.5 mls/hr 12/29/24 06:00 12/31/24 08:46 Sod 3.375 gm/ Sodium Chloride IV Infused Q8 STEPAN Infusion Pantoprazole Sodium 40 mg/ 100 mls @ 330 mls/hr 12/28/24 23:25 12/31/24 10:24 Sodium Chloride IV Infused Q12 STEPAN Infusion Sodium Chloride 250 mls @ 15 mls/hr 12/28/24 23:33 12/29/24 14:51 IV Infused .[id number] PRN Infusion Saline Flush Sodium Chloride 1,000 mls @ 100 mls/hr 12/29/24 14:25 12/31/24 01:37 IV 100 mls/hr .Q10H STEPAN Administration Lactated Ringer's 1,000 mls @ 15 mls/hr 12/31/24 11:15 12/31/24 11:02 IV 15 mls/hr .Q48H STEPAN Administration Melatonin 3 mg 12/28/24 23: Melatonin 3 Mg Tablet PO QHS PRN PRN INSOMNIA Ondansetron HCl 4 mg 12/28/24 23:25 12/29/24 08:51 Ondansetron 4 Mg/2 Ml Vial IV 4 mg Q8H PRN PRN Administration NAUSEA/VOMITING Sodium Chloride 10 - 40 ml 12/28/24 23:33 12/30/24 20:01 0.9% Saline Lock 10 Ml Syringe IV 10 ml UD PRN Administration SALINE FLUSH Sucralfate 1 gm 12/29/24 07:00 12/31/24 10:24 Sucralfate 1 Gm Tablet PO Not Given 0700,1100,1600 [facility] PFSH Medical History GERD (gastroesophageal reflux disease) Obesity Gallstone pancreatitis Non-smoker Home Medications ?Medication ?Instructions ?Recorded ?Last Taken ?Type famotidine 40 mg tablet 40 mg PO QDAY #30 tabs 12/25/24 Unknown Rx ondansetron 4 mg disintegrating 4 mg PO TID PRN nausea and 12/27/24 Unknown Rx tablet vomiting #21 tabs oxycodone-acetaminophen 5 mg-325 1 tab PO Q6H PRN pain 5 days #20 12/27/24 Unknown Rx mg tablet (Endocet) tabs sucralfate 1 gram tablet (Carafate) 1 g PO TID 14 days #42 tabs 12/27/24 Unknown Rx Allergy/AdvReac Type Severity Reaction Status Date / Time No Known Allergies Allergy Verified 12/27/24 04:52 Family History (Updated 12/28/24 @ 21:[address] Tiesha Clark MD) Mother Hypertension Thyroid disorder Father Hypertension Surgical History (Updated 12/28/24 @ 21:[address] Tiesha Clark MD) History of cholecystectomy S/P ORIF (open reduction internal fixation) fracture Social History (Updated 12/28/24 @ 21:[address] Tiesha Clark MD) household members: spouse and children Smoking Status: Never smoker alcohol intake: current alcohol intake frequency: holidays/special occasions only substance use type: does not use Review of Systems (Anesthesia) ROS Narrative System reviewed and no additional complaints, except as documented. Physical Exam Const alert and oriented x3 Orientation / Consciousness: awake HEENT dentition normal Neck full ROM Resp normal respiratory effort and normal air movement Cardio regular rate and regular rhythm
--- NOTE | 2024-12-31 12:21 | CON.PCM.GI_ITS ---
HPI Consult Data Date of Consult: 12/31/24 HPI Narrative Reason for Consultation: Abdominal pain and jaundice HPI Narrative: ANA LANE, is a 39-year-old male history of gacute gallstone pancreatitis, status post ERCP with stone removal and temporary stent placement , s/p cholecystectomy back in 2022 presents abdominal pain and fever. He had been to the ED previously for worsening abdominal pain. 2 previous CAT scans did not show any acute abnormality. He presented to outpatient GI clinic due to worsening abdominal pain. His called me Narendra night and I told him to come to the emergency room. 12/31/24 04:19: Total Bilirubin 2.37 H, Direct Bilirubin 1.81 H, AST 21, ALT 50 H , Alkaline Phosphatase 290 H, Total Protein 5.5 L, Albumin 3.1 L, Globulin 2.4 CT/Abdomen/Pelvis W IV Cont ONLY IMPRESSION: Status post cholecystectomy. Mild degree of central intrahepatic biliary ductal dilatation most likely secondary to the cholecystectomy state. No acute abnormality is seen. MRI/MRCP Abdomen without Contrast IMPRESSION: Prior cholecystectomy. No biliary distention. Negative for choledocholithiasis. No pancreatic or liver mass. PFSH Medical History GERD (gastroesophageal reflux disease) Obesity Gallstone pancreatitis Non-smoker Home Medications ?Medication ?Instructions ?Recorded ?Last Taken ?Type famotidine 40 mg tablet 40 mg PO QDAY #30 tabs 12/25 Unknown Rx ondansetron 4 mg disintegrating 4 mg PO TID PRN nausea and 12/27/24 Unknown Rx tablet vomiting #21 tabs oxycodone-acetaminophen 5 mg-325 1 tab PO Q6H PRN pain 5 days #20 12/27/24 Unknown Rx mg tablet (Endocet) tabs sucralfate 1 gram tablet (Carafate) 1 g PO TID 14 days #42 tabs 12/27/24 Unknown Rx Allergy/AdvReac Type Severity Reaction Status Date / Time No Known Allergies Allergy Verified 12/27/24 04:52 Family History Mother Hypertension Thyroid disorder Father Hypertension Surgical History History of cholecystectomy S/P ORIF (open reduction internal fixation) fracture Social History household members: spouse and children Smoking Status: Never smoker alcohol intake: current alcohol intake frequency: holidays/special occasions only substance use type: does not use ROS ROS Narrative Admission Review of Systems: CONSTITUTIONAL: No weight loss, + fever, chills, weakness or fatigue. HEENT: + Jaundiced appearance, mild scleral icterus, mild headaches generalized with light sensitivity. Eyes: No visual loss, blurred vision, double vision. Ears, Nose, Throat: No hearing loss, sneezing, congestion, runny nose or sore throat. SKIN: No rash or itching, lesions, wounds except + noted mild jaundiced appearance, occasional stage ecchymoses, abrasion. CARDIOVASCULAR: No chest pain, chest pressure or chest discomfort, palpitations, edema, orthopnea, syncopal events. RESPIRATORY: No shortness of breath, cough or sputum, wheezing, hemoptysis. GASTROINTESTINAL: + anorexia, abdominal pain. No nausea, vomiting, diarrhea, melena, BRBPR. GENITOURINARY: No dysuria, frequency, urgency or retention. NEUROLOGICAL: + Headaches, mild, generalized with light sensitivity. No dizziness, syncope, paralysis, ataxia, numbness or tingling in the extremities, focal weakness, change in bowel or bladder control, seizure. MUSCULOSKELETAL: + muscle, back pain, joint pain or stiffness. HEMATOLOGIC: No anemia, bleeding or bruising. LYMPHATICS: No enlarged nodes. No history of splenectomy. PSYCHIATRIC: No history of depression or anxiety. ENDOCRINOLOGIC: + Notable episodes of diaphoresis, cold or heat intolerance. No polyuria or polydipsia. ALLERGIES: No history of asthma, hives, eczema or rhinitis. Physical Exam Const alert, oriented x3, no apparent distress and healthy appearing General Appearance: cooperative, well kempt and well developed Orientation / Consciousness: awake, oriented to person, oriented to place and oriented to time HEENT normocephalic, head/scalp atraumatic and moist oral mucous membranes Eyes PERRL, EOMs intact bilaterally and conjunctivae normal Neck supple, no JVD, thyroid normal and no carotid bruits General: trachea midline Resp normal respiratory effort, no retractions, no use of accessory muscles and clear to auscultation bilaterally Auscultation: Negative for rales, rhonchi or wheezes Cardio regular rate, regular rhythm, S1 normal heart sound, S2 normal heart sound, no murmurs, no rub and no gallops GI normal to inspection, nondistended, normoactive bowel sounds, soft to palpation and non-distended GI Narrative: Mild to moderate abdominal tenderness is noted across the abdomen particularly in the right upper quadrant. Extremity no clubbing, cyanosis or edema Skin no rashes or lesions noted General Skin Exam: no breakdown Neuro oriented x3, CN's II-XII intact bilaterally, no focal motor deficits and no sensory deficits noted Sensorium / Orientation: awake and alert Speech: speech normal Psych affect normal Lab / Micro Data 12/30/24 04:58 12/29/24 04:39 Labs: Laboratory Results - last 24 hr 12/31/24 04:19: Total Bilirubin 2.37 H, Direct Bilirubin 1.81 H, AST 21, ALT 50 H, Alkaline Phosphatase 290 H, Total Protein 5.5 L, Albumin 3.1 L, Globulin 2.4 Micro: Microbiology 12/28/24 20:08 Urine, Clean Catch Urine Culture - Final Mixed Gram Positive Organisms Assessment & Plan Assessment/Plan (1) History of pancreatitis: (2) Abdominal pain: (3) Nonspecific abdominal pain: (4) Cholestatic hepatitis: (5) Status post laparoscopic cholecystectomy: PLAN: 39-year-old male with a history of gallstone pancreatitis and choledocholithiasis, status post (s/p) ERCP with stone removal and cholecystectomy, presents with new-onset RUQ pain and jaundice. The patient describes the pain as similar to previous episodes of biliary colic. The pain is located in the RUQ, possibly radiating to the back or shoulder. Onset and duration are intermittent, lasting from 30 minutes to several hours. Noticed yellowing of his skin and eyes. No history of IV drug use or recent travel. He reports associated nausea and some indigestion. No report of fever, chills, tea-colored urine, or lee ann-colored stools. Denies vomiting, diarrhea, or change in appetite. Past Medical History (PMH): Gallstone pancreatitis (prior episode), Choledocholithiasis (prior episode)s/p ERCP with stone removal S/p cholecystectomy. He denies significant alcohol use, which could impact the pancreas. There is also no known risk factors for viral hepatitis. Differential Diagnosis: * Sphincter of Oddi Dysfunction (SOD):?A common cause of post-cholecystectomy syndrome (PCS). It can be difficult to diagnose but should be considered in patients with biliary pain and elevated liver enzymes, even with normal imaging. The normal MRCP does not rule it out. * Recurrent Choledocholithiasis: New stones can also form over time. A normal MRCP has high sensitivity but can miss small stones. * Bile Duct Stricture:?Can occur as a late complication of biliary surgery. Appears as a narrowing of the bile duct on imaging, but if subtle, may be missed on a routine MRCP. * Post-cholecystectomy Syndrome (PCS):?A broad term for continued abdominal symptoms after gallbladder removal. Both biliary and non-biliary causes must be considered. * Cystic Duct Remnant Syndrome:?A rare cause of PCS where a remnant of the cystic duct contains stones, leading to symptoms. * Hepatitis:?Inflammation of the liver from other causes (e.g., viral, medication) can present with RUQ pain and jaundice. If ERCP is negative then we will send biochemical profile. * Mirizzi Syndrome:?Post-cholecystectomy version is characterized by recurrent abdominal pain and jaundice. Plan: * Endoscopic Retrograde Cholangiopancreatography (ERCP) with Manometry:?This is the diagnostic gold standard for SOD. It can measure the pressure within the sphincter and is both diagnostic and therapeutic, allowing for sphincterotomy if needed. * Hepatobiliary Iminodiacetic Acid (HIDA) Scan:?May be considered, potentially with a fatty meal, to evaluate bile flow and sphincter function. Charges/Coding Visit Charges Inpatient E&M: 60275 Init Hosp L3
--- NOTE | 2024-12-31 13:08 | RAD_ITS ---
PROCEDURE: ERCP BILIARY/PANCREAS; O.R. FLUORO FOR C-ARM 12/31/2024 REASON FOR EXAM: ERCP TECHNIQUE: ERCP BILIARY/PANCREAS; O.R. FLUORO FOR C-ARM Fluoroscopy time: 143.4 seconds. COMPARISON: None. RAD/ERCP Biliary/Pancreas IMPRESSION: Intraoperative fluoroscopy was performed for ERCP. A total of 9 fluoroscopic i mages were also obtained. Reading Location: [place] [address]
--- NOTE | 2024-12-31 13:08 | RAD_ITS ---
PROCEDURE: ERCP BILIARY/PANCREAS; O.R. FLUORO FOR C-ARM 12/31/2024 REASON FOR EXAM: ERCP TECHNIQUE: ERCP BILIARY/PANCREAS; O.R. FLUORO FOR C-ARM Fluoroscopy time: 143.4 seconds. COMPARISON: None. RAD/O.R. Fluoro for C-Arm IMPRESSION: Intraoperative fluoroscopy was performed for ERCP. A total of 9 fluoroscopic i mages were also obtained. Reading Location: [place] [address]
--- NOTE | 2024-12-31 13:56 | PCM.POST.ANE ---
Anesthesia: Postop Eval I Current Vital Signs Temperature: 98 F Pulse Rate: 89 Blood Pressure: 124/86 Respiratory Rate: 16 Pulse Ox: 98 Oxygen Delivery Method: Room Air Assessment Airway patent: Yes Spontaneous unlabored respirations: Yes Mental status: Awake and Calm nausea: No Vomiting: No Anesthesia Complication: No Fluid Hydration Crystalloid volume administer (ml): 600 Total IV fluid infused: 600 Progress Note Anesthesia document: Postop Eval 1 completed: Yes
--- NOTE | 2024-12-31 15:28 | OP.PROVAT_ITS ---
12/31/2024 Benson Desai Re : ERCP procedure for Ulisses Wayne Dear Dr. Desai This procedure was performed on Tuesday, December 31, 2024. My impressions and recommendations are as follows: Impressions : - The entire main bile duct and entire biliary tree were dilated, secondary to a stricture. - The patient has had a cholecystectomy. - Choledocholithiasis was found. Complete removal was accomplished by biliary sphincterotomy and balloon extraction. - A pancreatic sphincterotomy was performed. - One temporary stent was placed into the ventral pancreatic duct. - A biliary sphincterotomy was performed. - The biliary tree was swept. - One temporary stent was placed into the common bile duct. Recommendations : My findings are described in the full procedure note, which is enclosed. If I can be of further assistance, please feel free to contact me at . Sincerely, Geraldo Thompson, 12/31/2024 3:27:49 PM This report has been signed electronically.
--- NOTE | 2024-12-31 15:28 | OP.ERCP_ITS ---
Patient Name: Ulisses Wayne Procedure Date: 12/31/2024 12:29 PM Date of : 1985 Age: 39 Procedure: ERCP Indications: Bile duct stone(s), Suspected ascending cholangitis, Jaundice, Elevated liver enzymes Providers: Geraldo Thompson DO Medicines: Monitored Anesthesia Care Patient Profile: This is a 39 year old male. Refer to note in patient chart for documentation of history and physical. Patient has symptoms of acute right upper quadrant abdominal pain and acute jaundice. His most recent ERCP for stone removal was within the past three years. Complications: No immediate complications. Procedure: Pre-Anesthesia Assessment: - Prior to the procedure, a History and Physical was performed, and patient medications and allergies were reviewed. The patient is competent. The risks and benefits of the procedure and the sedation options and risks were discussed with the patient. All questions were answered and informed consent was obtained. Patient identification and proposed procedure were verified by the physician in the pre-procedure area. Mental Status Examination: alert and oriented. Airway Examination: normal oropharyngeal airway and neck mobility. Respiratory Examination: clear to auscultation. CV Examination: normal. Prophylactic Antibiotics: The patient does not require prophylactic antibiotics. Prior Anticoagulants: The patient has taken no anticoagulant or antiplatelet agents. ASA Grade Assessment: II - A patient with mild systemic disease. After reviewing the risks and benefits, the patient was deemed in satisfactory condition to undergo the procedure. The anesthesia plan was to use monitored anesthesia care (MAC). Immediately prior to administration of medications, the patient was re-assessed for adequacy to receive sedatives. The heart rate, respiratory rate, oxygen saturations, blood pressure, adequacy of pulmonary ventilation, and response to care were monitored throughout the procedure. The physical status of the patient was re-assessed after the procedure. After obtaining informed consent, the scope was passed under direct vision. Throughout the procedure, the patient's blood pressure, pulse, and oxygen saturations were monitored continuously. The Duodenoscope was introduced through the mouth, and advanced to the duodenum and used to inject contrast into the bile duct and ventral pancreatic duct. The ERCP was accomplished without difficulty. The patient tolerated the procedure well. Scope In: 1:09:49 PM Scope Out: 1:25:30 PM Total Procedure Duration Time 0 hours 15 minutes 41 seconds Findings: The security controls assessor film was normal. The scope was advanced to a normal major papilla in the descending duodenum. Examination of the pharynx, larynx and associated structures, and upper GI tract was normal. The minor papilla was not found. The ventral pancreatic duct was deeply cannulated with the short-nosed traction sphincterotome. Contrast was injected. I personally interpreted the pancreatic duct images. Ductal flow of contrast was adequate. Image quality was adequate. Contrast extended to the pancreatic duct. Opacification of the entire pancreatic ductal system was successful. The maximum diameter of the ducts was 3 mm. The entire opacified area was normal. A long 0.025 inch Jagwire was passed into the ventral pancreatic duct. Ventral pancreatic sphincterotomy was made with a traction (standard) sphincterotome. There was no post-sphincterotomy bleeding. One 4 Fr by 5 cm temporary stent with a single internal pigtail was placed 5 cm into the ventral pancreatic duct. Clear fluid flowed through the stent. The stent was in good position. A long 0.025 inch Jagwire was passed into the biliary tree. The short-nosed traction sphincterotome was passed over the guidewire and the bile duct was then deeply cannulated. Contrast was injected. Opacification of the entire opacified area and entire biliary tree was successful. The maximum diameter of the ducts was 10 mm. The lower third of the main bile duct contained one stone, which was 6 mm in diameter. The entire opacified area, main bile duct and entire biliary tree were diffusely dilated, secondary to a stricture. The largest diameter was 10 mm. A cholecystectomy had been performed. A 5 mm biliary sphincterotomy was made with a traction (standard) sphincterotome using ERBE electrocautery. There was no post-sphincterotomy bleeding. The biliary tree was swept with a 12 mm balloon starting at the biliary pancreatic junction, upper third of the main bile duct, middle third of the main bile duct, lower third of the main duct, left intrahepatic duct(s), left main hepatic duct and main pancreatic duct. Sludge was swept from the duct. All stones were removed. One 10 Fr by 7 cm temporary stent was placed 5 cm into the common bile duct. Bile flowed through the stent. The stent was in good position. Impression: - The entire main bile duct and entire biliary tree were dilated, secondary to a stricture. - The patient has had a cholecystectomy. - Choledocholithiasis was found. Complete removal was accomplished by biliary sphincterotomy and balloon extraction. - A pancreatic sphincterotomy was performed. - One temporary stent was placed into the ventral pancreatic duct. - A biliary sphincterotomy was performed. - The biliary tree was swept. - One temporary stent was placed into the common bile duct. Procedure Code(s): --- Professional --- 18854, Endoscopic retrograde cholangiopancreatography (ERCP); with placement of endoscopic stent into biliary or pancreatic duct, including pre- and post-dilation and guide wire passage, when performed, including sphincterotomy, when performed, each stent [id number], 59, Endoscopic retrograde cholangiopancreatography (ERCP); with placement of endoscopic stent into biliary or pancreatic duct, including pre- and post-dilation and guide wire passage, when performed, including sphincterotomy, when performed, each stent [id number], Endoscopic retrograde cholangiopancreatography (ERCP); with removal of calculi/debris from biliary/pancreatic duct(s) 99906, 26, Endoscopic catheterization of the pancreatic ductal system, radiological supervision and interpretation CPT copyright 2021 [employer]. All rights reserved. The codes documented in this report are preliminary and upon trader review may be revised to meet current compliance requirements. Geraldo Thompson DO 12/31/2024 3:27:49 PM This report has been signed electronically. Number of Addenda: 0 Note Initiated On: 12/31/2024 12:29 PM
--- NOTE | 2024-12-31 15:51 | CHAPLAIN ---
Type of Pastoral Visit _x__ Initial Visit ___ Follow-up Visit ___ On-call Visit ___ General Patient Visit ___ Spiritual Assessment ___ Family Conference ___ Bereavement ___ Rapid Response ___ Code Blue ___ Other (describe below) Pastoral Care Referral From _x__ Patient ___ Family ___ Nurse ___ Physician ___ [employer] Machine Operator ___ Professor Of Food Biochemistry ___ Other (describe below) Sacrament/Intervention _x__ Active listening ___ Anointing ___ Pentecostal ___ Bereavement ___ Communion _x__ Karen exploration ___ _x__ Life review _x__ Prayer ___ Reconciliation ___ Sacrament of Sick ___ Supportive presence ___ Wedding ___ Other (describe below) Pastoral Comments at first attempt pt is out of the room and a calling card was left; second attempt and pt has returned and is resting in bed; pt is hoping to go home yet today; pt gives results of procedure and is relieved although had wished for a more prompt response to issue; pt is given time to talk about experience and his hopes for the future; spouse is not working currently but talks about her future as well and whether to return to work as a mother of three young children; prayer and presence given
--- NOTE | 2024-12-31 15:57 | DCINST_ITS ---
Discharge Instructions DC O2, CPAP, BIPAP needs Home O2 Discharge instructions: No Dressing / Incision Discharge Activity: Return to Normal Activity Weight Bearing Status: Full weight bearing Follow Up Care Test Results: Test results from this visit will be discussed in further detail at your follow- up appointment, if applicable. Discharge Plan Admission Admit Date/Time: 12/28/24 21:32 Primary Reason for Your Visit: Choledocholithiasis, common bile duct stricture Attending Provider: Carlos Strauss Primary Care Provider: Benson Desai Consulting Providers: Tiesha Clark; Dylan Oliveros; Geraldo Thompson; Antnoieta Jain; Sima Jimenez; Rose Marie Palacios Discharge Orders/Prescriptions Prescriptions: Continued famotidine 40 mg tablet 40 mg PO QDAY Qty: 30 1RF ondansetron 4 mg tablet,disintegrating 4 mg PO TID PRN (Reason: nausea and vomiting) Qty: 21 0RF sucralfate [Carafate] 1 gram tablet 1 g PO TID 14 Days Qty: 42 0RF oxycodone-acetaminophen [Endocet] 5-325 mg tablet 1 tab PO Q6H PRN (Reason: pain) 5 Days Qty: 20 0RF Referrals / Follow Up: Benson Desai DO [Primary Care Provider] - Geraldo Thompson DO [Med Staff - Active Staff] - See Referral Note (In 3 weeks) Disposition Disposition (needs filled in before D/C Order can be placed): Home, Self Care
--- NOTE | 2024-12-31 15:58 | DS.PCM_ITS ---
Providers Date of Admission: 12/28/24 Date of Discharge: 12/31/24 Primary Care Physician: Dr. Benson Desai, DO Consultations 12/30/24 08:42 Consult: Gastroenterology Routine Consulting Provider: [facility] Reason for Consult: suspected choledocholithiasis EMERGENT Consult: No MD Notified: Yes Date Notified: 12/30/24 Time Notified: 08:43 Method of Notification: Verbal Reason For Visit: INTRACTABLE ABD PAIN, HYPERBILIRUBINEMIA Diagnosis Discharge Diagnosis (1) History of pancreatitis: Status: Acute Code(s): Z87.19 - Personal history of other diseases of the digestive system (2) Abdominal pain: Status: Acute Code(s): R10.9 - Unspecified abdominal pain (3) Nonspecific abdominal pain: Status: Acute Code(s): R10.9 - Unspecified abdominal pain (4) Cholestatic hepatitis: Status: Resolved Code(s): K75.89 - Other specified inflammatory liver diseases (5) Status post laparoscopic cholecystectomy: Status: Acute Code(s): Z90.49 - Acquired absence of other specified parts of digestive tract Plan 1. Choledocholithiasis with abdominal pain #2 common bile duct stricture #3 elevated liver enzymes secondary to choledocholithiasis and bile duct stricture Total clinical time spent by myself addressing the patient's medical issues, reviewing all of his data, and collaborating with patient's care team: 35 minutes Medications at Discharge Home Medications famotidine 40 mg tablet 40 mg PO QDAY #30 tabs 12/25/24 ondansetron 4 mg disintegrating tablet 4 mg PO TID PRN nausea and vomiting #21 tabs 12/27/24 oxycodone-acetaminophen 5 mg-325 mg tablet (Endocet) 1 tab PO Q6H PRN pain 5 days #20 tabs 12/27/24 sucralfate 1 gram tablet (Carafate) 1 g PO TID 14 days #42 tabs 12/27/24 Hospital Course Operations ERCP (With sphincterotomy, insertion of temporary stent, and removal of choledocholithiasis) Procedures None Summary of Care Provided Minutes Spent on Discharge: 31 Hospital Course: This 39-year-old white male was seen in the emergency room at [facility] with a chief complaint of generalized abdominal pain. Workup in the emergency room included liver enzymes which were elevated, white blood cell count was normal, and lipase was normal. CT of the abdomen and pelvis showed mild degree of central intrahepatic biliary dilatation most likely secondary to previous cholecystectomy, no acute abnormality was seen. Patient was admitted to the general medical floor and given IV analgesics and IV fluids. Patient underwent an MRCP which was read out as showing no evidence of stones. Patient continued to have abdominal pain however which was quite severe at times. On 12/31/2024, patient underwent an ERCP which showed evidence of choledocholithiasis, stone was removed and the patient did have a common bile duct stricture and a stent was inserted and the stricture was dilated. Patient tolerated the procedure well. On 12/31/2024, patient was seen and examined: On examination he appeared in good health and spirits. Vital signs as documented. Skin warm and dry and without overt rashes. Neck without JVD, neck was supple, trachea midline, thyroid was normal. Lungs clear bilaterally, normal air movement was noted. Heart exam notable for regular rhythm, normal sounds and absence of murmurs, rubs or gallops. Abdomen unremarkable and without evidence of organomegaly, masses, or abdominal aortic enlargement. Bowel sounds are present, abdomen is not distended. Extremities nonedematous, no cyanosis was noted, no clubbing was noted. Neuro: Cranial nerves II through XII are grossly intact, no focal motor deficits were noted, sensation to light touch and pinprick intact, motor exam 5/5 throughout. Psych: Patient is alert and oriented x3, he does not appear anxious or depressed, he does not appear agitated. Patient was felt to be stable for discharge home on 12/31/2024. Weight / BMI Weight Weight: 111.1 kg Body Mass Index (BMI) 30.6 ABG / Lab / Microbiology Data 12/30/24 04:58 12/29/24 04:39 Laboratory: Laboratory Results - last 24 hr 12/31/24 04:19: Total Bilirubin 2.37 H, Direct Bilirubin 1.81 H, AST 21, ALT 50 H, Alkaline Phosphatase 290 H, Total Protein 5.5 L, Albumin 3.1 L, Globulin 2.4 Microbiology: Microbiology 12/28/24 19:25 Blood Culture (Wb) - Anticubital Left Blood Culture - Preliminary No growth in 48 hours. 12/28/24 19:20 Blood Culture (Wb) - No Site/Description Given Blood Culture - Preliminary No growth in 48 hours. 12/28/24 20:08 Urine, Clean Catch Urine Culture - Final Mixed Gram Positive Organisms 12/28/24 20:25 Mucosa - Nose SARS-CoV-2, Influenza & RSV (PCR) - Final Radiography Diagnostic Testing: Radiology Impression C-Arm Fluoroscopy 12/31/24 13:08 IMPRESSION: Intraoperative fluoroscopy was performed for ERCP. A total of 9 fluoroscopic images were also obtained. Reading Location: [facility]- Endo Retro Cholangiopancreatogram 12/31/24 13:08 IMPRESSION: Intraoperative fluoroscopy was performed for ERCP. A total of 9 fluoroscopic images were also obtained. Reading Location: [place] [id number] D/C Instructions Weight Bearing Status: Full weight bearing DC O2, CPAP, BIPAP Needs Home O2 Discharge instructions: No Meaningful Use Info Meaningful Use Meaningful Use Diagnoses (Choose all that apply): None applicable Discharge Plan Admission Admit Date/Time: 12/28/24 21:32 Primary Reason for Your Visit: Choledocholithiasis, common bile duct stricture Attending Provider: Carlos Strauss Primary Care Provider: Benson Desai Consulting Providers: Tiesha Clark; Dylan Oliveros; Geraldo Thompson; Antonieta Jain; Sima Jimenez; Rose Marie Palacios Discharge Orders/Prescriptions Prescriptions: Continued famotidine 40 mg tablet 40 mg PO QDAY Qty: 30 1RF ondansetron 4 mg tablet,disintegrating 4 mg PO TID PRN (Reason: nausea and vomiting) Qty: 21 0RF sucralfate [Carafate] 1 gram tablet 1 g PO TID 14 Days Qty: 42 0RF oxycodone-acetaminophen [Endocet] 5-325 mg tablet 1 tab PO Q6H PRN (Reason: pain) 5 Days Qty: 20 0RF Referrals / Follow Up: Benson Desai DO [Primary Care Provider] - Geraldo Thompson DO [Med Staff - Active Staff] - See Referral Note (In 3 weeks) Disposition Disposition (needs filled in before D/C Order can be placed): Home, Self Care Charges/Coding Visit Charges Inpatient E&M: 09679 Disch Hosp >30min
--- NOTE | 2024-12-31 16:10 | PHA.DC.MR.R ---
Pharmacy [facility] Reconciliation Pharmacy Service has performed discharge medication reconciliation for this patient. The patient's discharge medication list was reviewed for discrepancies and discrepancies were resolved. Medications at Discharge Home Medications famotidine 40 mg tablet 40 mg PO QDAY #30 tabs 12/25/24 ondansetron 4 mg disintegrating tablet 4 mg PO TID PRN nausea and vomiting #21 tabs 12/27/24 oxycodone-acetaminophen 5 mg-325 mg tablet (Endocet) 1 tab PO Q6H PRN pain 5 days #20 tabs 12/27/24 sucralfate 1 gram tablet (Carafate) 1 g PO TID 14 days #42 tabs 12/27/24
== END 2024-12-31 16:35 | disposition home or self-care (01) | DRG 446 ==
LOC: ED 19:29 → MS3 23:10
PROVIDERS: Internal Medicine Gastroenterology; Admitting Provider Family Medicine; Emergency Provider Emergency Medicine; PCP Family Medicine; Visit Provider Internal Medicine
PROC: 0FC98ZZ Extirpation of Matter from Common Bile Duct, Via Natural or Artificial Opening Endoscopic (ICD-10-PCS; CPT 43260; principal; 2024-12-31 11:40)
DX: K80.51 Calculus of bile duct without cholangitis or cholecystitis with obstruction (principal); E66.9 Obesity, unspecified; K75.89 Other specified inflammatory liver diseases; K21.9 Gastro-esophageal reflux disease without esophagitis; Z90.49 Acquired absence of other specified parts of digestive tract; Z79.899 Other long term (current) drug therapy; R03.0 Elevated blood-pressure reading, without diagnosis of hypertension; Z68.30 Body mass index [BMI] 30.0-30.9, adult; R74.8 Abnormal levels of other serum enzymes; Z87.19 Personal history of other diseases of the digestive system
CPT/HCPCS: 36415; 71045; 74019; 74181; 74330; 76000; 80048; 80053; 80076; 81001; 83605; 84145; 85025; 85610; 85730; 86706; 86803; 87040; 87086; 87088; 87340; 87631; 93005; 94668; 99252; 99285; C2625; A4216; G0463; J2405

== ENCOUNTER 2025-04-18 10:02 | Day surgery (SDC) | payer OTHER, SELFPAY ==
[2025-04-18] VITALS (10 sets, daily range): BP systolic 103–135; BP diastolic 63–88; PULSE 56–71; RESP 12–16; TEMP 36.6–37.1; O2SAT 95–100; BMI 31.1
--- NOTE | 2025-04-18 10:00 | RAD_ITS ---
PROCEDURE: ERCP BILIARY/PANCREAS; O.R. FLUORO FOR C-ARM 04/18/2025 REASON FOR EXAM: ERCP, STENT REMOVAL TECHNIQUE: Procedure Code: RADERCP; RADORFL_C_ARM Modality: DX Procedure: ERCP BILIARY/PANCREAS; O.R. FLUORO FOR C-ARM. Dose: 39.51 mGy. Fluoroscopy time: 96.9 seconds. RAD/ERCP Biliary/Pancreas IMPRESSION: Fluoroscopic ERCP performed, including for stent removal. 12 fluoroscopic imag es were also obtained. Reading Location: [id number]
--- NOTE | 2025-04-18 10:00 | RAD_ITS ---
PROCEDURE: ERCP BILIARY/PANCREAS; O.R. FLUORO FOR C-ARM 04/18/2025 REASON FOR EXAM: ERCP, STENT REMOVAL TECHNIQUE: Procedure Code: RADERCP; RADORFL_C_ARM Modality: DX Procedure: ERCP BILIARY/PANCREAS; O.R. FLUORO FOR C-ARM. Dose: 39.51 mGy. Fluoroscopy time: 96.9 seconds. RAD/O.R. Fluoro for C-Arm IMPRESSION: Fluoroscopic ERCP performed, including for stent removal. 12 fluoroscopic imag es were also obtained. Reading Location: [id number]
[2025-04-18] MEDS: Lactated Ringers 1,000 ML 15 ML IV (10:33)
--- NOTE | 2025-04-18 10:43 | HP.PCM_ITS ---
HPI - General General Date of Admission: 04/18/25 Date of Service: 04/18/25 Chief Complaint: Biliary stent removal HPI Narrative *[facility] hospitalization 04.17.23-04.19.23 for management of acute gallstone pancreatitis and acute cholecystitis. ERCP 04.18.23 biliary papillary stenosis, benign; biliary dilation with stone causing obstruction; choledocholithiasis; biliary sphincterotomy; biliary tree swept; temporary stent placed in CBD. No specimens ? Surgery 04.19.23 cholecystectomy without complication. Cholesterolosis which chronic cholecystitis and sludge. [facility] ED 05.24.23 with increased upper abdominal pain without concern for pancreatitis. OV 05.30.23 epigastric pain has resolved; RUQ pain is new and intermittent with unknown trigger. Reports he is no longer taking PPI but is not having reflux. Has been paying attention to his diet in regard to cholecystectomy. [facility] ED 12.25.24 with epigastric pain and chills. Ct abd negative for pancreatitis or other acute process. Blood work wnl. Discharged OV 12.25.24 patient here today for epigastric pain and chills over the past 24 hours. Patient notes this is what it felt like when he had pancreatitis in the past. He did present to the ED regarding this and workup was negative. He is not on PPI currently. Pain is in the epigastric region. He has not really eaten much due to no appetite. He has had some nausea but no vomiting. [facility] hospitalization 12.28.24 - 12.31.24 pt presents with persistent abdominal pain - GI consulted for abd pain and jaundice ERCP 12.31.24 The entire main bile duct and entire biliary tree were dilated, secondary to a stricture. The patient has had a cholecystectomy. Choledocholith iasis was found. Complete removal was accomplished by biliary sphincterotomy and balloon extraction. A pancreatic sphincterotomy was performed. One temporary stent was placed into the ventral pancreatic duct. A biliary sphincterotomy was performed. The biliary tree was swept. One temporary stent was placed into the common bile duct. OV 11.08.31 pt reports that he is feeling well and denies GI symptoms of concern at this time. Pt reports that he will occasionally have some discomfort in his abdomen. Is here to discuss scheduling stent removal. [facility] Medical History Nonspecific abdominal pain Cholestatic hepatitis GERD (gastroesophageal reflux disease) Obesity Gallstone pancreatitis Non-smoker Home Medications ?Medication ?Instructions ?Recorded ?Last Taken ?Type NK 04/15/25 Unknown History Allergy/AdvReac Type Severity Reaction Status Date / Time No Known Allergies Allergy Verified 04/18/25 10:26 Family History Mother Hypertension Thyroid disorder Father Hypertension Surgical History Status post laparoscopic cholecystectomy History of cholecystectomy S/P ORIF (open reduction internal fixation) fracture Social History household members: spouse and children Smoking Status: Never smoker alcohol intake: current alcohol intake frequency: holidays/special occasions only substance use type: does not use ROS Constitutional Constitutional: Denies fatigue, fever(s), poor appetite, weight gain or weight loss Gastrointestinal Gastrointestinal: Denies belching, bloating, change in bowel habits, change in stool character, chewing difficulty, coffee ground emesis, constipation, cramping, diarrhea, dyspepsia, dysphagia, early satiety, excessive flatus, fecal incontinence, heartburn, hematemesis, hematochezia, hemorrhoids, loose stools, melena, nausea, odynophagia, rectal bleeding, tenesmus, vomiting or weight changes Vital Signs Vital Signs Vital Signs: 04/18/25 10:30 04/18/25 10:30 04/18/25 10:30 Temperature 98.7 F Temperature Source Temporal Pulse Rate 67 Respiratory Rate 16 Respiratory Pattern Normal Blood Pressure 135/88 H Blood Pressure Mean 103 Blood Pressure Source Monitor Blood Pressure Position Semi-Fowlers Blood Pressure Location Left Arm Baseline BP 135/88 Pulse Ox 100 Oxygen Delivery Method Room Air Weight Weight: 249 lb 1.957 oz Body Mass Index (BMI) 31.1 Physical Exam Const alert, oriented x3, no apparent distress and healthy appearing General Appearance: cooperative GI normal to inspection, nondistended, normoactive bowel sounds, soft to palpation, non-tender and non-distended Percussion: normal to percussion Rectal Exam: deferred Assessment & Plan Assessment/Plan (1) Acute gallstone pancreatitis: (2) Acute pancreatitis: QUALIFIERS: Pancreatitis type: biliary Acute pancreatitis com plication: no infection or necrosis Qualified Code(s): K85.10 - Biliary acute pancreatitis without necrosis or infection PLAN: Assessment and Plan Assessment and Plan (1) History of cholecystectomy: Status: Inactive Plan: Ulisses is a 39-year-old male patient here today for follow-up. Over the last 24 hours patient has had epigastric pain, lack of appetite and nausea. She has a past medical history of gallstone pancreatitis in 2022. At that time he underwent cholecystectomy and ERCP. He has had a few episodes of similar pain since his surgery. He presented back to the hospital abdominal pain and was diagnosed with choled ocholithiasis and pancreatitis. He underwent a third ERCP with stone removal and a plastic stent placement. He reports no current abdominal pain or cramping, chest pain, or shortness of breath. He is feeling well at the moment. We had a discussion regarding strategies for preventing stone recurrence, specifically focusing on medical therapy with ursodiol versus lifestyle modifications, including intermittent fasting and increasing water intake. The patient expresses interest in scheduling the follow-up procedure for the biliary stent removal or replacement. The patient is at high risk for future recurrence given his history and anatomical risk factors (likely CBD dilation based on prior interventions). The current management plan focuses on long-term prevention and appropriate follow- up for stent management. Plan * Medications: * Continue current medications. * Discussed starting?ursodiol (8-10 mg/kg/day in divided doses)?as a preventative measure to reduce cholesterol saturation in bile and decrease the risk of stone recurrence. The patient is willing to consider this therapy. * Lifestyle: * Reinforced the importance of?adequate hydration?(>2 liters/day) to dilute bile and help prevent stone formation, which has been shown to reduce recurrence rates. * Advised against prolonged?intermittent fasting?as long fasting periods can increase the cholesterol saturation index of bile and potentially increase gallstone formation risk. Recommended regular meal patterns. * Procedure Follow-up: * The patient has an indwelling plastic biliary stent. 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 * Schedule a follow-up ERCP?for stent removal/replacement in approximately 6- 8 weeks. A follow-up ERCP (rather than simple EGD) is the standard practice in choledocholithiasis patients as therapeutic interventions (stone/sludge removal, stent re-insertion) are often required at the time of follow-up (up to 90% in some studies). * Patient Education: * Educated patient on signs and symptoms of potential complications (fever, jaundice, recurrent abdominal pain, chills) and the need to seek immediate medical attention if they occur. * Confirmed patient understanding of medical therapy vs. lifestyle changes and the necessity of the follow-up procedure for stent management. (2) History of pancreatitis: Status: Inactive (3) Abdominal pain: Status: Inactive ]
--- NOTE | 2025-04-18 10:52 | PRE.ANES_ITS ---
ASA Classification* ASA Classification ASA Classification: 2 Assessment & Plan Anesthesia* Anesthesia Assessment Anesthesia Assessment: Discussed sedation and/or anesthesia options, risks, benefits, and alternatives with patient/parents/legal guardian/POA. Questions invited. The patient/parents/legal guardian/POA seems to understand and agrees to proceed with anesthesia plan. Reviewed the physical assessment, medical history, allergy history and patient home medications list prior to surgery/procedure/anesthetic and documented any changes. Performed airway and anesthesia risk assessments. Anesthesia Type Anesthesia Type: MAC History Source History Obtained from:: Patient and Chart Anesthesia Focused Assessment* Temperature: 98.7 F Pulse Rate: 67 Blood Pressure: 135/88 Respiratory Rate: 16 Pulse Ox: 100 Oxygen Delivery Method: Room Air Airway Assessment Mouth opens: >3 cm Mallampati Score: III Teeth Condition: Chipped/Broken (Tooth #9 is slightly chipped.) Neck Range of motion (ROM): Full ROM Labs Anesthesia Preop lab: CBC WBC, (4.4-11.0) 4.6 K/mm3 12/30/24, 04:58 RBC, (4.6-6.2) 4.04 M/mm3 L 12/30/24, 04:58 Hgb, (13.0-16.5) 12.0 g/dL L 12/30/24, 04:58 Hct, (40-54) 35.4 % L 12/30/24, 04:58 Plt Count, (150-450) 170 K/mm3 12/30/24, 04:58 CHEMISTRY Potassium, (3.3-5.1) 3.9 mmol/L 12/29/24, 04:39 Sodium, (133-145) 138 mmol/L 12/29/24, 04:39 BUN, (4-19) 9 mg/dL 12/29/24, 04:39 Creatinine, (0.70-1.20) 0.89 mg/dL 12/29/24, 04:39 Glucose, (70-99) 74 mg/dL 12/29/24, 04:39 COAG PT, (11.7-14.9) 14.1 SECONDS 12/28/24, 19:00 Pre-Assessment Diagnosis/Proposed Procedure Planned Operative Procedure(s): ERCP, STENT REMOVAL Anesthesia History 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 APR 2023. Any Problems With Anesthesia No 04/15/25 13:19 Cholinesterase deficiency No 04/15/25 13:19 You/Your Family Experience No 04/15/25 13:19 fever (hyperthermia) with Relationship Recent Exposure to Contagious No 04/18/25 10:30 Disease Does patient have nerve No 04/15/25 13:19 stimulator Patient instructed to have device shut off --Does patient have Pacemaker No 04/18/25 10:30 or ICD? When Was Last Pacemaker Check QUESTION #4 FULL TEXT: You/Your Family Experience fever (hyperthermia) with Anesthesia Last Oral Intake Last Oral intake: Last Oral Intake NPO since 00:00 04/18/25 10:30 Meds taken in AM with sips of No 04/18/25 10:30 water? Meds patient instructed to take am of surgery PONV PONV - boring machine operator double end: PONV - boring machine operator double end Female No 04/15/25 13:19 HX of Motion Sickness No 04/15/25 13:19 HX of N/V After Surgery No 04/15/25 13:19 Non-Smoker Yes 04/15/25 13:19 Duration of Surgery greater No 04/15/25 13:19 than 60 minutes Number of Risk Factors 1 04/15/25 13:19 PONV Score Low Risk 04/15/25 13:19 Height & Weight Height & Weight: Anesthesia: Height & Weight Height 6 ft 3 in 04/18/25 10:30 Weight: 113 kg 04/18/25 10:30 Body Mass Index (BMI) 31.1 04/18/25 10:30 Respiratory Assessment Respiratory Assessment - boring machine operator double end: Respiratory Tract Infection Hx - boring machine operator double end Hx Respiratory Tract Infection No 04/15/25 13:19 STOP Sleep Apnea STOP Sleep Apnea - boring machine operator double end: STOP Sleep Apnea - boring machine operator double end Hx Hypertension No 04/15/25 13:19 Hx Sleep Apnea No 04/15/25 13:19 CPAP BIPAP Do you snore loudly (louder No 04/15/25 13:19 than talking or can be heard Do you often feel tired/ No 04/15/25 13:19 fatigued/ sleepy during daytime? Has anyone observed you stop No 04/15/25 13:19 breathing during sleep? STOP Results Negative 04/15/25 13:19 QUESTION #5 FULL TEXT : Do you snore loudly (louder than talking or can be heard through closed doors)? 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 Specify any problems Hx of Preganancy in last 3 N/A 04/15/25 13:19 Months Nurse Filling Out Transfusion [facility] 04/15/25 13:19 & Questions: Date: 04/15/25 04/15/25 13:19 Time: 13:20 04/15/25 13:19 Patient unable to answer at this time (ie. confused, unrespo /Reproduction History /Reproductive History - boring machine operator double end: /Reproductive Hx- boring machine operator double end Hx Now Gestational Age (in weeks): EDC: Hx Hx Para Hx Section SAB No 12/31/24 09:24 Does the father of the baby or his family experience fever w Father of the baby Malignant Hypertension history comment Active Medications Active Medications: Current Medications Generic Name Dose Route Start Last Admin Trade Name Freq PRN Reason Stop Dose Admin Lactated Ringer's 1,000 mls @ 15 mls/hr 04/18/25 10:30 04/18/25 10:33 IV 15 mls/hr .Q48H STEPAN Administration PFSH Medical History Nonspecific abdominal pain Cholestatic hepatitis GERD (gastroesophageal reflux disease) Obesity Gallstone pancreatitis Non-smoker Home Medications ?Medication ?Instructions ?Recorded ?Last Taken ?Type NK 04/15/25 Unknown History Allergy/AdvReac Type Severity Reaction Status Date / Time No Known Allergies Allergy Verified 04/18/25 10:26 Family History Mother Hypertension Thyroid disorder Father Hypertension Surgical History Status post laparoscopic cholecystectomy History of cholecystectomy S/P ORIF (open reduction internal fixation) fracture Social History household members: spouse and children Smoking Status: Never smoker alcohol intake: current alcohol intake frequency: holidays/special occasions only substance use type: does not use Review of Systems (Anesthesia) ROS Narrative System reviewed and no additional complaints, except as documented.
--- NOTE | 2025-04-18 11:00 | FLU_PTH ---
PATIENT: ANA LANE LOC: EN U#:[id number] AGE/SX: 39/M ROOM: RE04/18/[address]: Dr. Geraldo Thompson DO : 1985 BED: DIS: 04/18/2025 SPEC #: [id number] RECD: 04/18/25 15:12 STATUS: PELON REKeely #: [id number] YAN: 04/18/25 11:[address]: Geraldo Thompson DEPT: CYTOLOGY RECD BY: Lucia Welch ENTERED: 04/19/25 10:51 SP TYPE: Fluid OTHR DR: Dr. Benson Desai, Tissues: Bile duct, NOS Procedures: Special Stain Group II Surgery Specimen Level IV Cytospin Fluid HEADER OPERATION: ERCP, stent removal and exchange PRE-OP DIAGNOSIS: Acute gallstone pancreatitis, acute pancreatitis TISSUE SUBMITTED: A- Biliary stent for cytology DIAGNOSIS CYTOLOGY A. Biliary stent, ERCP (cytospin, cellblock): - No malignant cells identified. CYTOLOGY STUDY Slides are reviewed. CYTOLOGY GROSS A. Received is one 10cm bluish-black stent with 0.4 ml of [id number] material labeled with the patient's name and and designated per the requisition as Biliary stent . Submitted for cytology and cell block preparation. Mr 04/19/2025 CPT: 74993,49877
--- NOTE | 2025-04-18 12:13 | OP.PROVAT_ITS ---
04/18/2025 Benson Desai Re : ERCP procedure for Ulisses Wayne Dear Dr. Desai This procedure was performed on April. My impressions and recommendations are as follows: Impressions : - A single localized biliary stricture was found in the lower third of the main bile duct. - The lower third of the main bile duct was dilated, with a stone causing an obstruction. - The patient has had a cholecystectomy. - Choledocholithiasis was found. Complete removal was accomplished by biliary sphincterotomy and balloon extraction. - One stent was removed from the biliary tree. - A biliary sphincterotomy was performed. - The biliary tree was swept. - One temporary stent was placed into the ventral pancreatic duct. Recommendations : My findings are described in the full procedure note, which is enclosed. If I can be of further assistance, please feel free to contact me at . Sincerely, Geraldo Thompson, 04/18/2025 12:12:55 PM This report has been signed electronically.
--- NOTE | 2025-04-18 12:13 | OP.ERCP_ITS ---
Patient Name: Ulisses Wayne Procedure Date: 04/18/2025 11:21 AM Date of : 1985 Age: 39 Procedure: ERCP Indications: Biliary stent removal Providers: Geraldo Thompson DO Referring MD: Benson Desai Medicines: Monitored Anesthesia Care Patient Profile: This is a 39 year old male. Refer to note in patient chart for documentation of history and physical. Patient has symptoms of acute right lower quadrant abdominal pain and chronic epigastric abdominal pain. His most recent ERCP for stent and ERCP for stone removal. He is status post laparoscopic cholecystectomy. Complications: No immediate complications. Procedure: Pre-Anesthesia Assessment: - Prior to the procedure, a History and Physical was performed, and patient medications and allergies were reviewed. The patient is competent. The risks and benefits of the procedure and the sedation options and risks were discussed with the patient. All questions were answered and informed consent was obtained. Patient identification and proposed procedure were verified by the physician in the pre-procedure area. Mental Status Examination: alert and oriented. Airway Examination: normal oropharyngeal airway and neck mobility. Respiratory Examination: clear to auscultation. CV Examination: normal. Prophylactic Antibiotics: The patient does not require prophylactic antibiotics. Prior Anticoagulants: The patient has taken no anticoagulant or antiplatelet agents. ASA Grade Assessment: II - A patient with mild systemic disease. After reviewing the risks and benefits, the patient was deemed in satisfactory condition to undergo the procedure. The anesthesia plan was to use monitored anesthesia care (MAC). Immediately prior to administration of medications, the patient was re-assessed for adequacy to receive sedatives. The heart rate, respiratory rate, oxygen saturations, blood pressure, adequacy of pulmonary ventilation, and response to care were monitored throughout the procedure. The physical status of the patient was re-assessed after the procedure. After obtaining informed consent, the scope was passed under direct vision. Throughout the procedure, the patient's blood pressure, pulse, and oxygen saturations were monitored continuously. The Duodenoscope was introduced through the mouth, and advanced to the duodenum and used to inject contrast into the bile duct and ventral pancreatic duct. The ERCP was accomplished without difficulty. The patient tolerated the procedure well. Scope In: 11:46:54 AM Scope Out: 12:03:23 PM Total Procedure Duration Time 0 hours 16 minutes 29 seconds Findings: The seam finisher film was normal. The esophagus was successfully intubated under direct vision. The scope was advanced to a normal major papilla in the descending duodenum without detailed examination of the pharynx, larynx and associated structures, and upper GI tract. The upper GI tract was grossly normal. One stent was removed from the biliary tree using a snare and sent for cytology. The stent was found to be partially occluded via the water column test. A long 0.025 inch Jagwire was passed into the biliary tree. The short-nosed traction sphincterotome was passed over the guidewire and the bile duct was then deeply cannulated. Contrast was injected. I personally interpreted the bile duct and pancreatic duct images. There was brisk flow of contrast through the ducts. Image quality was adequate. Contrast extended to the entire biliary tree. Contrast extended to the pancreatic duct. Opacification of the entire opacified area and entire biliary tree was successful. The maximum diameter of the ducts was 10 mm. The lower third of the main bile duct contained a single localized stenosis 6 mm in length. The lower third of the main bile duct was diffusely dilated, with a stone causing an obstruction. The largest diameter was 12 mm. A cholecystectomy had been performed. A 5 mm biliary sphincterotomy was made with a traction (standard) sphincterotome using ERBE electrocautery. There was no post-sphincterotomy bleeding. The biliary tree was swept with a 12 mm balloon starting at the bifurcation. Sludge was swept from the duct. All stones were removed. One 4 Fr by 5 cm temporary stent with a single internal pigtail was placed 5 cm into the ventral pancreatic duct. Clear fluid flowed through the stent. The stent was in good position. Impression: - A single localized biliary stricture was found in the lower third of the main bile duct. - The lower third of the main bile duct was dilated, with a stone causing an obstruction. - The patient has had a cholecystectomy. - Choledocholithiasis was found. Complete removal was accomplished by biliary sphincterotomy and balloon extraction. - One stent was removed from the biliary tree. - A biliary sphincterotomy was performed. - The biliary tree was swept. - One temporary stent was placed into the ventral pancreatic duct. Procedure Code(s): --- Professional --- 53087, Endoscopic retrograde cholangiopancreatography (ERCP); with placement of endoscopic stent into biliary or pancreatic duct, including pre- and post-dilation and guide wire passage, when performed, including sphincterotomy, when performed, each stent 11019, 59, Endoscopic retrograde cholangiopancreatography (ERCP); with removal of foreign body(s) or stent(s) from biliary/pancreatic duct(s) 41111, Endoscopic retrograde cholangiopancreatography (ERCP); with removal of calculi/debris from biliary/pancreatic duct(s) 17719, 59, Endoscopic retrograde cholangiopancreatography (ERCP); with sphincterotomy/papillotomy 34355, 26, Combined endoscopic catheterization of the biliary and pancreatic ductal systems, radiological supervision and interpretation CPT copyright 2021 [employer]. All rights reserved. The codes documented in this report are preliminary and upon regulatory affairs manager review may be revised to meet current compliance requirements. Geraldo Thompson DO 04/18/2025 12:12:55 PM This report has been signed electronically. Number of Addenda: 0 Note Initiated On: 04/18/2025 11:21 AM
--- NOTE | 2025-04-18 12:18 | PCM.POST.ANE ---
Anesthesia: Postop Eval I Current Vital Signs Temperature: 98.3 F Pulse Rate: 71 Blood Pressure: 107/63 Respiratory Rate: 14 Pulse Ox: 95 Oxygen Delivery Method: Room Air Assessment Airway patent: Yes Spontaneous unlabored respirations: Yes Mental status: Asleep nausea: No Vomiting: No Anesthesia Complication: No Fluid Hydration Crystalloid volume administer (ml): 1,300 Total IV fluid infused: 1,300 Progress Note Anesthesia document: Postop Eval 1 completed: Yes
--- NOTE | 2025-04-18 12:34 | PCM.POSTANE2 ---
Anesthesia Postop Eval I Sum Postop Eval Completion status Anesthesia document: Postop Eval 1 completed: Yes Anesthesia Postop Eval I Summary Anesthesia Postop Eval I Summary: Anesthesia Postop Eval I: Assessment Summary Airway patent Yes 04/18/25 12:19 [email or web address] Spontaneous unlabored Yes 04/18/25 12:19 [email or web address] respirations Mental status Asleep 04/18/25 12:19 [email or web address] nausea No 04/18/25 12:19 [email or web address] Vomiting No 04/18/25 12:19 [email or web address] Anesthesia Postop Eval I: Fluid Summary Crystalloid volume administer 1,300 04/18/25 12:19 [email or web address] (ml) Colloids volume administered ( ml) Blood Product volume administered (ml) Total IV fluid infused 1,300 04/18/25 12:19 [email or web address] Anesthesia Postop Eval I: Summary Notes Anesthesia Complication No 04/18/25 12:19 [email or web address] Anesthesia Complication Comment: Post-operative progress note Anesthesia: Postop Eval II Evaluation Mental status: Awake Pain Level: 1 nausea: No Vomiting: No
== END 2025-04-18 14:15 | disposition home or self-care (01) ==
LOC: EN 10:02 → AC 10:06
PROVIDERS: PCP Family Medicine; Referring Provider Family Medicine; Visit Provider Internal Medicine Gastroenterology
PROC: (CPT 43260; principal; 2025-04-18 10:40)
DX: Z46.59 Encounter for fitting and adjustment of other gastrointestinal appliance and device (principal); K85.10 Biliary acute pancreatitis without necrosis or infection; Z90.49 Acquired absence of other specified parts of digestive tract; K21.9 Gastro-esophageal reflux disease without esophagitis; K80.51 Calculus of bile duct without cholangitis or cholecystitis with obstruction
CPT/HCPCS: 43264; 43276; 74330; 76000; 88108; 88305; 88313; J2405